=== PATIENT | male | born 1965 | race Caucasian/White ===

== ENCOUNTER 2019-04-09 09:26 | Emergency (ER) | payer BC ==
[2019-04-09 09:49] VITALS: TEMP 99.8
[2019-04-09] MEDS ORDERED: SODIUM CHLORIDE 0.9% 500 ML 500 ML IV STA (10:06)
[2019-04-09 10:22] LABS: Basophils # (A) 0.1 k/uL (0-0.2); Basophils % (A) 1 %; Eosinophils # (A) 0.1 k/uL (0-0.7); Eosinophils % (A) 1 %; HCT 45.1 % (39.0-53.0); HGB 14.9 gm/dL (13.0-17.5); Lymphocytes % (A) 14 %; MCH 29.4 pg (25.0-35.0); MCHC 33.1 g/dL (31.0-37.0); Mean Platelet Volume 7.3; Monocytes # (A) 0.4 k/uL (0-1.0); Monocytes % (A) 6 %; Neutrophils # (A) 5.5 k/uL (1.3-7.7); Neutrophils % (A) 76 %; Platelet Count 253 k/uL (150-450); RBC 5.07 m/uL (4.30-5.90); RDW 12.6 % (11.5-15.5); WBC 7.2 k/uL (3.8-10.6)
[2019-04-09 10:31] LABS: INR 0.9 (<1.2); Partial Thromboplastin Time 27.6 sec (22.0-30.0); Prothrombin Time 9.7 sec (9.0-12.0)
--- NOTE | 2019-04-09 10:31 | ED ---
General Adult HPI - General Source: patient, RN notes reviewed Mode of arrival: ambulatory Limitations: no limitations <Leo Kinsey - Last Filed: 04/09/19 11:49> <Gwen Rojas - Last Filed: 04/11/19 22:06> - General Chief complaint: Chest Pain Stated complaint: poss pneumonia/FER Time Seen by Provider: 04/09/19 09:57 - History of Present Illness Initial comments: 53-year-old male with a past medical history hypertension presents to the emergency department for chief complaint of cough. Patient has had congestion for the past 2 weeks. States that 4 days ago started to settle in his chest. States he now has a cough. States that since that time he has had fevers on and off. States he has been taking Motrin to help with this which does help with his body aches. Patient is concerned he may have pneumonia. Patient took a ten-day course of amoxicillin for sinus infection that he had already finished. This was started 2 weeks ago. He was subsequently started on a Z-Soren which he has taken 3 days of for his cough. He has not had improvement in symptoms. States that coughing causes chest pain. Denies smoking history. Denies any associated shortness of breath. Patient has no other complaints at this time including shortness of breath, abdominal pain, nausea or vomiting, headache, or visual changes. (Leo Kinsey) - Related Data Previous Rx's Medication Instructions Recorded Albuterol Inhaler [Ventolin Hfa 1 - 2 puff INHALATION Q6HR PRN #1 04/09/19 Inhaler] inhaler predniSONE 50 mg PO DAILY #5 tablet 04/09/19 Allergies Allergy/AdvReac Type Severity Reaction Status Date / Time No Known Allergies Allergy Verified 04/09/19 09:49 Review of Systems ROS Other: All systems not noted in ROS Statement are negative. <Leo Kinsey - Last Filed: 04/09/19 11:49> ROS Other: All systems not noted in ROS Statement are negative. <Gwen Rojas - Last Filed: 04/11/19 22:06> ROS Statement: Those systems with pertinent positive or pertinent negative responses have been documented in the HPI. Past Medical History Past Medical History: Hypertension History of Any Multi-Drug Resistant Organisms: None Reported Past Surgical History: Orthopedic Surgery Past Psychological History: No Psychological Hx Reported Smoking Status: Never smoker Past Alcohol Use History: None Reported Past Drug Use History: None Reported <Leo Kinsey - Last Filed: 04/09/19 11:49> General Exam Limitations: no limitations General appearance: alert, in no apparent distress Head exam: Present: atraumatic, normocephalic, normal inspection Eye exam: Present: normal appearance, PERRL, EOMI. Absent: scleral icterus, conjunctival injection, periorbital swelling ENT exam: Present: normal exam, normal oropharynx, mucous membranes moist, TM's normal bilaterally, normal external ear exam Neck exam: Present: normal inspection, full ROM. Absent: tenderness, meningismus, lymphadenopathy Respiratory exam: Present: normal lung sounds bilaterally, chest wall tenderness (anterior reproducible chest wall pain). Absent: respiratory distress, wheezes, rales, rhonchi, stridor Cardiovascular Exam: Present: regular rate, normal rhythm, normal heart sounds. Absent: systolic murmur, diastolic murmur, rubs, gallop, clicks GI/Abdominal exam: Present: soft, normal bowel sounds. Absent: distended, tenderness, guarding, rebound, rigid Neurological exam: Present: alert, oriented X3 <Leo Kinsey P - Last Filed: 04/09/19 11:49> Course Vital Signs 04/09/19 04/09/19 04/09/19 09:45 10:30 11:00 Temperature 99.8 F H Pulse Rate 99 87 82 Respiratory 22 19 Rate Blood Pressure 135/88 139/91 139/95 O2 Sat by Pulse 98 96 96 Oximetry 04/09/19 11:30 Temperature Pulse Rate 74 Respiratory 20 Rate Blood Pressure 139/93 O2 Sat by Pulse 97 Oximetry EKG Findings - EKG Comments: EKG Findings:: Normal sinus rhythm, ventricular rate 88, ME interval and 56, QTC 428 <Leo Kinsey - Last Filed: 04/09/19 11:49> Medical Decision Making - Lab Data Result diagrams: 04/09/19 10:07 04/09/19 10:07 <Leo Kinsey - Last Filed: 04/09/19 11:49> - Lab Data Result diagrams: 04/09/19 10:07 04/09/19 10:07 <wGen Rojas - Last Filed: 04/11/19 22:06> - Medical Decision Making Vitals are stable. Patient is well-appearing. He does have a low-grade fever of 99.8. Lungs are clear to addition bilaterally. Patient does have reproducible chest pain. Chest pain only when coughing. CBC is unremarkable. CMP does show elevated creatinine of 1.85 and a BUN of 30. I did speak with Dr. Mejias's office and baseline creatinine is 1.5, baseline GFR 52.4, patient given 1.5 L of fluids. Patient tested positive for influenza a. Chest x-ray shows no acute process. Patient's antibiotics are likely not working given viral nature of disease process. At this point patient can follow up outpatient. I did discuss not taking Motrin given his kidney function and to take Tylenol instead. He will also be given Tylenol 3. Patient is outside of the window for Tamiflu. I discussed the risk versus benefits of this and at this time he decided not to start Tamiflu. Patient will be given steroids and albuterol inhaler. I recommended he follow up with his primary care provider this week to repeat his kidney function as it is minimally worsened compared to his baseline. I recommended he return here with any worsening symptoms which she does agree. (Leo Kinsey) I was available for consultation in the emergency department. The history and physical exam were done by the midlevel provider. I was consulted for this patients care. I reviewed the case with the midlevel provider and based on their presentation of the patient, I agree with the assessment, medical decision making and plan of care as documented. Chart was dictated using Be[employer] dictation software. Attempts were made to correct any dictation errors however some typographical errors may persist. (Gwen Rojas) - Lab Data Lab Results 04/09/19 04/09/19 04/09/19 Range/Units 10:07 10:07 10:07 WBC 7.2 (3.8-10.6) k/uL RBC 5.07 (4.30-5.90) m/uL Hgb 14.9 (13.0-17.5) gm/dL Hct 45.1 (39.0-53.0) % MCV 89.0 (80.0-100.0) fL MCH 29.4 (25.0-35.0) pg MCHC 33.1 (31.0-37.0) g/dL RDW 12.6 (11.5-15.5) % Plt Count 253 (150-450) k/uL Neutrophils % 76 % Lymphocytes % 14 % Monocytes % 6 % Eosinophils % 1 % Basophils % 1 % Neutrophils # 5.5 (1.3-7.7) k/uL Lymphocytes # 1.0 (1.0-4.8) k/uL Monocytes # 0.4 (0-1.0) k/uL Eosinophils # 0.1 (0-0.7) k/uL Basophils # 0.1 (0-0.2) k/uL PT 9.7 (9.0-12.0) sec INR 0.9 (<1.2) APTT 27.6 (22.0-30.0) sec Sodium 139 (137-145) mmol/L Potassium 4.2 (3.5-5.1) mmol/L Chloride 108 H (98-107) mmol/L Carbon Dioxide 21 L (22-30) mmol/L Anion Gap 10 mmol/L BUN 30 H (9-20) mg/dL Creatinine 1.85 H (0.66-1.25) mg/dL Est GFR (CKD-EPI)AfAm 48 (>60 ml/min/1.73 sqM) Est GFR (CKD-EPI)NonAf 41 (>60 ml/min/1.73 sqM) Glucose 105 H (74-99) mg/dL Calcium 8.7 (8.4-10.2) mg/dL Magnesium 1.9 (1.6-2.3) mg/dL Total Bilirubin 0.3 (0.2-1.3) mg/dL AST 30 (17-59) U/L ALT 23 (4-49) U/L Alkaline Phosphatase 85 (38-126) U/L Troponin I (0.000-0.034) ng/mL NT-Pro-B Natriuret Pep pg/mL Total Protein 7.1 (6.3-8.2) g/dL Albumin 3.8 (3.5-5.0) g/dL Amylase 56 (30-110) U/L Lipase 162 (23-300) U/L Influenza Type A RNA (Not Detectd) Influenza Type B (PCR) (Not Detectd) 04/09/19 04/09/19 04/09/19 Range/Units 10:07 10:07 10:30 WBC (3.8-10.6) k/uL RBC (4.30-5.90) m/uL Hgb (13.0-17.5) gm/dL Hct (39.0-53.0) % MCV (80.0-100.0) fL MCH (25.0-35.0) pg MCHC (31.0-37.0) g/dL RDW (11.5-15.5) % Plt Count (150-450) k/uL Neutrophils % % Lymphocytes % % Monocytes % % Eosinophils % % Basophils % % Neutrophils # (1.3-7.7) k/uL Lymphocytes # (1.0-4.8) k/uL Monocytes # (0-1.0) k/uL Eosinophils # (0-0.7) k/uL Basophils # (0-0.2) k/uL PT (9.0-12.0) sec INR (<1.2) APTT (22.0-30.0) sec Sodium (137-145) mmol/L Potassium (3.5-5.1) mmol/L Chloride (98-107) mmol/L Carbon Dioxide (22-30) mmol/L Anion Gap mmol/L BUN (9-20) mg/dL Creatinine (0.66-1.25) mg/dL Est GFR (CKD-EPI)AfAm (>60 ml/min/1.73 sqM) Est GFR (CKD-EPI)NonAf (>60 ml/min/1.73 sqM) Glucose (74-99) mg/dL Calcium (8.4-10.2) mg/dL Magnesium (1.6-2.3) mg/dL Total Bilirubin (0.2-1.3) mg/dL AST (17-59) U/L ALT (4-49) U/L Alkaline Phosphatase (38-126) U/L Troponin I <0.012 (0.000-0.034) ng/mL NT-Pro-B Natriuret Pep 47 pg/mL Total Protein (6.3-8.2) g/dL Albumin (3.5-5.0) g/dL Amylase (30-110) U/L Lipase (23-300) U/L Influenza Type A RNA Detected H (Not Detectd) Influenza Type B (PCR) Not Detected (Not Detectd) Disposition Is patient prescribed a controlled substance at d/c from ED?: No Time of Disposition: 11:51 <Leo Kinsey - Last Filed: 04/09/19 11:49> <Gwen Rojas - Last Filed: 04/11/19 22:06> Clinical Impression: Influenza A Disposition: HOME SELF-CARE Condition: Fair Instructions (If sedation given, give patient instructions): Influenza (ED) Additional Instructions: Please take Tylenol for pain and fever. Do not take Motrin. Follow-up with your primary care provider this week to repeat your kidney function levels. Drink plenty of fluids. If you have any worsening symptoms return here to the emergency department. Prescriptions: predniSONE 50 mg PO DAILY #5 tablet Albuterol Inhaler [Ventolin Hfa Inhaler] 1 - 2 puff INHALATION Q6HR PRN #1 inhaler PRN Reason: Shortness Of Breath Referrals: Jamel Kothari MD [Primary Care Provider] - 1-2 days
[2019-04-09 10:32] LABS: Albumin 3.8 g/dL (3.5-5.0); Calcium 8.7 mg/dL (8.4-10.2); Magnesium 1.9 mg/dL (1.6-2.3); Potassium 4.2 mmol/L (3.5-5.1); Total Bilirubin 0.3 mg/dL (0.2-1.3); Total Protein 7.1 g/dL (6.3-8.2)
--- NOTE | 2019-04-09 10:43 | XR ---
EXAMINATION TYPE: XR chest 2V DATE OF EXAM: 04/09/2019 COMPARISON: NONE HISTORY: Chest pain. TECHNIQUE: Frontal and lateral views of the chest are obtained. FINDINGS: Overlying EKG leads are present. There is no focal air space opacity, pleural effusion, or pneumothorax seen. The cardiac silhouette size is within normal limits. The osseous structures are intact. IMPRESSION: No acute process.
[2019-04-09] MEDS ORDERED: ACETAMINOPHEN TAB 500 MG TAB PO STA (10:53)
[2019-04-09] MEDS ORDERED: SODIUM CHLORIDE 0.9% 1,000 ML IV STA (10:53)
[2019-04-09 11:34] VITALS: BP 139/93; PULSE 74; RESP 20
[2019-04-09] MEDS ORDERED: ACET/COD 300 MG/30 MG STARTER PACK 6 TAB BTL PO STA (11:52)
== END 2019-04-09 12:02 | disposition home or self-care (01) ==
LOC: EC 09:26
DX: J10.1 Influenza due to other identified influenza virus with other respiratory manifestations (principal); I10 Essential (primary) hypertension
CPT/HCPCS: 36415; 71046; 80053; 82150; 83690; 83735; 83880; 84484; 85025; 85610; 85730; 87502; 93005; 96360; 96361; 99285

== ENCOUNTER → 2019-05-11 | Outpatient (CLI) | payer BC ==
--- NOTE | 2019-05-13 18:56 | CT ---
EXAMINATION TYPE: CT abdomen pelvis wo con DATE OF EXAM: 05/11/2019 COMPARISON: None HISTORY: Renal Stones CT DLP: 481 mGycm Examination of the solid and hollow viscera is limited given the lack of contrast. FINDINGS: LUNG BASES: No evidence for nodule. No evidence for infiltrate. LIVER/GB: The gallbladder is unremarkable. No space-occupying hepatic lesion. PANCREAS: No pancreatic mass identified. No inflammatory process seen. SPLEEN: No evidence for splenomegaly. No intrasplenic lesions seen. ADRENALS: No adrenal nodules identified. No evidence for thickening. KIDNEYS: No evidence for renal mass. Bilateral nephrolithiasis without dependent calculi identified l eft kidney measuring up to 5 mm in 5-6 calculi right kidney measuring up to 5 mm as well. No hydronep hrosis. BOWEL: Appendix has a normal appearance. No evidence of bowel obstruction. No inflammatory process. Lymph nodes: No evidence for adenopathy greater than 1 cm. Abdominal aorta: Atheromatous changes seen. No evidence for aneurysm. Genital organs: No significant abnormality. Other: No significant abnormality. IMPRESSION: BILATERAL NONOBSTRUCTING NEPHROLITHIASIS.
== END | disposition home or self-care (01) ==
LOC: RADCTMAIN 08:57
PROVIDERS: ATTEND Family Medicine
DX: N20.0 Calculus of kidney (principal)
CPT/HCPCS: 74176

== ENCOUNTER → 2019-10-05 | Outpatient (CLI) | payer BC ==
--- NOTE | 2019-10-05 14:50 | US ---
EXAMINATION TYPE: US kidneys/renal and bladder DATE OF EXAM: 10/05/2019 COMPARISON: CLINICAL HISTORY: N20.0 CALCULUS OF KIDNEYS. Hx renal stones with surgical removal. No pain at this t theodore. EXAM MEASUREMENTS: Right Kidney: 10.0 x 5.3 x 5.6 cm Left Kidney: 10.7 x 4.8 x 6.1 cm Right Kidney: No hydronephrosis or masses seen Left Kidney: No hydronephrosis or masses seen Bladder: distended, anechoic Bilateral Jets seen IMPRESSION: 1. Normal renal ultrasound
== END | disposition home or self-care (01) ==
LOC: RADUSWWP 14:20
PROVIDERS: ATTEND Urology
DX: N20.0 Calculus of kidney (principal)
CPT/HCPCS: 76770

== ENCOUNTER → 2020-03-03 | Outpatient (CLI) | payer BC ==
--- NOTE | 2020-03-03 12:00 | CT ---
EXAMINATION TYPE: CT sinus wo con DATE OF EXAM: 03/03/2020 COMPARISON: Chronic sinusitis HISTORY: Chronic Sinusitis CT DLP: 591 mGycm. Automated Exposure Control for Dose Reduction was Utilized. TECHNIQUE: CT scan of the sinuses is performed without contrast, axial images are obtained, coronal r eformatted images are also reviewed. FINDINGS: There is moderate to severe ethmoidal mucosal thickening and left maxillary sinus mucosal t hickening with occlusion of the left ostiomeatal complex. Localized right-sided mucosal thickening to a mild degree within the maxillary sinus with the occlusion of the right ostiomeatal complex. No air -fluid levels. Mild callosal thickening involving the sphenoid sinus. Frontal sinuses hypoplastic but demonstrates c omplete opacification. Visualized portion of mastoid air cells show no abnormal opacification. The g lobes are intact bilaterally. IMPRESSION: 1. Significant changes of sinusitis greater on the left with bilateral occlusion of the ostiomeatal c omplex. Pattern of disease appears most typical of chronic sinusitis. Correlate clinically.
== END | disposition home or self-care (01) ==
LOC: RADCTMAIN 11:04
PROVIDERS: ATTEND Otolaryngology
DX: J32.9 Chronic sinusitis, unspecified (principal); J34.89 Other specified disorders of nose and nasal sinuses
CPT/HCPCS: 70486

== ENCOUNTER 2022-08-09 09:36 | Emergency (ER) | payer BC ==
--- NOTE | 2022-08-09 10:15 | ED ---
General Adult HPI - General Chief complaint: Extremity Injury, Upper Stated complaint: fall - rt wrist injury Time Seen by Provider: 08/09/22 09:38 Source: patient Mode of arrival: ambulatory Limitations: no limitations - History of Present Illness Initial comments: Dictation was produced using [employer] dictation software. please excuse any grammatical, word or spelling errors. Chief Complaint: 57-year-old male recently admitted for neck infection presents to the ER with head pain and coccyx pain after fall. History of Present Illness: Patient is 57-year-old male who was recently admitted to the hospital for what he describes as a neck infection. He was hospitalized for 9 days. He is discharged. He rented a hotel to try and get some sleep last week. Patient states that he was trying it the bathroom for shower when he fell. He said he broke with and started to fall backwards. He states that he reached out with his right hand. Patient states that the fall happened last week. States it is here today because he feels like the pain is not getting better. Localizes pain to his metacarpal bones. He also has coccyx pain. Patient able to ambulate. The ROS documented in this emergency department record has been reviewed and confirmed by me. Those systems with pertinent positive or negative responses have been documented in the HPI. All other systems are other negative and/or noncontributory. - Related Data Previous Rx's Medication Instructions Recorded Albuterol Inhaler [Ventolin Hfa 1 - 2 puff INHALATION Q6HR PRN #1 04/09/19 Inhaler] inhaler predniSONE 50 mg PO DAILY #5 tablet 04/09/19 Allergies Allergy/AdvReac Type Severity Reaction Status Date / Time No Known Allergies Allergy Verified 04/09/19 09:49 Review of Systems ROS Statement: Those systems with pertinent positive or pertinent negative responses have been documented in the HPI. ROS Other: All systems not noted in ROS Statement are negative. Past Medical History Past Medical History: Hypertension Additional Past Medical History / Comment(s): bone throat infection History of Any Multi-Drug Resistant Organisms: None Reported Past Surgical History: Orthopedic Surgery Past Psychological History: No Psychological Hx Reported Past Alcohol Use History: None Reported Past Drug Use History: None Reported General Exam - General Exam Comments Initial Comments: PHYSICAL EXAM: General Impression: Alert and oriented x3, not in acute distress HEENT: Normocephalic atraumatic, extra-ocular movements intact, pupils equal and reactive to light bilaterally, mucous membranes moist. Cardiovascular: Heart regular rate and rhythm Chest: Able to complete full sentences, no retractions, no tachypnea Abdomen: abdomen soft, non-tender, non-distended, no organomegaly Musculoskeletal: Pulses present and equal in all extremities, no peripheral edema Motor: no focal deficits noted Neurological: CN II-XII grossly intact, no focal motor or sensory deficits noted Skin: Intact with no visualized rashes Psych: Normal affect and mood Right hand: Some bruising and ecchymosis over the middle metacarpal bones. Sacrum: Palpatory tenderness without any skin changes or induration Limitations: no limitations Course Vital Signs 08/09/22 09:41 Temperature 97.8 F Pulse Rate 89 Respiratory 16 Rate Blood Pressure 148/95 O2 Sat by Pulse 96 Oximetry - Reevaluation(s) Reevaluation #1: 08/09/22 10:17 Patient evaluated in ER room #30. Patient in no acute distress. Triage vital signs reviewed found to be within acceptable limits. Medical Decision Making - Medical Decision Making Was pt. sent in by a medical professional or institution (, PA, BASE REMOVER, urgent care, hospital, or shelter...) When possible be specific @ -No Did you speak to anyone other than the patient for history (EMS, parent, family, police, friend...)? What history was obtained from this source @ -No Did you review nursing and triage notes (agree or disagree)? Why? @ -I reviewed and agree with nursing and triage notes Were old charts reviewed (outside hosp., previous admission, EMS record, old EKG, old radiological studies, urgent care reports/EKG's, shelter records)? Report findings @ -No old charts were reviewed Differential Diagnosis (chest pain, altered mental status, abdominal pain women, abdominal pain men, vaginal bleeding, musculoskeletal, weakness, fever, dyspnea, syncope, headache, dizziness, GI bleed, back pain, seizure, CVA, palpatations, mental health)? @ -not applicable EKG interpreted by me (3pts min.). @ -None done X-rays interpreted by me (1pt min.). @ -Hand x-ray and wrist x-ray unremarkable. Sacrum/coccyx x-ray is unremarkable. CT interpreted by me (1pt min.). @ -None done U/S interpreted by me (1pt. min.). @ -None done What testing was considered but not performed or refused? (CT, X-rays, U/S, labs)? Why? @ -None What meds were considered but not given or refused? Why? @ -None Did you discuss the management of the patient with other professionals (professionals i.e. DrAbdifatah, PA, BASE REMOVER, lab, RT, psych nurse, foster care social worker, bee worker, teacher, donor relations officer, case technician)? Give summary @ -No Was smoking cessation discussed for >3mins.? @ -No Was critical care preformed (if so, how long)? @ -No Were there social determinants of health that impacted care today? How? (Homelessness, low income, unemployed, alcoholism, drug addiction, transportation, low edu. Level, literacy, decrease access to med. care, longterm, rehab)? @ -No Was there de-escalation of care discussed even if they declined (Discuss DNR or withdrawal of care, Hospice)? DNR status @ -No What co-morbidities impacted this encounter? (DM, HTN, Smoking, COPD, CAD, Cancer, CVA, ARF, Chemo, Hep., AIDS, mental health diagnosis, sleep apnea, morbid obesity)? @ -None Was patient admitted / discharged? Hospital course, mention meds given and route, prescriptions, significant lab abnormalities, going to OR and other pertinent info. @ -57 Year-old male presents with hand pain and tailbone pain after fall last week. X-rays unremarkable. Patient be discharged. Undiagnosed new problem with uncertain prognosis? @ -No Drug Therapy requiring intensive monitoring for toxicity (Heparin, Nitro, Insulin, Cardizem)? @ -No Were any procedures done? @ -No Diagnosis/symptom? Acute, or Chronic, or Acute on Chronic? Uncomplicated (with out systemic symptoms) or Complicated (systemic symptoms)? @ -1. Fall Side effects of treatment? @ -No Exacerbation, Progression, or Severe Exacerbation? @ -No Poses a threat to life or bodily function? How? (Chest pain, [place], [place], pneumonia, PE, COPD, DKA, ARF, appy, cholecystitis, CVA, Diverticulitis, Homicidal, Suicidal, threat to staff... and all critical care pts) @ -No Disposition Clinical Impression: Wrist pain, Coccyx pain Disposition: HOME SELF-CARE Condition: Good Instructions (If sedation given, give patient instructions): Wrist Injury (ED) Is patient prescribed a controlled substance at d/c from ED?: No Referrals: Jamel Kothari MD [Primary Care Provider] - 1-2 days Time of Disposition: 10:47
--- NOTE | 2022-08-09 10:29 | XR ---
EXAMINATION TYPE: XR hand complete RT, XR wrist limited RT DATE OF EXAM: 08/09/2022 CLINICAL HISTORY: pain TECHNIQUE: Frontal, lateral and oblique images of the right hand and wrist are obtained. COMPARISON: None. FINDINGS: There is no acute fracture/dislocation evident. The joint spaces appear within normal limi ts. The overlying soft tissue appears unremarkable. IMPRESSION: There is no acute fracture or dislocation ICD 10 NO FRACTURE, INITIAL EVALUATION
--- NOTE | 2022-08-09 10:30 | XR ---
EXAMINATION TYPE: XR sacrum coccyx DATE OF EXAM: 08/09/2022 CLINICAL HISTORY: pain TECHNIQUE: Three views of the sacrum and coccyx are submitted. COMPARISON: None Sacral alae appear symmetric. No evidence for fracture or bony lesion. Sacroiliac joints are within normal limits. Visualized coccygeal segments are free of fracture or lesion. IMPRESSION: Normal study
[2022-08-09 10:54] VITALS: BP 153/92; PULSE 76; RESP 18; TEMP 98.3
== END 2022-08-09 10:54 | disposition home or self-care (01) ==
LOC: EC 09:36
DX: M25.531 Pain in right wrist (principal); M53.3 Sacrococcygeal disorders, not elsewhere classified; I10 Essential (primary) hypertension; W18.2XXA Fall in (into) shower or empty bathtub, initial encounter; Y92.002 Bathroom of unspecified non-institutional (private) residence as the place of occurrence of the external cause
CPT/HCPCS: 72220; 99283

== ENCOUNTER 2022-08-13 10:40 | Inpatient (IN) | payer BC ==
[2022-08-13] MEDS ORDERED: SODIUM CHLORIDE 0.9% 1,000 ML IV STA (11:11)
[2022-08-13] MEDS ORDERED: RX INFO: IV CONTRAST WAS GIVEN 1 EACH MISC MISCELLANE PRN (11:12)
[2022-08-13] MEDS ORDERED: ACETAMINOPHEN IV (For NPO) 1,000 MG in EMPTY BAG 1 BAG IVPB STA (11:12)
[2022-08-13] MEDS ORDERED: HYDROmorphone 0.5 MG/0.5 ML SYRINGE IVP STA (11:14)
[2022-08-13] MEDS ORDERED: SODIUM CHLORIDE 0.9% 2,000 ML IV STA (11:14)
[2022-08-13 11:39] LABS: Anisocytosis Slight; Basophils % (A) 0 %; Eosinophils # (A) 0.1 k/uL (0-0.7); Eosinophils % (A) 1 %; HCT 34.4 % (39.0-53.0); HGB 11.4 gm/dL (13.0-17.5); Lymphocytes # (A) 0.5 k/uL (1.0-4.8); Lymphocytes % (A) 5 %; MCH 30.6 pg (25.0-35.0); MCV 92.6 fL (80.0-100.0); Monocytes # (A) 0.3 k/uL (0-1.0); Monocytes % (A) 3 %; Neutrophils # (A) 8.8 k/uL (1.3-7.7); Neutrophils % (A) 92 %; Platelet Count 352 k/uL (150-450); RBC 3.72 m/uL (4.30-5.90); WBC 9.6 k/uL (3.8-10.6)
--- NOTE | 2022-08-13 11:42 | ED ---
Fever HPI - General Chief Complaint: Fever Stated Complaint: Fever, weakness, failure to thrive Time Seen by Provider: 08/13/22 11:02 Source: patient, RN notes reviewed Mode of arrival: ambulatory Limitations: no limitations - History of Present Illness Initial Comments: This is a 57-year-old male who presents to the emergency department for a fever. Patient has a long-standing history of chronic sinusitis. He recently had 2, 4 day admissions at [facility] due to the severity of his symptoms and being unable to eat or speak. He was discharged home each time. He presented a third time, and one of the providers called a friend of his at [facility]. He was subsequently transferred there and admitted for 9 days. A PICC line was placed and he is currently receiving antibiotics at the infusion center here daily. When he went there today, he was found to have a fever and was instructed to come to the emergency department. Reports increasing fatigue and weakness over the last several days. He is concerned that he may have pneumonia because of all of the coughing he has started to develop. Additionally, states that he had been using moisturizing nasal spray which was very helpful. However, when he ran out of this, he went to the store and accidentally purchased "salt spray", which he states made everything worse and gave him an infection. He has since started to develop much more severe pain in the nose and throat. Denies any dyspnea, chest pain, palpitations, abdominal pain, nausea, vomiting, diarrhea, back pain, or headaches. MD Complaint: fever - Related Data Home Medications Medication Instructions Recorded Confirmed Escitalopram [Lexapro] 10 mg PO DAILY 08/13/22 08/13/22 HYDROcodone/APAP 5-325MG [[place] 1 tab PO QID PRN 08/13/22 08/13/22 5-325] LORazepam [Ativan] 0.5 mg PO DAILY PRN 08/13/22 08/13/22 Levothyroxine Sodium [Synthroid] 50 mcg PO DAILY 08/13/22 08/13/22 Nystatin 100,000 Unit/ml Susp 5 ml PO QID 08/13/22 08/13/22 [Mycostatin Oral Susp] Pantoprazole [Protonix] 40 mg PO DAILY 08/13/22 08/13/22 Sodium Chloride 0.65% Nasal [Deep 1 spray NASAL QID PRN 08/13/22 08/13/22 Sea (Saline)] amLODIPine [Norvasc] 5 mg PO DAILY 08/13/22 08/13/22 oxyCODONE HCL [OxyIR] 5 mg PO Q4H PRN 08/13/22 08/13/22 predniSONE See Taper PO DIRECTED 08/13/22 08/13/22 traZODone HCL [Desyrel] 50 mg PO HS 08/13/22 08/13/22 Allergies Allergy/AdvReac Type Severity Reaction Status Date / Time No Known Allergies Allergy Verified 08/13/22 14:54 Review of Systems ROS Statement: Those systems with pertinent positive or pertinent negative responses have been documented in the HPI. ROS Other: All systems not noted in ROS Statement are negative. Past Medical History Past Medical History: Hypertension Additional Past Medical History / Comment(s): bone throat infection History of Any Multi-Drug Resistant Organisms: None Reported Past Surgical History: Orthopedic Surgery Past Psychological History: No Psychological Hx Reported Smoking Status: Never smoker Past Alcohol Use History: None Reported Past Drug Use History: None Reported - Past Family History Mother Family Medical History: Dialysis General Exam Limitations: no limitations General appearance: alert, in no apparent distress Head exam: Present: atraumatic, normocephalic, normal inspection ENT exam: Present: other (Large area of crusting and brown material underneath the nose.) Respiratory exam: Present: normal lung sounds bilaterally. Absent: respiratory distress, wheezes, rales, rhonchi, stridor Cardiovascular Exam: Present: regular rate, normal rhythm, normal heart sounds. Absent: systolic murmur, diastolic murmur, rubs, gallop, clicks Neurological exam: Present: alert, oriented X3, CN II-XII intact Psychiatric exam: Present: normal affect, normal mood Course Vital Signs 08/13/22 08/13/22 08/13/22 10:58 13:37 17:19 Temperature 101.6 F H 98.8 F 98.2 F Pulse Rate 104 H 88 Respiratory 20 18 20 Rate Blood Pressure 125/85 136/89 146/95 O2 Sat by Pulse 99 98 Oximetry Medical Decision Making - Medical Decision Making This is a 57-year-old male who presents to the emergency department for a fever. Was pt. sent in by a medical professional or institution? @ -The infusion center Did you speak to anyone other than the patient for history? @ -No Did you review nursing and triage notes? @ -Yes, and I agree, it is accurate with regards to the patient's symptoms. Were old charts reviewed? @ -No Differential Diagnosis? @ -Differential Fever: Pneumonia, viral URI, endocarditis, myocarditis, pericarditis, otitis, sinusitis, peritonsillar Abscess, retropharyngeal Abscess, epiglottitis, peritonitis, appendicitis, Jana cystitis, diverticulitis, hepatitis, colitis, UTI, PID, TOA, pyelonephritis, prostatitis, epididymitis, meningitis, encephalitis, pulmonary embolism, CVA, thyroid storm, pancreatitis, adrenal crisis, cavernous sinus thrombosis, this is not meant to be an all-inclusive list. EKG interpreted by me (3pts min.)? @ -Not obtained X-rays interpreted by me (1pt min.)? @ -Chest x-ray obtained revealing multifocal opacities in the right lung. CT interpreted by me (1pt min.)? @ -Not interpreted by me U/S interpreted by me (1pt. min.)? @ -Not obtained What testing was considered but not performed? (CT, X-rays, U/S, labs)? Why? @ -None What meds were considered but not given? Why? @ -None Did you discuss the management of the patient with other professionals? @ -Yes, Dr. Pizarro, who accepts the patient for admission. Did you reconcile home meds? @ -Yes Was smoking cessation discussed for >3mins.? @ -No Was critical care preformed (if so, how long)? @ -No Were there social determinants of health that impacted care today? How? (Homelessness, low income, unemployed, alcoholism, drug addiction, transportation, low edu. Level, literacy, decrease access to med. care, residential, rehab)? @ -No Was there de-escalation of care discussed even if they declined? (Discuss DNR or withdrawal of care, Hospice)? @ -No What co-morbidities impacted this encounter? (DM, HTN, Smoking, COPD, CAD, Cancer, CVA, Hep., AIDS, mental health diagnosis, sleep apnea, morbid obesity)? @ -HTN, chronic sinusitis Was patient admitted / discharged? @ -Admitted. Patient was febrile and tachycardic on arrival. Lab work obtained revealing no evidence of leukocytosis. However he did have a notably elevated CRP of 14.8. Chest x-ray obtained revealing multifocal right lobe pneumonia. We also obtained a computed tomography scan of the brain and soft tissue neck. This revealed severe acute on chronic paranasal sinus disease and multiple pharyngeal inflammatory changes causing subglottic airway narrowing. Patient is barely able to have a conversation without coughing and seems to be choking on saliva very frequently. With the fever and tachycardia, he does meet septic criteria. He was given 2 L bolus of IV fluids and started on broad- spectrum antibiotics including vancomycin and a dose of ceftriaxone with blood cultures obtained prior. Patient admitted to medicine for further management. ENT and infectious disease consults placed well. A pured diet was ordered, as he is essentially only able to eat soft foods right now due to the pain and swelling in his throat. @ -None Drug Therapy requiring intensive monitoring for toxicity (Heparin, Nitro, Insulin, Cardizem)? @ -None Were any procedures done? @ -None Diagnosis/symptom? @ -Sepsis, pneumonia Acute, or Chronic, or Acute on Chronic? @ -Acute Uncomplicated (without systemic symptoms) or Complicated (systemic symptoms)? @ -Complicated Side effects of treatment? @ -None Exacerbation, Progression, or Severe Exacerbation] @ -Not applicable Poses a threat to life or bodily function? @ -Yes This case was discussed in detail with the attending ED physician, Dr. Ellis. Presentation, findings, and treatment plan discussed in detail as well. - Lab Data Result diagrams: 08/15/22 04:41 08/15/22 04:41 Lab Results 08/13/22 08/13/22 08/13/22 Range/Units 11:15 11:15 11:15 WBC 9.6 (3.8-10.6) k/uL RBC 3.72 L (4.30-5.90) m/uL Hgb 11.4 L (13.0-17.5) gm/dL Hct 34.4 L (39.0-53.0) % MCV 92.6 (80.0-100.0) fL MCH 30.6 (25.0-35.0) pg MCHC 33.0 (31.0-37.0) g/dL RDW 16.0 H (11.5-15.5) % Plt Count 352 (150-450) k/uL MPV 7.0 Neutrophils % 92 % Lymphocytes % 5 % Monocytes % 3 % Eosinophils % 1 % Basophils % 0 % Neutrophils # 8.8 H (1.3-7.7) k/uL Lymphocytes # 0.5 L (1.0-4.8) k/uL Monocytes # 0.3 (0-1.0) k/uL Eosinophils # 0.1 (0-0.7) k/uL Basophils # 0.0 (0-0.2) k/uL Anisocytosis Slight PT (9.0-12.0) sec INR (<1.2) APTT (22.0-30.0) sec Sodium 135 L (137-145) mmol/L Potassium 4.4 (3.5-5.1) mmol/L Chloride 106 (98-107) mmol/L Carbon Dioxide 21 L (22-30) mmol/L Anion Gap 8 mmol/L BUN 33 H (9-20) mg/dL Creatinine 1.02 (0.66-1.25) mg/dL Est GFR (CKD-EPI)AfAm >90 (>60 ml/min/1.73 sqM) Est GFR (CKD-EPI)NonAf 83 (>60 ml/min/1.73 sqM) Glucose 127 H (74-99) mg/dL Plasma Lactic Acid Yevgeniy 0.9 (0.7-2.0) mmol/L Calcium 8.2 L (8.4-10.2) mg/dL Total Bilirubin 0.7 (0.2-1.3) mg/dL AST 31 (17-59) U/L ALT 23 (4-49) U/L Alkaline Phosphatase 49 (38-126) U/L C-Reactive Protein 14.8 H (<1.0) mg/dL Total Protein 5.7 L (6.3-8.2) g/dL Albumin 2.9 L (3.5-5.0) g/dL Procalcitonin (0.02-0.09) ng/mL 08/13/22 08/13/22 Range/Units 11:15 11:22 WBC (3.8-10.6) k/uL RBC (4.30-5.90) m/uL Hgb (13.0-17.5) gm/dL Hct (39.0-53.0) % MCV (80.0-100.0) fL MCH (25.0-35.0) pg MCHC (31.0-37.0) g/dL RDW (11.5-15.5) % Plt Count (150-450) k/uL MPV Neutrophils % % Lymphocytes % % Monocytes % % Eosinophils % % Basophils % % Neutrophils # (1.3-7.7) k/uL Lymphocytes # (1.0-4.8) k/uL Monocytes # (0-1.0) k/uL Eosinophils # (0-0.7) k/uL Basophils # (0-0.2) k/uL Anisocytosis PT 10.3 (9.0-12.0) sec INR 1.0 (<1.2) APTT 21.8 L (22.0-30.0) sec Sodium (137-145) mmol/L Potassium (3.5-5.1) mmol/L Chloride (98-107) mmol/L Carbon Dioxide (22-30) mmol/L Anion Gap mmol/L BUN (9-20) mg/dL Creatinine (0.66-1.25) mg/dL Est GFR (CKD-EPI)AfAm (>60 ml/min/1.73 sqM) Est GFR (CKD-EPI)NonAf (>60 ml/min/1.73 sqM) Glucose (74-99) mg/dL Plasma Lactic Acid Yevgeniy (0.7-2.0) mmol/L Calcium (8.4-10.2) mg/dL Total Bilirubin (0.2-1.3) mg/dL AST (17-59) U/L ALT (4-49) U/L Alkaline Phosphatase (38-126) U/L C-Reactive Protein (<1.0) mg/dL Total Protein (6.3-8.2) g/dL Albumin (3.5-5.0) g/dL Procalcitonin 0.20 H (0.02-0.09) ng/mL - Radiology Data Radiology results: report reviewed, image reviewed Disposition Clinical Impression: Pneumonia, Sepsis, Paranasal sinus disease Disposition: ADMITTED IP TO THIS HOSP
--- NOTE | 2022-08-13 11:49 | XR ---
EXAMINATION TYPE: XR chest 2V DATE OF EXAM: 08/13/2022 COMPARISON: Chest x-ray April 09, 2019 HISTORY: Cough and fever. TECHNIQUE: Frontal and lateral views of the chest are obtained. FINDINGS: There is new left-sided PICC line terminating at cavoatrial junction. Increased multifocal opacities in the right lung with more dense consolidation involving the inferior right upper lobe. T he cardiac silhouette size is upper limits of normal. The osseous structures are intact. IMPRESSION: Multifocal right lung acute infiltrates.
[2022-08-13 11:52] LABS: Prothrombin Time 10.3 sec (9.0-12.0)
[2022-08-13 11:52] LABS: ALT 23 U/L (4-49); African American GFR (CKD) >90 (>60 ml/min/1.73 sqM); Albumin 2.9 g/dL (3.5-5.0); Anion Gap 8 mmol/L; Blood Urea Nitrogen 33 mg/dL (9-20); Calcium 8.2 mg/dL (8.4-10.2); Carbon Dioxide 21 mmol/L (22-30); Chloride 106 mmol/L (98-107); Glucose 127 mg/dL (74-99); Non-African American GFR(CKD) 83 (>60 ml/min/1.73 sqM); Sodium 135 mmol/L (137-145); Total Bilirubin 0.7 mg/dL (0.2-1.3); Total Protein 5.7 g/dL (6.3-8.2)
[2022-08-13 12:03] LABS: Potassium 4.4 mmol/L (3.5-5.1)
[2022-08-13 12:04] LABS: AST 31 U/L (17-59); Alkaline Phosphatase 49 U/L (38-126); C Reactive Protein 14.8 mg/dL (<1.0)
[2022-08-13 12:32] LABS: Partial Thromboplastin Time 21.8 sec (22.0-30.0)
--- NOTE | 2022-08-13 13:20 | CT ---
EXAMINATION TYPE: CT brain w con DATE OF EXAM: 08/13/2022 COMPARISON: None. HISTORY: fever, ams CT DLP: 1229 mGycm Automated exposure control for dose reduction was used. CONTRAST: CT scan of the head is performed with IV Contrast, patient injected with 100 mL of Isovue 300. FINDINGS: There is no abnormal enhancing mass or midline shift identified. The ventricles and sulci are within normal limits in size. Gilbert-white matter differentiation is maintained. The calvarium is intact. No suspicious opacification of the mastoid air cells. There is near complete opacification of the left e thmoid sinuses. There is mild to minimal mucosal thickening in the bilateral maxillary sinuses. There is complete opacification of the left sphenoid sinus. There are hypoplastic bilateral frontal sinuse s. IMPRESSION: Suspect left-sided acute sinusitis, correlate clinically.
--- NOTE | 2022-08-13 13:36 | CT ---
EXAMINATION TYPE: CT soft tissue neck w con DATE OF EXAM: 08/13/2022 COMPARISON: None HISTORY: 57-year-old male infection in throat, fever, ams TECHNIQUE: Contiguous axial scanning of the soft tissues of the neck performed with IV Contrast, smiley ent injected with 100 mL of Isovue 300. Coronal/sagittal reconstructions performed. CT DLP: 287.2 mGycm Automated exposure control for dose reduction was used. FINDINGS: There is moderate to severe opacification throughout the left greater than right ethmoid air cells an d left sphenoid sinus. Proxy opacification right sphenoid sinus. Moderate mucosal thickening left max illary sinus and mild within the right maxillary sinus. There appears to be circumferential swelling around the cervical mucosal space of the junction betwee n the nasopharynx and oropharynx. Mild bilateral palatine tonsillar hypertrophy. Oropharynx otherwise clear. The epiglottis is within n ormal limits. There is circumferential soft tissue thickening causing narrowing of the supraglottic airway at the l evel of the false vocal folds, axial image 96. Some asymmetric thickening of the right aryepiglottic fold also noted, axial image 42. Glottic and subglottic structures are clear. Multifocal groundglass airspace disease throughout the v isualized right upper lung. Small thyroid gland. Bilateral submandibular and parotid glands do no gross abnormality. Prominent upper cervical lymph nodes particularly on the right measure up to 1.3 cm short axis, likel y reactive/post inflammatory. Additional scattered nonenlarged lymph nodes are present on both sides of the neck. Bones: No osseous destructive process. IMPRESSION: 1. MULTIFOCAL AIRSPACE DISEASE THROUGHOUT THE VISUALIZED RIGHT UPPER LUNG. CORRELATE FOR PNEUMONIA. 2. MODERATE TO SEVERE ACUTE ON CHRONIC PARANASAL SINUS DISEASE, LEFT GREATER THAN RIGHT. 3. SOME CIRCUMFERENTIAL SWELLING INVOLVING THE CERVICAL MUCOSAL SPACE AT THE JUNCTION BETWEEN THE ARLEN OPHARYNX AND OROPHARYNX. MILD BILATERAL PALATINE TONSILLAR HYPERTROPHY. THERE IS ALSO THICKENING AND SECONDARY NARROWING OF THE SUPRAGLOTTIC AIRWAY and asymmetric thickening of the right aryepiglottic f old. Findings likely on an inflammatory basis. Correlate for pharyngitis. No evidence for retropharyn geal cellulitis or abscess. Recommend direct visualization following treatment to exclude any underly ing mucosal lesions.
[2022-08-13] MEDS ORDERED: VANCOMYCIN IV PER PHARMACY 1 EACH MISC MISCELLANE PRN (13:43)
[2022-08-13] MEDS ORDERED: cefTRIAXone IN SWFI 1,000 MG/10 ML SYRINGE IVP STA (13:43)
[2022-08-13] MEDS ORDERED: VANCOMYCIN 1,500 MG in SODIUM CHLORIDE 0.9% 500 ML 500 ML IVPB ONE (14:15)
[2022-08-13] MEDS ORDERED: NALOXONE 0.4 MG/ML 1 ML VIAL IV PRN (14:53)
[2022-08-13] MEDS ORDERED: ONDANSETRON 4 MG/2 ML VIAL IVP PRN (15:08)
[2022-08-13] MEDS ORDERED: IBUPROFEN 400 MG TAB PO PRN (15:08)
[2022-08-13] MEDS ORDERED: SODIUM CHLORIDE 0.65% NASAL SPRAY 44 ML BTL NASAL PRN (15:11)
[2022-08-13] MEDS ORDERED: BENZOCAINE SPRAY 1 CAN MUCOUS MEM PRN (15:28)
[2022-08-13] MEDS: HYDROmorphone 1 MG/ML 1 ML SYRINGE IVP PRN ×2 (18:01→21:21)
[2022-08-13] MEDS: ACETAMINOPHEN TAB 325 MG TAB PO PRN (18:01)
[2022-08-13] MEDS: CEFEPIME 2 GM in SODIUM CHLORIDE 0.9% 100 ML IVPB SCH (18:02)
[2022-08-13] MEDS: NYSTATIN 100,000 UNIT/ML SUSP 500,000 UNIT/5 ML CUP PO SCH ×2 (18:38→21:21)
[2022-08-13] MEDS: traZODone HCL 50 MG TAB PO SCH (21:21)
[2022-08-13] MEDS: LORazepam 0.5 MG TAB PO PRN (21:31)
--- NOTE | 2022-08-13 22:13 | P.CONS ---
History of Present Illness - Reason for Consult Consult date: 08/13/22 - History of Present Illness Patient is a 57-year-old male patient is a 57-year-old male with a past medical history significant for chronic sinus infection patient was recently admitted at [facility] beginning of July 2022 concerning for persistent sinus infection patient did have a CT followed by MRI which did show some cortical destruction of the bone concerning for osteomyelitis patient was evaluated by infectious disease INDUSTRIAL TECHNOLOGIST for Dr. Amado patient did get a PICC line and has been advised a 6-week course of IV Rocephin with the patient was currently receiving at [facility] through the left arm PICC line, patient presented to the infusion clinic today and was noticed to be febrile patient mention the fever started last night patient also complaining of increasing respiratory symptoms of shortness of breath cough which is congested but very minimal sputum production no hemoptysis no pleuritic chest pain patient also have a purulent drainage from the left nostril area there was noticed ants sinus congestion but denies any worsening sinus pain no nausea vomiting no abdominal pain or any diarrhea, on presentation to the hospital patient did have a fever of 101.6 degrees overnight patient was tachycardic however not hypoxic or need for supplemental oxygen patient did have a normal white count of 9.6 with a left shift creatinine was 1.02, liver enzymes are normal CRP is 14.8 patient did have a chest x-ray multifocal right lung acute infiltrate patient did have a CT soft tissue of the neck multifocal airspace disease throughout the visualized right upper lung correlate for pneumonia moderate to severe acute on chronic paraNasal sinus disease left greater than right circumferential swelling involving the cervical mucosal space at the junction between the nasopharynx and oropharynx patient was given dose of Rocephin and started on vancomycin infectious disease was consulted for further management of her antibiotic therapy Past Medical History Past Medical History: Hypertension Additional Past Medical History / Comment(s): bone throat infection History of Any Multi-Drug Resistant Organisms: None Reported Past Surgical History: Orthopedic Surgery Past Psychological History: No Psychological Hx Reported Smoking Status: Never smoker Past Alcohol Use History: None Reported Past Drug Use History: None Reported - Past Family History Mother Family Medical History: Dialysis Medications and Allergies Home Medications Medication Instructions Recorded Confirmed Type Escitalopram [Lexapro] 10 mg PO DAILY 08/13/22 08/13/22 History HYDROcodone/APAP 5-325MG [[place] 1 tab PO QID PRN 08/13/22 08/13/22 History 5-325] LORazepam [Ativan] 0.5 mg PO DAILY PRN 08/13/22 08/13/22 History Levothyroxine Sodium [Synthroid] 50 mcg PO DAILY 08/13/22 08/13/22 History Nystatin 100,000 Unit/ml Susp 5 ml PO QID 08/13/22 08/13/22 History [Mycostatin Oral Susp] Pantoprazole [Protonix] 40 mg PO DAILY 08/13/22 08/13/22 History Sodium Chloride 0.65% Nasal [Deep 1 spray NASAL QID PRN 08/13/22 08/13/22 History Sea (Saline)] amLODIPine [Norvasc] 5 mg PO DAILY 08/13/22 08/13/22 History oxyCODONE HCL [OxyIR] 5 mg PO Q4H PRN 08/13/22 08/13/22 History predniSONE See Taper PO DIRECTED 08/13/22 08/13/22 History traZODone HCL [Desyrel] 50 mg PO HS 08/13/22 08/13/22 History Allergies Allergy/AdvReac Type Severity Reaction Status Date / Time No Known Allergies Allergy Verified 08/13/22 14:54 Physical Exam Vitals: Vital Signs Temp Pulse Resp BP Pulse Ox 08/13/22 13:37 98.8 F 18 136/89 08/13/22 10:58 101.6 F H 104 H 20 125/85 99 Intake and Output 08/13/22 08/13/22 08/13/22 06:59 14:59 22:59 Other: Weight 75.296 kg Results CBC & Chem 7: 08/13/22 11:15 08/13/22 11:15 Labs: Abnormal Lab Results - Last 24 Hours (Table) 08/13/22 08/13/22 08/13/22 Range/Units 11:15 11:15 11:22 RBC 3.72 L (4.30-5.90) m/uL Hgb 11.4 L (13.0-17.5) gm/dL Hct 34.4 L (39.0-53.0) % RDW 16.0 H (11.5-15.5) % Neutrophils # 8.8 H (1.3-7.7) k/uL Lymphocytes # 0.5 L (1.0-4.8) k/uL APTT 21.8 L (22.0-30.0) sec Sodium 135 L (137-145) mmol/L Carbon Dioxide 21 L (22-30) mmol/L BUN 33 H (9-20) mg/dL Glucose 127 H (74-99) mg/dL Calcium 8.2 L (8.4-10.2) mg/dL C-Reactive Protein 14.8 H (<1.0) mg/dL Total Protein 5.7 L (6.3-8.2) g/dL Albumin 2.9 L (3.5-5.0) g/dL Assessment and Plan Plan: 1patient presented to hospital with predominantly respiratory symptoms of shor tness of breath and cough and also with a fever in this patient with abnormal x- ray with pneumonia on the right side and this patient currently receiving Rocephin in the outpatient setting for osteomyelitis involving the paranasal sinuses area diagnosed at [facility] 2-we will try to obtain culture data from [facility] 3-try to obtain sputum for Gram stain culture 4-check influenza and RSV and COVID PCR 5-continue with the vancomycin and cefepime to cover for the gram-negative 6-patient benefit from ENT evaluation in view of the abnormality seen on the CT We will follow on clinical condition and cultures to further adjust medication if needed Thank you for this consultation we will follow the patient along with you
[2022-08-14] MEDS: HYDROmorphone 1 MG/ML 1 ML SYRINGE IVP PRN ×5 (01:07→23:53)
[2022-08-14] MEDS: CEFEPIME 2 GM in SODIUM CHLORIDE 0.9% 100 ML IVPB SCH ×4 (01:09→23:53)
[2022-08-14] MEDS: VANCOMYCIN 1,500 MG in SODIUM CHLORIDE 0.9% 500 ML 500 ML IVPB SCH ×3 (01:09→18:06)
[2022-08-14] MEDS: LEVOTHYROXINE 50 MCG TAB PO SCH (06:34)
[2022-08-14] MEDS: PANTOPRAZOLE 40 MG TABLET PO SCH (08:45)
[2022-08-14] MEDS: amLODIPine 5 MG TAB PO SCH (08:45)
[2022-08-14] MEDS: NYSTATIN 100,000 UNIT/ML SUSP 500,000 UNIT/5 ML CUP PO SCH ×4 (08:46→20:26)
[2022-08-14 10:07] LABS: Basophils # (A) 0.01 X 10*3/uL (0.00-0.10); Basophils % (A) 0.1 %; Eosinophils # (A) 0.15 X 10*3/uL (0.04-0.35); Eosinophils % (A) 1.9 %; HCT 29.4 % (39.6-50.0); HGB 9.3 g/dL (13.0-17.0); Immature Grans, Automated 0.5 %; Lymphocytes # (A) 1.02 X 10*3/uL (0.90-5.00); Lymphocytes % (A) 13.2 %; MCH 29.9 pg (27.0-32.0); MCHC 31.6 g/dL (32.0-37.0); MCV 94.5 fL (80.0-97.0); Mean Platelet Volume 10.1 fL (9.5-12.2); Monocytes # (A) 0.41 X 10*3/uL (0.20-1.00); Monocytes % (A) 5.3 %; NRBC Per 100 WBC 0 /100 WBCS (0.0-0.0); Neutrophils # (A) 6.07 X 10*3/uL (1.80-7.70); Platelet Count 280 X 10*3/uL (140-440); RBC 3.11 X 10*6/uL (4.40-5.60); RDW 16.6 % (11.5-14.5)
[2022-08-14 10:13] LABS: African American GFR (CKD) 97.8 (60.0-200.0); Albumin 2.7 g/dL (3.8-4.9); Albumin/Globulin Ratio 1.17 (1.60-3.17); Anion Gap 11.2 mmol/L (10.00-18.00); BUN/Creat Ratio 23.8 Ratio (12.00-20.00); Blood Urea Nitrogen 23.8 mg/dL (9.0-27.0); C Reactive Protein 17.9 mg/dL (0.00-0.80); Calcium 8.1 mg/dL (8.7-10.3); Carbon Dioxide 19.8 mmol/L (20.0-27.5); Globulin 2.3 g/dL (1.6-3.3); Non-African American GFR(CKD) 84.4 (60.0-200.0); Potassium 4.3 mmol/L (3.5-5.5); Total Bilirubin 0.3 mg/dL (0.30-1.20)
[2022-08-14 10:42] LABS: Erythrocyte Sedimentation Rate 70 mm/Hr (0-20)
[2022-08-14] MEDS: ESCITALOPRAM 10 MG TAB PO SCH (12:05)
--- NOTE | 2022-08-14 18:17 | P.HPIM ---
History of Present Illness H&P Date: 08/13/22 Chief Complaint: Fever 57-year-old male with a past medical history significant for chronic sinus infection patient was recently admitted at [facility] beginning of July 2022 concerning for persistent sinus infection patient did have a CT followed by MRI which did show some cortical destruction of the bone concerning for osteomyelitis patient was evaluated by infectious disease RED HAT LINUX ENGINEER for Dr. Amado patient did get a PICC line and has been advised a 6-week course of IV Rocephin with the patient was currently receiving at [facility] through the left arm PICC line, patient presented to the infusion clinic today and was noticed to be febrile patient mention the fever started last night patient also complaining of increasing respiratory symptoms of shortness of breath cough which is congested but very minimal sputum production no hemoptysis no pleuritic chest pain patient also have a purulent drainage from the left nostril area there was noticed ants sinus congestion but denies any worsening sinus pain no nausea vomiting no abdominal pain or any diarrhea, on presentation to the hospital patient did have a fever of 101.6 degrees overnight patient was tachycardic however not hypoxic or need for supplemental oxygen patient did have a normal white count of 9.6 with a left shift creatinine was 1.02, liver enzymes are normal CRP is 14.8 patient did have a chest x-ray multifocal right lung acute infiltrate patient did have a CT soft tissue of the neck multifocal airspace disease throughout the visualized right upper lung correlate for pneumonia moderate to severe acute on chronic paraNasal sinus disease left greater than right circumferential swelling involving the cervical mucosal space at the junction between the nasopharynx and oropharynx patient was given dose of Rocephin and started on vancomycin infectious disease was consulted for further management of her antibiotic therapy Review of Systems REVIEW OF SYSTEMS: CONSTITUTIONAL: No fever, no malaise, no fatigue. HEENT: No recent visual problems or hearing problems. Denied any sore throat. CARDIOVASCULAR: No chest pain, orthopnea, PND, no palpitations, no syncope. PULMONARY: No shortness of breath, no cough, no hemoptysis. GASTROINTESTINAL: No diarrhea, no nausea, no vomiting, no abdominal pain. NEUROLOGICAL: No headaches, no weakness, no numbness. HEMATOLOGICAL: Denies any bleeding or petechiae. GENITOURINARY: Denies any burning micturition, frequency, or urgency. MUSCULOSKELETAL/RHEUMATOLOGICAL: Denies any joint pain, swelling, or any muscle pain. ENDOCRINE: Denies any polyuria or polydipsia. The rest of the 14-point review of systems is negative. Past Medical History Past Medical History: Hypertension, Thyroid Disorder Additional Past Medical History / Comment(s): neck bones and throat infection History of Any Multi-Drug Resistant Organisms: None Reported Past Surgical History: Orthopedic Surgery Additional Past Surgical History / Comment(s): avascular necrosis rt hip Past Anesthesia/Blood Transfusion Reactions: No Reported Reaction Past Psychological History: Anxiety, Depression Smoking Status: Never smoker Past Alcohol Use History: None Reported Past Drug Use History: None Reported - Past Family History Mother Family Medical History: Dialysis Medications and Allergies Home Medications Medication Instructions Recorded Confirmed Type Escitalopram [Lexapro] 10 mg PO DAILY 08/13/22 08/13/22 History HYDROcodone/APAP 5-325MG [[place] 1 tab PO QID PRN 08/13/22 08/13/22 History 5-325] LORazepam [Ativan] 0.5 mg PO DAILY PRN 08/13/22 08/13/22 History Levothyroxine Sodium [Synthroid] 50 mcg PO DAILY 08/13/22 08/13/22 History Nystatin 100,000 Unit/ml Susp 5 ml PO QID 08/13/22 08/13/22 History [Mycostatin Oral Susp] Pantoprazole [Protonix] 40 mg PO DAILY 08/13/22 08/13/22 History Sodium Chloride 0.65% Nasal [Deep 1 spray NASAL QID PRN 08/13/22 08/13/22 History Sea (Saline)] amLODIPine [Norvasc] 5 mg PO DAILY 08/13/22 08/13/22 History oxyCODONE HCL [OxyIR] 5 mg PO Q4H PRN 08/13/22 08/13/22 History predniSONE See Taper PO DIRECTED 08/13/22 08/13/22 History traZODone HCL [Desyrel] 50 mg PO HS 08/13/22 08/13/22 History Allergies Allergy/AdvReac Type Severity Reaction Status Date / Time No Known Allergies Allergy Verified 08/13/22 14:54 Physical Exam Vitals: Vital Signs Temp Pulse Pulse Resp BP BP Pulse Ox 08/13/22 17:50 102.0 F H 93 24 164/96 90 L 08/13/22 17:19 98.2 F 88 20 146/95 98 08/13/22 13:37 98.8 F 18 136/89 08/13/22 10:58 101.6 F H 104 H 20 125/85 99 Intake and Output 08/13/22 08/13/22 08/13/22 06:59 14:59 22:59 Other: Weight 75.296 kg 75.296 kg PHYSICAL EXAMINATION: GENERAL: The patient is alert and oriented x3, not in any acute distress. Well developed, well nourished. HEENT: Pupils are round and equally reacting to light. EOMI. No scleral icterus. No conjunctival pallor. Normocephalic, atraumatic. No pharyngeal erythema. No thyromegaly. CARDIOVASCULAR: S1 and S2 present. No murmurs, rubs, or gallops. PULMONARY: Chest is clear to auscultation, no wheezing or crackles. ABDOMEN: Soft, nontender, nondistended, normoactive bowel sounds. No palpable organomegaly. MUSCULOSKELETAL: No joint swelling or deformity. EXTREMITIES: No cyanosis, clubbing, or pedal edema. NEUROLOGICAL: Gross neurological examination did not reveal any focal deficits. SKIN: No rashes. Results CBC & Chem 7: 08/14/22 03:59 08/14/22 03:59 Labs: Abnormal Lab Results - Last 24 Hours (Table) 08/13/22 08/13/22 08/13/22 Range/Units 11:15 11:15 11:22 RBC 3.72 L (4.30-5.90) m/uL Hgb 11.4 L (13.0-17.5) gm/dL Hct 34.4 L (39.0-53.0) % RDW 16.0 H (11.5-15.5) % Neutrophils # 8.8 H (1.3-7.7) k/uL Lymphocytes # 0.5 L (1.0-4.8) k/uL APTT 21.8 L (22.0-30.0) sec Sodium 135 L (137-145) mmol/L Carbon Dioxide 21 L (22-30) mmol/L BUN 33 H (9-20) mg/dL Glucose 127 H (74-99) mg/dL Calcium 8.2 L (8.4-10.2) mg/dL C-Reactive Protein 14.8 H (<1.0) mg/dL Total Protein 5.7 L (6.3-8.2) g/dL Albumin 2.9 L (3.5-5.0) g/dL Thrombosis Risk Factor Assmnt - Choose All That Apply Each Factor Represents 1 point: Age 41-60 years Thrombosis Risk Factor Assessment Total Risk Factor Score: 1 Thrombosis Risk Factor Assessment Level: Low Risk Assessment and Plan Assessment: 1. Multifocal pneumonia - ID is consulted and patient hasn't placed on IV vancomycin and cefepime; sputum culture for Gram stain and culture and sensitivity is ordered; check influenza and RSV and covert PCR 2. Recent history of osteomyelitis involving paranasal sinuses; patient was diagnosed at [facility] and is receiving IV Rocephin 3. Abdominal CT soft tissue neck; completed in ED which reveals moderate to severe acute on chronic paranasal sinus disease, left greater than right; circumferential swelling involving the cervical mucosaat the junction between nasopharynx and oropharynx; mild bilateral palatine tonsillar hypertrophy with thickening resulting in narrowing of supraglottic airway --- ENTs consulting for further evaluation and recommendations 4. Hypertension; Norvasc 5 mg daily; monitor blood pressure closely 5. Hypothyroidism; levothyroxine 50 MCG daily 6. Anxiety/depression; Lexapro 10 mg daily along with Ativan 0.5 mg daily when necessary 7. Sleep disorder; trazodone 50 daily at bedtime
--- NOTE | 2022-08-14 18:18 | P.PN ---
Subjective Progress Note Date: 08/14/22 57-year-old male with a past medical history significant for chronic sinus infection patient was recently admitted at [facility] beginning of July 2022 concerning for persistent sinus infection patient did have a CT followed by MRI which did show some cortical destruction of the bone concerning for osteomyelitis patient was evaluated by infectious disease DRY CLEANING ATTENDANT for Dr. Amado patient did get a PICC line and has been advised a 6-week course of IV Rocephin with the patient was currently receiving at [facility] through the left arm PICC line, patient presented to the infusion clinic today and was noticed to be febrile patient mention the fever started last night patie nt also complaining of increasing respiratory symptoms of shortness of breath cough which is congested but very minimal sputum production no hemoptysis no pleuritic chest pain patient also have a purulent drainage from the left nostril area there was noticed ants sinus congestion but denies any worsening sinus pain no nausea vomiting no abdominal pain or any diarrhea, on presentation to the hospital patient did have a fever of 101.6 degrees overnight patient was tachycardic however not hypoxic or need for supplemental oxygen patient did have a normal white count of 9.6 with a left shift creatinine was 1.02, liver enzymes are normal CRP is 14.8 patient did have a chest x-ray multifocal right lung acute infiltrate patient did have a CT soft tissue of the neck multifocal airspace disease throughout the visualized right upper lung correlate for pneumonia moderate to severe acute on chronic paraNasal sinus disease left greater than right circumferential swelling involving the cervical mucosal space at the junction between the nasopharynx and oropharynx patient was given dose of Rocephin and started on vancomycin infectious disease was consulted for further management of her antibiotic therapy Objective - Vital Signs Vital signs: Vital Signs Temp 99.1 F 08/14/22 01:00 Pulse 72 08/14/22 01:00 Resp 16 08/14/22 01:00 BP 157/85 08/14/22 01:00 Pulse Ox 93 L 08/14/22 01:00 FiO2 Intake & Output 08/13/22 08/14/22 08/14/22 18:59 06:59 18:59 Weight 75.296 kg Other: Voiding Method Toilet # Voids 2 # Bowel Movements 1 - Exam PHYSICAL EXAMINATION: GENERAL: The patient is alert and oriented x3, not in any acute distress. Well developed, well nourished. HEENT: Pupils are round and equally reacting to light. EOMI. No scleral icterus. No conjunctival pallor. Normocephalic, atraumatic. No pharyngeal erythema. No thyromegaly. CARDIOVASCULAR: S1 and S2 present. No murmurs, rubs, or gallops. PULMONARY: Chest is clear to auscultation, no wheezing or crackles. ABDOMEN: Soft, nontender, nondistended, normoactive bowel sounds. No palpable organomegaly. MUSCULOSKELETAL: No joint swelling or deformity. EXTREMITIES: No cyanosis, clubbing, or pedal edema. NEUROLOGICAL: Gross neurological examination did not reveal any focal deficits. SKIN: No rashes. - Labs CBC & Chem 7: 08/14/22 03:59 08/14/22 03:59 Labs: Abnormal Lab Results - Last 24 Hours (Table) 08/13/22 08/13/22 08/13/22 Range/Units 11:15 11:15 11:15 RBC 3.72 L (4.30-5.90) m/uL Hgb 11.4 L (13.0-17.5) gm/dL Hct 34.4 L (39.0-53.0) % RDW 16.0 H (11.5-15.5) % Neutrophils # 8.8 H (1.3-7.7) k/uL Lymphocytes # 0.5 L (1.0-4.8) k/uL APTT (22.0-30.0) sec Sodium 135 L (137-145) mmol/L Carbon Dioxide 21 L (22-30) mmol/L BUN 33 H (9-20) mg/dL Glucose 127 H (74-99) mg/dL Calcium 8.2 L (8.4-10.2) mg/dL C-Reactive Protein 14.8 H (<1.0) mg/dL Total Protein 5.7 L (6.3-8.2) g/dL Albumin 2.9 L (3.5-5.0) g/dL Procalcitonin 0.20 H (0.02-0.09) ng/mL 08/13/22 Range/Units 11:22 RBC (4.30-5.90) m/uL Hgb (13.0-17.5) gm/dL Hct (39.0-53.0) % RDW (11.5-15.5) % Neutrophils # (1.3-7.7) k/uL Lymphocytes # (1.0-4.8) k/uL APTT 21.8 L (22.0-30.0) sec Sodium (137-145) mmol/L Carbon Dioxide (22-30) mmol/L BUN (9-20) mg/dL Glucose (74-99) mg/dL Calcium (8.4-10.2) mg/dL C-Reactive Protein (<1.0) mg/dL Total Protein (6.3-8.2) g/dL Albumin (3.5-5.0) g/dL Procalcitonin (0.02-0.09) ng/mL Assessment and Plan Assessment: 1. Multifocal pneumonia - ID is consulted and patient hasn't placed on IV vancomycin and cefepime; sp utum culture for Gram stain and culture and sensitivity is ordered; check influenza and RSV and covert PCR 2. Recent history of osteomyelitis involving paranasal sinuses; patient was diagnosed at [facility] and is receiving IV Rocephin 3. Abdominal CT soft tissue neck; completed in ED which reveals moderate to severe acute on chronic paranasal sinus disease, left greater than right; circumferential swelling involving the cervical mucosaat the junction between nasopharynx and oropharynx; mild bilateral palatine tonsillar hypertrophy with thickening resulting in narrowing of supraglottic airway --- ENTs consulting for further evaluation and recommendations 4. Hypertension; Norvasc 5 mg daily; monitor blood pressure closely 5. Hypothyroidism; levothyroxine 50 MCG daily 6. Anxiety/depression; Lexapro 10 mg daily along with Ativan 0.5 mg daily when necessary 7. Sleep disorder; trazodone 50 daily at bedtime
[2022-08-14] MEDS: traZODone HCL 50 MG TAB PO SCH (20:26)
[2022-08-14] MEDS: LORazepam 0.5 MG TAB PO PRN (20:26)
--- NOTE | 2022-08-14 21:38 | P.PN ---
Subjective Progress Note Date: 08/14/22 Principal diagnosis: Pneumonia and osteomyelitis 57-year-old male with a past medical history significant for chronic sinus infection patient was recently admitted at [facility] beginning of July 2022 concerning for persistent sinus infection patient did have a CT followed by MRI which did show some cortical destruction of the bone concerning for osteomyelitis patient was evaluated by infectious disease MATLAB DEVELOPER for Dr. Amado patient did get a PICC line and has been advised a 6-week course of IV Rocephin, patient now presenting to the hospital with fever increasing cough and sputum production with evidence of right-sided pneumonia on the CT. On today's evaluation that is 08/14/2022 patient overall feels better and has improved left temperature has been last evening of 102 F, no fever this morning patient is breathing slightly comfortably patient denies having any chest pain or worsening cough no nausea vomiting abdominal pain and no diarrhea Objective - Vital Signs Vital signs: Vital Signs Temp 99.1 F 08/14/22 01:00 Pulse 72 08/14/22 01:00 Resp 16 08/14/22 01:00 BP 157/85 08/14/22 01:00 Pulse Ox 93 L 08/14/22 01:00 FiO2 Intake & Output 08/13/22 08/14/22 08/14/22 18:59 06:59 18:59 Weight 75.296 kg Other: Voiding Method Toilet # Voids 2 # Bowel Movements 1 - Exam Middle-age male up in the bed in no distress Left nostril drainage has decreased Lungs decreased breath sound at the base Exam completed with the help of MATLAB DEVELOPER - Labs CBC & Chem 7: 08/15/22 04:41 08/16/22 06:46 Labs: Abnormal Lab Results - Last 24 Hours (Table) 08/13/22 08/13/22 08/13/22 Range/Units 11:15 11:15 11:15 RBC 3.72 L (4.30-5.90) m/uL Hgb 11.4 L (13.0-17.5) gm/dL Hct 34.4 L (39.0-53.0) % RDW 16.0 H (11.5-15.5) % Neutrophils # 8.8 H (1.3-7.7) k/uL Lymphocytes # 0.5 L (1.0-4.8) k/uL APTT (22.0-30.0) sec Sodium 135 L (137-145) mmol/L Carbon Dioxide 21 L (22-30) mmol/L BUN 33 H (9-20) mg/dL Glucose 127 H (74-99) mg/dL Calcium 8.2 L (8.4-10.2) mg/dL C-Reactive Protein 14.8 H (<1.0) mg/dL Total Protein 5.7 L (6.3-8.2) g/dL Albumin 2.9 L (3.5-5.0) g/dL Procalcitonin 0.20 H (0.02-0.09) ng/mL 08/13/22 Range/Units 11:22 RBC (4.30-5.90) m/uL Hgb (13.0-17.5) gm/dL Hct (39.0-53.0) % RDW (11.5-15.5) % Neutrophils # (1.3-7.7) k/uL Lymphocytes # (1.0-4.8) k/uL APTT 21.8 L (22.0-30.0) sec Sodium (137-145) mmol/L Carbon Dioxide (22-30) mmol/L BUN (9-20) mg/dL Glucose (74-99) mg/dL Calcium (8.4-10.2) mg/dL C-Reactive Protein (<1.0) mg/dL Total Protein (6.3-8.2) g/dL Albumin (3.5-5.0) g/dL Procalcitonin (0.02-0.09) ng/mL Assessment and Plan (1) Paranasal sinus disease Current Visit: Yes Status: Acute Code(s): J34.9 - UNSPECIFIED DISORDER OF NOSE AND NASAL SINUSES SNOMED Code(s): 5127707 (2) Pneumonia Current Visit: Yes Status: Acute Code(s): J18.9 - PNEUMONIA, UNSPECIFIED ORGANISM SNOMED Code(s): 771842207 (3) Sepsis Current Visit: Yes Status: Acute Code(s): A41.9 - SEPSIS, UNSPECIFIED ORGANISM SNOMED Code(s): 33769257 Plan: This was a telehealth visit 1patient presented to hospital with predominantly respiratory symptoms of shortness of breath and cough and also with a fever in this patient with a bnormal x-ray with pneumonia on the right side and this patient currently receiving Rocephin in the outpatient setting for osteomyelitis involving the paranasal sinuses area diagnosed at [facility] 2-we will try to obtain culture data from [facility] 3-try to obtain sputum for Gram stain culture 4-influenza negative COVID PCR pending 5-Pt fever has resolved and will continue with the vancomycin and cefepime while waiting for cultures to be finalized 6-Await ENT evaluation Time with Patient: Less than 30
[2022-08-15] MEDS: HYDROmorphone 1 MG/ML 1 ML SYRINGE IVP PRN ×7 (03:22→23:40)
[2022-08-15] MEDS ORDERED: VANCOMYCIN TROUGH DUE 1 EACH MISC MISCELLANE ONE (05:00)
[2022-08-15 05:06] LABS: African American GFR (CKD) >90 (>60 ml/min/1.73 sqM); Anion Gap 6 mmol/L; Blood Urea Nitrogen 17 mg/dL (9-20); Calcium 7.9 mg/dL (8.4-10.2); Carbon Dioxide 24 mmol/L (22-30); Chloride 106 mmol/L (98-107); Glucose 115 mg/dL (74-99); Non-African American GFR(CKD) >90 (>60 ml/min/1.73 sqM); Potassium 3.5 mmol/L (3.5-5.1); Sodium 136 mmol/L (137-145)
[2022-08-15] MEDS: VANCOMYCIN 1,500 MG in SODIUM CHLORIDE 0.9% 500 ML 500 ML IVPB SCH ×2 (06:37→17:23)
[2022-08-15] MEDS: LEVOTHYROXINE 50 MCG TAB PO SCH (06:39)
[2022-08-15] MEDS: PANTOPRAZOLE 40 MG TABLET PO SCH (07:51)
[2022-08-15] MEDS: ESCITALOPRAM 10 MG TAB PO SCH (07:51)
[2022-08-15] MEDS: CEFEPIME 2 GM in SODIUM CHLORIDE 0.9% 100 ML IVPB SCH ×3 (07:51→23:41)
[2022-08-15] MEDS: NYSTATIN 100,000 UNIT/ML SUSP 500,000 UNIT/5 ML CUP PO SCH (07:52)
[2022-08-15] MEDS: amLODIPine 5 MG TAB PO SCH (07:52)
[2022-08-15 11:15] LABS: Basophils # (A) 0.03 X 10*3/uL (0.00-0.10); Basophils % (A) 0.4 %; Eosinophils % (A) 5.9 %; HCT 29.8 % (39.6-50.0); HGB 9.4 g/dL (13.0-17.0); Immature Grans, Automated 0.3 %; Lymphocytes # (A) 0.97 X 10*3/uL (0.90-5.00); Lymphocytes % (A) 14.3 %; MCH 29.7 pg (27.0-32.0); MCHC 31.5 g/dL (32.0-37.0); Mean Platelet Volume 9.8 fL (9.5-12.2); Monocytes # (A) 0.45 X 10*3/uL (0.20-1.00); Monocytes % (A) 6.6 %; NRBC Per 100 WBC 0 /100 WBCS (0.0-0.0); Neutrophils # (A) 4.93 X 10*3/uL (1.80-7.70); Neutrophils % (A) 72.5 %; Platelet Count 298 X 10*3/uL (140-440); RBC 3.17 X 10*6/uL (4.40-5.60); RDW 16.1 % (11.5-14.5)
[2022-08-15] MEDS: MAG HYDROX/AL HYDROX/SIMETH 30 ML, LIDOCAINE VISCOUS 2% 30 ML, diphenhydrAMINE ELIXIR 7... PO SCH ×8 (15:30→20:44)
--- NOTE | 2022-08-15 17:59 | P.PN ---
Subjective Progress Note Date: 08/15/22 57-year-old male with a past medical history significant for chronic sinus infection patient was recently admitted at [facility] beginning of July 2022 concerning for persistent sinus infection patient did have a CT followed by MRI which did show some cortical destruction of the bone concerning for osteomyelitis patient was evaluated by infectious disease CARPENTER SUPER[employer]OR [employer]IP for Dr. Amado patient did get a PICC line and has been advised a 6-week course of IV Rocephin with the patient was currently receiving at [facility] through the left arm PICC line, patient presented to the infusion clinic today and was noticed to be febrile patient mention the fever started last night patie nt also complaining of increasing respiratory symptoms of shortness of breath cough which is congested but very minimal sputum production no hemoptysis no pleuritic chest pain patient also have a purulent drainage from the left nostril area there was noticed ants sinus congestion but denies any worsening sinus pain no nausea vomiting no abdominal pain or any diarrhea, on presentation to the hospital patient did have a fever of 101.6 degrees overnight patient was tachycardic however not hypoxic or need for supplemental oxygen patient did have a normal white count of 9.6 with a left shift creatinine was 1.02, liver enzymes are normal CRP is 14.8 patient did have a chest x-ray multifocal right lung acute infiltrate patient did have a CT soft tissue of the neck multifocal airspace disease throughout the visualized right upper lung correlate for pneumonia moderate to severe acute on chronic paraNasal sinus disease left greater than right circumferential swelling involving the cervical mucosal space at the junction between the nasopharynx and oropharynx patient was given dose of Rocephin and started on vancomycin infectious disease was consulted for further management of her antibiotic therapy 24-hour interval change 08/15/2022 Patient is seen and evaluated in room at bedside; no specific complaints reported patient overall feels better and has improved left temperature has been last evening of 102 F, no fever this morning patient is breathing slightly co mfortably patient denies having any chest pain or worsening cough no nausea vomiting abdominal pain and no diarrhea patient presented to hospital with predominantly respiratory symptoms of shortness of breath and cough and also with a fever in this patient with abnormal x-ray with pneumonia on the right side and this patient currently receiving Rocephin in the outpatient setting for osteomyelitis involving the paranasal sinuses area diagnosed at [facility] -we will try to obtain culture data from [facility] -try to obtain sputum for Gram stain culture -influenza negative COVID PCR pending -Pt fever has resolved and will continue with the vancomycin and cefepime while waiting for cultures to be finalized -Await ENT evaluation Objective - Vital Signs Vital signs: Vital Signs Temp 97.7 F 08/15/22 07:24 Pulse 68 08/15/22 07:24 Resp 16 08/15/22 07:24 BP 150/96 08/15/22 07:24 Pulse Ox 94 L 08/15/22 07:55 FiO2 Intake & Output 08/14/22 08/15/22 08/15/22 18:59 06:59 18:59 Intake Total 1080 550 Output Total 800 275 Balance 280 275 Intake: Oral 1080 550 Output: Urine 800 275 Other: Voiding Method Urinal - Exam PHYSICAL EXAMINATION: GENERAL: The patient is alert and oriented x3, not in any acute distress. Well developed, well nourished. HEENT: Pupils are round and equally reacting to light. EOMI. No scleral icterus. No conjunctival pallor. Normocephalic, atraumatic. No pharyngeal erythema. No thyromegaly. CARDIOVASCULAR: S1 and S2 present. No murmurs, rubs, or gallops. PULMONARY: Chest is clear to auscultation, no wheezing or crackles. ABDOMEN: Soft, nontender, nondistended, normoactive bowel sounds. No palpable organomegaly. MUSCULOSKELETAL: No joint swelling or deformity. EXTREMITIES: No cyanosis, clubbing, or pedal edema. NEUROLOGICAL: Gross neurological examination did not reveal any focal deficits. SKIN: No rashes. - Labs CBC & Chem 7: 08/15/22 04:41 08/15/22 04:41 Labs: Abnormal Lab Results - Last 24 Hours (Table) 08/15/22 08/15/22 Range/Units 04:41 04:41 RBC 3.17 L (4.40-5.60) X 10*6/uL Hgb 9.4 L (13.0-17.0) g/dL Hct 29.8 L (39.6-50.0) % MCHC 31.5 L (32.0-37.0) g/dL RDW 16.1 H (11.5-14.5) % Eosinophils # 0.40 H (0.04-0.35) X 10*3/uL Sodium 136 L (137-145) mmol/L Glucose 115 H (74-99) mg/dL Calcium 7.9 L (8.4-10.2) mg/dL Microbiology - Last 24 Hours (Table) 08/13/22 11:15 Blood Culture - Preliminary Blood 08/13/22 11:30 Blood Culture - Preliminary Blood 08/14/22 01:39 Anaerobic Culture - Preliminary Nose 08/14/22 08:00 Sputum Culture - Preliminary Sputum 08/14/22 01:39 Nasal Culture - Preliminary Nasal Swab Assessment and Plan Assessment: 1. Multifocal pneumonia - ID is consulted and patient hasn't placed on IV vancomycin and cefepime; sputum culture for Gram stain and culture and sensitivity is ordered; check influenza and RSV and covert PCR 2. Recent history of osteomyelitis involving paranasal sinuses; patient was diagnosed at [facility] and is receiving IV Rocephin 3. Abdominal CT soft tissue neck; completed in ED which reveals moderate to severe acute on chronic paranasal sinus disease, left greater than right; circumferential swelling involving the cervical mucosaat the junction between nasopharynx and oropharynx; mild bilateral palatine tonsillar hypertrophy with thickening resulting in narrowing of supraglottic airway --- ENTs consulting for further evaluation and recommendations 4. Hypertension; Norvasc 5 mg daily; monitor blood pressure closely 5. Hypothyroidism; levothyroxine 50 MCG daily 6. Anxiety/depression; Lexapro 10 mg daily along with Ativan 0.5 mg daily when necessary 7. Sleep disorder; trazodone 50 daily at bedtime
[2022-08-15] MEDS: LORazepam 0.5 MG TAB PO PRN (20:44)
[2022-08-15] MEDS: traZODone HCL 50 MG TAB PO SCH (20:44)
[2022-08-16] MEDS: HYDROmorphone 1 MG/ML 1 ML SYRINGE IVP PRN ×7 (02:59→23:44)
[2022-08-16] MEDS: VANCOMYCIN 1,500 MG in SODIUM CHLORIDE 0.9% 500 ML 500 ML IVPB SCH ×2 (06:23→16:46)
[2022-08-16] MEDS: LEVOTHYROXINE 50 MCG TAB PO SCH (06:23)
[2022-08-16 08:15] LABS: African American GFR (CKD) >90 (>60 ml/min/1.73 sqM); Anion Gap 5 mmol/L; Blood Urea Nitrogen 11 mg/dL (9-20); Carbon Dioxide 25 mmol/L (22-30); Chloride 106 mmol/L (98-107); Glucose 115 mg/dL (74-99); Non-African American GFR(CKD) >90 (>60 ml/min/1.73 sqM); Potassium 3.9 mmol/L (3.5-5.1); Sodium 136 mmol/L (137-145)
[2022-08-16] MEDS: MAG HYDROX/AL HYDROX/SIMETH 30 ML, LIDOCAINE VISCOUS 2% 30 ML, diphenhydrAMINE ELIXIR 7... PO SCH ×16 (09:05→20:50)
[2022-08-16] MEDS: CEFEPIME 2 GM in SODIUM CHLORIDE 0.9% 100 ML IVPB SCH ×3 (09:05→23:43)
[2022-08-16] MEDS: PANTOPRAZOLE 40 MG TABLET PO SCH (09:06)
[2022-08-16] MEDS: ESCITALOPRAM 10 MG TAB PO SCH (09:06)
[2022-08-16] MEDS: amLODIPine 5 MG TAB PO SCH (09:06)
--- NOTE | 2022-08-16 14:14 | P.PN ---
Subjective Progress Note Date: 08/15/22 Principal diagnosis: Pneumonia and osteomyelitis 57-year-old male with a past medical history significant for chronic sinus infection patient was recently admitted at [facility] beginning of July 2022 concerning for persistent sinus infection patient did have a CT followed by MRI which did show some cortical destruction of the bone concerning for osteomyelitis patient was evaluated by infectious disease BANK APPRAISER for Dr. Amado patient did get a PICC line and has been advised a 6-week course of IV Rocephin, patient now presenting to the hospital with fever increasing cough and sputum production with evidence of right-sided pneumonia on the CT. On today's evaluation that is 08/15/2022 patient remains to be afebrile patient is breathing comfortably and is on room air, patient complaining of some sore throat, patient denies having any chest pain or worsening cough no nausea vomiting abdominal pain and no diarrhea Objective - Vital Signs Vital signs: Vital Signs Temp 97.7 F 08/15/22 07:24 Pulse 68 08/15/22 07:24 Resp 16 08/15/22 07:24 BP 150/96 08/15/22 07:24 Pulse Ox 94 L 08/15/22 07:55 FiO2 Intake & Output 08/14/22 08/15/22 08/15/22 18:59 06:59 18:59 Intake Total 1080 550 Output Total 800 275 Balance 280 275 Intake: Oral 1080 550 Output: Urine 800 275 Other: Voiding Method Urinal - Exam Middle-age male up in the bed in no distress Left nostril drainage has decreased Lungs decreased breath sound at the base Exam completed with the help of BANK APPRAISER - Labs CBC & Chem 7: 08/15/22 04:41 08/16/22 06:46 Labs: Abnormal Lab Results - Last 24 Hours (Table) 08/15/22 Range/Units 04:41 Sodium 136 L (137-145) mmol/L Glucose 115 H (74-99) mg/dL Calcium 7.9 L (8.4-10.2) mg/dL Microbiology - Last 24 Hours (Table) 08/13/22 11:15 Blood Culture - Preliminary Blood 08/13/22 11:30 Blood Culture - Preliminary Blood 08/14/22 01:39 Anaerobic Culture - Preliminary Nose 08/14/22 08:00 Sputum Culture - Preliminary Sputum 08/14/22 01:39 Nasal Culture - Preliminary Nasal Swab Assessment and Plan (1) Paranasal sinus disease Current Visit: Yes Status: Acute Code(s): J34.9 - UNSPECIFIED DISORDER OF NOSE AND NASAL SINUSES SNOMED Code(s): 6411865 (2) Pneumonia Current Visit: Yes Status: Acute Code(s): J18.9 - PNEUMONIA, UNSPECIFIED ORGANISM SNOMED Code(s): 591200487 (3) Sepsis Current Visit: Yes Status: Acute Code(s): A41.9 - SEPSIS, UNSPECIFIED ORGANISM SNOMED Code(s): 41531233 Plan: This was a telehealth visit 1patient presented to hospital with predominantly respiratory symptoms of shortness of breath and cough and also with a fever in this patient with abnormal x-ray with pneumonia on the right side and this patient currently receiving Rocephin in the outpatient setting for osteomyelitis involving the paranasal sinuses area diagnosed at [facility] 2-cultures obtained from the left nostril as well as sputum cultures currently pending 4-influenza negative COVID PCR pending 5-Pt fever has resolved and will continue with the vancomycin and cefepime while waiting for cultures to be finalized and monitor clinical course closely Time with Patient: Less than 30
--- NOTE | 2022-08-16 14:16 | P.PN ---
Subjective Progress Note Date: 08/16/22 Principal diagnosis: Pneumonia and osteomyelitis 57-year-old male with a past medical history significant for chronic sinus infection patient was recently admitted at [facility] beginning of July 2022 concerning for persistent sinus infection patient did have a CT followed by MRI which did show some cortical destruction of the bone concerning for osteomyelitis patient was evaluated by infectious disease CARPORT ERECTOR for Dr. Amado patient did get a PICC line and has been advised a 6-week course of IV Rocephin, patient now presenting to the hospital with fever increasing cough and sputum production with evidence of right-sided pneumonia on the CT. On today's evaluation that is 08/16/2022 patient continues to be afebrile patient is breathing comfortably on room air, patient still complaining of some sore throat however no difficulty swallowing, patient denies having any chest pain or worsening cough no nausea vomiting abdominal pain and no diarrhea Objective - Vital Signs Vital signs: Vital Signs Temp 97.7 F 08/16/22 07:24 Pulse 59 L 08/16/22 07:24 Resp 18 08/16/22 07:24 BP 144/83 08/16/22 07:24 Pulse Ox 95 08/16/22 07:46 FiO2 Intake & Output 08/15/22 08/16/22 08/16/22 18:59 06:59 18:59 Intake Total 1080 650 Output Total 1075 300 800 Balance 5 350 -800 Intake: Oral 1080 650 Output: Urine 1075 300 800 Other: Voiding Method Urinal # Voids 2 - Exam GENERAL DESCRIPTION: Middle-aged male lying in bed in no distress HEENT: Left nostril drainage resolved areas crusting, RESPIRATORY SYSTEM: Unlabored breathing , decreased breath sounds at bases HEART: S1 S2 regular rate and rhythm , ABDOMEN: Soft , no tenderness EXTREMITIES: No edema feet - Labs CBC & Chem 7: 08/15/22 04:41 08/16/22 06:46 Labs: Abnormal Lab Results - Last 24 Hours (Table) 08/16/22 Range/Units 06:46 Sodium 136 L (137-145) mmol/L Glucose 115 H (74-99) mg/dL Calcium 8.0 L (8.4-10.2) mg/dL Microbiology - Last 24 Hours (Table) 08/13/22 11:15 Blood Culture - Preliminary Blood 08/13/22 11:30 Blood Culture - Preliminary Blood 08/14/22 01:39 Nasal Culture - Final Nasal Swab 08/14/22 08:00 Gram Stain - Final Sputum Sputum Culture - Final Assessment and Plan (1) Paranasal sinus disease Current Visit: Yes Status: Acute Code(s): J34.9 - UNSPECIFIED DISORDER OF NOSE AND NASAL SINUSES SNOMED Code(s): 5427151 (2) Pneumonia Current Visit: Yes Status: Acute Code(s): J18.9 - PNEUMONIA, UNSPECIFIED ORGANISM SNOMED Code(s): 079838500 (3) Sepsis Current Visit: Yes Status: Acute Code(s): A41.9 - SEPSIS, UNSPECIFIED ORGANISM SNOMED Code(s): 08223908 Plan: This was a telehealth visit 1patient presented to hospital with predominantly respiratory symptoms of shortness of breath and cough and also with a fever in this patient with abnormal x-ray with pneumonia on the right side and this patient currently receiving Rocephin in the outpatient setting for osteomyelitis involving the paranasal sinuses area diagnosed at [facility] 2-cultures obtained from the left nostril as well as sputum cultures are so far negative 3The patient fever has resolved and will continue with the vancomycin and cefepime and monitor clinical course closely Time with Patient: Less than 30
--- NOTE | 2022-08-16 16:22 | P.PN ---
Subjective Progress Note Date: 08/16/22 57-year-old male with a past medical history significant for chronic sinus infection patient was recently admitted at [facility] beginning of July 2022 concerning for persistent sinus infection patient did have a CT followed by MRI which did show some cortical destruction of the bone concerning for osteomyelitis patient was evaluated by infectious disease BEET WORKER for Dr. Amado patient did get a PICC line and has been advised a 6-week course of IV Rocephin with the patient was currently receiving at [facility] through the left arm PICC line, patient presented to the infusion clinic today and was noticed to be febrile patient mention the fever started last night patie nt also complaining of increasing respiratory symptoms of shortness of breath cough which is congested but very minimal sputum production no hemoptysis no pleuritic chest pain patient also have a purulent drainage from the left nostril area there was noticed ants sinus congestion but denies any worsening sinus pain no nausea vomiting no abdominal pain or any diarrhea, on presentation to the hospital patient did have a fever of 101.6 degrees overnight patient was tachycardic however not hypoxic or need for supplemental oxygen patient did have a normal white count of 9.6 with a left shift creatinine was 1.02, liver enzymes are normal CRP is 14.8 patient did have a chest x-ray multifocal right lung acute infiltrate patient did have a CT soft tissue of the neck multifocal airspace disease throughout the visualized right upper lung correlate for pneumonia moderate to severe acute on chronic paraNasal sinus disease left greater than right circumferential swelling involving the cervical mucosal space at the junction between the nasopharynx and oropharynx patient was given dose of Rocephin and started on vancomycin infectious disease was consulted for further management of her antibiotic therapy 24-hour interval change 08/15/2022 Patient is seen and evaluated in room at bedside; no specific complaints reported patient overall feels better and has improved left temperature has been last evening of 102 F, no fever this morning patient is breathing slightly co mfortably patient denies having any chest pain or worsening cough no nausea vomiting abdominal pain and no diarrhea patient presented to hospital with predominantly respiratory symptoms of shortness of breath and cough and also with a fever in this patient with abnormal x-ray with pneumonia on the right side and this patient currently receiving Rocephin in the outpatient setting for osteomyelitis involving the paranasal sinuses area diagnosed at [facility] -we will try to obtain culture data from [facility] -try to obtain sputum for Gram stain culture -influenza negative COVID PCR pending -Pt fever has resolved and will continue with the vancomycin and cefepime while waiting for cultures to be finalized -Await ENT evaluation 08/16/2022 Patient is seen and evaluated in room at bedside; discussed with nursing staff ; no specific complaints reported -- patient continues to be afebrile patient is breathing comfortably on room air, patient still complaining of some sore throat however no difficulty swallowing, patient denies having any chest pain or worsening cough no nausea vomiting abdominal pain and no diarrhea patient presented to hospital with predominantly respiratory symptoms of shortness of breath and cough and also with a fever in this patient with abnormal x-ray with pneumonia on the right side and this patient currently receiving Rocephin in the outpatient setting for osteomyelitis involving the paranasal sinuses area diagnosed at [facility] -cultures obtained from the left nostril as well as sputum cultures are so far negative The patient fever has resolved and will continue with the vancomycin and c efepime and monitor clinical course closely Objective - Vital Signs Vital signs: Vital Signs Temp 97.7 F 08/16/22 07:24 Pulse 59 L 08/16/22 07:24 Resp 18 08/16/22 07:24 BP 144/83 08/16/22 07:24 Pulse Ox 95 08/16/22 07:46 FiO2 Intake & Output 08/15/22 08/16/22 08/16/22 18:59 06:59 18:59 Intake Total 1080 650 Output Total 1075 300 800 Balance 5 350 -800 Intake: Oral 1080 650 Output: Urine 1075 300 800 Other: Voiding Method Urinal # Voids 2 - Exam PHYSICAL EXAMINATION: GENERAL: The patient is alert and oriented x3, not in any acute distress. Well developed, well nourished. HEENT: Pupils are round and equally reacting to light. EOMI. No scleral icterus. No conjunctival pallor. Normocephalic, atraumatic. No pharyngeal erythema. No thyromegaly. CARDIOVASCULAR: S1 and S2 present. No murmurs, rubs, or gallops. PULMONARY: Chest is clear to auscultation, no wheezing or crackles. ABDOMEN: Soft, nontender, nondistended, normoactive bowel sounds. No palpable organomegaly. MUSCULOSKELETAL: No joint swelling or deformity. EXTREMITIES: No cyanosis, clubbing, or pedal edema. NEUROLOGICAL: Gross neurological examination did not reveal any focal deficits. SKIN: No rashes. - Labs CBC & Chem 7: 08/15/22 04:41 08/16/22 06:46 Labs: Abnormal Lab Results - Last 24 Hours (Table) 08/16/22 Range/Units 06:46 Sodium 136 L (137-145) mmol/L Glucose 115 H (74-99) mg/dL Calcium 8.0 L (8.4-10.2) mg/dL Microbiology - Last 24 Hours (Table) 08/13/22 11:15 Blood Culture - Preliminary Blood 08/13/22 11:30 Blood Culture - Preliminary Blood 08/14/22 01:39 Nasal Culture - Final Nasal Swab 08/14/22 08:00 Gram Stain - Final Sputum Sputum Culture - Final Assessment and Plan Assessment: 1. Multifocal pneumonia - ID is consulted and patient hasn't placed on IV vancomycin and cefepime; sputum culture for Gram stain and culture and sensitivity is ordered; check influenza and RSV and covert PCR 2. Recent history of osteomyelitis involving paranasal sinuses; patient was diagnosed at [facility] and is receiving IV Rocephin 3. Abdominal CT soft tissue neck; completed in ED which reveals moderate to severe acute on chronic paranasal sinus disease, left greater than right; circu mferential swelling involving the cervical mucosaat the junction between nasopharynx and oropharynx; mild bilateral palatine tonsillar hypertrophy with thickening resulting in narrowing of supraglottic airway --- ENTs consulting for further evaluation and recommendations 4. Hypertension; Norvasc 5 mg daily; monitor blood pressure closely 5. Hypothyroidism; levothyroxine 50 MCG daily 6. Anxiety/depression; Lexapro 10 mg daily along with Ativan 0.5 mg daily when necessary 7. Sleep disorder; trazodone 50 daily at bedtime
[2022-08-16] MEDS: LORazepam 0.5 MG TAB PO PRN (20:48)
[2022-08-16] MEDS: traZODone HCL 50 MG TAB PO SCH (20:48)
[2022-08-17] MEDS: HYDROmorphone 0.5 MG/0.5 ML SYRINGE IVP PRN ×4 (02:53→20:50)
[2022-08-17] MEDS: LEVOTHYROXINE 50 MCG TAB PO SCH (06:08)
[2022-08-17] MEDS: VANCOMYCIN 1,500 MG in SODIUM CHLORIDE 0.9% 500 ML 500 ML IVPB SCH ×2 (06:08→18:35)
[2022-08-17 06:52] LABS: African American GFR (CKD) >90 (>60 ml/min/1.73 sqM); Anion Gap 7 mmol/L; Blood Urea Nitrogen 10 mg/dL (9-20); Calcium 8.5 mg/dL (8.4-10.2); Carbon Dioxide 28 mmol/L (22-30); Chloride 104 mmol/L (98-107); Glucose 78 mg/dL (74-99); Non-African American GFR(CKD) >90 (>60 ml/min/1.73 sqM); Potassium 4.4 mmol/L (3.5-5.1); Sodium 139 mmol/L (137-145)
[2022-08-17] MEDS: PANTOPRAZOLE 40 MG TABLET PO SCH (07:53)
[2022-08-17] MEDS: ESCITALOPRAM 10 MG TAB PO SCH (07:53)
[2022-08-17] MEDS: amLODIPine 5 MG TAB PO SCH (07:53)
[2022-08-17] MEDS: MAG HYDROX/AL HYDROX/SIMETH 30 ML, LIDOCAINE VISCOUS 2% 30 ML, diphenhydrAMINE ELIXIR 7... PO SCH ×12 (07:54→18:32)
[2022-08-17] MEDS ORDERED: HYDROcodone/APAP 5-325MG 1 EACH TAB PO PRN (09:41)
[2022-08-17] MEDS ORDERED: HYDROmorphone 1 MG/ML 1 ML SYRINGE IVP PRN (09:41)
[2022-08-17 10:49] LABS: Basophils # (A) 0.04 X 10*3/uL (0.00-0.10); Basophils % (A) 0.5 %; Eosinophils # (A) 0.51 X 10*3/uL (0.04-0.35); Eosinophils % (A) 6.9 %; HCT 32.6 % (39.6-50.0); HGB 10.3 g/dL (13.0-17.0); Immature Grans, Automated 0.8 %; Lymphocytes # (A) 1.57 X 10*3/uL (0.90-5.00); Lymphocytes % (A) 21.2 %; MCH 29.3 pg (27.0-32.0); MCHC 31.6 g/dL (32.0-37.0); MCV 92.6 fL (80.0-97.0); Mean Platelet Volume 9.7 fL (9.5-12.2); Monocytes # (A) 0.65 X 10*3/uL (0.20-1.00); Monocytes % (A) 8.8 %; NRBC Per 100 WBC 0 /100 WBCS (0.0-0.0); Neutrophils # (A) 4.57 X 10*3/uL (1.80-7.70); Neutrophils % (A) 61.8 %; Platelet Count 306 X 10*3/uL (140-440); RBC 3.52 X 10*6/uL (4.40-5.60); RDW 15.9 % (11.5-14.5)
[2022-08-17] MEDS: CEFEPIME 2 GM in SODIUM CHLORIDE 0.9% 100 ML IVPB SCH ×2 (11:55→18:37)
--- NOTE | 2022-08-17 12:29 | P.PN ---
Subjective Progress Note Date: 08/17/22 Principal diagnosis: Pneumonia and osteomyelitis 57-year-old male with a past medical history significant for chronic sinus infection patient was recently admitted at [facility] beginning of July 2022 concerning for persistent sinus infection patient did have a CT followed by MRI which did show some cortical destruction of the bone concerning for osteomyelitis patient was evaluated by infectious disease PRICING COORDINATOR for Dr. Amado patient did get a PICC line and has been advised a 6-week course of IV Rocephin, patient now presenting to the hospital with fever increasing cough and sputum production with evidence of right-sided pneumonia on the CT. On today's evaluation that is 08/17/2022 patient remains to be afebrile patient is breathing comfortably on room air, patient left nostril discomfort and drainage has improved patient denies having any chest pain or shortness of breath occasional cough no nausea no vomiting no abdominal pain or diarrhea Objective - Vital Signs Vital signs: Vital Signs Temp 98.2 F 08/17/22 07:36 Pulse 65 08/17/22 07:36 Resp 17 08/17/22 07:36 BP 130/85 08/17/22 07:36 Pulse Ox 94 L 08/17/22 09:00 FiO2 21 08/17/22 09:00 Intake & Output 08/16/22 08/17/22 08/17/22 18:59 06:59 18:59 Output Total 1300 900 Balance -1300 -900 Output: Urine 1300 900 Other: Voiding Method Toilet # Voids 4 2 - Exam GENERAL DESCRIPTION: Middle-aged male lying in bed in no distress HEENT: Left nostril drainage resolved areas crusting, RESPIRATORY SYSTEM: Unlabored breathing , decreased breath sounds at bases HEART: S1 S2 regular rate and rhythm , ABDOMEN: Soft , no tenderness EXTREMITIES: No edema feet - Labs CBC & Chem 7: 08/17/22 06:01 08/17/22 06:01 Labs: Abnormal Lab Results - Last 24 Hours (Table) 08/17/22 Range/Units 06:01 RBC 3.52 L (4.40-5.60) X 10*6/uL Hgb 10.3 L (13.0-17.0) g/dL Hct 32.6 L (39.6-50.0) % MCHC 31.6 L (32.0-37.0) g/dL RDW 15.9 H (11.5-14.5) % Immature Gran # 0.06 H (0.00-0.04) X 10*3/uL Eosinophils # 0.51 H (0.04-0.35) X 10*3/uL Microbiology - Last 24 Hours (Table) 08/13/22 11:15 Blood Culture - Preliminary Blood 08/13/22 11:30 Blood Culture - Preliminary Blood 08/14/22 01:39 Nasal Culture - Final Nasal Swab 08/14/22 08:00 Gram Stain - Final Sputum Sputum Culture - Final Assessment and Plan (1) Paranasal sinus disease Current Visit: Yes Status: Acute Code(s): J34.9 - UNSPECIFIED DISORDER OF NOSE AND NASAL SINUSES SNOMED Code(s): 0374523 (2) Pneumonia Current Visit: Yes Status: Acute Code(s): J18.9 - PNEUMONIA, UNSPECIFIED ORGANISM SNOMED Code(s): 767720341 (3) Sepsis Current Visit: Yes Status: Acute Code(s): A41.9 - SEPSIS, UNSPECIFIED ORGANISM SNOMED Code(s): 10242562 Plan: This was a telehealth visit 1patient presented to hospital with predominantly respiratory symptoms of shortness of breath and cough and also with a fever in this patient with abnormal x-ray with pneumonia on the right side and this patient currently receiving Rocephin in the outpatient setting for osteomyelitis involving the right maxillary sinuses area diagnosed at [facility] 2-cultures obtained from the left nostril as well as sputum cultures which rem ains to be negative 3The patient fever has resolved and will continue with the vancomycin and cefep theodore, however can be transitioned back to IV Rocephin on discharge to finish his course of therapy for Osteomyelitis Time with Patient: Less than 30
[2022-08-17] MEDS ORDERED: TEMAZEPAM 15 MG CAP PO PRN (13:34)
[2022-08-17] MEDS: ACETAMINOPHEN TAB 325 MG TAB PO PRN (16:54)
[2022-08-17] MEDS: DEXAMETHASONE SOD PHOSPHATE 10 MG/ML 1 ML VIAL IVP SCH (18:28)
--- NOTE | 2022-08-17 19:17 | CONS ---
CONSULTATION REASON FOR CONSULTATION: Chronic sinusitis and supraglottic narrowing. HISTORY OF PRESENT ILLNESS: This patient is a 57-year-old male, who has a history of multiple various hospital admissions over the course of the past couple of weeks. The patient was seen at [facility] in [place] on two occasions and had a total of 4-day admissions due to severity of his symptoms. At that time, he had difficulty speaking and was not able to eat or drink. On each of the two occasions that he was seen, after hospitalized for 4 days total, he was subsequently discharged. On a third hospital presentation, he was transferred to [facility]. At [facility], it was felt that the patient had chronic sinusitis and a PICC line was put in place. The patient has been receiving Rocephin antibiotic infusions on a daily basis. On a recent visit to [facility], he was found to have a temperature and was subsequently sent to [facility]. At that time, he had developed increasing weakness, fatigue, coughing, and nasal drainage. He was using some type of moisturizing nasal spray, which he felt was helping him. Upon further discussion with the patient, I suspect that he was using Afrin nasal spray, a nasal decongestant, which is notorious for making sinus issues worse. If a patient uses this medication for a significant period of time, they will get a rebound effect, at which point the initial relief of nasal congestion will be followed by severe nasal congestion. This makes it difficult for the patient to breathe through his or her nose. He states he accidentally purchased a salt spray, which made things even worse. At some point, he was told that he had a septal perforation. Although he is complaining of having a sore throat at this time, his breathing is normal and his voice appears to be normal. CT scan of the neck revealed evidence of possible narrowing of the supraglottic airway at the level of the false vocal cords. The false vocal cords sit just above the true vocal cords. The patient states that he is a nonsmoker. It is to be noted that while in the emergency room, the patient was noted to be running a temperature, although his white count was fairly normal. CT scan of the brain revealed opacification of the left ethmoid sinus complex as well as the left sphenoid sinus. The remaining paranasal sinuses were completely normal. The patient states that he is feeling much better today compared to when he was initially admitted. There was a question at the time of his admission, while in the emergency room department, that the patient might be possibly septic and therefore he was admitted. Again, it is interesting that his white cell count at time of admission was quite low at 9.6 on 08/13/2022. He has been placed on broad- spectrum antibiotics including vancomycin and cefepime intravenously. At the present time, he has a slight sore throat, but states he is not having any difficulty swallowing. His temperature has been as high as 101. PAST MEDICAL HISTORY: Reveals the patient has blood cultures that are pending. ALLERGIES: He has no known allergies to medications. MEDICATIONS: His current home medications include, 1. [place]. 2. Ativan. 3. Synthroid. 4. Protonix. 5. Norvasc. 6. Oxycodone. 7. Desyrel. REVIEW OF SYSTEMS: CARDIOVASCULAR SYSTEM: Positive for hypertension. GASTROINTESTINAL SYSTEM: Positive for GERD (gastroesophageal reflux disorder). METABOLIC/ENDOCRINE SYSTEM: Positive for hypothyroidism. The remainder of the review of systems is essentially unremarkable. PHYSICAL EXAMINATION: GENERAL: This patient is a pleasant 57-year-old male, who is alert, cooperative and is in no acute distress at this time. HEENT: The patient is normocephalic. Tympanic membranes are normal. Pupils are equal, round, reactive to light and accommodation. Extraocular movements are within normal limits. Intranasal examination (limited) does not reveal any evidence of any purulent drainage from either naris and I am not able to detect at this time a septal perforation. I plan tomorrow when I see the patient to bring a better otoscope to examine his nose. Examination of oropharynx reveals no injection or erythema of the posterior pharyngeal wall. Palpation of the neck is negative for any neck masses or lymphadenopathy. Cranial nerves 2 through 12 and remainder of the head and neck exam are unremarkable. CHEST/CARDIOVASCULAR: Both lung kendall are clear to percussion and auscultation. There are no rales, rhonchi, or wheezes. The patient is in regular sinus rhythm. S1 and S2 are present without any murmurs, S3s, or S4s. ABDOMEN: There is no evidence any masses, megaly, or tenderness. The abdomen is soft. SKIN: Unremarkable. The remainder of physical exam is unremarkable. IMPRESSION: 1. Chronic left ethmoid and chronic left sphenoid sinusitis. 2. Possible supraglottic soft tissue swelling secondary to infection? PLAN: At this point, I would like to start this patient on a tapered course of dexamethasone IV. If the patient needs to be discharged in the next day or two, I will give the patient a prescription to complete his dexamethasone at home. I am going to advise the patient to avoid all nasal spray:saline, steroid, etc. The patient denies any seasonal allergies. Unfortunately, I am not able to do any type of indirect laryngoscopy or nasal scoping of this patient while he is in the hospital. Because his voice and breathing seem to be normal, I am not too concerned about the supraglottic narrowing. This may represent just inflammation from the infectious process that is going on in his lungs and upper respiratory tract. The intravenous steroids should certainly help reduce any swelling if that is the case. The radiologist suggested direct visualization. This could be done on an outpatient basis. The patient saw an ENT physician at [facility] and certainly that physician could follow with that procedure. If in fact, he felt that this patient needed to have a suspension microlaryngoscopy or other procedures, it could certainly be done then. However, because of the patient's lung status with infiltrates specifically, certainly no plans for any type of general anesthetic would be contemplated for at least the next 4 to 6 weeks because of safety reasons. It appears that this patient has certainly seen quite a few doctors over the course of the past several weeks. I will continue to follow this patient on a daily basis with you while he is in the hospital. I am going to order a CT scan of the sinuses without contrast to better evaluate the status of the paranasal sinuses. I want to take this opportunity to thank you for allowing me to assist in the care of your patient. If I could be of any further assistance, please feel free to call my office. DAVID / TONIA: [id number] / PRANAV
[2022-08-17] MEDS: traZODone HCL 50 MG TAB PO SCH ×2 (20:48→20:51)
[2022-08-17] MEDS: LORazepam 0.5 MG TAB PO PRN (20:59)
--- NOTE | 2022-08-17 23:45 | P.PN ---
Subjective From the records 57-year-old male with a past medical history significant for chronic sinus infection patient was recently admitted at [facility] beginning of July 2022 concerning for persistent sinus infection patient did have a CT followed by MRI which did show some cortical destruction of the bone concerning for osteomyelitis patient was evaluated by infectious disease DESIGN LEAD for Dr. Amado patient did get a PICC line and has been advised a 6-week course of IV Rocephin with the patient was currently receiving at [facility] through the left arm PICC line, patient presented to the infusion clinic today and was noticed to be febrile patient mention the fever started last night patient also complaining of increasing respiratory symptoms of shortness of breath cough which is congested but very minimal sputum production no hemoptysis no pleuritic chest pain patient also have a purulent drainage from the left nostril area there was noticed ants sinus congestion but denies any worsening sinus pain no nausea vomiting no abdominal pain or any diarrhea, on presentation to the hospital patient did have a fever of 101.6 degrees overnight patient was tachycardic however not hypoxic or need for supplemental oxygen patient did have a normal white count of 9.6 with a left shift creatinine was 1.02, liver enzymes are normal CRP is 14.8 patient did have a chest x-ray multifocal right lung acute infiltrate patient did have a CT soft tissue of the neck multifocal airspace disease throughout the visualized right upper lung correlate for pneumonia moderate to severe acute on chronic paraNasal sinus disease left greater than right circumferential swelling involving the cervical mucosal space at the junction between the nasopharynx and oropharynx patient was given dose of Rocephin and started on vancomycin infectious disease was consulted for further management of her antibiotic therapy 24-hour interval change 08/15/2022 Patient is seen and evaluated in room at bedside; no specific complaints reported patient overall feels better and has improved left temperature has been last evening of 102 F, no fever this morning patient is breathing slightly comfortably patient denies having any chest pain or worsening cough no nausea vomiting abdominal pain and no diarrhea patient presented to hospital with predominantly respiratory symptoms of shortness of breath and cough and also with a fever in this patient with abnormal x-ray with pneumonia on the right side and this patient currently receiving Rocephin in the outpatient setting for osteomyelitis involving the paranasal sinuses area diagnosed at [facility] -we will try to obtain culture data from [facility] -try to obtain sputum for Gram stain culture -influenza negative COVID PCR pending -Pt fever has resolved and will continue with the vancomycin and cefepime while waiting for cultures to be finalized -Await ENT evaluation 08/16/2022 Patient is seen and evaluated in room at bedside; discussed with nursing staff ; no specific complaints reported -- patient continues to be afebrile patient is breathing comfortably on room air, patient still complaining of some sore throat however no difficulty swallowing, patient denies having any chest pain or worsening cough no nausea vomiting abdominal pain and no diarrhea patient presented to hospital with predominantly respiratory symptoms of shortness of breath and cough and also with a fever in this patient with a bnormal x-ray with pneumonia on the right side and this patient currently receiving Rocephin in the outpatient setting for osteomyelitis involving the paranasal sinuses area diagnosed at [facility] -cultures obtained from the left nostril as well as sputum cultures are so far negative The patient fever has resolved and will continue with the vancomycin and cefepime and monitor clinical course closely I'm resuming care of the patient today 08/17/2022 This is a pleasant 57 years old male who was admitted with respiratory symptoms. 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 Patient was asking if he can be discharged home today I explained for him he is not ready for discharge Patient is a cyst in hospital ENT service evaluated the patient and suspected chronic ethmoid and sphenoid sinusitis also possible supraglottic soft tissue swelling secondary to infection and the recommended dexamethasone taper over 3 days. Hemoglobin 9.3. Fever subsided. ESR elevated at 70. Objective - Vital Signs Vital signs: Vital Signs Temp 98.2 F 08/17/22 07:36 Pulse 65 08/17/22 07:36 Resp 17 08/17/22 07:36 BP 130/85 08/17/22 07:36 Pulse Ox 94 L 08/17/22 09:00 FiO2 21 08/17/22 09:00 Intake & Output 08/16/22 08/17/22 08/17/22 18:59 06:59 18:59 Output Total 1300 900 Balance -1300 -900 Output: Urine 1300 900 Other: Voiding Method Toilet # Voids 4 2 - Exam GENERAL: The patient is alert and oriented x3, not in any acute distress. Well developed, well nourished. -HEENT: Pupils are round and equally reacting to light. EOMI. No scleral icterus. No conjunctival pallor. Normocephalic, atraumatic. No pharyngeal erythema. No thyromegaly. CARDIOVASCULAR: S1 and S2 present. No murmurs, rubs, or gallops. Soft tissue swelling of the upper lip PULMONARY: Chest is clear to auscultation, no wheezing . no crackles. ABDOMEN: Soft, nontender, nondistended, normoactive bowel sounds. No palpable organomegaly. MUSCULOSKELETAL: No joint swelling or deformity. EXTREMITIES: No cyanosis, clubbing, or pedal edema. NEUROLOGICAL: Gross neurological examination did not reveal any focal deficits. SKIN: No rashes. no petechiae. - Labs CBC & Chem 7: 08/17/22 06:01 08/17/22 06:01 Labs: Abnormal Lab Results - Last 24 Hours (Table) 08/17/22 Range/Units 06:01 RBC 3.52 L (4.40-5.60) X 10*6/uL Hgb 10.3 L (13.0-17.0) g/dL Hct 32.6 L (39.6-50.0) % MCHC 31.6 L (32.0-37.0) g/dL RDW 15.9 H (11.5-14.5) % Immature Gran # 0.06 H (0.00-0.04) X 10*3/uL Eosinophils # 0.51 H (0.04-0.35) X 10*3/uL Microbiology - Last 24 Hours (Table) 08/14/22 01:39 Anaerobic Culture - Final Nose 08/13/22 11:15 Blood Culture - Preliminary Blood 08/13/22 11:30 Blood Culture - Preliminary Blood Assessment and Plan Assessment: Acute pneumonia Infection of the right maxillary sinus with possible osteomyelitis on antibiotics as an outpatient Possible supraglottic soft tissue swelling secondary to infection. Chronic ethmoid and sphenoid sinusitis Chronic anemia Systemic inflammatory response with fever and leukocytosis, improved Plan: Continue with IV vancomycin and cefepime Continue with dexamethasone taper ID service on the case ENT consult Pain management, patient agrees to taper down his Dilaudid every 3 hours down to every 6 hours Labs and medication were reviewed.. Continue same treatment. Continue with symptomatic treatment. Resume home medication. Monitor labs and vitals. DVT and GI prophylaxis. Further recommendations as per clinical course of the patient DVT prophylaxis: Subcutaneous heparin GI Prophylaxis: Protonix Prognosis is guarded
[2022-08-18] MEDS: DEXAMETHASONE SOD PHOSPHATE 10 MG/ML 1 ML VIAL IVP SCH ×2 (01:31→09:16)
[2022-08-18] MEDS: CEFEPIME 2 GM in SODIUM CHLORIDE 0.9% 100 ML IVPB SCH ×2 (01:32→09:17)
[2022-08-18] MEDS: HYDROmorphone 0.5 MG/0.5 ML SYRINGE IVP PRN ×2 (03:51→09:15)
[2022-08-18] MEDS ORDERED: VANCOMYCIN TROUGH DUE 1 EACH MISC MISCELLANE ONE (05:00)
[2022-08-18 05:35] LABS: African American GFR (CKD) >90 (>60 ml/min/1.73 sqM); Anion Gap 9 mmol/L; Blood Urea Nitrogen 17 mg/dL (9-20); Calcium 8.3 mg/dL (8.4-10.2); Carbon Dioxide 25 mmol/L (22-30); Chloride 103 mmol/L (98-107); Glucose 148 mg/dL (74-99); Non-African American GFR(CKD) >90 (>60 ml/min/1.73 sqM); Potassium 4.8 mmol/L (3.5-5.1); Sodium 137 mmol/L (137-145)
[2022-08-18] MEDS: LEVOTHYROXINE 50 MCG TAB PO SCH (05:58)
[2022-08-18] MEDS: VANCOMYCIN 1,500 MG in SODIUM CHLORIDE 0.9% 500 ML 500 ML IVPB SCH (05:58)
[2022-08-18 07:49] VITALS: BP 137/83; PULSE 66; RESP 16; TEMP 98.1
--- NOTE | 2022-08-18 08:06 | CT ---
EXAMINATION TYPE: CT sinus wo con DATE OF EXAM: 08/18/2022 COMPARISON: NONE HISTORY: Chronic sinusitis Comparison: Prior sinus CT March 03, 2020 CT DLP: 495.6 mGycm. Automated Exposure Control for Dose Reduction was Utilized. TECHNIQUE: CT scan of the sinuses is performed without contrast, axial images are obtained, coronal r eformatted images are also reviewed. FINDINGS: Ngmt-gy-yhnnpzxt mucosal thickening in the left maxillary sinus on current study. Near-comp lete opacification of the left ethmoid and sphenoid sinuses on current study. Lxin-bf-zxzprnpa mucosa l thickening inferior right ethmoid sinuses. Mild to moderate mucosal thickening with patchy fluid in the right sphenoid sinus. Hypoplastic frontal sinuses redemonstrated. The ostiomeatal complex is patent on the right on coronal image 24 and occluded on the left. Nonvisualization consistent with bony destruction or surgical removal of the inferior nasal septum is noted. There there is peripheral mucosal thickening and patchy fluid at this level within the nasal vault. Correlate clinically. Visualized portion of mastoid air cells show no abnormal opacification. The globes are intact bilate rally. IMPRESSION: Recurrent acute on chronic paranasal sinus disease as detailed above.
[2022-08-18] MEDS ORDERED: HEPARIN SODIUM,PORCINE/PF 5,000 UNIT/0.5 ML SYRINGE SQ SCH (09:00)
[2022-08-18] MEDS: MAG HYDROX/AL HYDROX/SIMETH 30 ML, LIDOCAINE VISCOUS 2% 30 ML, diphenhydrAMINE ELIXIR 7... PO SCH ×8 (09:16→13:02)
[2022-08-18] MEDS: PANTOPRAZOLE 40 MG TABLET PO SCH (09:16)
[2022-08-18] MEDS: ESCITALOPRAM 10 MG TAB PO SCH (09:17)
[2022-08-18] MEDS: amLODIPine 5 MG TAB PO SCH (09:17)
--- NOTE | 2022-08-18 14:23 | P.PN ---
Subjective Progress Note Date: 08/18/22 Principal diagnosis: Pneumonia and osteomyelitis 57-year-old male with a past medical history significant for chronic sinus infection patient was recently admitted at [facility] beginning of July 2022 concerning for persistent sinus infection patient did have a CT followed by MRI which did show some cortical destruction of the bone concerning for osteomyelitis patient was evaluated by infectious disease ELECTRICAL ENGINEER for Dr. Amado patient did get a PICC line and has been advised a 6-week course of IV Rocephin, patient now presenting to the hospital with fever increasing cough and sputum production with evidence of right-sided pneumonia on the CT. On today's evaluation that is 08/18/2022 patient continues to be afebrile patient is breathing comfortably on room air, patient left nostril discomfort and drainage has improved patient denies having any chest pain or shortness of breath , the patient did have occasional cough but occasional sputum production, no nausea no vomiting no abdominal pain or diarrhea Objective - Vital Signs Vital signs: Vital Signs Temp 98.1 F 08/18/22 07:33 Pulse 66 08/18/22 07:33 Resp 16 08/18/22 07:33 BP 137/83 08/18/22 07:33 Pulse Ox 98 08/18/22 07:33 FiO2 21 08/17/22 09:00 Intake & Output 08/17/22 08/18/22 08/18/22 18:59 06:59 18:59 Output Total 1000 500 Balance -1000 -500 Output: Urine 1000 500 Other: Voiding Method Toilet # Voids 3 2 - Exam GENERAL DESCRIPTION: Middle-aged male lying in bed in no distress HEENT: Left nostril drainage resolved areas crusting, RESPIRATORY SYSTEM: Unlabored breathing , decreased breath sounds at bases HEART: S1 S2 regular rate and rhythm , ABDOMEN: Soft , no tenderness EXTREMITIES: No edema feet - Labs CBC & Chem 7: 08/17/22 06:01 08/18/22 04:58 Labs: Abnormal Lab Results - Last 24 Hours (Table) 08/18/22 Range/Units 04:58 Glucose 148 H (74-99) mg/dL Calcium 8.3 L (8.4-10.2) mg/dL Microbiology - Last 24 Hours (Table) 08/13/22 11:15 Blood Culture - Preliminary Blood 08/13/22 11:30 Blood Culture - Preliminary Blood 08/14/22 01:39 Anaerobic Culture - Final Nose Assessment and Plan (1) Paranasal sinus disease Current Visit: Yes Status: Acute Code(s): J34.9 - UNSPECIFIED DISORDER OF NOSE AND NASAL SINUSES SNOMED Code(s): 5175417 (2) Pneumonia Current Visit: Yes Status: Acute Code(s): J18.9 - PNEUMONIA, UNSPECIFIED ORGANISM SNOMED Code(s): 931774990 (3) Sepsis Current Visit: Yes Status: Acute Code(s): A41.9 - SEPSIS, UNSPECIFIED ORGANISM SNOMED Code(s): 05449241 Plan: This was a telehealth visit 1patient presented to hospital with predominantly respiratory symptoms of shortness of breath and cough and also with a fever in this patient with abn ormal x-ray with pneumonia on the right side and this patient currently receiving Rocephin in the outpatient setting for osteomyelitis involving the right maxillary sinuses area diagnosed at [facility] 2-cultures obtained from the left nostril as well as sputum cultures which remains to be negative 3The patient fever has resolved and all culture has been negative so far, the patient will be transitioned back to IV Rocephin on discharge to finish his course of therapy for Osteomyelitis and close outpatient follow-up Time with Patient: Less than 30
[2022-08-18] MEDS ORDERED: DEXAMETHASONE SOD PHOSPHATE 10 MG/ML 1 ML VIAL IVP SCH (16:00)
[2022-08-18] MEDS ORDERED: VANCOMYCIN 1,250 MG in SODIUM CHLORIDE 0.9% 250 ML IVPB SCH (18:00)
--- NOTE | 2022-08-19 00:04 | P.DS ---
Providers Date of admission: 08/13/22 15:37 Attending physician: Segun Pizarro MD Consults: 08/13/22 15:00 Consult Physician Urgent Consulting Provider: Nathaniel Abbott Consult Reason/Comments: Severe pharyngitis with supraglottic airway narrowing Do you want consulting provider notified?: Yes 08/13/22 15:09 Consult Physician Urgent Consulting Provider: Carolyn Ozuna Consult Reason/Comments: Right multifocal pneumonia with severe pharyngitis and severe sinusitis Do you want consulting provider notified?: Yes Primary care physician: Jamel Kothari MD Hospital Course: Diagnoses Acute pneumonia Infection of the right maxillary sinus with possible osteomyelitis on antibiotics as an outpatient Possible supraglottic soft tissue swelling secondary to infection. Chronic ethmoid and sphenoid sinusitis Chronic anemia Systemic inflammatory response with fever and leukocytosis, improved Hospital course: 57-year-old male with a past medical history significant for chronic sinus infection patient was recently admitted at [facility] beginning of July 2022 concerning for persistent sinus infection patient did have a CT followed by MRI which did show some cortical destruction of the bone concerning for osteomyelitis patient was evaluated by infectious disease SPECIAL EDUCATION PARA PROFESSIONAL for Dr. Amado patient did get a PICC line and has been advised a 6-week course of IV Rocephin with the patient was currently receiving at [facility] through the left arm PICC line, patient presented to the infusion today and was noticed to be febrile patient mention the fever started one night earlier patient also complaining of increasing respiratory symptoms of shortness of breath cough which is congested but very minimal sputum production no hemoptysis no pleuritic chest pain patient also have a purulent drainage from the left nostril area there was noticed ants sinus congestion but denies any worsening sinus pain no nausea vomiting no abdominal pain or any diarrhea, on presentation to the hospital patient did have a fever of 101.6 degrees overnight patient was tachycardic however not hypoxic or need for supplemental oxygen patient did have a normal white count of 9.6 with a left shift . Patient has been evaluated by ID team and he was treated with broad-spectrum antibiotic with cefepime and vancomycin, patient showed interval improvement in his symptoms. Also evaluated by ENT Dr. Meléndez and he was treated with tapered dexamethasone. On the day of discharge patient is back to baseline, he is saturating 98% on room air, he is not tachypneic, not dyspneic, no coughing. No other new complaint I discussed the case with ID team evaluated him for discharge and Dr. Ozuna recommended he can go back to his previous antibiotic therapy with ceftriaxone, I spoke with our field nurse case manager Sandhya who confirmed to me patient already have previous set up still working for him and he can resume his previous treatment on discharge, arrangements confirmed with recurrent and with the patient and he is verbalized understanding and acceptance to me. Also patient will be discharged on tapered dexamethasone, her prescription provided for him by Dr. Abbott per bedside nurse Gwen. Patient was cleared for discharge by postoperative ID team and ENT Dr. Meléndez Problems and management plan were discussed with the patient and he verbalized understanding and acceptance Patient was found stable and can be discharged home in guarded prognosis however he needs follow-up as an outpatient. Patient was instructed to follow up with P YVETTE Kothari within one week and patient agrees. Appointment made for the patient per staff and he is agreeable Also patient instructed to follow up with Dr. ozuna in one week and he is on ENT physician from [facility] otherwise he can follow up with Dr. Abbott in 1-2 weeks and he verbalized understanding and acceptance (note: As per Dr. Ozuna and Sandhya the field nurse case manager patient does not need prescription for his antibiotic upon discharge as it is already set up for him) Physical exam -Gen: patient is a AAOx3, no distress. Facial soft tissue swelling especially of the upper lip is improving CVS: S1-S2, RRR, no murmur Lungs: B/L CTA, no wheezing Abdomen: soft, no distention, no tenderness, positive bowel sounds Extremity: no leg edema or induration Time spent more than 35 minutes Plan - Discharge Summary Discharge Rx Participant: No New Discharge Prescriptions: Continue Levothyroxine Sodium [Synthroid] 50 mcg PO DAILY Escitalopram [Lexapro] 10 mg PO DAILY Pantoprazole [Protonix] 40 mg PO DAILY oxyCODONE HCL [OxyIR] 5 mg PO Q4H PRN PRN Reason: Pain LORazepam [Ativan] 0.5 mg PO DAILY PRN PRN Reason: Anxiety traZODone HCL [Desyrel] 50 mg PO HS Nystatin 100,000 Unit/ml Susp [Mycostatin Oral Susp] 5 ml PO QID predniSONE See Taper PO DIRECTED amLODIPine [Norvasc] 5 mg PO DAILY Sodium Chloride 0.65% Nasal [Deep Sea (Saline)] 1 spray NASAL QID PRN PRN Reason: DRYNESS/CONGESTION Discontinued HYDROcodone/APAP 5-325MG [[place] 5-325] 1 tab PO QID PRN PRN Reason: Pain Discharge Medication List Escitalopram [Lexapro] 10 mg PO DAILY 08/13/22 [History] LORazepam [Ativan] 0.5 mg PO DAILY PRN 08/13/22 [History] Levothyroxine Sodium [Synthroid] 50 mcg PO DAILY 08/13/22 [History] Nystatin 100,000 Unit/ml Susp [Mycostatin Oral Susp] 5 ml PO QID 08/13/22 [History] Pantoprazole [Protonix] 40 mg PO DAILY 08/13/22 [History] Sodium Chloride 0.65% Nasal [Deep Sea (Saline)] 1 spray NASAL QID PRN 08/13/22 [History] amLODIPine [Norvasc] 5 mg PO DAILY 08/13/22 [History] oxyCODONE HCL [OxyIR] 5 mg PO Q4H PRN 08/13/22 [History] predniSONE See Taper PO DIRECTED 08/13/22 [History] traZODone HCL [Desyrel] 50 mg PO HS 08/13/22 [History] Follow up Appointment(s)/Referral(s): Jamel Kothari MD [Primary Care Provider] - 08/27/22 2:30 pm [facility],Infusion [NON-STAFF] - 08/19/22 (Please call office for tomorrow's appointment time.) Nathaniel Abbott MD [STAFF PHYSICIAN] - 1 Week (Dr. Abbott would like patient to follow-up with the ENT he saw at [facility]. ) Carolyn Ozuna MD [STAFF PHYSICIAN] - 08/30/22 2:00 pm Patient Instructions/Handouts: Sinusitis (ED) Activity/Diet/Wound Care/Special Instructions: Heart healthy diet activity is restricted till you see your doctor we recommended to follow-up with your ENT specialist from [facility] in 1 week after discharge, you have the contact information as you informed the medical team we recommended to follow-up with your infectious disease specialist from [facility] in 1 week after discharge, you have the contact information as you informed the medical team (Otherwise follow up with Dr. Abbott and Dr. Ozuna as instructed in her disch arge.) Paper prescription for tapered dexamethasone as provided for review by Dr. Abbott, please take it to the nearest pharmacy. you have Rx coverage for your antibiotic treatment. please follow up with the [facility] same as prior to admission. our field nurse case manager called Diane with [facility] who confirms you are open to their services. resume your previous treatment with antibiotic Discharge Disposition: HOME SELF-CARE
[2022-08-19] MEDS ORDERED: DEXAMETHASONE SOD PHOSPHATE 4 MG/ML 1 ML VIAL IVP SCH (16:00)
== END 2022-08-18 14:47 | disposition home or self-care (01) | DRG 871 ==
LOC: EC 10:40 → 4SSUR 15:37
PROVIDERS: ADMIT Internal Medicine; ATTEND Internal Medicine
DX: A41.9 Sepsis, unspecified organism (principal); J18.9 Pneumonia, unspecified organism; M86.8X8 Other osteomyelitis, other site; J01.80 Other acute sinusitis; J35.1 Hypertrophy of tonsils; M27.2 Inflammatory conditions of jaws; J32.2 Chronic ethmoidal sinusitis; J32.3 Chronic sphenoidal sinusitis; I10 Essential (primary) hypertension; D64.9 Anemia, unspecified; E03.9 Hypothyroidism, unspecified; F32.A Depression, unspecified; G47.9 Sleep disorder, unspecified; F41.9 Anxiety disorder, unspecified; Z20.822 Contact with and (suspected) exposure to COVID-19; Z79.899 Other long term (current) drug therapy; Z79.890 Hormone replacement therapy; Z28.310 Unvaccinated for COVID-19
CPT/HCPCS: 36415; 70460; 70486; 70491; 71046; 80048; 80053; 80202; 83605; 84145; 85025; 85610; 85652; 85730; 86140; 87040; 87070; 87075; 87205; 87502; 94760; 96365; 96366; 96367; 96375; 99285

== ENCOUNTER 2022-08-27 16:17 | Inpatient (IN) | payer BC ==
[2022-08-27] MEDS ORDERED: IBUPROFEN 600 MG TAB PO STA (16:42)
[2022-08-27] MEDS ORDERED: ACETAMINOPHEN TAB 500 MG TAB PO STA (16:42)
[2022-08-27] MEDS ORDERED: IPRATROPIUM-ALBUTEROL 3 ML NEB INHALATION STA (16:42)
[2022-08-27] MEDS ORDERED: SODIUM CHLORIDE 0.9% 1,000 ML IV STA (16:42)
--- NOTE | 2022-08-27 16:43 | ED ---
Fever HPI - General Chief Complaint: Shortness of Breath Stated Complaint: pneumonia Source: patient, RN notes reviewed, old records reviewed Mode of arrival: ambulatory Limitations: no limitations - History of Present Illness Initial Comments: This is a 57-year-old male who presents here today for evaluation of drainage nasal drainage cough congestion weakness severely elevated fever. Cough sore throat hoarse voice with throat infections and conditions comorbid infection on PICC line antibiotics at home for bone in throat infection sinus infection sinusitis. Patient has been getting also recurrent pneumonia. MD Complaint: fever, malaise, weakness, other (Follow-up) -: days(s) Temperature Source: subjective Context: sick contacts, multiple patients with similar symptoms Associated Symptoms: chills, rhinorrhea, nasal congestion, sore throat, cough, shortness of breath, nausea Treatments Prior to Arrival: none - Related Data Home Medications Medication Instructions Recorded Confirmed Escitalopram [Lexapro] 10 mg PO DAILY 08/13/22 08/27/22 LORazepam [Ativan] 0.5 mg PO DAILY PRN 08/13/22 08/27/22 Levothyroxine Sodium [Synthroid] 50 mcg PO DAILY 08/13/22 08/27/22 Nystatin 100,000 Unit/ml Susp 5 ml PO QID 08/13/22 08/27/22 [Mycostatin Oral Susp] Pantoprazole [Protonix] 40 mg PO DAILY 08/13/22 08/27/22 traZODone HCL [Desyrel] 50 mg PO HS 08/13/22 08/27/22 Benzocaine [place] [Hurricaine [place]] 1 applic MUCOUS MEM QID PRN 08/27/22 08/27/22 HYDROcodone/APAP 5-325MG [[place] 1 tab PO TID PRN 08/27/22 08/27/22 5-325] Losartan [Cozaar] 100 mg PO DAILY 08/27/22 08/27/22 Allergies Allergy/AdvReac Type Severity Reaction Status Date / Time No Known Allergies Allergy Verified 08/27/22 17:47 Review of Systems ROS Statement: Those systems with pertinent positive or pertinent negative responses have been documented in the HPI. ROS Other: All systems not noted in ROS Statement are negative. Past Medical History Past Medical History: Hypertension Additional Past Medical History / Comment(s): bone throat infection History of Any Multi-Drug Resistant Organisms: MRSA Date of last positivie culture/infection: 5/01/23 MDRO Source:: Throat Past Surgical History: Orthopedic Surgery Additional Past Surgical History / Comment(s): avascular necrosis rt hip Past Anesthesia/Blood Transfusion Reactions: No Reported Reaction Past Psychological History: No Psychological Hx Reported Smoking Status: Never smoker Past Alcohol Use History: None Reported Past Drug Use History: None Reported - Past Family History Mother Family Medical History: Dialysis General Exam Limitations: no limitations General appearance: alert, in no apparent distress, anxious, in distress Head exam: Present: atraumatic, normocephalic, normal inspection Eye exam: Present: normal appearance, PERRL, EOMI. Absent: scleral icterus, conjunctival injection, periorbital swelling ENT exam: Present: normal exam, mucous membranes moist, other (Purulent drainage to both nares) Neck exam: Present: normal inspection. Absent: tenderness, meningismus, lymph adenopathy Respiratory exam: Present: normal lung sounds bilaterally. Absent: respiratory distress, wheezes, rales, rhonchi, stridor Cardiovascular Exam: Present: normal rhythm, tachycardia, normal heart sounds. Absent: systolic murmur, diastolic murmur, rubs, gallop, clicks GI/Abdominal exam: Present: soft, normal bowel sounds. Absent: distended, tenderness, guarding, rebound, rigid Extremities exam: Present: normal inspection, full ROM, normal capillary refill. Absent: tenderness, pedal edema, joint swelling, calf tenderness Back exam: Present: normal inspection Neurological exam: Present: alert, oriented X3, CN II-XII intact Psychiatric exam: Present: normal affect, normal mood Skin exam: Present: warm, dry, intact, normal color. Absent: rash Course Vital Signs 08/27/22 08/27/22 08/27/22 16:30 16:56 17:02 Temperature 100.4 F H Pulse Rate 104 H 101 H 101 H Respiratory 22 20 18 Rate Blood Pressure 161/103 O2 Sat by Pulse 96 Oximetry 08/27/22 08/27/22 17:33 18:59 Temperature 101.2 F H 100.3 F H Pulse Rate 100 93 Respiratory 20 18 Rate Blood Pressure 178/118 158/103 O2 Sat by Pulse 98 96 Oximetry - Reevaluation(s) Reevaluation #1: 08/27/22 17:49 Medical records reviewed Reevaluation #2: 08/27/22 17:49 Patient symptoms improved Reevaluation #3: 08/27/22 17:49 Patient informed results Reevaluation #4: 08/27/22 17:49 Was pt. sent in by a medical professional or institution? @ -no Did you speak to anyone other than the patient for history? @ -no Did you review nursing and triage notes? @ -agree Were old charts reviewed? @ -no Differential Diagnosis? @ -prior EKG interpreted by me (3pts min.)? @ -yes X-rays interpreted by me (1pt min.)? @ -yes CT interpreted by me (1pt min.)? @ -no U/S interpreted by me (1pt. min.)? @ -no What testing was considered but not performed? (CT, X-rays, U/S, labs)? Why? @ -no What meds were considered but not given? Why? @ -no Did you discuss the management of the patient with other professionals? @ -no Did you reconcile home meds? @ -no Was smoking cessation discussed for >3mins.? @ -no Was critical care preformed (if so, how long)? @ -no Were there social determinants of health that impacted care today? How? (Homelessness, low income, unemployed, alcoholism, drug addiction, transportation, low edu. Level, literacy, decrease access to med. care, long-term, rehab)? @ -no Was there de-escalation of care discussed even if they declined? (Discuss DNR or withdrawal of care, Hospice)? @ -no What co-morbidities impacted this encounter? (DM, HTN, Smoking, COPD, CAD, Cancer, CVA, Hep., AIDS, mental health diagnosis, sleep apnea, morbid obesity)? @ -none Was patient admitted / discharged? @ -57 male be admitted for severe sinus infection with bilateral pneumonia positive fever and sepsis. Patient will be admitted for infectious disease consult Admitted Undiagnosed new problem with uncertain prognosis? @ -no Drug Therapy requiring intensive monitoring for toxicity (Heparin, Nitro, Insul in, Cardizem)? @ -no Were any procedures done? @ -no Diagnosis/symptom? @ -Fever, sepsis, pneumonia, osteomyelitis bone infection sinus infection Acute, or Chronic, or Acute on Chronic? @ -no Uncomplicated (without systemic symptoms) or Complicated (systemic symptoms)? @ -uncomplicated Side effects of treatment? @ -no Exacerbation, Progression, or Severe Exacerbation] @ -no Poses a threat to life or bodily function? @ -yes with sepsis Reevaluation #5: 08/27/22 17:49 Differential Fever: Pneumonia, viral URI, endocarditis, myocarditis, pericarditis, otitis, sinusitis, peritonsillar Abscess, retropharyngeal Abscess, epiglottitis, peritonitis, appendicitis, Jana cystitis, diverticulitis, hepatitis, colitis, UTI, PID, TOA, pyelonephritis, prostatitis, epididymitis, meningitis, encephalitis, pulmonary embolism, CVA, thyroid storm, pancreatitis, adrenal crisis, cavernous sinus thrombosis, this is not meant to be an all-inclusive list. - Consultations Consultation #1: Spoke with admitting physicians agreeable to admit the patient Medical Decision Making - Medical Decision Making 57 male DF for evaluation on outpatient antibiotics for severe sinus disease. Sinus infection with fever here complicated by bilateral bacterial pneumonia patient be admitted with change in antibiotics and consult with infectious disease - Lab Data Result diagrams: 08/27/22 17:25 08/27/22 17:25 Lab Results 08/27/22 08/27/22 08/27/22 Range/Units 17:25 17:25 17:25 WBC 11.1 H (3.8-10.6) k/uL RBC 3.44 L (4.30-5.90) m/uL Hgb 9.8 L D (13.0-17.5) gm/dL Hct 30.8 L (39.0-53.0) % MCV 89.5 (80.0-100.0) fL MCH 28.5 (25.0-35.0) pg MCHC 31.9 (31.0-37.0) g/dL RDW 15.3 (11.5-15.5) % Plt Count 566 H (150-450) k/uL MPV 7.6 Neutrophils % 80 % Lymphocytes % 11 % Monocytes % 6 % Eosinophils % 1 % Basophils % 0 % Neutrophils # 8.9 H (1.3-7.7) k/uL Lymphocytes # 1.2 (1.0-4.8) k/uL Monocytes # 0.7 (0-1.0) k/uL Eosinophils # 0.2 (0-0.7) k/uL Basophils # 0.0 (0-0.2) k/uL PT 10.6 (9.0-12.0) sec INR 1.0 (<1.2) APTT 30.0 (22.0-30.0) sec Sodium 136 L (137-145) mmol/L Potassium 4.2 (3.5-5.1) mmol/L Chloride 103 (98-107) mmol/L Carbon Dioxide 24 (22-30) mmol/L Anion Gap 9 mmol/L BUN 18 (9-20) mg/dL Creatinine 0.96 (0.66-1.25) mg/dL Est GFR (CKD-EPI)AfAm >90 (>60 ml/min/1.73 sqM) Est GFR (CKD-EPI)NonAf 89 (>60 ml/min/1.73 sqM) Glucose 139 H (74-99) mg/dL Plasma Lactic Acid Yevgeniy (0.7-2.0) mmol/L Calcium 8.9 (8.4-10.2) mg/dL Phosphorus 3.2 (2.5-4.5) mg/dL Magnesium 1.6 (1.6-2.3) mg/dL Total Bilirubin 0.3 (0.2-1.3) mg/dL AST 13 L (17-59) U/L ALT 22 (4-49) U/L Alkaline Phosphatase 81 (38-126) U/L Troponin I (0.000-0.034) ng/mL Total Protein 6.1 L (6.3-8.2) g/dL Albumin 3.2 L (3.5-5.0) g/dL Lipase 62 (23-300) U/L Influenza Type A (PCR) (Not Detectd) Influenza Type B (PCR) (Not Detectd) RSV (PCR) (Not Detectd) SARS-CoV-2 (PCR) (Not Detectd) 08/27/22 08/27/22 08/27/22 Range/Units 17:25 17:25 17:25 WBC (3.8-10.6) k/uL RBC (4.30-5.90) m/uL Hgb (13.0-17.5) gm/dL Hct (39.0-53.0) % MCV (80.0-100.0) fL MCH (25.0-35.0) pg MCHC (31.0-37.0) g/dL RDW (11.5-15.5) % Plt Count (150-450) k/uL MPV Neutrophils % % Lymphocytes % % Monocytes % % Eosinophils % % Basophils % % Neutrophils # (1.3-7.7) k/uL Lymphocytes # (1.0-4.8) k/uL Monocytes # (0-1.0) k/uL Eosinophils # (0-0.7) k/uL Basophils # (0-0.2) k/uL PT (9.0-12.0) sec INR (<1.2) APTT (22.0-30.0) sec Sodium (137-145) mmol/L Potassium (3.5-5.1) mmol/L Chloride (98-107) mmol/L Carbon Dioxide (22-30) mmol/L Anion Gap mmol/L BUN (9-20) mg/dL Creatinine (0.66-1.25) mg/dL Est GFR (CKD-EPI)AfAm (>60 ml/min/1.73 sqM) Est GFR (CKD-EPI)NonAf (>60 ml/min/1.73 sqM) Glucose (74-99) mg/dL Plasma Lactic Acid Yevgeniy 0.8 (0.7-2.0) mmol/L Calcium (8.4-10.2) mg/dL Phosphorus (2.5-4.5) mg/dL Magnesium (1.6-2.3) mg/dL Total Bilirubin (0.2-1.3) mg/dL AST (17-59) U/L ALT (4-49) U/L Alkaline Phosphatase (38-126) U/L Troponin I <0.012 (0.000-0.034) ng/mL Total Protein (6.3-8.2) g/dL Albumin (3.5-5.0) g/dL Lipase (23-300) U/L Influenza Type A (PCR) Not Detected (Not Detectd) Influenza Type B (PCR) Not Detected (Not Detectd) RSV (PCR) Not Detected (Not Detectd) SARS-CoV-2 (PCR) Not Detected (Not Detectd) - EKG Data -: EKG Interpreted by Me (EKG is sinus 74 FL 154 QRS 80 QTC 372) - Radiology Data Radiology results: report reviewed (Chest x-ray showing bilateral pneumonia), image reviewed Disposition Clinical Impression: Pneumonia, Sepsis, Paranasal sinus disease, Anemia, Fever, Failure of outpatient treatment Disposition: ADMITTED IP TO THIS [facility] Condition: Serious Is patient prescribed a controlled substance at d/c from ED?: No Referrals: Jamel Kothari MD [Primary Care Provider] - 1-2 days Time of Disposition: 19:00
--- NOTE | 2022-08-27 16:59 | XR ---
EXAMINATION TYPE: XR chest 1V portable DATE OF EXAM: 08/27/2022 4:52 PM COMPARISON: Chest radiographs from 08/13/2022 TECHNIQUE: XR chest 1V portable Frontal view of the chest. CLINICAL INDICATION:Male, 57 years old with history of sob; FINDINGS: Lungs/Pleura: Basilar airspace opacities posteriorly. There is no evidence of pleural effusion, focal consolidation, or pneumothorax. Pulmonary vascularity: Unremarkable. Heart/mediastinum: Cardiomediastinal silhouette is unremarkable. Musculoskeletal: No acute osseous pathology. Other findings: None Lines/Tubes: Left-sided PICC with distal tip at the superior vena cava/brachiocephalic confluence. IMPRESSION: 1. Basilar airspace opacities, best appreciated on lateral.e Correlate for pneumonia. 2. Left PICC in appropriate position.
[2022-08-27] MEDS ORDERED: diphenhydrAMINE 50 MG/ML 1 ML VIAL IVP STA (17:41)
[2022-08-27] MEDS ORDERED: HYDROmorphone 1 MG/ML 1 ML SYRINGE IVP STA (17:41)
[2022-08-27] MEDS ORDERED: ONDANSETRON 4 MG/2 ML VIAL IVP STA (17:41)
[2022-08-27] MEDS ORDERED: PIPERACILLIN-TAZOBACTAM 3.375 GM in SODIUM CHLORIDE 0.9% 100 ML IVPB STA (17:43)
[2022-08-27] MEDS ORDERED: LEVOFLOXACIN 750MG-D5W PMX 750 MG in DEXTROSE/WATER 1 150ML.BAG IVPB STA (17:43)
[2022-08-27] MEDS ORDERED: ACETAMINOPHEN IV (For NPO) 1,000 MG in EMPTY BAG 1 BAG IVPB STA (17:44)
[2022-08-27 17:56] LABS: Prothrombin Time 10.6 sec (9.0-12.0)
[2022-08-27 18:00] LABS: ALT 22 U/L (4-49); AST 13 U/L (17-59); African American GFR (CKD) >90 (>60 ml/min/1.73 sqM); Albumin 3.2 g/dL (3.5-5.0); Alkaline Phosphatase 81 U/L (38-126); Anion Gap 9 mmol/L; Blood Urea Nitrogen 18 mg/dL (9-20); Calcium 8.9 mg/dL (8.4-10.2); Carbon Dioxide 24 mmol/L (22-30); Chloride 103 mmol/L (98-107); Glucose 139 mg/dL (74-99); Lipase 62 U/L (23-300); Magnesium 1.6 mg/dL (1.6-2.3); Non-African American GFR(CKD) 89 (>60 ml/min/1.73 sqM); Phosphorus 3.2 mg/dL (2.5-4.5); Potassium 4.2 mmol/L (3.5-5.1); Sodium 136 mmol/L (137-145); Total Bilirubin 0.3 mg/dL (0.2-1.3); Total Protein 6.1 g/dL (6.3-8.2)
[2022-08-27 18:13] LABS: Basophils % (A) 0 %; Eosinophils # (A) 0.2 k/uL (0-0.7); Eosinophils % (A) 1 %; HCT 30.8 % (39.0-53.0); Lymphocytes # (A) 1.2 k/uL (1.0-4.8); Lymphocytes % (A) 11 %; MCH 28.5 pg (25.0-35.0); MCHC 31.9 g/dL (31.0-37.0); MCV 89.5 fL (80.0-100.0); Mean Platelet Volume 7.6; Monocytes # (A) 0.7 k/uL (0-1.0); Monocytes % (A) 6 %; Neutrophils # (A) 8.9 k/uL (1.3-7.7); Neutrophils % (A) 80 %; Platelet Count 566 k/uL (150-450); RBC 3.44 m/uL (4.30-5.90); RDW 15.3 % (11.5-15.5); WBC 11.1 k/uL (3.8-10.6)
[2022-08-27] MEDS ORDERED: IBUPROFEN IV 800 MG in SODIUM CHLORIDE 0.9% 250 ML IV ONE (18:15)
[2022-08-27 18:19] LABS: HGB 9.8 gm/dL (13.0-17.5)
[2022-08-27] MEDS ORDERED: NALOXONE 0.4 MG/ML 1 ML VIAL IV PRN (19:04)
[2022-08-27 20:28] LABS: Amphetamine Screen,Urine Not Detected (NotDetected); Barbiturate Screen,Urine Not Detected (NotDetected); Benzodiazepines Screen,Urine Detected (NotDetected); Cocaine Screen,Urine Detected (NotDetected); Methadone Screen, Urine Not Detected (NotDetected); Opiate Screen,Urine Detected (NotDetected); Oxycodone Screen, Urine Not Detected (NotDetected); Phencyclidine Screen,Urine Not Detected (NotDetected); Tricyclic Antidepressant,Urine Not Detected (NotDetected); Urn Cannabinoid Scrn Not Detected (NotDetected)
[2022-08-27] MEDS: HYDROmorphone 1 MG/ML 1 ML SYRINGE IVP PRN (22:42)
[2022-08-27] MEDS: SODIUM CHLORIDE 0.9% 1,000 ML IV SCH (23:05)
[2022-08-28] MEDS: HYDROmorphone 1 MG/ML 1 ML SYRINGE IVP PRN ×7 (01:27→20:36)
[2022-08-28] MEDS: SODIUM CHLORIDE 0.9% 1,000 ML IV SCH ×3 (03:26→11:49)
[2022-08-28] MEDS: ONDANSETRON 4 MG/2 ML VIAL IVP PRN (04:36)
[2022-08-28] MEDS: LOSARTAN 50 MG TAB PO SCH (06:11)
[2022-08-28 06:51] LABS: Basophils % (A) 0 %; Eosinophils # (A) 0.2 k/uL (0-0.7); Eosinophils % (A) 2 %; HCT 32.1 % (39.0-53.0); HGB 9.9 gm/dL (13.0-17.5); Hypochromasia Slight; Lymphocytes # (A) 1.6 k/uL (1.0-4.8); Lymphocytes % (A) 18 %; MCH 28.7 pg (25.0-35.0); MCHC 30.8 g/dL (31.0-37.0); Mean Platelet Volume 7.1; Monocytes # (A) 0.6 k/uL (0-1.0); Monocytes % (A) 7 %; Neutrophils # (A) 6.5 k/uL (1.3-7.7); Neutrophils % (A) 72 %; Platelet Count 524 k/uL (150-450); RBC 3.45 m/uL (4.30-5.90); RDW 15.1 % (11.5-15.5); WBC 9.1 k/uL (3.8-10.6)
[2022-08-28 07:13] LABS: ALT 19 U/L (4-49); AST 14 U/L (17-59); African American GFR (CKD) >90 (>60 ml/min/1.73 sqM); Albumin 3.1 g/dL (3.5-5.0); Alkaline Phosphatase 68 U/L (38-126); Anion Gap 8 mmol/L; Blood Urea Nitrogen 16 mg/dL (9-20); Calcium 8.6 mg/dL (8.4-10.2); Carbon Dioxide 24 mmol/L (22-30); Chloride 105 mmol/L (98-107); Glucose 77 mg/dL (74-99); Magnesium 1.8 mg/dL (1.6-2.3); Non-African American GFR(CKD) >90 (>60 ml/min/1.73 sqM); Phosphorus 3.3 mg/dL (2.5-4.5); Potassium 4.5 mmol/L (3.5-5.1); Sodium 137 mmol/L (137-145); Total Bilirubin 0.3 mg/dL (0.2-1.3); Total Protein 6.1 g/dL (6.3-8.2)
[2022-08-28] MEDS ORDERED: VANCOMYCIN IV PER PHARMACY 1 EACH MISC MISCELLANE PRN (07:36)
[2022-08-28] MEDS: CEFEPIME 2 GM in SODIUM CHLORIDE 0.9% 100 ML IVPB SCH ×2 (09:11→17:28)
[2022-08-28] MEDS: PANTOPRAZOLE 40 MG/10 ML VIAL IV SCH (09:12)
[2022-08-28] MEDS ORDERED: VANCOMYCIN 1,500 MG in SODIUM CHLORIDE 0.9% 500 ML 500 ML IVPB ONE (10:00)
[2022-08-28] MEDS: ACETAMINOPHEN TAB 325 MG TAB PO PRN ×2 (10:31→20:47)
[2022-08-28] MEDS: IBUPROFEN 400 MG TAB PO PRN (14:33)
[2022-08-28] MEDS: traZODone HCL 50 MG TAB PO SCH (20:36)
--- NOTE | 2022-08-28 21:54 | P.HPIM ---
History of Present Illness H&P Date: 08/28/22 Chief Complaint: Fever Patient is a 57-year-old male with a known history of hypertension, Right maxillary sinus infection with possible osteomyelitis and history of avascular necrosis right hip who was recently discharged from the hospital on 08/18/2022 --was treated for pneumonia and sinus infection. Patient was supposed to follow-up with ID and ENT as an outpatient. Patient presented to ER with complaints of cough congestion and nasal drainage and fever. Tmax was 101.2. Patient was tachycardic and tachypneic on admission.. Pulse ox 92% on room air. Chest x-ray showed basilar airspace opacities, best appreciated on lateral view correlate for pneumonia. Left PICC appropriate position. Laboratory data showed WBC 11.1 hemoglobin 9.8, platelets 566. Sodium 136 potassium 4.2 BUN 18 and creatinine 0.96 Troponin x1 negative loading of Synotic elevated. UDS is positive blood opiates, benzodiazepines and cocaine. Influenza A, B, RSV, COVID-19 PCR not detected. Review of Systems Constitutional: Patient does have fever and chills.. no Generalized weakness. Abdomen: Patient denied any nausea or vomiting or abd. pain Cardiovascular: Patient denies any chest pain. Positive short of breath no palpitations. No leg swelling Respiratory: Cough congestion and nasal drainage and shortness of breath. Neurologic: Patient denied any numbness or tingling headache. Musculoskeletal: Patient denies any complaints of joint swelling or deformity. Skin: Negative Psychiatric: Negative Endocrine: No heat or cold intolerance. No recent weight gain. Genitourinary: No dysuria or hematuria. All other 14 point ROS negative except the above Past Medical History Past Medical History: Hypertension Additional Past Medical History / Comment(s): bone throat infection History of Any Multi-Drug Resistant Organisms: MRSA Date of last positivie culture/infection: 07/19/22 MDRO Source:: Throat Past Surgical History: Orthopedic Surgery Additional Past Surgical History / Comment(s): avascular necrosis rt hip Past Anesthesia/Blood Transfusion Reactions: No Reported Reaction Past Psychological History: No Psychological Hx Reported Smoking Status: Never smoker Past Alcohol Use History: None Reported Past Drug Use History: None Reported - Past Family History Mother Family Medical History: Dialysis Medications and Allergies Home Medications Medication Instructions Recorded Confirmed Type Escitalopram [Lexapro] 10 mg PO DAILY 08/13/22 08/27/22 History LORazepam [Ativan] 0.5 mg PO DAILY PRN 08/13/22 08/27/22 History Levothyroxine Sodium [Synthroid] 50 mcg PO DAILY 08/13/22 08/27/22 History Nystatin 100,000 Unit/ml Susp 5 ml PO QID 08/13/22 08/27/22 History [Mycostatin Oral Susp] Pantoprazole [Protonix] 40 mg PO DAILY 08/13/22 08/27/22 History traZODone HCL [Desyrel] 50 mg PO HS 08/13/22 08/27/22 History Benzocaine [place] [Hurricaine [place]] 1 applic MUCOUS MEM QID PRN 08/27/22 08/27/22 History HYDROcodone/APAP 5-325MG [[place] 1 tab PO TID PRN 08/27/22 08/27/22 History 5-325] Losartan [Cozaar] 100 mg PO DAILY 08/27/22 08/27/22 History Allergies Allergy/AdvReac Type Severity Reaction Status Date / Time No Known Allergies Allergy Verified 08/27/22 17:47 Physical Exam Vitals: Vital Signs Temp Pulse Pulse Resp BP BP Pulse Ox 08/28/22 08:29 97 08/28/22 08:00 98.2 F 85 14 149/109 95 08/28/22 05:30 76 17 147/113 96 08/28/22 05:00 78 15 171/109 93 L 08/28/22 04:00 84 20 179/113 94 L 08/28/22 03:00 80 18 167/115 95 08/28/22 02:00 70 14 164/110 95 08/28/22 01:00 98.5 F 77 13 176/108 95 08/27/22 23:04 80 15 148/98 96 08/27/22 23:00 76 12 154/101 94 L 08/27/22 22:00 82 14 148/107 95 08/27/22 21:00 81 16 144/100 96 08/27/22 20:30 87 18 142/94 95 08/27/22 20:15 88 16 150/115 95 08/27/22 19:45 88 18 141/100 93 L 08/27/22 19:30 88 16 154/105 94 L 08/27/22 19:20 98.3 F 88 18 158/103 95 08/27/22 19:10 90 16 159/103 94 L 08/27/22 19:00 90 18 158/103 08/27/22 18:59 100.3 F H 93 18 158/103 96 08/27/22 18:50 92 17 174/111 94 L 08/27/22 18:40 94 21 161/130 95 08/27/22 18:30 95 20 165/106 95 08/27/22 18:20 98 16 190/113 96 08/27/22 18:10 101 H 15 205/125 94 L 08/27/22 18:00 99 24 187/117 97 08/27/22 17:50 99 8 L 183/120 97 08/27/22 17:40 101 H 20 185/114 98 08/27/22 17:33 101.2 F H 100 20 178/118 98 08/27/22 17:30 100 22 178/119 97 08/27/22 17:20 104 H 22 178/119 97 08/27/22 17:10 101 H 29 H 178/119 08/27/22 17:02 101 H 18 08/27/22 17:00 95 10 L 185/111 99 08/27/22 16:56 101 H 20 08/27/22 16:50 98 13 185/111 97 08/27/22 16:42 101 H 25 H 92 L 08/27/22 16:30 100.4 F H 104 H 22 161/103 96 Intake and Output 08/27/22 08/28/22 08/28/22 22:59 06:59 14:59 Output Total 1850 650 Balance -1850 -650 Output: Urine 1850 650 Other: Weight 77.111 kg PHYSICAL EXAMINATION: Patient is lying in the bed comfortably, no acute distress, awake alert and oriented.. HEENT: Normocephalic. Neck is supple. Pupils reactive. Nostrils clear. Oral cavity is moist. Neck reveals no JVD, carotid bruits, or thyromegaly. CHEST EXAMINATION: Trachea is central. Symmetrical expansion. Bibasilar diminished sounds and scattered rhonchi. Nonlabored breathing.. CARDIAC: Normal S1, S2 with no gallops. No murmurs ABDOMEN: Soft. Bowel sounds present. Nontender. No organomegaly. No abdominal bruits. Extremities: reveal no edema. No clubbing or cyanosis Neurologically awake, alert, oriented x3 with well-coordinated movements. No focal deficits noted Skin: No rash or skin lesions. Psychiatric: Coperative. Nonsuicidal, Musculoskeletal: No joint swelling or deformity. Normal range of motion. Results CBC & Chem 7: 08/28/22 06:13 08/28/22 06:13 Labs: Abnormal Lab Results - Last 24 Hours (Table) 08/27/22 08/27/22 08/27/22 Range/Units 17:25 17:25 19:53 WBC 11.1 H (3.8-10.6) k/uL RBC 3.44 L (4.30-5.90) m/uL Hgb 9.8 L D (13.0-17.5) gm/dL Hct 30.8 L (39.0-53.0) % MCHC (31.0-37.0) g/dL Plt Count 566 H (150-450) k/uL Neutrophils # 8.9 H (1.3-7.7) k/uL Sodium 136 L (137-145) mmol/L Glucose 139 H (74-99) mg/dL AST 13 L (17-59) U/L Total Protein 6.1 L (6.3-8.2) g/dL Albumin 3.2 L (3.5-5.0) g/dL Urine Opiates Screen Detected H (NotDetected) U Benzodiazepines Scrn Detected H (NotDetected) Urine Cocaine Screen Detected H (NotDetected) 08/28/22 08/28/22 Range/Units 06:13 06:13 WBC (3.8-10.6) k/uL RBC 3.45 L (4.30-5.90) m/uL Hgb 9.9 L (13.0-17.5) gm/dL Hct 32.1 L (39.0-53.0) % MCHC 30.8 L (31.0-37.0) g/dL Plt Count 524 H (150-450) k/uL Neutrophils # (1.3-7.7) k/uL Sodium (137-145) mmol/L Glucose (74-99) mg/dL AST 14 L (17-59) U/L Total Protein 6.1 L (6.3-8.2) g/dL Albumin 3.1 L (3.5-5.0) g/dL Urine Opiates Screen (NotDetected) U Benzodiazepines Scrn (NotDetected) Urine Cocaine Screen (NotDetected) Thrombosis Risk Factor Assmnt - DVT/VTE Prophylaxis DVT/VTE Prophylaxis: Pharmacologic Prophylaxis ordered Assessment and Plan Assessment: Bibasilar opacities likely due to pneumonia Sepsis secondary to above History of recent admission with pneumonia and right maxillary sinus infection with possible OM, discharged with outpatient antibiotics via PICC line. Hypertension Hypothyroidism History of right hip avascular necrosis Anxiety/depression UDS positive for opiates, benzodiazepines and cocaine DVT prophylax with heparin subcu Plan: Patient will be continued on broad-spectrum antibiotics vancomycin and cefepime. Follow-up blood cultures and follow-up sputum cultures. Continue with IV hydration and pain management. ID was consulted. Continue with home medications and follow-up closely. Patient was counseled extensively for surface abuse. Time with Patient: Greater than 30
[2022-08-28] MEDS: VANCOMYCIN 1,500 MG in SODIUM CHLORIDE 0.9% 500 ML 500 ML IVPB SCH (22:00)
[2022-08-29] MEDS: CEFEPIME 2 GM in SODIUM CHLORIDE 0.9% 100 ML IVPB SCH ×3 (00:59→17:29)
[2022-08-29] MEDS: HYDROmorphone 1 MG/ML 1 ML SYRINGE IVP PRN ×7 (01:08→20:31)
[2022-08-29] MEDS: SODIUM CHLORIDE 0.9% 1,000 ML IV SCH ×2 (05:18→10:57)
[2022-08-29] MEDS: LEVOTHYROXINE 50 MCG TAB PO SCH (05:18)
--- NOTE | 2022-08-29 07:04 | P.CONS ---
History of Present Illness - Reason for Consult Consult date: 08/28/22 Fever Requesting physician: Arnie Botello - Chief Complaint Fever and shortness of breath x few days - History of Present Illness Patient is a 57-year-old male with a past medical history pertinent for chronic sinus infection who was recently admitted at [facility] in July 2022 concerning for persistent sinus infection he did have a CT followed by MRI which shows cortical destruction of the maxillary sinus on the left side concerning for osteomyelitis patient was evaluated by infectious disease at that facility no clear documentation of any cultures, patient did get a PICC line and was advised 6 weeks course of Rocephin 2 g daily with the patient was receiving at the outpatient infusion clinic patient subsequently did have admission to this facility on 08/13/2022 with fever predominantly respiratory symptoms concerning for multifocal right lung acute infection possible pneumonia patient was treated with cefepime and vancomycin he did have a cultures from the nasal drainage on the left side as well as sputum and blood culture all of those were negative patient subsequently did have shown clinical improvement and with negative culture was advised to continue with the outpatient Rocephin to finish a 6-week course of therapy patient is now presenting back to the hospital concerning for fever apparently started a day before presentation to hospital patient also complaining of drainage from the left nostril and also increasing cough and congestion patient cough is moderate intensity however he is unable to bring up any sputum patient did have mild drainage from the left nostril area denies any worsening drainage or pain into the left maxillary sinus area patient complaining of nausea but no vomiting no abdominal pain no diarrhea and abdominal PICC line on presentation to the hospital the patient did have a fever of 101.2 degrees following right patient was not hypoxic or need for supplemental oxygen and was not tachycardic hemodynamically stable not requiring any pressor support he did have vital of 11.1 with a left shift kidney function has been normal liver enzymes are normal urine drug screen was positive for o piates benzos and cocaine influenza RSV and COVID testing was negative blood cultures obtained which are currently pending patient did have a chest x-ray basilar airspace opacities correlate for pneumonia patient was started on vancomycin received dose of Zosyn infectious disease consulted for further management of antibiotic therapy Review of Systems Positive point and negatives has been mentioned in the HPI, complete review of systems was performed and all other systems are negative Past Medical History Past Medical History: Hypertension Additional Past Medical History / Comment(s): bone throat infection History of Any Multi-Drug Resistant Organisms: MRSA Year Discovered:: 07/19/22 MDRO Source:: Throat Past Surgical History: Orthopedic Surgery Additional Past Surgical History / Comment(s): avascular necrosis rt hip Past Anesthesia/Blood Transfusion Reactions: No Reported Reaction Past Psychological History: No Psychological Hx Reported Smoking Status: Never smoker Past Alcohol Use History: None Reported Past Drug Use History: None Reported - Past Family History Mother Family Medical History: Dialysis Medications and Allergies Home Medications Medication Instructions Recorded Confirmed Type Escitalopram [Lexapro] 10 mg PO DAILY 08/13/22 08/27/22 History LORazepam [Ativan] 0.5 mg PO DAILY PRN 08/13/22 08/27/22 History Levothyroxine Sodium [Synthroid] 50 mcg PO DAILY 08/13/22 08/27/22 History Nystatin 100,000 Unit/ml Susp 5 ml PO QID 08/13/22 08/27/22 History [Mycostatin Oral Susp] Pantoprazole [Protonix] 40 mg PO DAILY 08/13/22 08/27/22 History traZODone HCL [Desyrel] 50 mg PO HS 08/13/22 08/27/22 History Benzocaine [place] [Hurricaine [place]] 1 applic MUCOUS MEM QID PRN 08/27/22 08/27/22 History HYDROcodone/APAP 5-325MG [[place] 1 tab PO TID PRN 08/27/22 08/27/22 History 5-325] Losartan [Cozaar] 100 mg PO DAILY 08/27/22 08/27/22 History Allergies Allergy/AdvReac Type Severity Reaction Status Date / Time No Known Allergies Allergy Verified 08/27/22 17:47 Physical Exam Vitals: Vital Signs Temp Pulse Resp BP Pulse Ox 08/28/22 05:30 76 17 147/113 96 08/28/22 05:00 78 15 171/109 93 L 08/28/22 04:00 84 20 179/113 94 L 08/28/22 03:00 80 18 167/115 95 08/28/22 02:00 70 14 164/110 95 08/28/22 01:00 98.5 F 77 13 176/108 95 08/27/22 23:04 80 15 148/98 96 08/27/22 23:00 76 12 154/101 94 L 08/27/22 22:00 82 14 148/107 95 08/27/22 21:00 81 16 144/100 96 08/27/22 20:30 87 18 142/94 95 08/27/22 20:15 88 16 150/115 95 08/27/22 19:45 88 18 141/100 93 L 08/27/22 19:30 88 16 154/105 94 L 08/27/22 19:20 98.3 F 88 18 158/103 95 08/27/22 19:10 90 16 159/103 94 L 08/27/22 19:00 90 18 158/103 08/27/22 18:59 100.3 F H 93 18 158/103 96 08/27/22 18:50 92 17 174/111 94 L 08/27/22 18:40 94 21 161/130 95 08/27/22 18:30 95 20 165/106 95 08/27/22 18:20 98 16 190/113 96 08/27/22 18:10 101 H 15 205/125 94 L 08/27/22 18:00 99 24 187/117 97 08/27/22 17:50 99 8 L 183/120 97 08/27/22 17:40 101 H 20 185/114 98 08/27/22 17:33 101.2 F H 100 20 178/118 98 08/27/22 17:30 100 22 178/119 97 08/27/22 17:20 104 H 22 178/119 97 08/27/22 17:10 101 H 29 H 178/119 08/27/22 17:02 101 H 18 08/27/22 17:00 95 10 L 185/111 99 08/27/22 16:56 101 H 20 08/27/22 16:50 98 13 185/111 97 08/27/22 16:42 101 H 25 H 92 L 08/27/22 16:30 100.4 F H 104 H 22 161/103 96 Intake and Output 08/27/22 08/28/22 08/28/22 22:59 06:59 14:59 Output Total 1850 Balance -1850 Output: Urine 1850 Other: Weight 77.111 kg GENERAL DESCRIPTION: Middle-aged male lying in bed, no distress. No tachypnea or accessory muscle of respiration use. HEENT: Shows Pallor , no scleral icterus. Oral mucous membrane is dry. No pharyngeal erythema or thrush NECK: Trachea central, no thyromegaly. LUNGS: Unlabored breathing. Coarse breath sounds bilaterally. HEART: S1, S2, regular rate and rhythm. No loud murmur ABDOMEN: Soft, no tenderness , EXTREMITIES: No edema of feet. SKIN: No rash, no masses palpable. NEUROLOGICAL: The patient is awake, alert, oriented x3, mood and affect normal. Results CBC & Chem 7: 09/01/22 07:19 09/02/22 06:21 Labs: Abnormal Lab Results - Last 24 Hours (Table) 08/27/22 08/27/22 08/27/22 Range/Units 17:25 17:25 19:53 WBC 11.1 H (3.8-10.6) k/uL RBC 3.44 L (4.30-5.90) m/uL Hgb 9.8 L D (13.0-17.5) gm/dL Hct 30.8 L (39.0-53.0) % MCHC (31.0-37.0) g/dL Plt Count 566 H (150-450) k/uL Neutrophils # 8.9 H (1.3-7.7) k/uL Sodium 136 L (137-145) mmol/L Glucose 139 H (74-99) mg/dL AST 13 L (17-59) U/L Total Protein 6.1 L (6.3-8.2) g/dL Albumin 3.2 L (3.5-5.0) g/dL Urine Opiates Screen Detected H (NotDetected) U Benzodiazepines Scrn Detected H (NotDetected) Urine Cocaine Screen Detected H (NotDetected) 08/28/22 08/28/22 Range/Units 06:13 06:13 WBC (3.8-10.6) k/uL RBC 3.45 L (4.30-5.90) m/uL Hgb 9.9 L (13.0-17.5) gm/dL Hct 32.1 L (39.0-53.0) % MCHC 30.8 L (31.0-37.0) g/dL Plt Count 524 H (150-450) k/uL Neutrophils # (1.3-7.7) k/uL Sodium (137-145) mmol/L Glucose (74-99) mg/dL AST 14 L (17-59) U/L Total Protein 6.1 L (6.3-8.2) g/dL Albumin 3.1 L (3.5-5.0) g/dL Urine Opiates Screen (NotDetected) U Benzodiazepines Scrn (NotDetected) Urine Cocaine Screen (NotDetected) Assessment and Plan (1) Acute osteomyelitis of maxilla Current Visit: Yes Status: Acute Code(s): M27.2 - INFLAMMATORY CONDITIONS OF JAWS SNOMED Code(s): 731754303 (2) Pneumonia Current Visit: Yes Status: Acute Code(s): J18.9 - PNEUMONIA, UNSPECIFIED ORGANISM SNOMED Code(s): 586647794 Plan: 1patient was in the hospital with sepsis in this patient who did have a fever elevated white count predominantly respiratory symptoms with evidence of basilar airspace disease concerning for possible pneumonia in this patient currently receiving Rocephin in the outpatient setting for left maxillary osteomyelitis with a similar admission few weeks ago all cultures were negative at that point 2-we will try to obtain a sputum for Gram stain culture and check inflammatory markers 3-antibiotic adjusted to vancomycin and cefepime while waiting for the culture to finalize We will follow on clinical condition and cultures to further adjust medication if needed Thank you for this consultation we will follow the patient along with you Time with Patient: Greater than 30
[2022-08-29] MEDS: ESCITALOPRAM 10 MG TAB PO SCH (08:10)
[2022-08-29] MEDS: LOSARTAN 50 MG TAB PO SCH (08:10)
[2022-08-29] MEDS: PANTOPRAZOLE 40 MG/10 ML VIAL IV SCH (08:11)
[2022-08-29] MEDS: ACETAMINOPHEN TAB 325 MG TAB PO PRN ×2 (11:13→20:30)
[2022-08-29 12:18] LABS: Basophils % (A) 0 %; Eosinophils # (A) 0.3 k/uL (0-0.7); Eosinophils % (A) 5 %; HCT 30.6 % (39.0-53.0); HGB 9.5 gm/dL (13.0-17.5); Lymphocytes # (A) 1.1 k/uL (1.0-4.8); Lymphocytes % (A) 17 %; MCH 28.7 pg (25.0-35.0); MCHC 31.2 g/dL (31.0-37.0); MCV 92.1 fL (80.0-100.0); Mean Platelet Volume 6.9; Monocytes # (A) 0.4 k/uL (0-1.0); Monocytes % (A) 6 %; Neutrophils # (A) 4.8 k/uL (1.3-7.7); Neutrophils % (A) 71 %; Platelet Count 521 k/uL (150-450); RBC 3.33 m/uL (4.30-5.90); RDW 15.1 % (11.5-15.5); WBC 6.7 k/uL (3.8-10.6)
[2022-08-29 12:37] LABS: African American GFR (CKD) >90 (>60 ml/min/1.73 sqM); Anion Gap 8 mmol/L; Blood Urea Nitrogen 19 mg/dL (9-20); Calcium 8.5 mg/dL (8.4-10.2); Carbon Dioxide 24 mmol/L (22-30); Chloride 103 mmol/L (98-107); Glucose 110 mg/dL (74-99); Non-African American GFR(CKD) >90 (>60 ml/min/1.73 sqM); Potassium 4.6 mmol/L (3.5-5.1); Sodium 135 mmol/L (137-145)
[2022-08-29 12:50] LABS: C Reactive Protein 11.7 mg/dL (<1.0)
[2022-08-29] MEDS: VANCOMYCIN 1,500 MG in SODIUM CHLORIDE 0.9% 500 ML 500 ML IVPB SCH ×2 (13:21→21:45)
[2022-08-29 13:22] LABS: Erythrocyte Sedimentation Rate 112 mm/hr (0-15)
[2022-08-29] MEDS ORDERED: RX INFO: IV CONTRAST WAS GIVEN 1 EACH MISC MISCELLANE PRN (15:22)
[2022-08-29] MEDS: IBUPROFEN 400 MG TAB PO PRN (17:29)
--- NOTE | 2022-08-29 19:26 | CT ---
EXAMINATION TYPE: CT chest w con DATE OF EXAM: 08/29/2022 COMPARISON: None HISTORY: 57 year-old male fever, chest pain TECHNIQUE: Contiguous axial scanning of the chest after the administration of 100ml mL of Isovue 300. Coronal/sagittal reconstructions performed. CT DLP: Not reported. Automatic exposure control utilized for a dose reduction. FINDINGS: Left CVC tip at the superior cavoatrial junction. The heart is upper limits of normal in size without pericardial effusion. Aortic root is aneurysmal at 4.1 cm. Ascending aorta aneurysmal at 4.4 cm. Conventional arterial branching anatomy. Ectatic upper descending thoracic aorta at 3.4 cm. Mid descending thoracic aorta is ectatic at 2.9 cm . Lower descending thoracic aorta is ectatic at 2.6 cm. Nonenlarged mediastinal lymph nodes measuring up to 8 mm lower right paratracheal. No thoracic lympha denopathy by CT size criteria. Prominent dependent atelectasis posterior lower lungs. Mild biapical pleural-parenchymal scarring. Some patchy groundglass changes present in the anterior left upper lobe and within the superior lingu la. A more nodular opacity in the left upper lobe, axial image 22 measures 7 mm. Suspect an inflammat ory etiology. Visualized upper abdomen shows a 2.6 cm cyst of the left liver lobe. Small renal cortical cysts measu ring up to 1.1 cm. A couple punctate 2 mm nonobstructive left renal calculi are noted. Moderate to la rge stool burden. Inferior splenule. Bones: No osseous destructive process. IMPRESSION: 1. Groundglass infiltrates in the anterior left upper lobe and superior lingula. Correlate for develo ping pneumonia. 2. One of the opacities has a more nodular appearance measuring 7 mm in the left upper lobe. Recommen d follow-up CT chest in 3 months to assess for clearance. 3. Aneurysmal thoracic aorta with ascending measuring up to 4.4 cm.
[2022-08-29] MEDS: traZODone HCL 50 MG TAB PO SCH (20:31)
--- NOTE | 2022-08-29 22:52 | P.PN ---
Subjective Progress Note Date: 08/29/22 Patient is a 57-year-old male with a known history of hypertension, Right maxillary sinus infection with possible osteomyelitis and history of avascular necrosis right hip who was recently discharged from the hospital on 08/18/2022 --was treated for pneumonia and sinus infection. Patient was supposed to follow-up with ID and ENT as an outpatient. Patient presented to ER with complaints of cough congestion and nasal drainage and fever. Tmax was 101.2. Patient was tachycardic and tachypneic on admission.. Pulse ox 92% on room air. Chest x-ray showed basilar airspace opacities, best appreciated on lateral view correlate for pneumonia. Left PICC appropriate position. Laboratory data showed WBC 11.1 hemoglobin 9.8, platelets 566. Sodium 136 potassium 4.2 BUN 18 and creatinine 0.96 Troponin x1 negative loading of Synotic elevated. UDS is positive blood opiates, benzodiazepines and cocaine. Influenza A, B, RSV, COVID-19 PCR not detected. 08/29/2022 Patient is lying in bed. Awake alert but lethargic. No complaints of chest pain. Complains of cough with minimal sputum production. Shortness of breath is improving. No complaints of nausea or vomiting abdominal pain or diarrhea. Patient is currently on room air. Afebrile overnight. Continued on broad-spectrum antibiotics and awaiting sputum cultures and blood cultures. Laboratory data showed WBC 6.7 hemoglobin 9.5 and platelets 521 Sodium 135 potassium 4.6 chloride 103 bicarb is 24 BUN 19 and creatinine 0.91 and blood sugar is 110 and CRP 11.7. Current medications reviewed. Objective - Vital Signs Vital signs: Vital Signs Temp 98.1 F 08/29/22 13:49 Pulse 78 08/29/22 13:49 Resp 14 08/29/22 13:49 BP 117/80 08/29/22 13:49 Pulse Ox 96 08/29/22 13:49 FiO2 Intake & Output 08/28/22 08/29/22 08/29/22 18:59 06:59 18:59 Output Total 650 Balance -650 Weight 77.111 kg Output: Urine 650 Other: # Voids 3 2 4 - Exam PHYSICAL EXAMINATION: Patient is lying in the bed comfortably, no acute distress, awake alert and oriented.. HEENT: Normocephalic. Neck is supple. Pupils reactive. Nostrils clear. Oral cavity is moist. Neck reveals no JVD, carotid bruits, or thyromegaly. CHEST EXAMINATION: Trachea is central. Symmetrical expansion. Bibasilar diminished sounds and scattered rhonchi. Nonlabored breathing.. CARDIAC: Normal S1, S2 with no gallops. No murmurs ABDOMEN: Soft. Bowel sounds present. Nontender. No organomegaly. No abdominal bruits. Extremities: reveal no edema. No clubbing or cyanosis Neurologically awake, alert, oriented x3 with well-coordinated movements. No focal deficits noted Skin: No rash or skin lesions. Psychiatric: Coperative. Nonsuicidal, Musculoskeletal: No joint swelling or deformity. Normal range of motion. - Labs CBC & Chem 7: 08/29/22 11:32 08/29/22 11:32 Labs: Abnormal Lab Results - Last 24 Hours (Table) 08/29/22 08/29/22 Range/Units 11:32 11:32 RBC 3.33 L (4.30-5.90) m/uL Hgb 9.5 L (13.0-17.5) gm/dL Hct 30.6 L (39.0-53.0) % Plt Count 521 H (150-450) k/uL ESR 112 H (0-15) mm/hr Sodium 135 L (137-145) mmol/L Glucose 110 H (74-99) mg/dL C-Reactive Protein 11.7 H (<1.0) mg/dL Microbiology - Last 24 Hours (Table) 08/27/22 17:25 Blood Culture - Preliminary Blood Assessment and Plan Assessment: Bibasilar opacities likely due to pneumonia Sepsis secondary to above History of recent admission with pneumonia and right maxillary sinus infection with possible OM, discharged with outpatient antibiotics via PICC line. Hypertension Hypothyroidism History of right hip avascular necrosis Anxiety/depression UDS positive for opiates, benzodiazepines and cocaine DVT prophylax with heparin subcu Plan: Patient will be continued on broad-spectrum antibiotics vancomycin and cefepime. Follow-up blood cultures and follow-up sputum cultures. Continue with IV hydration and pain management. ID is on board. pain management. Continue with home medications and follow-up closely. Patient was counseled extensively for surface abuse. Time with Patient: Greater than 30
[2022-08-30] MEDS: CEFEPIME 2 GM in SODIUM CHLORIDE 0.9% 100 ML IVPB SCH ×3 (00:50→16:58)
[2022-08-30] MEDS: HYDROmorphone 1 MG/ML 1 ML SYRINGE IVP PRN ×7 (02:02→20:47)
[2022-08-30] MEDS: LEVOTHYROXINE 50 MCG TAB PO SCH (05:27)
[2022-08-30] MEDS: IBUPROFEN 400 MG TAB PO PRN ×2 (05:27→11:36)
[2022-08-30] MEDS: SODIUM CHLORIDE 0.9% 1,000 ML IV SCH ×2 (07:39→14:37)
[2022-08-30] MEDS: ESCITALOPRAM 10 MG TAB PO SCH (08:00)
[2022-08-30] MEDS: LOSARTAN 50 MG TAB PO SCH (08:00)
[2022-08-30] MEDS: PANTOPRAZOLE 40 MG/10 ML VIAL IV SCH (08:00)
[2022-08-30] MEDS ORDERED: VANCOMYCIN TROUGH DUE 1 EACH MISC MISCELLANE ONE (10:00)
[2022-08-30 11:24] LABS: African American GFR (CKD) >90 (>60 ml/min/1.73 sqM); Non-African American GFR(CKD) >90 (>60 ml/min/1.73 sqM)
[2022-08-30 11:26] LABS: African American GFR (CKD) >90 (>60 ml/min/1.73 sqM); Anion Gap 6 mmol/L; Blood Urea Nitrogen 18 mg/dL (9-20); Calcium 8.3 mg/dL (8.4-10.2); Carbon Dioxide 25 mmol/L (22-30); Chloride 106 mmol/L (98-107); Glucose 94 mg/dL (74-99); Non-African American GFR(CKD) >90 (>60 ml/min/1.73 sqM); Potassium 4.5 mmol/L (3.5-5.1); Sodium 137 mmol/L (137-145)
[2022-08-30] MEDS: VANCOMYCIN 1,500 MG in SODIUM CHLORIDE 0.9% 500 ML 500 ML IVPB SCH (11:37)
[2022-08-30] MEDS: ACETAMINOPHEN TAB 325 MG TAB PO PRN (16:51)
[2022-08-30] MEDS: traZODone HCL 50 MG TAB PO SCH (20:48)
--- NOTE | 2022-08-30 23:15 | P.PN ---
Subjective Progress Note Date: 08/30/22 He is feeling slightly better today, denies sore throat and states he has been able to clear mucus from his sinus. He denies headache, fever, chills. Continues to complain of fatigue. Renal function stable. CT is suggestive of YUNIOR pneumonia, he denies shortness of breath. Objective - Vital Signs Vital signs: Vital Signs Temp 97.4 F L 08/30/22 20:06 Pulse 66 08/30/22 20:06 Resp 18 08/30/22 20:06 BP 149/74 08/30/22 20:06 Pulse Ox 96 08/30/22 20:06 FiO2 Intake & Output 08/30/22 08/30/22 08/31/22 06:59 18:59 06:59 Other: Voiding Method Urinal # Voids 2 5 - Exam Gen: well developed male in NAD HEENT: sinus erythema, crusting CV: RRR Lungs: CTAB - Labs CBC & Chem 7: 08/29/22 11:32 08/30/22 09:54 Labs: Abnormal Lab Results - Last 24 Hours (Table) 08/29/22 08/30/22 Range/Units 11:32 09:54 Calcium 8.3 L (8.4-10.2) mg/dL Procalcitonin 0.12 H (0.02-0.09) ng/mL Microbiology - Last 24 Hours (Table) 08/29/22 19:00 Sputum Culture - Preliminary Sputum 08/27/22 17:25 Blood Culture - Preliminary Blood Assessment and Plan Assessment: Sepsis secondary to maxillary osteomyelitis HCAP with YUNIOR pneumonia Cocaine abuse Chronic sinusitis Plan: Continue with cefepime and vancomycin. ID following. Continue to closely monitor renal function and await cultures
[2022-08-31] MEDS: HYDROmorphone 1 MG/ML 1 ML SYRINGE IVP PRN ×7 (00:03→23:44)
[2022-08-31] MEDS: VANCOMYCIN 1,500 MG in SODIUM CHLORIDE 0.9% 500 ML 500 ML IVPB SCH ×3 (00:04→23:42)
[2022-08-31] MEDS: CEFEPIME 2 GM in SODIUM CHLORIDE 0.9% 100 ML IVPB SCH ×4 (01:04→23:43)
[2022-08-31] MEDS: SODIUM CHLORIDE 0.9% 1,000 ML IV SCH ×2 (03:42→08:25)
[2022-08-31] MEDS: LEVOTHYROXINE 50 MCG TAB PO SCH (05:32)
[2022-08-31] MEDS: ACETAMINOPHEN TAB 325 MG TAB PO PRN ×3 (05:33→23:43)
[2022-08-31] MEDS: PANTOPRAZOLE 40 MG/10 ML VIAL IV SCH (08:23)
[2022-08-31] MEDS: ESCITALOPRAM 10 MG TAB PO SCH (08:24)
[2022-08-31] MEDS: LOSARTAN 50 MG TAB PO SCH (08:24)
[2022-08-31] MEDS: MUPIROCIN 2% OINT 22 GM TUBE TOPICAL SCH ×3 (11:54→23:55)
--- NOTE | 2022-08-31 18:46 | P.PN ---
Subjective Progress Note Date: 08/31/22 Slept well, occasional cough. Mild sore throat. States unable to clear mucus from his sinuses 2 to his nasal tenderness denies headache or fever or chills. Maintain on Vancomysin and cefepime as per infectious disease. Renal function stable. Afebrile. Sputum culture finalizing, preliminary blood cultures reporting no growth after 72 hours. Objective - Vital Signs Vital signs: Vital Signs Temp 98.4 F 08/31/22 14:00 Pulse 69 08/31/22 14:00 Resp 18 08/31/22 14:00 BP 136/82 08/31/22 14:00 Pulse Ox 97 08/31/22 14:00 FiO2 Intake & Output 08/30/22 08/31/22 08/31/22 18:59 06:59 18:59 Intake Total 600 836 Output Total 200 Balance 400 836 Intake: Intake, IV Titration 600 Amount Cefepime 2 gm In Sodium 100 Chloride 0.9% 100 ml @ 25 mls/hr IVPB Q8HR [facility] Rx# :[id number] Vancomycin 1,500 mg In 500 Sodium Chloride 0.9% 500 ml 500 ml @ 167 mls/hr IVPB Q12H [facility] Rx#: [id number] Oral 836 Output: Urine 200 Other: Voiding Method Urinal Urinal # Voids 5 1 1 - Exam Gen: well developed male in NAD HEENT: sinus erythema, crusting CV: RRR Lungs: CTAB - Labs CBC & Chem 7: 08/29/22 11:32 08/30/22 09:54 Labs: Microbiology - Last 24 Hours (Table) 08/29/22 19:00 Gram Stain - Preliminary Sputum Sputum Culture - Preliminary Mai albicans 08/27/22 17:25 Blood Culture - Preliminary Blood Assessment and Plan Assessment: Sepsis secondary to maxillary osteomyelitis HCAP with YUNIOR pneumonia Cocaine abuse Chronic sinusitis Plan: Continue on current medication regime ,monitoring and symptomatic treatment. Bactroban ointment to apply to tender nares/nose. Antibiotics as per infectious disease. Close monitoring of renal function, cultures with repeat labs ordered for a.m. The impression and plan of care has been dictated as directed. : I performed a history and examination of this patient, discussed the same with the dictator. I agree with the dictator's note ,documented as a scribe. Any additional findings or plans will be noted.
--- NOTE | 2022-08-31 19:38 | P.PN ---
Subjective Progress Note Date: 08/30/22 Principal diagnosis: Pneumonia and L maxillary osteomyelitis Patient is a 57-year-old male with recent diagnosis of left maxillary osteomyelitis on the basis of CT MRI done at [facility] and the patient is receiving outpatient IV Rocephin per the recommendation recent admission to the hospital for pneumonia he did have blood sputum and nasal cultures also negative patient now presenting back to the hospital with increasing shortness of breath cough and fever concerning for pneumonia. On today's evaluation that is 08/30/2022, the patient remains to be afebrile he is currently on room air still complaining of shortness of breath and a cough and he was able to cough up a sputum sample last evening still complaining of chest congestion no nausea no vomiting no abdominal pain or diarrhea Objective - Vital Signs Vital signs: Vital Signs Temp 97.5 F L 08/30/22 07:16 Pulse 64 08/30/22 07:16 Resp 14 08/30/22 07:16 BP 142/82 08/30/22 07:16 Pulse Ox 94 L 08/30/22 07:16 FiO2 Intake & Output 08/29/22 08/30/22 08/30/22 18:59 06:59 18:59 Other: Voiding Method Urinal # Voids 4 2 - Exam GENERAL DESCRIPTION: Middle-age male lying in bed in no distress RESPIRATORY SYSTEM: Unlabored breathing , coarse breath sounds bilaterally HEART: S1 S2 regular rate and rhythm ,no loud murmurs ABDOMEN: Soft , no tenderness EXTREMITIES: No edema feet - Labs CBC & Chem 7: 08/29/22 11:32 08/30/22 09:54 Labs: Abnormal Lab Results - Last 24 Hours (Table) 08/29/22 08/29/22 08/29/22 Range/Units 11:32 11:32 11:32 RBC 3.33 L (4.30-5.90) m/uL Hgb 9.5 L (13.0-17.5) gm/dL Hct 30.6 L (39.0-53.0) % Plt Count 521 H (150-450) k/uL ESR 112 H (0-15) mm/hr Sodium 135 L (137-145) mmol/L Glucose 110 H (74-99) mg/dL C-Reactive Protein 11.7 H (<1.0) mg/dL Procalcitonin 0.12 H (0.02-0.09) ng/mL Microbiology - Last 24 Hours (Table) 08/27/22 17:25 Blood Culture - Preliminary Blood Assessment and Plan (1) Acute osteomyelitis of maxilla Current Visit: Yes Status: Acute Code(s): M27.2 - INFLAMMATORY CONDITIONS OF JAWS SNOMED Code(s): 409914433 (2) Failure of outpatient treatment Current Visit: Yes Status: Acute Code(s): Z78.9 - OTHER SPECIFIED HEALTH STATUS SNOMED Code(s): 338169821 (3) Pneumonia Current Visit: Yes Status: Acute Code(s): J18.9 - PNEUMONIA, UNSPECIFIED ORGANISM SNOMED Code(s): 595310630 Plan: 1patient was in the hospital with sepsis in this patient who did have a fever elevated white count predominantly respiratory symptoms with evidence of basilar airspace disease concerning for possible pneumonia in this patient currently receiving Rocephin in the outpatient setting for left maxillary osteomyelitis with a similar admission few weeks ago all cultures were negative at that point 2-Patient did have a CT of the chest groundglass infiltrates anterior left upper lobe along with a nodule patient white count normalized he did have elevated sed rate of 112 CRP is 11.7 procalcitonin 0.12, sputum cultures pending 3-we will continue patient on cefepime and vancomycin while waiting for the culture to finalize
--- NOTE | 2022-08-31 19:40 | P.PN ---
Subjective Progress Note Date: 08/31/22 Principal diagnosis: Pneumonia and L maxillary osteomyelitis Patient is a 57-year-old male with recent diagnosis of left maxillary osteomyelitis on the basis of CT MRI done at [facility] and the patient is receiving outpatient IV Rocephin per the recommendation recent admission to the hospital for pneumonia he did have blood sputum and nasal cultures also negative patient now presenting back to the hospital with increasing shortness of breath cough and fever concerning for pneumonia. On today's evaluation that is 08/31/2022 patient continues to be afebrile patient remains to be on room air he is still complaining of discomfort in the maxillary area and some sore throat continue to have a cough with minimal sputum production no nausea no vomiting no abdominal pain and no diarrhea Objective - Vital Signs Vital signs: Vital Signs Temp 97.8 F 08/31/22 08:00 Pulse 67 08/31/22 08:00 Resp 18 08/31/22 08:00 BP 158/85 08/31/22 08:00 Pulse Ox 94 L 08/31/22 08:00 FiO2 Intake & Output 08/30/22 08/31/22 08/31/22 18:59 06:59 18:59 Intake Total 600 118 Output Total 200 Balance 400 118 Intake: Intake, IV Titration 600 Amount Cefepime 2 gm In Sodium 100 Chloride 0.9% 100 ml @ 25 mls/hr IVPB Q8HR [facility] Rx# :[id number] Vancomycin 1,500 mg In 500 Sodium Chloride 0.9% 500 ml 500 ml @ 167 mls/hr IVPB Q12H [facility] Rx#: [id number] Oral 118 Output: Urine 200 Other: Voiding Method Urinal # Voids 5 1 - Exam GENERAL DESCRIPTION: Middle-age male lying in bed in no distress RESPIRATORY SYSTEM: Unlabored breathing , coarse breath sounds bilaterally HEART: S1 S2 regular rate and rhythm ,no loud murmurs ABDOMEN: Soft , no tenderness EXTREMITIES: No edema feet - Labs CBC & Chem 7: 08/29/22 11:32 08/30/22 09:54 Labs: Abnormal Lab Results - Last 24 Hours (Table) 08/30/22 Range/Units 09:54 Calcium 8.3 L (8.4-10.2) mg/dL Microbiology - Last 24 Hours (Table) 08/29/22 19:00 Gram Stain - Preliminary Sputum Sputum Culture - Preliminary Mai albicans 08/27/22 17:25 Blood Culture - Preliminary Blood Assessment and Plan (1) Acute osteomyelitis of maxilla Current Visit: Yes Status: Acute Code(s): M27.2 - INFLAMMATORY CONDITIONS OF JAWS SNOMED Code(s): 014771090 (2) Failure of outpatient treatment Current Visit: Yes Status: Acute Code(s): Z78.9 - OTHER SPECIFIED HEALTH STATUS SNOMED Code(s): 438576021 (3) Pneumonia Current Visit: Yes Status: Acute Code(s): J18.9 - PNEUMONIA, UNSPECIFIED ORGANISM SNOMED Code(s): 964740016 Plan: 1patient was in the hospital with sepsis in this patient who did have a fever elevated white count predominantly respiratory symptoms with evidence of basilar airspace disease concerning for possible pneumonia in this patient currently receiving Rocephin in the outpatient setting for left maxillary osteomyelitis with a similar admission few weeks ago all cultures were negative at that point 2-Patient did have a CT of the chest groundglass infiltrates anterior left upper lobe along with a nodule patient white count normalized he did have elevated sed rate of 112 CRP is 11.7 procalcitonin 0.12, sputum cultures Currently growing Mai which is more likely colonizer. 3patient with a history of left maxillary osteomyelitis with persistent symptoms despite completing a 6-week course of IV Rocephin in the outpatient s etting we will go ahead and check a CT of the maxillary area for better definition of underlying pathology, continue patient vancomycin and cefepime at this point and monitor clinical course closely Time with Patient: Less than 30
[2022-08-31] MEDS: ONDANSETRON 4 MG/2 ML VIAL IVP PRN (20:37)
[2022-08-31] MEDS: traZODone HCL 50 MG TAB PO SCH (20:37)
--- NOTE | 2022-08-31 21:23 | CT ---
EXAMINATION TYPE: CT sinus w con DATE OF EXAM: 08/31/2022 COMPARISON: 08/18/2022 HISTORY: 57-year-old male Maxillary osteomyelitis follow up CT DLP: 503.3 mGycm Automated exposure control for dose reduction was used. TECHNIQUE: Noncontrast axial views of the paranasal sinuses were obtained. Coronal and sagittal refor matted images were obtained. FINDINGS: PARANASAL SINUSES: Patient's gaze is divergent. Otherwise, orbits and globes are intact. Visualized intracranial structures and mastoid air cells appear clear. There is some layering debris and fluid within the posterior nasopharynx. Brain heterogeneity of the nasal cavity with destruction of the mid to inferior nasal septum and most of the middle and inferior turbinates. There is severe mucosal thickening throughout the ethmoid air cells and sphenoid sinuses. Suggestion of some lateral bulging of the lamina propria shunt both sides. No abnormal periosteal thickening or inflammation along the medial wall of the orbits. Graft moderate to severe mucosal thickening throughout the left maxillary sinus and mild within the right maxillary sinus. The degree of opacification has worsened from the recent prior. Reformatted images confirm above findings. IMPRESSION: 1. Severe mucosal thickening throughout the ethmoid air cells and sphenoid sinuses. Moderate to sever e left maxillary sinus and mild on the right maxillary sinus. Overall mucosal disease has progressed from the recent prior. 2. Redemonstrated extensive mucosal thickening and mottled debris within the nasal cavity. There is d estruction of the mid to inferior nasal septum, similar to prior. Additional layering debris in the p osterior nasopharynx.
[2022-09-01] MEDS: HYDROmorphone 1 MG/ML 1 ML SYRINGE IVP PRN ×5 (03:13→20:24)
[2022-09-01] MEDS: LEVOTHYROXINE 50 MCG TAB PO SCH (06:31)
[2022-09-01 07:44] LABS: Basophils % (A) 0 %; Eosinophils # (A) 0.3 k/uL (0-0.7); Eosinophils % (A) 6 %; HCT 31.2 % (39.0-53.0); HGB 9.7 gm/dL (13.0-17.5); Hypochromasia Slight; Lymphocytes # (A) 1.4 k/uL (1.0-4.8); Lymphocytes % (A) 26 %; MCH 28.9 pg (25.0-35.0); MCV 93.2 fL (80.0-100.0); Mean Platelet Volume 7.2; Monocytes # (A) 0.3 k/uL (0-1.0); Monocytes % (A) 6 %; Neutrophils # (A) 3.4 k/uL (1.3-7.7); Neutrophils % (A) 62 %; Platelet Count 340 k/uL (150-450); RBC 3.35 m/uL (4.30-5.90); WBC 5.5 k/uL (3.8-10.6)
[2022-09-01] MEDS: SODIUM CHLORIDE 0.9% 1,000 ML IV SCH ×2 (07:52→20:30)
[2022-09-01] MEDS: LOSARTAN 50 MG TAB PO SCH (07:52)
[2022-09-01] MEDS: SODIUM CHLORIDE 0.65% NASAL SPRAY 44 ML BTL NASAL PRN (07:52)
[2022-09-01] MEDS: ESCITALOPRAM 10 MG TAB PO SCH (07:52)
[2022-09-01] MEDS: CEFEPIME 2 GM in SODIUM CHLORIDE 0.9% 100 ML IVPB SCH (07:57)
[2022-09-01] MEDS: MUPIROCIN 2% OINT 22 GM TUBE TOPICAL SCH ×3 (07:57→20:24)
[2022-09-01 08:01] LABS: African American GFR (CKD) >90 (>60 ml/min/1.73 sqM); Anion Gap 8 mmol/L; Blood Urea Nitrogen 16 mg/dL (9-20); Calcium 8.6 mg/dL (8.4-10.2); Carbon Dioxide 25 mmol/L (22-30); Chloride 106 mmol/L (98-107); Glucose 115 mg/dL (74-99); Non-African American GFR(CKD) 84 (>60 ml/min/1.73 sqM); Potassium 4.3 mmol/L (3.5-5.1); Sodium 139 mmol/L (137-145)
[2022-09-01] MEDS: PANTOPRAZOLE 40 MG/10 ML VIAL IV SCH (08:55)
[2022-09-01 10:05] VITALS: BMI 22.4
[2022-09-01] MEDS: IBUPROFEN 400 MG TAB PO PRN ×2 (11:20→20:24)
[2022-09-01] MEDS: VANCOMYCIN 1,500 MG in SODIUM CHLORIDE 0.9% 500 ML 500 ML IVPB SCH (11:31)
[2022-09-01] MEDS ORDERED: ERTAPENEM 1 GM in SODIUM CHLORIDE 0.9% 50 ML IVPB SCH (13:30)
[2022-09-01] MEDS: HYDROcodone/APAP 5-325MG 1 EACH TAB PO SCH ×2 (13:47→22:21)
[2022-09-01] MEDS: ERTAPENEM 1 GM in SODIUM CHLORIDE 0.9% 50 ML IVPB SCH (13:51)
--- NOTE | 2022-09-01 15:07 | P.PN ---
Subjective Progress Note Date: 09/01/22 Principal diagnosis: Pneumonia and L maxillary osteomyelitis Patient is a 57-year-old male with recent diagnosis of left maxillary osteomyelitis on the basis of CT MRI done at [facility] and the patient is receiving outpatient IV Rocephin per the recommendation recent admission to the hospital for pneumonia he did have blood sputum and nasal cultures also negative patient now presenting back to the hospital with increasing shortness of breath cough and fever concerning for pneumonia. On today's evaluation that is 09/01/2022 patient remains to be afebrile patient is breathing comfortably on room air, patient complaining of some sore throat however denies any difficulty swallowing no worsening cough or sputum production no abdominal pain or diarrhea Objective - Vital Signs Vital signs: Vital Signs Temp 97.5 F L 09/01/22 06:58 Pulse 47 L 09/01/22 06:58 Resp 16 09/01/22 08:54 BP 164/108 09/01/22 06:58 Pulse Ox 98 09/01/22 06:58 FiO2 Intake & Output 08/31/22 09/01/22 09/01/22 18:59 06:59 18:59 Intake Total 836 Balance 836 Weight 77.111 kg Intake: Oral 836 Other: Voiding Method Urinal Urinal Toilet Urinal # Voids 1 4 - Exam GENERAL DESCRIPTION: Middle-age male lying in bed in no distress RESPIRATORY SYSTEM: Unlabored breathing , coarse breath sounds bilaterally HEART: S1 S2 regular rate and rhythm ,no loud murmurs ABDOMEN: Soft , no tenderness EXTREMITIES: No edema feet - Labs CBC & Chem 7: 09/01/22 07:19 09/01/22 07:19 Labs: Abnormal Lab Results - Last 24 Hours (Table) 09/01/22 09/01/22 Range/Units 07:19 07:19 RBC 3.35 L (4.30-5.90) m/uL Hgb 9.7 L (13.0-17.5) gm/dL Hct 31.2 L (39.0-53.0) % Glucose 115 H (74-99) mg/dL Microbiology - Last 24 Hours (Table) 08/29/22 19:00 Gram Stain - Preliminary Sputum Sputum Culture - Preliminary Mai albicans Assessment and Plan (1) Acute osteomyelitis of maxilla Current Visit: Yes Status: Acute Code(s): M27.2 - INFLAMMATORY CONDITIONS OF JAWS SNOMED Code(s): 154691350 (2) Failure of outpatient treatment Current Visit: Yes Status: Acute Code(s): Z78.9 - OTHER SPECIFIED HEALTH STATUS SNOMED Code(s): 870181130 (3) Pneumonia Current Visit: Yes Status: Acute Code(s): J18.9 - PNEUMONIA, UNSPECIFIED ORGANISM SNOMED Code(s): 384956516 Plan: 1patient was in the hospital with sepsis in this patient who did have a fever elevated white count predominantly respiratory symptoms with evidence of basilar airspace disease concerning for possible pneumonia in this patient currently receiving Rocephin in the outpatient setting for left maxillary osteomyelitis with a similar admission few weeks ago all cultures were negative at that point 2-Patient did have a CT of the chest groundglass infiltrates anterior left upper lobe along with a nodule patient white count normalized he did have elevated sed rate of 112 CRP is 11.7 procalcitonin 0.12, sputum cultures Currently growing Mai which is more likely colonizer. 3patient with a history of left maxillary osteomyelitis with persistent symptoms despite completing a 6-week course of IV Rocephin in the outpatient setting , seated did show significant sinus disease and bone destruction, patient will benefit from ENT evaluation possible bone biopsy and deep culture this has been discussed with the nurse practitioner for admitting team in the meantime antibiotic will be switched over to Invanz Time with Patient: Less than 30
--- NOTE | 2022-09-01 16:34 | P.PN ---
Subjective Progress Note Date: 09/01/22 Slept well, occasional cough. Mild sore throat. States unable to clear mucus from his sinuses 2 to his nasal tenderness denies headache or fever or chills. Maintain on Vancomysin and cefepime as per infectious disease. Renal function stable. Afebrile. Sputum culture finalizing, preliminary blood cultures reporting no growth after 72 hours. 09/01/2022 continues on IV antibiotics, adjusted to Invanz, reports sore throat, secondary mucus drainage. Nasal/nares tenderness persists, continue with B actroban ointment. Reports pain medication only lasting 3 hours-we will transition to oral. Afebrile, normal WBC. ID recommending ENT consult related to significant amounts of bony destruction-will need biopsy and both bacteria and fungal cultures. Objective - Vital Signs Vital signs: Vital Signs Temp 98.0 F 09/01/22 13:32 Pulse 71 09/01/22 13:32 Resp 18 09/01/22 13:32 BP 142/91 09/01/22 13:32 Pulse Ox 98 09/01/22 13:32 FiO2 Intake & Output 08/31/22 09/01/22 09/01/22 18:59 06:59 18:59 Intake Total 836 Balance 836 Weight 77.111 kg Intake: Oral 836 Other: Voiding Method Urinal Urinal Toilet Urinal # Voids 1 4 - Exam Gen: well developed male in NAD HEENT: sinus erythema, crusting CV: RRR Lungs: CTAB - Labs CBC & Chem 7: 09/01/22 07:19 09/01/22 07:19 Labs: Abnormal Lab Results - Last 24 Hours (Table) 09/01/22 09/01/22 Range/Units 07:19 07:19 RBC 3.35 L (4.30-5.90) m/uL Hgb 9.7 L (13.0-17.5) gm/dL Hct 31.2 L (39.0-53.0) % Glucose 115 H (74-99) mg/dL Assessment and Plan Assessment: Sepsis secondary to maxillary osteomyelitis HCAP with YUNIOR pneumonia Cocaine abuse Chronic sinusitis Plan: Continue on current medication regime ,monitoring and symptomatic lacy atment. Continue with Bactroban ointment to apply to tender nares/nose. ENT consult initiated as per ID recommendations. Antibiotics as per infectious disease. Prognosis guarded given multiple complex medical issues. The impression and plan of care has been dictated as directed. : I performed a history and examination of this patient, discussed the same with the dictator. I agree with the dictator's note ,documented as a scribe. Any additional findings or plans will be noted.
[2022-09-01] MEDS: traZODone HCL 50 MG TAB PO SCH (20:24)
[2022-09-02] MEDS: HYDROmorphone 1 MG/ML 1 ML SYRINGE IVP PRN ×6 (00:18→19:58)
[2022-09-02] MEDS: LEVOTHYROXINE 50 MCG TAB PO SCH (05:56)
[2022-09-02] MEDS: HYDROcodone/APAP 5-325MG 1 EACH TAB PO SCH ×3 (05:56→19:50)
[2022-09-02 06:53] LABS: African American GFR (CKD) >90 (>60 ml/min/1.73 sqM); Non-African American GFR(CKD) 84 (>60 ml/min/1.73 sqM)
[2022-09-02] MEDS: PANTOPRAZOLE 40 MG/10 ML VIAL IV SCH (08:13)
[2022-09-02] MEDS: LOSARTAN 50 MG TAB PO SCH (08:14)
[2022-09-02] MEDS: MUPIROCIN 2% OINT 22 GM TUBE TOPICAL SCH ×3 (08:15→22:12)
[2022-09-02] MEDS: ESCITALOPRAM 10 MG TAB PO SCH (08:15)
[2022-09-02] MEDS: SODIUM CHLORIDE 0.9% 1,000 ML IV SCH ×2 (08:30→19:49)
[2022-09-02] MEDS ORDERED: VANCOMYCIN TROUGH DUE 1 EACH MISC MISCELLANE ONE (10:00)
[2022-09-02] MEDS: IBUPROFEN 400 MG TAB PO PRN (11:07)
--- NOTE | 2022-09-02 12:47 | P.PN ---
Subjective Progress Note Date: 09/02/22 Slept well, occasional cough. Mild sore throat. States unable to clear mucus from his sinuses 2 to his nasal tenderness denies headache or fever or chills. Maintain on Vancomysin and cefepime as per infectious disease. Renal function stable. Afebrile. Sputum culture finalizing, preliminary blood cultures reporting no growth after 72 hours. 09/01/2022 continues on IV antibiotics, adjusted to Invanz, reports sore throat, secondary mucus drainage. Nasal/nares tenderness persists, continue with B actroban ointment. Reports pain medication only lasting 3 hours-we will transition to oral. Afebrile, normal WBC. ID recommending ENT consult related to significant amounts of bony destruction-will need biopsy and both bacteria and fungal cultures. 09/02/2022 maintained on IV antibiotic therapy as per ID. Afebrile. Sore throat and nare tenderness improving. Evaluated by ENT, Dr. Carrasco-CT reviewed and he is recommending transfer to tertiary care center/[facility] secondary to patient appears to present with fungal sinusitis, requiring a procedure that is unable to be done at this site. Patient is in agreement to transfer. Objective - Vital Signs Vital signs: Vital Signs Temp 97.8 F 09/02/22 07:35 Pulse 62 09/02/22 10:45 Resp 16 09/02/22 07:35 BP 162/88 09/02/22 10:45 Pulse Ox 99 09/02/22 09:09 FiO2 21 09/02/22 09:09 Intake & Output 09/01/22 09/02/22 09/02/22 18:59 06:59 18:59 Output Total 0 Balance 0 Weight 77.111 kg Output: Stool 0 Other: Voiding Method Toilet Urinal Urinal # Voids 4 1 - Exam Gen: well developed male in NAD HEENT: sinus erythema, crusting CV: RRR Lungs: CTAB - Labs CBC & Chem 7: 09/01/22 07:19 09/02/22 06:21 Labs: Microbiology - Last 24 Hours (Table) 08/27/22 17:25 Blood Culture - Final Blood Assessment and Plan Assessment: Sepsis secondary to maxillary osteomyelitis HCAP with YUNIOR pneumonia Cocaine abuse Chronic sinusitis Plan: Continue on current medication regime ,monitoring and symptomatic treatment. Evaluated by ENT, recommending transfer to tertiary care center as mentioned above. Transfer has been initiated,;requesting further information from our ENT to call [facility] [phone]. Message left for Dr. Adams at office and on cell. Antibiotics as per infectious disease. Prognosis guarded given multiple complex medical issues. The impression and plan of care has been dictated as directed. : I performed a history and examination of this patient, discussed the same with the dictator. I agree with the dictator's note ,documented as a scribe. Any additional findings or plans will be noted.
[2022-09-02] MEDS: ERTAPENEM 1 GM in SODIUM CHLORIDE 0.9% 50 ML IVPB SCH (14:22)
--- NOTE | 2022-09-02 15:32 | P.PN ---
Subjective Progress Note Date: 08/29/22 Principal diagnosis: Pneumonia and L maxillary osteomyelitis Patient is a 57-year-old male with recent diagnosis of left maxillary osteomyelitis on the basis of CT MRI done at [facility] and the patient is receiving outpatient IV Rocephin per the recommendation recent admission to the hospital for pneumonia he did have blood sputum and nasal cultures also negative patient now presenting back to the hospital with increasing shortness of breath cough and fever concerning for pneumonia. On today's evaluation that is 08/29/2022 the patient fever pattern has improved and the patient is afebrile he is currently on room air still complaining of shortness of breath and cough congestion but not able to bring up any sputum no nausea vomiting abdominal pain no diarrhea Objective - Vital Signs Vital signs: Vital Signs Temp 98.1 F 08/29/22 07:11 Pulse 83 08/29/22 11:29 Resp 17 08/29/22 07:11 BP 155/91 08/29/22 11:29 Pulse Ox 99 08/29/22 07:11 FiO2 Intake & Output 08/28/22 08/29/22 08/29/22 18:59 06:59 18:59 Output Total 650 Balance -650 Weight 77.111 kg Output: Urine 650 Other: # Voids 3 2 - Exam GENERAL DESCRIPTION: Middle-age male lying in bed in no distress RESPIRATORY SYSTEM: Unlabored breathing , coarse breath sounds bilaterally HEART: S1 S2 regular rate and rhythm ,no loud murmurs ABDOMEN: Soft , no tenderness EXTREMITIES: No edema feet - Labs CBC & Chem 7: 08/29/22 11:32 08/30/22 09:54 Labs: Abnormal Lab Results - Last 24 Hours (Table) 08/29/22 08/29/22 Range/Units 11:32 11:32 RBC 3.33 L (4.30-5.90) m/uL Hgb 9.5 L (13.0-17.5) gm/dL Hct 30.6 L (39.0-53.0) % Plt Count 521 H (150-450) k/uL Sodium 135 L (137-145) mmol/L Glucose 110 H (74-99) mg/dL C-Reactive Protein 11.7 H (<1.0) mg/dL Microbiology - Last 24 Hours (Table) 08/27/22 17:25 Blood Culture - Preliminary Blood Assessment and Plan (1) Acute osteomyelitis of maxilla Current Visit: Yes Status: Acute Code(s): M27.2 - INFLAMMATORY CONDITIONS OF JAWS SNOMED Code(s): 616555357 (2) Pneumonia Current Visit: Yes Status: Acute Code(s): J18.9 - PNEUMONIA, UNSPECIFIED ORGANISM SNOMED Code(s): 975555370 Plan: 1patient was in the hospital with sepsis in this patient who did have a fever elevated white count predominantly respiratory symptoms with evidence of basilar airspace disease concerning for possible pneumonia in this patient currently receiving Rocephin in the outpatient setting for left maxillary osteomyelitis with a similar admission few weeks ago all cultures were negative at that point 2-we will try to obtain a sputum for Gram stain culture and check inflammatory markers 3-We will obtain CT of the chest with contrast to see the extent of pneumonia in view of the persistent symptoms. 4-Patient to continue vancomycin for being while waiting for the culture to finalize Time with Patient: Less than 30
--- NOTE | 2022-09-02 15:32 | P.PN ---
Subjective Progress Note Date: 09/02/22 Principal diagnosis: Pneumonia and L maxillary osteomyelitis Patient is a 57-year-old male with recent diagnosis of left maxillary osteomyelitis on the basis of CT MRI done at [facility] and the patient is receiving outpatient IV Rocephin per the recommendation recent admission to the hospital for pneumonia he did have blood sputum and nasal cultures also negative patient now presenting back to the hospital with increasing shortness of breath cough and fever concerning for pneumonia. On today's evaluation that is 09/02/2022 patient continues is still to be afeb rile patient is breathing comfortably on room air, patient complaining of sore throat but denies any difficulty swallowing no worsening cough or sputum production no abdominal pain or diarrhea Objective - Vital Signs Vital signs: Vital Signs Temp 97.8 F 09/02/22 07:35 Pulse 62 09/02/22 10:45 Resp 16 09/02/22 07:35 BP 162/88 09/02/22 10:45 Pulse Ox 99 09/02/22 09:09 FiO2 21 09/02/22 09:09 Intake & Output 09/01/22 09/02/22 09/02/22 18:59 06:59 18:59 Output Total 0 Balance 0 Weight 77.111 kg Output: Stool 0 Other: Voiding Method Toilet Urinal Urinal # Voids 4 1 - Exam GENERAL DESCRIPTION: Middle-age male lying in bed in no distress RESPIRATORY SYSTEM: Unlabored breathing , coarse breath sounds bilaterally HEART: S1 S2 regular rate and rhythm ,no loud murmurs ABDOMEN: Soft , no tenderness EXTREMITIES: No edema feet - Labs CBC & Chem 7: 09/01/22 07:19 09/02/22 06:21 Labs: Microbiology - Last 24 Hours (Table) 08/27/22 17:25 Blood Culture - Final Blood Assessment and Plan (1) Acute osteomyelitis of maxilla Current Visit: Yes Status: Acute Code(s): M27.2 - INFLAMMATORY CONDITIONS OF JAWS SNOMED Code(s): 383333927 (2) Failure of outpatient treatment Current Visit: Yes Status: Acute Code(s): Z78.9 - OTHER SPECIFIED HEALTH STATUS SNOMED Code(s): 387907547 (3) Pneumonia Current Visit: Yes Status: Acute Code(s): J18.9 - PNEUMONIA, UNSPECIFIED ORGANISM SNOMED Code(s): 137420080 Plan: 1patient was in the hospital with sepsis in this patient who did have a fever elevated white count predominantly respiratory symptoms with evidence of basilar airspace disease concerning for possible pneumonia in this patient currently receiving Rocephin in the outpatient setting for left maxillary osteomyelitis with a similar admission few weeks ago all cultures were negative at that point 2-Patient did have a CT of the chest groundglass infiltrates anterior left upper lobe along with a nodule patient white count normalized he did have elevated sed rate of 112 CRP is 11.7 procalcitonin 0.12, sputum cultures Currently growing Mai which is more likely colonizer. 3patient with a history of left maxillary osteomyelitis with persistent symptoms despite completing a 6-week course of IV Rocephin in the outpatient setting , CT of the sinuses did show significant sinus disease and bone destruction, patient has been Evaluated by ENT recommending transfer to tertiary care which is currently in process. Continue the patient on Invanz till the patient is evaluated by infectious disease at that facility Time with Patient: Less than 30
[2022-09-02] MEDS: traZODone HCL 50 MG TAB PO SCH (19:50)
[2022-09-03] MEDS: HYDROmorphone 1 MG/ML 1 ML SYRINGE IVP PRN ×5 (00:13→20:59)
[2022-09-03] MEDS: ACETAMINOPHEN TAB 325 MG TAB PO PRN ×2 (00:56→19:26)
[2022-09-03] MEDS: HYDROcodone/APAP 5-325MG 1 EACH TAB PO SCH ×3 (05:54→21:00)
[2022-09-03] MEDS: LEVOTHYROXINE 50 MCG TAB PO SCH (06:05)
[2022-09-03] MEDS: LOSARTAN 50 MG TAB PO SCH (09:13)
[2022-09-03] MEDS: ESCITALOPRAM 10 MG TAB PO SCH (09:13)
[2022-09-03] MEDS: SODIUM CHLORIDE 0.9% 1,000 ML IV SCH (09:14)
[2022-09-03] MEDS: MUPIROCIN 2% OINT 22 GM TUBE TOPICAL SCH ×3 (09:14→21:02)
[2022-09-03] MEDS: PANTOPRAZOLE 40 MG/10 ML VIAL IV SCH (09:14)
--- NOTE | 2022-09-03 09:23 | P.PN ---
Subjective Progress Note Date: 09/03/22 He is feeling about the same, afebrile, remains hypertensive in 160-170s. He continues to complain of pain in the nares and sinuses. Pt extensively discussed with ENT at [facility] yesterday, Dr Borden who personally reviewed CT sinus this admission vs last month and felt pt was improving and declined transfer. ENT at this hospital recommending transfer to tertiary care center. Pt remains on Invanz. Objective - Vital Signs Vital signs: Vital Signs Temp 98.7 F 09/03/22 07:42 Pulse 55 L 09/03/22 07:42 Resp 17 09/03/22 07:42 BP 178/96 09/03/22 07:42 Pulse Ox 98 09/03/22 07:42 FiO2 21 09/02/22 09:09 Intake & Output 09/02/22 09/03/22 09/03/22 18:59 06:59 18:59 Other: # Voids 1 2 - Exam Gen: well developed male in NAD HEENT: sinus erythema, crusting CV: RRR Lungs: CTAB - Labs CBC & Chem 7: 09/01/22 07:19 09/02/22 06:21 Labs: Microbiology - Last 24 Hours (Table) 08/29/22 19:00 Gram Stain - Final Sputum Sputum Culture - Final Mai albicans Assessment and Plan Plan: Continue IV ertapenem per ID. Add Norvasc. Continue remainder of supportive care. Will discuss case with [facility] as well with transfer declined at [place]. ID and ENT following
[2022-09-03] MEDS: amLODIPine 5 MG TAB PO SCH (10:43)
[2022-09-03] MEDS: SODIUM CHLORIDE 0.65% NASAL SPRAY 44 ML BTL NASAL PRN (12:36)
[2022-09-03] MEDS ORDERED: ANIDULAFUNGIN 200 MG in SODIUM CHLORIDE 0.9% 200 ML IVPB ONE (12:58)
[2022-09-03] MEDS: NYSTATIN 100,000 UNIT/ML SUSP 500,000 UNIT/5 ML CUP PO SCH ×3 (14:12→21:01)
--- NOTE | 2022-09-03 15:23 | P.PN ---
Subjective Progress Note Date: 09/03/22 Principal diagnosis: Pneumonia and L maxillary osteomyelitis Patient is a 57-year-old male with recent diagnosis of left maxillary osteomyelitis on the basis of CT MRI done at [facility] and the patient is receiving outpatient IV Rocephin per the recommendation recent admission to the hospital for pneumonia he did have blood sputum and nasal cultures also negative patient now presenting back to the hospital with increasing shortness of breath cough and fever concerning for pneumonia. On today's evaluation that is 09/03/2022 the patient denies any fever or chills, the patient is breathing comfortably on room air , the patient is still complaining of mostly sore throat however no difficulty swallowing cough is decreased intensity no nausea no vomiting and no diarrhea Objective - Vital Signs Vital signs: Vital Signs Temp 98.7 F 09/03/22 07:42 Pulse 55 L 09/03/22 07:42 Resp 17 09/03/22 07:42 BP 178/96 09/03/22 07:42 Pulse Ox 98 09/03/22 07:42 FiO2 21 09/02/22 09:09 Intake & Output 09/02/22 09/03/22 09/03/22 18:59 06:59 18:59 Other: Voiding Method Toilet Urinal # Voids 1 2 - Exam GENERAL DESCRIPTION: Middle-age male lying in bed in no distress RESPIRATORY SYSTEM: Unlabored breathing , coarse breath sounds bilaterally HEART: S1 S2 regular rate and rhythm ,no loud murmurs ABDOMEN: Soft , no tenderness EXTREMITIES: No edema feet - Labs CBC & Chem 7: 09/01/22 07:19 09/02/22 06:21 Labs: Microbiology - Last 24 Hours (Table) 08/29/22 19:00 Gram Stain - Final Sputum Sputum Culture - Final Mai albicans Assessment and Plan (1) Acute osteomyelitis of maxilla Current Visit: Yes Status: Acute Code(s): M27.2 - INFLAMMATORY CONDITIONS OF JAWS SNOMED Code(s): 308071750 (2) Pneumonia Current Visit: Yes Status: Acute Code(s): J18.9 - PNEUMONIA, UNSPECIFIED ORGANISM SNOMED Code(s): 251255205 Plan: 1patient was in the hospital with sepsis in this patient who did have a fever elevated white count predominantly respiratory symptoms with evidence of basilar airspace disease concerning for possible pneumonia in this patient currently receiving Rocephin in the outpatient setting for left maxillary osteomyelitis with a similar admission few weeks ago all cultures were negative at that point 2-Patient did have a CT of the chest groundglass infiltrates anterior left upper lobe along with a nodule patient white count normalized he did have elevated sed rate of 112 CRP is 11.7 procalcitonin 0.12, sputum cultures Currently growing Mai which is more likely colonizer. 3patient with a history of left maxillary osteomyelitis with persistent symptoms despite completing a 6-week course of IV Rocephin in the outpatient setting , CT of the sinuses did show significant sinus disease and bone destruction, patient has been Evaluated by ENT recommending transfer to tertiary care which is currently in process. Continue the patient on Invanz 4-patient with complaint of sore throat with evidence of thrush and possible oropharyngeal candidiasis, was not able to add Diflucan because of the interaction with the medication we will start patient on Eraxis and see clinical response Time with Patient: Less than 30
[2022-09-03] MEDS: ERTAPENEM 1 GM in SODIUM CHLORIDE 0.9% 50 ML IVPB SCH (17:32)
[2022-09-03] MEDS: traZODone HCL 50 MG TAB PO SCH (21:01)
[2022-09-04] MEDS: HYDROmorphone 1 MG/ML 1 ML SYRINGE IVP PRN ×5 (00:58→19:51)
[2022-09-04] MEDS: SODIUM CHLORIDE 0.9% 1,000 ML IV SCH (01:03)
[2022-09-04] MEDS: HYDROcodone/APAP 5-325MG 1 EACH TAB PO SCH ×3 (04:18→19:49)
[2022-09-04] MEDS: LEVOTHYROXINE 50 MCG TAB PO SCH (06:16)
[2022-09-04] MEDS: NYSTATIN 100,000 UNIT/ML SUSP 500,000 UNIT/5 ML CUP PO SCH ×4 (09:06→21:19)
[2022-09-04] MEDS: amLODIPine 5 MG TAB PO SCH (09:07)
[2022-09-04] MEDS: ESCITALOPRAM 10 MG TAB PO SCH (09:07)
[2022-09-04] MEDS: PANTOPRAZOLE 40 MG/10 ML VIAL IV SCH (09:07)
[2022-09-04] MEDS: LOSARTAN 50 MG TAB PO SCH (09:07)
[2022-09-04] MEDS: MUPIROCIN 2% OINT 22 GM TUBE TOPICAL SCH ×3 (09:08→20:00)
--- NOTE | 2022-09-04 12:50 | P.PN ---
Subjective Progress Note Date: 09/04/22 Patient is a 57-year-old male with recent diagnosis of left maxillary osteomyelitis on the basis of CT MRI done at [facility] and the patient is receiving outpatient IV Rocephin per the recommendation recent admission to the hospital for pneumonia he did have blood sputum and nasal cultures also negative patient now presenting back to the hospital with increasing shortness of breath cough and fever concerning for pneumonia. 09/01/2022 continues on IV antibiotics, adjusted to Invanz, reports sore throat, secondary mucus drainage. Nasal/nares tenderness persists, continue with Bactroban ointment. Reports pain medication only lasting 3 hours-we will transition to oral. Afebrile, normal WBC. ID recommending ENT consult related to significant amounts of bony destruction-will need biopsy and both bacteria and fungal cultures. 09/02/2022 maintained on IV antibiotic therapy as per ID. Afebrile. Sore throat and nare tenderness improving. Evaluated by ENT, Dr. Carrasco-MUSHTAQ saleh and he is recommending transfer to tertiary care center/[facility] secondary to patient appears to present with fungal sinusitis, requiring a procedure that is unable to be done at this site. Patient is in agreement to transfer. 09/04. Dr. miranda taking over care. Patient seen and examined. Patient is ambulating in the room, states that he feels better compared to yesterday. Still complaining of nasal itching and postnasal drip REVIEW OF SYSTEMS: CONSTITUTIONAL: No fever, no malaise,. CARDIOVASCULAR: No chest pain, no palpitations, no syncope. PULMONARY: No shortness of breath, no cough, GASTROINTESTINAL: No diarrhea, no nausea, no vomiting, no abdominal pain. NEUROLOGICAL: No headaches, no weakness, PHYSICAL EXAMINATION: GENERAL: The patient is alert and oriented x3, not in any acute distress. Well developed, well nourished. HEENT: Pupils are round and equally reacting to light. EOMI. No scleral icterus. No conjunctival pallor. Normocephalic, atraumatic. No pharyngeal erythema. No thyromegaly. CARDIOVASCULAR: S1 and S2 present. No murmurs, rubs, or gallops. PULMONARY: Chest is clear to auscultation, no wheezing or crackles. ABDOMEN: Soft, nontender, nondistended, normoactive bowel sounds. No palpable organomegaly. MUSCULOSKELETAL: No joint swelling or deformity. EXTREMITIES: No cyanosis, clubbing, or pedal edema. NEUROLOGICAL: Gross neurological examination did not reveal any focal deficits. SKIN: No rashes. Assessment and plan Sepsis secondary to maxillary osteomyelitis HCAP with YUNIOR pneumonia Cocaine abuse Chronic sinusitis Monitor vital signs Monitor CBC Monitor CMP Continue IV ertapenem Continue IV eraxis Continue amlodipine and Norvasc ID following Objective - Vital Signs Vital signs: Vital Signs Temp 97.7 F 09/04/22 08:00 Pulse 53 L 09/04/22 08:00 Resp 18 09/04/22 08:00 BP 127/72 09/04/22 08:00 Pulse Ox 98 09/04/22 08:00 FiO2 21 09/02/22 09:09 Intake & Output 09/03/22 09/04/22 09/04/22 18:59 06:59 18:59 Output Total 0 Balance 0 Output: Stool 0 Other: Voiding Method Toilet Toilet Urinal Urinal # Voids 3 - Labs CBC & Chem 7: 09/01/22 07:19 09/02/22 06:21
[2022-09-04] MEDS: ANIDULAFUNGIN 100 MG in SODIUM CHLORIDE 0.9% 100 ML IVPB SCH (13:03)
[2022-09-04] MEDS: ERTAPENEM 1 GM in SODIUM CHLORIDE 0.9% 50 ML IVPB SCH (16:09)
[2022-09-04] MEDS: traZODone HCL 50 MG TAB PO SCH (19:49)
[2022-09-05] MEDS: IBUPROFEN 400 MG TAB PO PRN ×2 (00:01→22:26)
[2022-09-05] MEDS: HYDROcodone/APAP 5-325MG 1 EACH TAB PO SCH ×3 (05:05→20:16)
[2022-09-05] MEDS: HYDROmorphone 1 MG/ML 1 ML SYRINGE IVP PRN ×5 (05:05→22:25)
[2022-09-05] MEDS: LEVOTHYROXINE 50 MCG TAB PO SCH (05:06)
[2022-09-05 05:27] LABS: ALT 18 U/L (4-49); AST 18 U/L (17-59); African American GFR (CKD) >90 (>60 ml/min/1.73 sqM); Albumin/Globulin Ratio 1.1; Alkaline Phosphatase 65 U/L (38-126); Anion Gap 5 mmol/L; Blood Urea Nitrogen 14 mg/dL (9-20); Calcium 8.2 mg/dL (8.4-10.2); Carbon Dioxide 28 mmol/L (22-30); Chloride 105 mmol/L (98-107); Globulin 2.8 g/dL; Glucose 86 mg/dL (74-99); Non-African American GFR(CKD) 87 (>60 ml/min/1.73 sqM); Potassium 4.4 mmol/L (3.5-5.1); Sodium 138 mmol/L (137-145); Total Bilirubin 0.2 mg/dL (0.2-1.3); Total Protein 5.8 g/dL (6.3-8.2)
[2022-09-05 05:38] LABS: Basophils % (A) 0 %; Eosinophils # (A) 0.2 k/uL (0-0.7); Eosinophils % (A) 4 %; HCT 30.5 % (39.0-53.0); HGB 9.8 gm/dL (13.0-17.5); Hypochromasia Slight; Lymphocytes # (A) 1.8 k/uL (1.0-4.8); Lymphocytes % (A) 30 %; MCH 29.6 pg (25.0-35.0); MCHC 32.1 g/dL (31.0-37.0); MCV 92.3 fL (80.0-100.0); Mean Platelet Volume 6.9; Monocytes # (A) 0.4 k/uL (0-1.0); Monocytes % (A) 6 %; Neutrophils # (A) 3.4 k/uL (1.3-7.7); Neutrophils % (A) 58 %; Platelet Count 311 k/uL (150-450); RBC 3.31 m/uL (4.30-5.90); RDW 15.2 % (11.5-15.5); WBC 5.9 k/uL (3.8-10.6)
[2022-09-05] MEDS: PANTOPRAZOLE 40 MG/10 ML VIAL IV SCH (08:47)
[2022-09-05] MEDS: amLODIPine 5 MG TAB PO SCH (08:47)
[2022-09-05] MEDS: ESCITALOPRAM 10 MG TAB PO SCH (08:47)
[2022-09-05] MEDS: LOSARTAN 50 MG TAB PO SCH (08:47)
[2022-09-05] MEDS: NYSTATIN 100,000 UNIT/ML SUSP 500,000 UNIT/5 ML CUP PO SCH ×4 (08:47→20:17)
[2022-09-05] MEDS: MUPIROCIN 2% OINT 22 GM TUBE TOPICAL SCH ×3 (08:49→20:17)
[2022-09-05] MEDS: ANIDULAFUNGIN 100 MG in SODIUM CHLORIDE 0.9% 100 ML IVPB SCH (13:12)
--- NOTE | 2022-09-05 13:31 | P.PN ---
Subjective Progress Note Date: 09/05/22 Patient is a 57-year-old male with recent diagnosis of left maxillary osteomyelitis on the basis of CT MRI done at [facility] and the patient is receiving outpatient IV Rocephin per the recommendation recent admission to the hospital for pneumonia he did have blood sputum and nasal cultures also negative patient now presenting back to the hospital with increasing shortness of breath cough and fever concerning for pneumonia. 09/01/2022 continues on IV antibiotics, adjusted to Invanz, reports sore throat, secondary mucus drainage. Nasal/nares tenderness persists, continue with Bactroban ointment. Reports pain medication only lasting 3 hours-we will transition to oral. Afebrile, normal WBC. ID recommending ENT consult related to significant amounts of bony destruction-will need biopsy and both bacteria and fungal cultures. 09/02/2022 maintained on IV antibiotic therapy as per ID. Afebrile. Sore throat and nare tenderness improving. Evaluated by ENT, Dr. Carrasco-MUSHTAQ saleh and he is recommending transfer to tertiary care center/[facility] secondary to patient appears to present with fungal sinusitis, requiring a procedure that is unable to be done at this site. Patient is in agreement to transfer. 09/04. Dr. miranda taking over care. Patient seen and examined. Patient is ambulating in the room, states that he feels better compared to yesterday. Still complaining of nasal itching and postnasal drip 09/05. Patient seen and examined. No acute issues overnight. Labs are white count 5.9, hemoglobin 10.8, sodium 138, potassium 4.4, BUn 14, creatinine 0.98. Temperature 97.5, heart rate 53, respiration 18, blood pressure 144/82. Complaining of some throat ache. Denies any nasal discharge. REVIEW OF SYSTEMS: CONSTITUTIONAL: No fever, no malaise,. CARDIOVASCULAR: No chest pain, no palpitations, no syncope. PULMONARY: No shortness of breath, no cough, GASTROINTESTINAL: No diarrhea, no nausea, no vomiting, no abdominal pain. NEUROLOGICAL: No headaches, no weakness, PHYSICAL EXAMINATION: GENERAL: The patient is alert and oriented x3, not in any acute distress. Well developed, well nourished. HEENT: Pupils are round and equally reacting to light. EOMI. No scleral icterus. No conjunctival pallor. Normocephalic, atraumatic. No pharyngeal erythema. No thyromegaly. CARDIOVASCULAR: S1 and S2 present. No murmurs, rubs, or gallops. PULMONARY: Chest is clear to auscultation, no wheezing or crackles. ABDOMEN: Soft, nontender, nondistended, normoactive bowel sounds. No palpable organomegaly. MUSCULOSKELETAL: No joint swelling or deformity. EXTREMITIES: No cyanosis, clubbing, or pedal edema. NEUROLOGICAL: Gross neurological examination did not reveal any focal deficits. SKIN: No rashes. Assessment and plan Sepsis secondary to maxillary osteomyelitis HCAP with YUNIOR pneumonia Cocaine abuse Chronic sinusitis Monitor vital signs Monitor CBC Monitor CMP Continue IV ertapenem Continue IV eraxis Continue amlodipine and losartan, blood pressure better controlled Continue Synthroid ID following Objective - Vital Signs Vital signs: Vital Signs Temp 97.5 F L 09/05/22 07:35 Pulse 53 L 09/05/22 07:35 Resp 18 09/05/22 07:35 BP 144/82 09/05/22 07:35 Pulse Ox 96 09/05/22 07:35 FiO2 21 09/02/22 09:09 Intake & Output 09/04/22 09/05/22 09/05/22 18:59 06:59 18:59 Output Total 0 Balance 0 Output: Stool 0 Other: Voiding Method Toilet Urinal # Voids 4 1 # Bowel Movements 1 - Labs CBC & Chem 7: 09/05/22 04:59 09/05/22 04:59 Labs: Abnormal Lab Results - Last 24 Hours (Table) 09/05/22 09/05/22 Range/Units 04:59 04:59 RBC 3.31 L (4.30-5.90) m/uL Hgb 9.8 L (13.0-17.5) gm/dL Hct 30.5 L (39.0-53.0) % Calcium 8.2 L (8.4-10.2) mg/dL Total Protein 5.8 L (6.3-8.2) g/dL Albumin 3.0 L (3.5-5.0) g/dL
[2022-09-05] MEDS: ERTAPENEM 1 GM in SODIUM CHLORIDE 0.9% 50 ML IVPB SCH (14:56)
[2022-09-05] MEDS: traZODone HCL 50 MG TAB PO SCH (20:16)
--- NOTE | 2022-09-05 22:20 | P.PN ---
Subjective Progress Note Date: 09/04/22 Principal diagnosis: Pneumonia and L maxillary osteomyelitis Patient is a 57-year-old male with recent diagnosis of left maxillary osteomyelitis on the basis of CT MRI done at [facility] and the patient is receiving outpatient IV Rocephin per the recommendation recent admission to the hospital for pneumonia he did have blood sputum and nasal cultures also negative patient now presenting back to the hospital with increasing shortness of breath cough and fever concerning for pneumonia. On today's evaluation that is 09/04/2022 the patient remains to be afebrile, the patient is breathing comfortably on room air , the patient has been mostly complaining of sore throat but no difficulty swallowing , the patient cough is decreased intensity no nausea no vomiting and no diarrhea Objective - Vital Signs Vital signs: Vital Signs Temp 97.7 F 09/04/22 08:00 Pulse 53 L 09/04/22 08:00 Resp 18 09/04/22 08:00 BP 127/72 09/04/22 08:00 Pulse Ox 98 09/04/22 08:00 FiO2 21 09/02/22 09:09 Intake & Output 09/03/22 09/04/22 09/04/22 18:59 06:59 18:59 Output Total 0 Balance 0 Output: Stool 0 Other: Voiding Method Toilet Toilet Urinal Urinal # Voids 3 - Exam GENERAL DESCRIPTION: Middle-age male lying in bed in no distress RESPIRATORY SYSTEM: Unlabored breathing , coarse breath sounds bilaterally HEART: S1 S2 regular rate and rhythm ,no loud murmurs ABDOMEN: Soft , no tenderness EXTREMITIES: No edema feet - Labs CBC & Chem 7: 09/05/22 04:59 09/05/22 04:59 Assessment and Plan (1) Acute osteomyelitis of maxilla Current Visit: Yes Status: Acute Code(s): M27.2 - INFLAMMATORY CONDITIONS OF JAWS SNOMED Code(s): 385967096 (2) Pneumonia Current Visit: Yes Status: Acute Code(s): J18.9 - PNEUMONIA, UNSPECIFIED ORGANISM SNOMED Code(s): 926674712 Plan: 1patient was in the hospital with sepsis in this patient who did have a fever elevated white count predominantly respiratory symptoms with evidence of basilar airspace disease concerning for possible pneumonia in this patient currently receiving Rocephin in the outpatient setting for left maxillary osteomyelitis with a similar admission few weeks ago all cultures were negative at that point 2-Patient did have a CT of the chest groundglass infiltrates anterior left upper lobe along with a nodule patient white count normalized he did have elevated sed rate of 112 CRP is 11.7 procalcitonin 0.12, sputum cultures Currently growing Mai which is more likely colonizer. 3patient with a history of left maxillary osteomyelitis with persistent symptoms despite completing a 6-week course of IV Rocephin in the outpatient setting , CT of the sinuses did show significant sinus disease and bone destruction, patient has been Evaluated by ENT recommending transfer to tertiary care which is currently in process. Continue the patient on Invanz 4-patient with complaint of sore throat with evidence of thrush and possible oropharyngeal candidiasis, patient to continue with Eraxis and monitor clinical course closely Time with Patient: Less than 30
--- NOTE | 2022-09-05 22:22 | P.PN ---
Subjective Progress Note Date: 09/05/22 Principal diagnosis: Pneumonia and L maxillary osteomyelitis Patient is a 57-year-old male with recent diagnosis of left maxillary osteomyelitis on the basis of CT MRI done at [facility] and the patient is receiving outpatient IV Rocephin per the recommendation recent admission to the hospital for pneumonia he did have blood sputum and nasal cultures also negative patient now presenting back to the hospital with increasing shortness of breath cough and fever concerning for pneumonia. On today's evaluation that is 09/05/2022 the patient continues to be afebrile, the patient is breathing comfortably on room air , the patient symptoms of sore throat has slightly decreased in intensity, the patient cough is decreased intensity no nausea no vomiting and no diarrhea Objective - Vital Signs Vital signs: Vital Signs Temp 97.5 F L 09/05/22 07:35 Pulse 53 L 09/05/22 07:35 Resp 18 09/05/22 07:35 BP 144/82 09/05/22 07:35 Pulse Ox 96 09/05/22 11:30 FiO2 21 09/02/22 09:09 Intake & Output 09/04/22 09/05/22 09/05/22 18:59 06:59 18:59 Output Total 0 Balance 0 Output: Stool 0 Other: Voiding Method Toilet Urinal # Voids 4 1 # Bowel Movements 1 - Exam GENERAL DESCRIPTION: Middle-age male lying in bed in no distress RESPIRATORY SYSTEM: Unlabored breathing , coarse breath sounds bilaterally HEART: S1 S2 regular rate and rhythm ,no loud murmurs ABDOMEN: Soft , no tenderness EXTREMITIES: No edema feet - Labs CBC & Chem 7: 09/05/22 04:59 09/05/22 04:59 Labs: Abnormal Lab Results - Last 24 Hours (Table) 09/05/22 09/05/22 Range/Units 04:59 04:59 RBC 3.31 L (4.30-5.90) m/uL Hgb 9.8 L (13.0-17.5) gm/dL Hct 30.5 L (39.0-53.0) % Calcium 8.2 L (8.4-10.2) mg/dL Total Protein 5.8 L (6.3-8.2) g/dL Albumin 3.0 L (3.5-5.0) g/dL Assessment and Plan (1) Acute osteomyelitis of maxilla Current Visit: Yes Status: Acute Code(s): M27.2 - INFLAMMATORY CONDITIONS OF JAWS SNOMED Code(s): 222490369 (2) Pneumonia Current Visit: Yes Status: Acute Code(s): J18.9 - PNEUMONIA, UNSPECIFIED ORGANISM SNOMED Code(s): 652743306 Plan: 1patient was in the hospital with sepsis in this patient who did have a fever elevated white count predominantly respiratory symptoms with evidence of basilar airspace disease concerning for possible pneumonia in this patient currently receiving Rocephin in the outpatient setting for left maxillary osteomyelitis with a similar admission few weeks ago all cultures were negative at that point 2-Patient did have a CT of the chest groundglass infiltrates anterior left upper lobe along with a nodule patient white count normalized he did have elevated sed rate of 112 CRP is 11.7 procalcitonin 0.12, sputum cultures Currently growing Mai which is more likely colonizer. 3patient with a history of left maxillary osteomyelitis with persistent symptoms despite completing a 6-week course of IV Rocephin in the outpatient setting , CT of the sinuses did show significant sinus disease and bone destruction, patient has been Evaluated by ENT recommending transfer to tertiary care which is currently in process. Continue currently being treated with Invanz to continue 4-patient with complaint of sore throat with evidence of thrush and possible oropharyngeal candidiasis, patient to continue with Eraxis along with nystatin swish and swallow, we'll recheck his inflammatory markers with a.m. lab Time with Patient: Less than 30
[2022-09-06] MEDS: HYDROmorphone 1 MG/ML 1 ML SYRINGE IVP PRN ×6 (01:46→22:39)
[2022-09-06] MEDS: HYDROcodone/APAP 5-325MG 1 EACH TAB PO SCH ×3 (05:15→21:11)
[2022-09-06] MEDS: LEVOTHYROXINE 50 MCG TAB PO SCH (05:16)
[2022-09-06] MEDS: amLODIPine 10 MG TAB PO SCH (08:42)
[2022-09-06] MEDS: NYSTATIN 100,000 UNIT/ML SUSP 500,000 UNIT/5 ML CUP PO SCH ×4 (08:43→21:12)
[2022-09-06] MEDS: LOSARTAN 50 MG TAB PO SCH (08:43)
[2022-09-06] MEDS: ESCITALOPRAM 10 MG TAB PO SCH (08:43)
[2022-09-06] MEDS: MUPIROCIN 2% OINT 22 GM TUBE TOPICAL SCH ×3 (08:44→21:14)
[2022-09-06] MEDS: PANTOPRAZOLE 40 MG/10 ML VIAL IV SCH (08:51)
--- NOTE | 2022-09-06 11:51 | P.PN ---
Subjective Progress Note Date: 09/06/22 Slept well, occasional cough. Mild sore throat. States unable to clear mucus from his sinuses 2 to his nasal tenderness denies headache or fever or chills. Maintain on Vancomysin and cefepime as per infectious disease. Renal function stable. Afebrile. Sputum culture finalizing, preliminary blood cultures reporting no growth after 72 hours. 09/01/2022 continues on IV antibiotics, adjusted to Invanz, reports sore throat, secondary mucus drainage. Nasal/nares tenderness persists, continue with B actroban ointment. Reports pain medication only lasting 3 hours-we will transition to oral. Afebrile, normal WBC. ID recommending ENT consult related to significant amounts of bony destruction-will need biopsy and both bacteria and fungal cultures. 09/02/2022 maintained on IV antibiotic therapy as per ID. Afebrile. Sore throat and nare tenderness improving. Evaluated by ENT, Dr. Carrasco-CT reviewed and he is recommending transfer to tertiary care center/[facility] secondary to patient appears to present with fungal sinusitis, requiring a procedure that is unable to be done at this site. Patient is in agreement to transfer. 09/03/22 He is feeling about the same, afebrile, remains hypertensive in 160-170s. He continues to complain of pain in the nares and sinuses. Pt extensively discussed with ENT at [facility] yesterday, Dr Borden who personally reviewed CT sinus this admission vs last month and felt pt was improving and declined transfer. ENT at this hospital recommending transfer to tertiary care center. Pt remains on Invanz. 09/06/2022 attempted transfer to [facility] last week, [place] [facility] declined. Maintained on IV antibiotics as per ID. Afebrile. Reports sore throat improving, some burning sensation of nares. Denies cough. Denies chest pain, palpitations or shortness of breath. Maintaining O2 sats in the 90s on room air. Denies lightheadedness, dizziness or focal deficits. Objective - Vital Signs Vital signs: Vital Signs Temp 97.6 F 09/06/22 07:27 Pulse 52 L 09/06/22 08:00 Resp 16 09/06/22 08:00 BP 150/84 09/06/22 07:27 Pulse Ox 95 09/06/22 09:22 FiO2 21 09/02/22 09:09 Intake & Output 09/05/22 09/06/22 09/06/22 18:59 06:59 18:59 Other: Voiding Method Toilet Urinal # Voids 4 3 - Exam Gen: well developed male in NAD HEENT: sinus erythema, crusting CV: RRR Lungs: CTAB - Labs CBC & Chem 7: 09/05/22 04:59 09/05/22 04:59 Assessment and Plan Assessment: Sepsis secondary to maxillary osteomyelitis HCAP with YUNIOR pneumonia Cocaine abuse Chronic sinusitis Plan: Continue on current medication regime ,monitoring and symptomatic treatment. Patient is attempting to locate the phone number/name of his own ENT out of [place]-potential tfr. Antibiotics as per infectious disease. Prognosis guarded given multiple complex medical issues. The impression and plan of care has been dictated as directed. : I performed a history and examination of this patient, discussed the same with the dictator. I agree with the dictator's note ,documented as a scribe. Any additional findings or plans will be noted.
[2022-09-06] MEDS: ANIDULAFUNGIN 100 MG in SODIUM CHLORIDE 0.9% 100 ML IVPB SCH (13:03)
[2022-09-06] MEDS: ERTAPENEM 1 GM in SODIUM CHLORIDE 0.9% 50 ML IVPB SCH (16:04)
[2022-09-06] MEDS: traZODone HCL 50 MG TAB PO SCH (21:11)
--- NOTE | 2022-09-06 22:57 | P.PN ---
Subjective Progress Note Date: 09/06/22 Principal diagnosis: Pneumonia and L maxillary osteomyelitis Patient is a 57-year-old male with recent diagnosis of left maxillary osteomyelitis on the basis of CT MRI done at [facility] and the patient is receiving outpatient IV Rocephin per the recommendation recent admission to the hospital for pneumonia he did have blood sputum and nasal cultures also negative patient now presenting back to the hospital with increasing shortness of breath cough and fever concerning for pneumonia. On today's evaluation that is 09/06/2022 the patient remains to be afebrile, the patient is breathing comfortably on room air , the patient symptoms of sore throat has decreased in intensity denies difficultu swallowing, the patient cough is decreased intensity no nausea no vomiting and no diarrhea Objective - Vital Signs Vital signs: Vital Signs Temp 97.6 F 09/06/22 07:27 Pulse 52 L 09/06/22 08:00 Resp 16 09/06/22 08:00 BP 150/84 09/06/22 07:27 Pulse Ox 95 09/06/22 09:22 FiO2 21 09/02/22 09:09 Intake & Output 09/05/22 09/06/22 09/06/22 18:59 06:59 18:59 Other: Voiding Method Toilet Urinal # Voids 4 3 - Exam GENERAL DESCRIPTION: Middle-age male lying in bed in no distress RESPIRATORY SYSTEM: Unlabored breathing , coarse breath sounds bilaterally HEART: S1 S2 regular rate and rhythm ,no loud murmurs ABDOMEN: Soft , no tenderness EXTREMITIES: No edema feet - Labs CBC & Chem 7: 09/05/22 04:59 09/05/22 04:59 Assessment and Plan (1) Acute osteomyelitis of maxilla Current Visit: Yes Status: Acute Code(s): M27.2 - INFLAMMATORY CONDITIONS OF JAWS SNOMED Code(s): 942076534 (2) Pneumonia Current Visit: Yes Status: Acute Code(s): J18.9 - PNEUMONIA, UNSPECIFIED ORGANISM SNOMED Code(s): 536532000 Plan: 1patient was in the hospital with sepsis in this patient who did have a fever elevated white count predominantly respiratory symptoms with evidence of basilar airspace disease concerning for possible pneumonia in this patient currently receiving Rocephin in the outpatient setting for left maxillary osteomyelitis with a similar admission few weeks ago all cultures were negative at that point 2-Patient did have a CT of the chest groundglass infiltrates anterior left upper lobe along with a nodule patient white count normalized he did have elevated sed rate of 112 CRP is 11.7 procalcitonin 0.12, sputum cultures Currently growing Mai which is more likely colonizer. 3patient with a history of left maxillary osteomyelitis with persistent symptoms despite completing a 6-week course of IV Rocephin in the outpatient setting , CT of the sinuses did show significant sinus disease and bone destruction, patient has been Evaluated by ENT recommending transfer to tertiary care which is currently in process. Pt to Continue with Invanz 4-patient with complaint of sore throat with evidence of thrush and possible oropharyngeal candidiasis, patient to continue with Eraxis along with nystatin swish and swallow, seems to have shown some improvement Time with Patient: Less than 30
[2022-09-07] MEDS: HYDROmorphone 1 MG/ML 1 ML SYRINGE IVP PRN ×3 (03:43→18:20)
[2022-09-07] MEDS: LEVOTHYROXINE 50 MCG TAB PO SCH (05:33)
[2022-09-07] MEDS: HYDROcodone/APAP 5-325MG 1 EACH TAB PO SCH ×2 (05:33→12:18)
[2022-09-07] MEDS: NYSTATIN 100,000 UNIT/ML SUSP 500,000 UNIT/5 ML CUP PO SCH ×4 (09:50→19:53)
[2022-09-07] MEDS: MUPIROCIN 2% OINT 22 GM TUBE TOPICAL SCH ×3 (09:50→23:00)
[2022-09-07] MEDS: ESCITALOPRAM 10 MG TAB PO SCH (09:50)
[2022-09-07] MEDS: amLODIPine 10 MG TAB PO SCH (09:50)
[2022-09-07] MEDS: LOSARTAN 50 MG TAB PO SCH (09:50)
[2022-09-07] MEDS: PANTOPRAZOLE 40 MG/10 ML VIAL IV SCH (10:27)
--- NOTE | 2022-09-07 12:36 | P.PN ---
Subjective Progress Note Date: 09/07/22 Slept well, occasional cough. Mild sore throat. States unable to clear mucus from his sinuses 2 to his nasal tenderness denies headache or fever or chills. Maintain on Vancomysin and cefepime as per infectious disease. Renal function stable. Afebrile. Sputum culture finalizing, preliminary blood cultures reporting no growth after 72 hours. 09/01/2022 continues on IV antibiotics, adjusted to Invanz, reports sore throat, secondary mucus drainage. Nasal/nares tenderness persists, continue with B actroban ointment. Reports pain medication only lasting 3 hours-we will transition to oral. Afebrile, normal WBC. ID recommending ENT consult related to significant amounts of bony destruction-will need biopsy and both bacteria and fungal cultures. 09/02/2022 maintained on IV antibiotic therapy as per ID. Afebrile. Sore throat and nare tenderness improving. Evaluated by ENT, Dr. Carrasco-CT reviewed and he is recommending transfer to tertiary care center/[facility] secondary to patient appears to present with fungal sinusitis, requiring a procedure that is unable to be done at this site. Patient is in agreement to transfer. 09/03/22 He is feeling about the same, afebrile, remains hypertensive in 160-170s. He continues to complain of pain in the nares and sinuses. Pt extensively discussed with ENT at [facility] yesterday, Dr Borden who personally reviewed CT sinus this admission vs last month and felt pt was improving and declined transfer. ENT at this hospital recommending transfer to tertiary care center. Pt remains on Invanz. 09/06/2022 attempted transfer to [facility] last week, [place] [facility] declined. Maintained on IV antibiotics as per ID. Afebrile. Reports sore throat improving, some burning sensation of nares. Denies cough. Denies chest pain, palpitations or shortness of breath. Maintaining O2 sats in the 90s on room air. Denies lightheadedness, dizziness or focal deficits. 09/07/2022 patient's ENT outpatient is Dr. De Souza from [facility], works out of [facility]. PCP spoke with Dr. De Souza, attempting transfer to [facility]. Continues on Eraxis, ertapenem ,afebrile. Positive diet intake. Denies worsening of symptoms, sore throat,nare pain. Denies cough. Objective - Vital Signs Vital signs: Vital Signs Temp 98.2 F 09/07/22 07:20 Pulse 55 L 09/07/22 07:20 Resp 17 09/07/22 07:20 BP 130/81 09/07/22 07:20 Pulse Ox 96 09/07/22 09:16 FiO2 21 09/07/22 09:16 Intake & Output 09/06/22 09/07/22 09/07/22 18:59 06:59 18:59 Intake Total 180 Balance 180 Intake: Oral 180 Other: Voiding Method Toilet Toilet Urinal Urinal - Exam Gen: Sitting up in bed, NAD HEENT: sinus erythema, crusting CV: RRR Lungs: Nonlabored, coarse - Labs CBC & Chem 7: 09/05/22 04:59 09/05/22 04:59 Assessment and Plan Assessment: Sepsis secondary to maxillary osteomyelitis HCAP with YUNIOR pneumonia Cocaine abuse Chronic sinusitis Plan: Continue on current medication regime ,monitoring and symptomatic treatment. Transfer in progress to [facility], pending bed availability to facilitate further evaluation/treatment by ENT-not available at this site. Antibiotics as per infectious disease. Prognosis guarded given multiple complex medical issues. The impression and plan of care has been dictated as directed. : I performed a history and examination of this patient, discussed the same with the dictator. I agree with the dictator's note ,documented as a scribe. Any additional findings or plans will be noted.
[2022-09-07] MEDS: ERTAPENEM 1 GM in SODIUM CHLORIDE 0.9% 50 ML IVPB SCH (14:27)
[2022-09-07 14:38] LABS: Basophils # (A) 0.08 X 10*3/uL (0.00-0.10); Basophils % (A) 1.4 %; Eosinophils # (A) 0.25 X 10*3/uL (0.04-0.35); Eosinophils % (A) 4.2 %; HCT 33.5 % (39.6-50.0); HGB 10.3 d/dL (12.0-15.0); Lymphocytes # (A) 1.62 X 10*3/uL (0.90-5.00); Lymphocytes % (A) 27.4 %; MCH 29.1 pg (27.0-32.0); MCHC 30.7 d/dL (32.0-37.0); MCV 94.6 FL (80.0-97.0); Mean Platelet Volume 9.8 FL (9.5-12.2); Monocytes # (A) 0.45 X 10*3/uL (0.20-1.00); Monocytes % (A) 7.6 %; NRBC Per 100 WBC 0 X 10*3/uL (0.00-0.01); Neutrophils # (A) 3.45 X 10*3/uL (1.80-7.70); Neutrophils % (A) 58.2 %; Platelet Count 398 X 10*3/uL (140-440); RBC 3.54 X 10*6/uL (4.40-5.60); WBC 5.92 X 10*3/uL (4.50-10.00)
[2022-09-07] MEDS: ANIDULAFUNGIN 100 MG in SODIUM CHLORIDE 0.9% 100 ML IVPB SCH (15:03)
[2022-09-07] MEDS: traZODone HCL 50 MG TAB PO SCH (19:53)
[2022-09-07 19:54] LABS: Erythrocyte Sedimentation Rate 75 mm/Hr (0-20)
--- NOTE | 2022-09-07 22:17 | P.PN ---
Subjective Progress Note Date: 09/07/22 Principal diagnosis: Pneumonia and L maxillary osteomyelitis Patient is a 57-year-old male with recent diagnosis of left maxillary osteomyelitis on the basis of CT MRI done at [facility] and the patient is receiving outpatient IV Rocephin per the recommendation recent admission to the hospital for pneumonia he did have blood sputum and nasal cultures also negative patient now presenting back to the hospital with increasing shortness of breath cough and fever concerning for pneumonia. On today's evaluation that is 09/07/2022 the patient continues to be afebrile, the patient is breathing comfortably on room air , the patient sore throat has decreased in intensity, the patient denies swallowing, the patient cough is decreased intensity and mostly dry in nature, no nausea no vomiting and no diarrhea Objective - Vital Signs Vital signs: Vital Signs Temp 98.7 F 09/07/22 12:49 Pulse 60 09/07/22 12:49 Resp 17 09/07/22 07:20 BP 136/89 09/07/22 12:49 Pulse Ox 95 09/07/22 12:49 FiO2 21 09/07/22 09:16 Intake & Output 09/06/22 09/07/22 09/07/22 18:59 06:59 18:59 Intake Total 180 Balance 180 Intake: Oral 180 Other: Voiding Method Toilet Toilet Urinal Urinal - Exam GENERAL DESCRIPTION: Middle-age male lying in bed in no distress RESPIRATORY SYSTEM: Unlabored breathing , coarse breath sounds bilaterally HEART: S1 S2 regular rate and rhythm ,no loud murmurs ABDOMEN: Soft , no tenderness EXTREMITIES: No edema feet - Labs CBC & Chem 7: 09/07/22 07:17 09/05/22 04:59 Assessment and Plan (1) Acute osteomyelitis of maxilla Current Visit: Yes Status: Acute Code(s): M27.2 - INFLAMMATORY CONDITIONS OF JAWS SNOMED Code(s): 691292292 (2) Pneumonia Current Visit: Yes Status: Acute Code(s): J18.9 - PNEUMONIA, UNSPECIFIED ORGANISM SNOMED Code(s): 482634359 Plan: 1patient was in the hospital with sepsis in this patient who did have a fever elevated white count predominantly respiratory symptoms with evidence of basilar airspace disease concerning for possible pneumonia in this patient currently receiving Rocephin in the outpatient setting for left maxillary osteomyelitis with a similar admission few weeks ago all cultures were negative at that point 2-Patient did have a CT of the chest groundglass infiltrates anterior left upper lobe along with a nodule patient white count normalized he did have elevated sed rate of 112 CRP is 11.7 procalcitonin 0.12, sputum cultures Currently growing Mai which is more likely colonizer. 3patient with a history of left maxillary osteomyelitis with persistent symptoms despite completing a 6-week course of IV Rocephin in the outpatient setting , CT of the sinuses did show significant sinus disease and bone destruction, patient has been Evaluated by ENT recommending transfer to tertiary care which is currently in process. Pt to Continue with Invanz , patient sed rate did came down to 75 from the previous reading of 112 4-patient with complaint of sore throat with evidence of thrush and possible oropharyngeal candidiasis, patient to continue with Eraxis along with nystatin swish and swallow, and monitor clinical course closely Time with Patient: Less than 30
[2022-09-08] MEDS ORDERED: HYDROmorphone 1 MG/ML 1 ML SYRINGE ONE (03:00)
[2022-09-08] MEDS ORDERED: HYDROcodone/APAP 7.5-325MG 1 EACH TAB ONE (03:00)
[2022-09-08] MEDS ORDERED: LEVOTHYROXINE 50 MCG TAB ONE (03:00)
[2022-09-08 05:20] LABS: ALT 20 U/L (10-49); AST 16 U/L (14-35); Albumin 3.6 d/dL (3.8-4.9); Albumin/Globulin Ratio 1.33 Ratio (1.60-3.17); Alkaline Phosphatase 83 U/L (41-126); BUN/Creat Ratio 15.75 Ratio (12.00-20.00); Blood Urea Nitrogen 18.9 mg/dL (9.0-27.0); Calcium 9.2 mg/dL (8.7-10.3); Carbon Dioxide 27.8 mmol/L (21.6-31.8); Chloride 107 mmol/L (96-109); Globulin 2.7 d/dL (1.6-3.3); Glucose 84 mg/dL (70-110); Sodium 143 mmol/L (135-145); Total Bilirubin <0.2 mg/dL (0.3-1.2); Total Protein 6.3 d/dL (6.2-8.2)
[2022-09-08] MEDS: LEVOTHYROXINE 50 MCG TAB PO SCH (05:33)
[2022-09-08] MEDS: NYSTATIN 100,000 UNIT/ML SUSP 500,000 UNIT/5 ML CUP PO SCH ×4 (07:30→21:26)
[2022-09-08] MEDS: LOSARTAN 50 MG TAB PO SCH (07:30)
[2022-09-08] MEDS: ESCITALOPRAM 10 MG TAB PO SCH (07:30)
[2022-09-08] MEDS: PANTOPRAZOLE 40 MG/10 ML VIAL IV SCH (07:30)
[2022-09-08] MEDS: amLODIPine 10 MG TAB PO SCH (07:30)
[2022-09-08] MEDS: MUPIROCIN 2% OINT 22 GM TUBE TOPICAL SCH ×3 (07:31→21:27)
--- NOTE | 2022-09-08 12:42 | P.PN ---
Subjective Progress Note Date: 09/08/22 Slept well, occasional cough. Mild sore throat. States unable to clear mucus from his sinuses 2 to his nasal tenderness denies headache or fever or chills. Maintain on Vancomysin and cefepime as per infectious disease. Renal function stable. Afebrile. Sputum culture finalizing, preliminary blood cultures reporting no growth after 72 hours. 09/01/2022 continues on IV antibiotics, adjusted to Invanz, reports sore throat, secondary mucus drainage. Nasal/nares tenderness persists, continue with B actroban ointment. Reports pain medication only lasting 3 hours-we will transition to oral. Afebrile, normal WBC. ID recommending ENT consult related to significant amounts of bony destruction-will need biopsy and both bacteria and fungal cultures. 09/02/2022 maintained on IV antibiotic therapy as per ID. Afebrile. Sore throat and nare tenderness improving. Evaluated by ENT, Dr. Carrasco-CT reviewed and he is recommending transfer to tertiary care center/[facility] secondary to patient appears to present with fungal sinusitis, requiring a procedure that is unable to be done at this site. Patient is in agreement to transfer. 09/03/22 He is feeling about the same, afebrile, remains hypertensive in 160-170s. He continues to complain of pain in the nares and sinuses. Pt extensively discussed with ENT at [facility] yesterday, Dr Borden who personally reviewed CT sinus this admission vs last month and felt pt was improving and declined transfer. ENT at this hospital recommending transfer to tertiary care center. Pt remains on Invanz. 09/06/2022 attempted transfer to [facility] last week, [place] [facility] declined. Maintained on IV antibiotics as per ID. Afebrile. Reports sore throat improving, some burning sensation of nares. Denies cough. Denies chest pain, palpitations or shortness of breath. Maintaining O2 sats in the 90s on room air. Denies lightheadedness, dizziness or focal deficits. 09/07/2022 patient's ENT outpatient is Dr. De Souza from [facility], works out of [facility]. PCP spoke with Dr. De Souza, attempting transfer to [facility]. Continues on Eraxis, ertapenem ,afebrile. Positive diet intake. Denies worsening of symptoms, sore throat,nare pain. Denies cough. 09/08/2022 patient has been accepted at [facility], pending bed for transfer. Maintained on IV antibiotics as per infectious disease. Afebrile. Sore throat significantly improved. Pain better controlled today, on increased dose of [place]. Denies chest pain, palpitations or shortness of breath. Maintaining O2 sats in the high 90s on room air. Denies lightheadedness dizziness or focal deficits. Objective - Vital Signs Vital signs: Vital Signs Temp 98.0 F 09/08/22 05:28 Pulse 61 09/08/22 05:28 Resp 18 09/08/22 05:28 BP 155/78 09/08/22 05:28 Pulse Ox 97 09/08/22 05:28 FiO2 21 09/07/22 09:16 Intake & Output 09/07/22 09/08/22 09/08/22 18:59 06:59 18:59 Other: Voiding Method Toilet Toilet Urinal Urinal # Voids 3 2 - Exam Gen: Sitting up in bed, NAD HEENT: sinus erythema, crusting CV: RRR Lungs: Nonlabored, coarse - Labs CBC & Chem 7: 09/07/22 07:17 09/07/22 07:17 Labs: Abnormal Lab Results - Last 24 Hours (Table) 09/07/22 09/07/22 Range/Units 07:17 07:17 RBC 3.54 L (4.40-5.60) X 10*6/uL Hgb 10.3 L (12.0-15.0) d/dL Hct 33.5 L (39.6-50.0) % MCHC 30.7 L (32.0-37.0) d/dL RDW 15.0 H (11.5-14.5) % ESR 75 H (0-20) mm/Hr Total Bilirubin <0.2 L (0.3-1.2) mg/dL Albumin 3.6 L (3.8-4.9) d/dL Albumin/Globulin Ratio 1.33 L (1.60-3.17) Ratio Assessment and Plan Assessment: Sepsis secondary to acute maxillary osteomyelitis HCAP with YUNIOR pneumonia Cocaine abuse Chronic sinusitis Plan: Continue on current medication regime ,monitoring and symptomatic treatment. Transfer in progress to [facility], pending bed availability to facilitate further evaluation/treatment by ENT-not available at this site. Antibiotics as per infectious disease. Prognosis guarded given multiple complex medical issues. The impression and plan of care has been dictated as directed. : I performed a history and examination of this patient, discussed the same with the dictator. I agree with the dictator's note ,documented as a scribe. Any additional findings or plans will be noted.
[2022-09-08] MEDS: ERTAPENEM 1 GM in SODIUM CHLORIDE 0.9% 50 ML IVPB SCH (14:03)
[2022-09-08] MEDS: HYDROcodone/APAP 7.5-325MG 1 EACH TAB PO PRN ×2 (14:04→21:26)
[2022-09-08] MEDS: ANIDULAFUNGIN 100 MG in SODIUM CHLORIDE 0.9% 100 ML IVPB SCH (14:49)
--- NOTE | 2022-09-08 16:00 | P.PN ---
Subjective Progress Note Date: 09/08/22 Principal diagnosis: Pneumonia and L maxillary osteomyelitis Patient is a 57-year-old male with recent diagnosis of left maxillary osteomyelitis on the basis of CT MRI done at [facility] and the patient is receiving outpatient IV Rocephin per the recommendation recent admission to the hospital for pneumonia he did have blood sputum and nasal cultures also negative patient now presenting back to the hospital with increasing shortness of breath cough and fever concerning for pneumonia. On today's evaluation that is 09/08/2022 the patient remains to be afebrile, the patient is breathing comfortably on room air , the patient symptom of sore throat has decreased in intensity and denies swallowing, the patient cough is decreased intensity and mostly dry in nature, no nausea no vomiting and no diarrhea Objective - Vital Signs Vital signs: Vital Signs Temp 98.0 F 09/08/22 05:28 Pulse 61 09/08/22 05:28 Resp 18 09/08/22 05:28 BP 155/78 09/08/22 05:28 Pulse Ox 97 09/08/22 05:28 FiO2 21 09/07/22 09:16 Intake & Output 09/07/22 09/08/22 09/08/22 18:59 06:59 18:59 Other: Voiding Method Toilet Toilet Urinal Urinal # Voids 3 2 - Exam GENERAL DESCRIPTION: Middle-age male lying in bed in no distress RESPIRATORY SYSTEM: Unlabored breathing , coarse breath sounds bilaterally HEART: S1 S2 regular rate and rhythm ,no loud murmurs ABDOMEN: Soft , no tenderness EXTREMITIES: No edema feet - Labs CBC & Chem 7: 09/07/22 07:17 09/07/22 07:17 Labs: Abnormal Lab Results - Last 24 Hours (Table) 09/07/22 09/07/22 Range/Units 07:17 07:17 RBC 3.54 L (4.40-5.60) X 10*6/uL Hgb 10.3 L (12.0-15.0) d/dL Hct 33.5 L (39.6-50.0) % MCHC 30.7 L (32.0-37.0) d/dL RDW 15.0 H (11.5-14.5) % ESR 75 H (0-20) mm/Hr Total Bilirubin <0.2 L (0.3-1.2) mg/dL Albumin 3.6 L (3.8-4.9) d/dL Albumin/Globulin Ratio 1.33 L (1.60-3.17) Ratio Assessment and Plan (1) Acute osteomyelitis of maxilla Current Visit: Yes Status: Acute Code(s): M27.2 - INFLAMMATORY CONDITIONS OF JAWS SNOMED Code(s): 168556662 (2) Pneumonia Current Visit: Yes Status: Acute Code(s): J18.9 - PNEUMONIA, UNSPECIFIED ORGANISM SNOMED Code(s): 404559326 Plan: 1patient was in the hospital with sepsis in this patient who did have a fever e levated white count predominantly respiratory symptoms with evidence of basilar airspace disease concerning for possible pneumonia in this patient currently receiving Rocephin in the outpatient setting for left maxillary osteomyelitis with a similar admission few weeks ago all cultures were negative at that point 2-Patient did have a CT of the chest groundglass infiltrates anterior left upper lobe along with a nodule patient white count normalized he did have elevated sed rate of 112 CRP is 11.7 procalcitonin 0.12, sputum cultures Currently growing Mai which is more likely colonizer. 3patient with a history of left maxillary osteomyelitis with persistent symptoms despite completing a 6-week course of IV Rocephin in the outpatient setting , CT of the sinuses did show significant sinus disease and bone destruction, patient has been Evaluated by ENT recommending transfer to tertiary care which is currently in process. Pt to Continue with Invanz , patient sed rate did came down to 75 from the previous reading of 112 4-patient with complaint of sore throat with evidence of thrush and possible oropharyngeal candidiasis, patient to continue with Eraxis along with nystatin swish and swallow, currently waiting for transfer to the tertiary care multiple questions and concerns were answered in Layman terms Time with Patient: Less than 30
[2022-09-08] MEDS: HYDROmorphone 1 MG/ML 1 ML SYRINGE IVP PRN ×2 (16:21→23:54)
[2022-09-08] MEDS: SODIUM CHLORIDE 0.65% NASAL SPRAY 44 ML BTL NASAL PRN (18:49)
[2022-09-08] MEDS: traZODone HCL 50 MG TAB PO SCH (21:26)
[2022-09-09] MEDS: IBUPROFEN 400 MG TAB PO PRN (03:10)
[2022-09-09] MEDS: HYDROmorphone 1 MG/ML 1 ML SYRINGE IVP PRN ×3 (04:27→18:33)
[2022-09-09] MEDS: LEVOTHYROXINE 50 MCG TAB PO SCH (05:30)
[2022-09-09] MEDS: PANTOPRAZOLE 40 MG/10 ML VIAL IV SCH (08:57)
[2022-09-09] MEDS: amLODIPine 10 MG TAB PO SCH (08:57)
[2022-09-09] MEDS: LOSARTAN 50 MG TAB PO SCH (08:57)
[2022-09-09] MEDS: NYSTATIN 100,000 UNIT/ML SUSP 500,000 UNIT/5 ML CUP PO SCH (08:57)
[2022-09-09] MEDS: ESCITALOPRAM 10 MG TAB PO SCH (08:57)
[2022-09-09] MEDS: MUPIROCIN 2% OINT 22 GM TUBE TOPICAL SCH ×3 (08:58→21:10)
--- NOTE | 2022-09-09 10:53 | P.PN ---
Subjective Progress Note Date: 09/09/22 Slept well, occasional cough. Mild sore throat. States unable to clear mucus from his sinuses 2 to his nasal tenderness denies headache or fever or chills. Maintain on Vancomysin and cefepime as per infectious disease. Renal function stable. Afebrile. Sputum culture finalizing, preliminary blood cultures reporting no growth after 72 hours. 09/01/2022 continues on IV antibiotics, adjusted to Invanz, reports sore throat, secondary mucus drainage. Nasal/nares tenderness persists, continue with B actroban ointment. Reports pain medication only lasting 3 hours-we will transition to oral. Afebrile, normal WBC. ID recommending ENT consult related to significant amounts of bony destruction-will need biopsy and both bacteria and fungal cultures. 09/02/2022 maintained on IV antibiotic therapy as per ID. Afebrile. Sore throat and nare tenderness improving. Evaluated by ENT, Dr. Carrasco-CT reviewed and he is recommending transfer to tertiary care center/[facility] secondary to patient appears to present with fungal sinusitis, requiring a procedure that is unable to be done at this site. Patient is in agreement to transfer. 09/03/22 He is feeling about the same, afebrile, remains hypertensive in 160-170s. He continues to complain of pain in the nares and sinuses. Pt extensively discussed with ENT at [facility] yesterday, Dr Borden who personally reviewed CT sinus this admission vs last month and felt pt was improving and declined transfer. ENT at this hospital recommending transfer to tertiary care center. Pt remains on Invanz. 09/06/2022 attempted transfer [address] [facility] last week, [place] [facility] declined. Maintained on IV antibiotics as per ID. Afebrile. Reports sore throat improving, some burning sensation of nares. Denies cough. Denies chest pain, palpitations or shortness of breath. Maintaining O2 sats in the 90s on room air. Denies lightheadedness, dizziness or focal deficits. 09/07/2022 patient's ENT outpatient is Dr. De Souza from [facility], works out of [facility]. PCP spoke with Dr. De Souza, attempting transfer to [facility]. Continues on Eraxis, ertapenem ,afebrile. Positive diet intake. Denies worsening of symptoms, sore throat,nare pain. Denies cough. 09/08/2022 patient has been accepted at [facility], pending bed for transfer. Maintained on IV antibiotics as per infectious disease. Afebrile. Sore throat significantly improved. Pain better controlled today, on increased dose of [place]. Denies chest pain, palpitations or shortness of breath. Maintaining O2 sats in the high 90s on room air. Denies lightheadedness dizziness or focal deficits. 09/09/2022 transfer in progress to [facility], pending bed availability. Continues on antibiotic and antifungal as per ID. Mildly worsened creatinine, 1.2, potassium 5. Afebrile, denies cough. Sore throat fluctuates, worsened after eating or upon awakening. Reports thick green sinus drainage. Nares less tender today. Objective - Vital Signs Vital signs: Vital Signs Temp 97.4 F L 09/09/22 07:41 Pulse 62 09/09/22 07:41 Resp 16 09/09/22 07:41 BP 114/49 09/09/22 07:41 Pulse Ox 98 09/09/22 07:41 FiO2 21 09/07/22 09:16 Intake & Output 09/08/22 09/09/22 09/09/22 18:59 06:59 18:59 Other: Voiding Method Toilet Urinal # Voids 2 - Exam Gen: Sitting up in bed, NAD HEENT: sinus erythema, crusting CV: RRR Lungs: Nonlabored, coarse - Labs CBC & Chem 7: 09/07/22 07:17 09/07/22 07:17 Assessment and Plan Assessment: Sepsis secondary to acute maxillary osteomyelitis HCAP with YUNIOR pneumonia Cocaine abuse Chronic sinusitis Plan: Continue on current medication regime ,monitoring and symptomatic treatment. Gentle IV fluid hydration. Close monitoring of renal function and electrolytes with repeat labs ordered for a.m. Transfer in progress to [facility], pending bed availability to facilitate further evaluation/treatment by ENT-not available at this site. Antibiotics/antifungal as per infectious disease. Prognosis guarded given multiple complex medical issues. The impression and plan of care has been dictated as directed. : I performed a history and examination of this patient, discussed the same with the dictator. I agree with the dictator's note ,documented as a scribe. Any additional findings or plans will be noted.
[2022-09-09 11:11] LABS: Basophils # (A) 0.08 X 10*3/uL (0.00-0.10); Basophils % (A) 1.1 %; Eosinophils # (A) 0.34 X 10*3/uL (0.04-0.35); Eosinophils % (A) 4.5 %; HCT 33.1 % (39.6-50.0); HGB 10.2 d/dL (12.0-15.0); Lymphocytes # (A) 2.19 X 10*3/uL (0.90-5.00); Lymphocytes % (A) 29.1 %; MCH 28.9 pg (27.0-32.0); MCHC 30.8 d/dL (32.0-37.0); MCV 93.8 FL (80.0-97.0); Mean Platelet Volume 9.6 FL (9.5-12.2); NRBC Per 100 WBC 0 X 10*3/uL (0.00-0.01); Neutrophils # (A) 4.22 X 10*3/uL (1.80-7.70); Platelet Count 421 X 10*3/uL (140-440); RBC 3.53 X 10*6/uL (4.40-5.60); RDW 15.1 % (11.5-14.5); WBC 7.53 X 10*3/uL (4.50-10.00)
[2022-09-09 11:16] LABS: BUN/Creat Ratio 15.85 Ratio (12.00-20.00); Blood Urea Nitrogen 20.6 mg/dL (9.0-27.0); Calcium 8.9 mg/dL (8.7-10.3); Carbon Dioxide 22.9 mmol/L (21.6-31.8); Chloride 104 mmol/L (96-109); Glucose 90 mg/dL (70-110); Potassium 4.4 mmol/L (3.5-5.5); Sodium 139 mmol/L (135-145)
[2022-09-09] MEDS: MAG HYDROX/AL HYDROX/SIMETH 30 ML, LIDOCAINE VISCOUS 2% 30 ML, diphenhydrAMINE ELIXIR 7... PO SCH ×12 (12:53→21:08)
--- NOTE | 2022-09-09 13:35 | P.PN ---
Subjective Progress Note Date: 09/09/22 Principal diagnosis: Pneumonia and L maxillary osteomyelitis Patient is a 57-year-old male with recent diagnosis of left maxillary osteomyelitis on the basis of CT MRI done at [facility] and the patient is receiving outpatient IV Rocephin per the recommendation recent admission to the hospital for pneumonia he did have blood sputum and nasal cultures also negative patient now presenting back to the hospital with increasing shortness of breath cough and fever concerning for pneumonia. On today's evaluation that is 09/09/2022 the patient continues to be afebrile, the patient is breathing comfortably on room air , the patient symptom of sore throat has decreased in intensity, the patient cough is decreased intensity and mostly dry in nature, no nausea no vomiting and no diarrhea has been reported Objective - Vital Signs Vital signs: Vital Signs Temp 97.4 F L 09/09/22 07:41 Pulse 62 09/09/22 07:41 Resp 16 09/09/22 08:57 BP 114/49 09/09/22 07:41 Pulse Ox 98 09/09/22 07:41 FiO2 21 09/07/22 09:16 Intake & Output 09/08/22 09/09/22 09/09/22 18:59 06:59 18:59 Other: Voiding Method Toilet Toilet Urinal Urinal # Voids 2 - Exam GENERAL DESCRIPTION: Middle-age male lying in bed in no distress RESPIRATORY SYSTEM: Unlabored breathing , coarse breath sounds bilaterally HEART: S1 S2 regular rate and rhythm ,no loud murmurs ABDOMEN: Soft , no tenderness EXTREMITIES: No edema feet - Labs CBC & Chem 7: 09/09/22 07:24 09/09/22 07:24 Labs: Abnormal Lab Results - Last 24 Hours (Table) 09/09/22 09/09/22 Range/Units 07:24 07:24 RBC 3.53 L (4.40-5.60) X 10*6/uL Hgb 10.2 L (12.0-15.0) d/dL Hct 33.1 L (39.6-50.0) % MCHC 30.8 L (32.0-37.0) d/dL RDW 15.1 H (11.5-14.5) % Anion Gap 12.10 H (4.00-12.00) mmol/L Assessment and Plan (1) Acute osteomyelitis of maxilla Current Visit: Yes Status: Acute Code(s): M27.2 - INFLAMMATORY CONDITIONS OF JAWS SNOMED Code(s): 148966508 (2) Pneumonia Current Visit: Yes Status: Acute Code(s): J18.9 - PNEUMONIA, UNSPECIFIED ORGANISM SNOMED Code(s): 487083235 Plan: 1patient was in the hospital with sepsis in this patient who did have a fever elevated white count predominantly respiratory symptoms with evidence of basilar airspace disease concerning for possible pneumonia in this patient currently receiving Rocephin in the outpatient setting for left maxillary osteomyelitis with a similar admission few weeks ago all cultures were negative at that point 2-Patient did have a CT of the chest groundglass infiltrates anterior left upper lobe along with a nodule patient white count normalized he did have elevated sed rate of 112 CRP is 11.7 procalcitonin 0.12, sputum cultures Currently growing Mai which is more likely colonizer. 3patient with a history of left maxillary osteomyelitis with persistent symptoms despite completing a 6-week course of IV Rocephin in the outpatient setting , CT of the sinuses did show significant sinus disease and bone micheal truction, patient has been Evaluated by ENT recommending transfer to tertiary care which is currently in process. Pt to Continue with Invanz , patient sed rate did came down to 75 from the previous reading of 112 4-patient with complaint of sore throat with evidence of thrush and possible oropharyngeal candidiasis, patient to continue with Eraxis however we will discontinue Mycostatin swish and swallow incision over to Cool's solution to see that will help with his symptoms Time with Patient: Less than 30
[2022-09-09] MEDS: SODIUM CHLORIDE 0.9% 1,000 ML IV SCH ×2 (15:18→21:11)
[2022-09-09] MEDS: ERTAPENEM 1 GM in SODIUM CHLORIDE 0.9% 50 ML IVPB SCH (15:32)
[2022-09-09] MEDS: ANIDULAFUNGIN 100 MG in SODIUM CHLORIDE 0.9% 100 ML IVPB SCH (16:08)
[2022-09-09] MEDS: HYDROcodone/APAP 7.5-325MG 1 EACH TAB PO PRN (16:12)
[2022-09-09] MEDS: traZODone HCL 50 MG TAB PO SCH (21:08)
[2022-09-10] MEDS: HYDROcodone/APAP 7.5-325MG 1 EACH TAB PO PRN (04:24)
[2022-09-10] MEDS: LEVOTHYROXINE 50 MCG TAB PO SCH (04:24)
[2022-09-10] MEDS: HYDROmorphone 1 MG/ML 1 ML SYRINGE IVP PRN ×4 (06:10→22:26)
[2022-09-10] MEDS: MUPIROCIN 2% OINT 22 GM TUBE TOPICAL SCH ×3 (08:54→20:24)
[2022-09-10] MEDS: ESCITALOPRAM 10 MG TAB PO SCH (08:54)
[2022-09-10] MEDS: amLODIPine 10 MG TAB PO SCH (08:54)
[2022-09-10] MEDS: PANTOPRAZOLE 40 MG/10 ML VIAL IV SCH (08:54)
[2022-09-10] MEDS: LOSARTAN 50 MG TAB PO SCH (08:54)
[2022-09-10] MEDS: MAG HYDROX/AL HYDROX/SIMETH 30 ML, LIDOCAINE VISCOUS 2% 30 ML, diphenhydrAMINE ELIXIR 7... PO SCH ×12 (08:54→20:23)
[2022-09-10 09:36] LABS: Basophils # (A) 0.06 X 10*3/uL (0.00-0.10); Basophils % (A) 0.9 %; Eosinophils # (A) 0.25 X 10*3/uL (0.04-0.35); Eosinophils % (A) 3.9 %; HGB 10.5 d/dL (12.0-15.0); Lymphocytes # (A) 1.67 X 10*3/uL (0.90-5.00); Lymphocytes % (A) 25.8 %; MCH 29.2 pg (27.0-32.0); MCHC 31.8 d/dL (32.0-37.0); MCV 91.7 FL (80.0-97.0); Mean Platelet Volume 9.3 FL (9.5-12.2); Monocytes # (A) 0.56 X 10*3/uL (0.20-1.00); Monocytes % (A) 8.7 %; NRBC Per 100 WBC 0 X 10*3/uL (0.00-0.01); Neutrophils # (A) 3.89 X 10*3/uL (1.80-7.70); Neutrophils % (A) 60.1 %; Platelet Count 392 X 10*3/uL (140-440); RDW 14.8 % (11.5-14.5); WBC 6.47 X 10*3/uL (4.50-10.00)
[2022-09-10 09:48] LABS: BUN/Creat Ratio 17.38 Ratio (12.00-20.00); Blood Urea Nitrogen 22.6 mg/dL (9.0-27.0); Calcium 9.1 mg/dL (8.7-10.3); Chloride 106 mmol/L (96-109); Glucose 76 mg/dL (70-110); Potassium 5.2 mmol/L (3.5-5.5); Sodium 139 mmol/L (135-145)
--- NOTE | 2022-09-10 11:21 | P.PN ---
Subjective Progress Note Date: 09/10/22 Slept well, occasional cough. Mild sore throat. States unable to clear mucus from his sinuses 2 to his nasal tenderness denies headache or fever or chills. Maintain on Vancomysin and cefepime as per infectious disease. Renal function stable. Afebrile. Sputum culture finalizing, preliminary blood cultures reporting no growth after 72 hours. 09/01/2022 continues on IV antibiotics, adjusted to Invanz, reports sore throat, secondary mucus drainage. Nasal/nares tenderness persists, continue with B actroban ointment. Reports pain medication only lasting 3 hours-we will transition to oral. Afebrile, normal WBC. ID recommending ENT consult related to significant amounts of bony destruction-will need biopsy and both bacteria and fungal cultures. 09/02/2022 maintained on IV antibiotic therapy as per ID. Afebrile. Sore throat and nare tenderness improving. Evaluated by ENT, Dr. Carrasco-CT reviewed and he is recommending transfer to tertiary care center/[facility] secondary to patient appears to present with fungal sinusitis, requiring a procedure that is unable to be done at this site. Patient is in agreement to transfer. 09/03/22 He is feeling about the same, afebrile, remains hypertensive in 160-170s. He continues to complain of pain in the nares and sinuses. Pt extensively discussed with ENT at [facility] yesterday, Dr Borden who personally reviewed CT sinus this admission vs last month and felt pt was improving and declined transfer. ENT at this hospital recommending transfer to tertiary care center. Pt remains on Invanz. 09/06/2022 attempted transfer to [facility] last week, [facility] declined. Maintained on IV antibiotics as per ID. Afebrile. Reports sore throat improving, some burning sensation of nares. Denies cough. Denies chest pain, palpitations or shortness of breath. Maintaining O2 sats in the 90s on room air. Denies lightheadedness, dizziness or focal deficits. 09/07/2022 patient's ENT outpatient is Dr. De Souza from [facility], works out of [facility]. PCP spoke with Dr. De Souza, attempting transfer to [facility]. Continues on Eraxis, ertapenem ,afebrile. Positive diet intake. Denies worsening of symptoms, sore throat,nare pain. Denies cough. 09/08/2022 patient has been accepted at [facility], pending bed for transfer. Maintained on IV antibiotics as per infectious disease. Afebrile. Sore throat significantly improved. Pain better controlled today, on increased dose of [place]. Denies chest pain, palpitations or shortness of breath. Maintaining O2 sats in the high 90s on room air. Denies lightheadedness dizziness or focal deficits. 09/09/2022 transfer in progress to [facility], pending bed availability. Continues on antibiotic and antifungal as per ID. Mildly worsened creatinine, 1.2, potassium 5. Afebrile, denies cough. Sore throat fluctuates, worsened after eating or upon awakening. Reports thick green sinus drainage. Nares less tender today. 09/10/2022 no overnight events, continues on Eraxis and ertapenem. Reports sinus congestion and sore throat this morning. Maintained on IV fluid hydration, bicarb 23, BUN 22.6, creatinine 1.3. [facility] denied patient tfransfer today, recommended [place] state. Objective - Vital Signs Vital signs: Vital Signs Temp 96.5 F L 09/10/22 07:16 Pulse 53 L 09/10/22 07:16 Resp 16 09/10/22 07:16 BP 119/80 09/10/22 07:16 Pulse Ox 98 09/10/22 08:50 FiO2 21 09/07/22 09:16 Intake & Output 09/09/22 09/10/22 09/10/22 18:59 06:59 18:59 Intake Total 900 Balance 900 Intake: Intake, IV Titration 900 Amount Sodium Chloride 0.9% 1, 900 000 ml @ 75 mls/hr IV . [id number] [facility] Rx#:[id number] Other: Voiding Method Toilet Urinal - Exam Gen: Sitting up in bed, NAD HEENT: sinus erythema, crusting CV: RRR Lungs: Nonlabored, coarse - Labs CBC & Chem 7: 09/10/22 05:57 09/10/22 05:57 Labs: Abnormal Lab Results - Last 24 Hours (Table) 09/09/22 09/09/22 09/10/22 Range/Units 07:24 07:24 05:57 RBC 3.53 L 3.60 L (4.40-5.60) X 10*6/uL Hgb 10.2 L 10.5 L (12.0-15.0) d/dL Hct 33.1 L 33.0 L (39.6-50.0) % MCHC 30.8 L 31.8 L (32.0-37.0) d/dL RDW 15.1 H 14.8 H (11.5-14.5) % MPV 9.3 L (9.5-12.2) FL Anion Gap 12.10 H (4.00-12.00) mmol/L Assessment and Plan Assessment: Sepsis secondary to acute maxillary osteomyelitis HCAP with YUNIOR pneumonia Cocaine abuse Chronic sinusitis Plan: Continue on current medication regime ,monitoring and symptomatic treatment. Maintain Gentle IV fluid hydration. Close monitoring of renal function and electrolytes with repeat labs ordered for a.m. Transfer initiated for [facility] to facilitate further evaluation/treatment by ENT-not available at this site. Antibiotics/antifungal as per infectious disease. Prognosis guarded given multiple complex medical issues. The impression and plan of care has been dictated as directed. : I performed a history and examination of this patient, discussed the same with the dictator. I agree with the dictator's note ,documented as a scribe. Any additional findings or plans will be noted.
[2022-09-10] MEDS: SODIUM CHLORIDE 0.9% 1,000 ML IV SCH ×2 (11:25→20:24)
[2022-09-10] MEDS: ANIDULAFUNGIN 100 MG in SODIUM CHLORIDE 0.9% 100 ML IVPB SCH (13:47)
[2022-09-10] MEDS: ERTAPENEM 1 GM in SODIUM CHLORIDE 0.9% 50 ML IVPB SCH (15:43)
[2022-09-10] MEDS: traZODone HCL 50 MG TAB PO SCH (20:23)
[2022-09-11] MEDS: HYDROmorphone 1 MG/ML 1 ML SYRINGE IVP PRN ×5 (04:06→22:59)
[2022-09-11] MEDS: LEVOTHYROXINE 50 MCG TAB PO SCH (04:06)
[2022-09-11] MEDS: ESCITALOPRAM 10 MG TAB PO SCH (09:57)
[2022-09-11] MEDS: amLODIPine 10 MG TAB PO SCH (09:57)
[2022-09-11] MEDS: PANTOPRAZOLE 40 MG/10 ML VIAL IV SCH (09:57)
[2022-09-11] MEDS: MAG HYDROX/AL HYDROX/SIMETH 30 ML, LIDOCAINE VISCOUS 2% 30 ML, diphenhydrAMINE ELIXIR 7... PO SCH ×12 (09:58→21:31)
[2022-09-11] MEDS: MUPIROCIN 2% OINT 22 GM TUBE TOPICAL SCH ×3 (09:59→21:31)
[2022-09-11 13:22] LABS: Basophils # (A) 0.08 X 10*3/uL (0.00-0.10); Basophils % (A) 1.4 %; Eosinophils # (A) 0.18 X 10*3/uL (0.04-0.35); Eosinophils % (A) 3.1 %; HCT 33.9 % (39.6-50.0); HGB 10.4 d/dL (12.0-15.0); Lymphocytes # (A) 1.62 X 10*3/uL (0.90-5.00); Lymphocytes % (A) 27.6 %; MCH 29.1 pg (27.0-32.0); MCHC 30.7 d/dL (32.0-37.0); MCV 94.7 FL (80.0-97.0); Mean Platelet Volume 9.7 FL (9.5-12.2); Monocytes # (A) 0.48 X 10*3/uL (0.20-1.00); Monocytes % (A) 8.2 %; NRBC Per 100 WBC 0 X 10*3/uL (0.00-0.01); Neutrophils # (A) 3.47 X 10*3/uL (1.80-7.70); Platelet Count 432 X 10*3/uL (140-440); RBC 3.58 X 10*6/uL (4.40-5.60); RDW 14.9 % (11.5-14.5); WBC 5.87 X 10*3/uL (4.50-10.00)
[2022-09-11 13:32] LABS: Blood Urea Nitrogen 23.1 mg/dL (9.0-27.0); Carbon Dioxide 25.1 mmol/L (21.6-31.8); Chloride 106 mmol/L (96-109); Glucose 82 mg/dL (70-110); Potassium 5.1 mmol/L (3.5-5.5); Sodium 142 mmol/L (135-145)
[2022-09-11] MEDS: ANIDULAFUNGIN 100 MG in SODIUM CHLORIDE 0.9% 100 ML IVPB SCH (13:52)
[2022-09-11] MEDS: SODIUM CHLORIDE 0.9% 1,000 ML IV SCH ×2 (13:54→21:32)
--- NOTE | 2022-09-11 14:10 | P.PN ---
Subjective Progress Note Date: 09/11/22 Patient is a 57-year-old male with recent diagnosis of left maxillary osteomyelitis on the basis of CT MRI done at [facility] and the patient is receiving outpatient IV Rocephin per the recommendation recent admission to the hospital for pneumonia he did have blood sputum and nasal cultures also negative patient now presenting back to the hospital with increasing shortness of breath cough and fever concerning for pneumonia. 09/01/2022 continues on IV antibiotics, adjusted to Invanz, reports sore throat, secondary mucus drainage. Nasal/nares tenderness persists, continue with Bactroban ointment. Reports pain medication only lasting 3 hours-we will transition to oral. Afebrile, normal WBC. ID recommending ENT consult related to significant amounts of bony destruction-will need biopsy and both bacteria and fungal cultures. 09/02/2022 maintained on IV antibiotic therapy as per ID. Afebrile. Sore throat and nare tenderness improving. Evaluated by ENT, Dr. Carrasco-MUSHTAQ saleh and he is recommending transfer to tertiary care center/[facility] secondary to patient appears to present with fungal sinusitis, requiring a procedure that is unable to be done at this site. Patient is in agreement to transfer. 09/04. Dr. miranda taking over care. Patient seen and examined. Patient is ambulating in the room, states that he feels better compared to yesterday. Still complaining of nasal itching and postnasal drip 09/05. Patient seen and examined. No acute issues overnight. Labs are white count 5.9, hemoglobin 10.8, sodium 138, potassium 4.4, BUn 14, creatinine 0.98. Temperature 97.5, heart rate 53, respiration 18, blood pressure 144/82. Complaining of some throat ache. Denies any nasal discharge. 09/06/2022 attempted transfer to [facility] last week, [facility] declined. Maintained on IV antibiotics as per ID. Afebrile. Reports sore throat improving, some burning sensation of nares. Denies cough. Denies chest pain, palpitations or shortness of breath. Maintaining O2 sats in the 90s on room air. Denies lightheadedness, dizziness or focal deficits. 09/07/2022 patient's ENT outpatient is Dr. De Souza from [facility], works out of [facility]. PCP spoke with Dr. De Souza, attempting transfer to [facility]. Continues on Eraxis, ertapenem ,afebrile. Positive diet intake. Denies worsening of symptoms, sore throat,nare pain. Denies cough. 09/08/2022 patient has been accepted at [facility], pending bed for transfer. Maintained on IV antibiotics as per infectious disease. Afebrile. Sore throat significantly improved. Pain better controlled today, on increased dose of [place]. Denies chest pain, palpitations or shortness of breath. Maintaining O2 sats in the high 90s on room air. Denies lightheadedness dizzin ess or focal deficits. 09/09/2022 transfer in progress to [facility], pending bed availability. Continues on antibiotic and antifungal as per ID. Mildly worsened creatinine, 1.2, potassium 5. Afebrile, denies cough. Sore throat fluctuates, worsened after eating or upon awakening. Reports thick green sinus drainage. Nares less tender today. 09/10/2022 no overnight events, continues on Eraxis and ertapenem. Reports sinus congestion and sore throat this morning. Maintained on IV fluid hydration, bicarb 23, BUN 22.6, creatinine 1.3. [facility] denied patient tfransfer today, recommended [place] state. 09/11. Patient seen and examined. Denies any acute issues overnight. Denies any blurred vision. Complaining of some throat ache REVIEW OF SYSTEMS: CONSTITUTIONAL: No fever, no malaise,. CARDIOVASCULAR: No chest pain, no palpitations, no syncope. PULMONARY: No shortness of breath, no cough, GASTROINTESTINAL: No diarrhea, no nausea, no vomiting, no abdominal pain. NEUROLOGICAL: No headaches, no weakness, PHYSICAL EXAMINATION: GENERAL: The patient is alert and oriented x3, not in any acute distress. Well developed, well nourished. HEENT: Pupils are round and equally reacting to light. EOMI. No scleral icterus. No conjunctival pallor. Normocephalic, atraumatic. No pharyngeal erythema. No thyromegaly. CARDIOVASCULAR: S1 and S2 present. No murmurs, rubs, or gallops. PULMONARY: Chest is clear to auscultation, no wheezing or crackles. ABDOMEN: Soft, nontender, nondistended, normoactive bowel sounds. No palpable organomegaly. MUSCULOSKELETAL: No joint swelling or deformity. EXTREMITIES: No cyanosis, clubbing, or pedal edema. NEUROLOGICAL: Gross neurological examination did not reveal any focal deficits. SKIN: No rashes. Assessment and plan Sepsis secondary to maxillary osteomyelitis HCAP with YUNIOR pneumonia Cocaine abuse Chronic sinusitis Monitor vital signs Monitor CBC Monitor CMP Continue IV ertapenem Continue IV eraxis Continue amlodipine and losartan, blood pressure better controlled Continue Synthroid ID following Transfer initiated for [facility] to facilitate further evaluation/treatment by ENT-not available at this site by Dr. Kothari Objective - Vital Signs Vital signs: Vital Signs Temp 98.4 F 09/11/22 08:00 Pulse 65 09/11/22 08:00 Resp 17 09/11/22 08:00 BP 132/71 09/11/22 08:00 Pulse Ox 95 09/11/22 09:35 FiO2 21 09/11/22 09:35 Intake & Output 09/10/22 09/11/22 09/11/22 18:59 06:59 18:59 Intake Total 1200 Output Total 6 Balance 1194 Intake: Intake, IV Titration 1200 Amount Sodium Chloride 0.9% 1, 1200 000 ml @ 100 mls/hr IV . Q10H [facility] Rx#:[id number] Output: Urine 6 - Labs CBC & Chem 7: 09/11/22 07:14 09/11/22 07:14
[2022-09-11] MEDS: ERTAPENEM 1 GM in SODIUM CHLORIDE 0.9% 50 ML IVPB SCH (15:41)
[2022-09-11] MEDS: traZODone HCL 50 MG TAB PO SCH (21:31)
[2022-09-12] MEDS: HYDROmorphone 1 MG/ML 1 ML SYRINGE IVP PRN ×5 (04:17→21:12)
[2022-09-12] MEDS: LEVOTHYROXINE 50 MCG TAB PO SCH (05:54)
[2022-09-12] MEDS: amLODIPine 10 MG TAB PO SCH (07:25)
[2022-09-12] MEDS: PANTOPRAZOLE 40 MG/10 ML VIAL IV SCH (07:25)
[2022-09-12] MEDS: ESCITALOPRAM 10 MG TAB PO SCH (07:25)
[2022-09-12] MEDS: MAG HYDROX/AL HYDROX/SIMETH 30 ML, LIDOCAINE VISCOUS 2% 30 ML, diphenhydrAMINE ELIXIR 7... PO SCH ×12 (07:26→21:13)
[2022-09-12] MEDS: SODIUM CHLORIDE 0.9% 1,000 ML IV SCH ×3 (07:26→17:22)
[2022-09-12] MEDS: MUPIROCIN 2% OINT 22 GM TUBE TOPICAL SCH ×3 (07:27→21:13)
[2022-09-12 09:22] LABS: Basophils # (A) 0.08 X 10*3/uL (0.00-0.10); Basophils % (A) 1.4 %; Eosinophils # (A) 0.16 X 10*3/uL (0.04-0.35); Eosinophils % (A) 2.8 %; HCT 36.5 % (39.6-50.0); HGB 11.3 d/dL (12.0-15.0); Lymphocytes # (A) 1.58 X 10*3/uL (0.90-5.00); Lymphocytes % (A) 27.6 %; MCH 29.3 pg (27.0-32.0); MCV 94.6 FL (80.0-97.0); Mean Platelet Volume 9.4 FL (9.5-12.2); Monocytes # (A) 0.38 X 10*3/uL (0.20-1.00); Monocytes % (A) 6.6 %; NRBC Per 100 WBC 0 X 10*3/uL (0.00-0.01); Neutrophils # (A) 3.48 X 10*3/uL (1.80-7.70); Neutrophils % (A) 60.9 %; Platelet Count 465 X 10*3/uL (140-440); RBC 3.86 X 10*6/uL (4.40-5.60); RDW 14.6 % (11.5-14.5); WBC 5.72 X 10*3/uL (4.50-10.00)
[2022-09-12 09:33] LABS: BUN/Creat Ratio 17.64 Ratio (12.00-20.00); Blood Urea Nitrogen 19.4 mg/dL (9.0-27.0); Chloride 104 mmol/L (96-109); Glucose 83 mg/dL (70-110); Potassium 4.8 mmol/L (3.5-5.5); Sodium 140 mmol/L (135-145)
[2022-09-12 09:34] LABS: ALT 30 U/L (10-49); AST 25 U/L (14-35); Albumin 3.8 d/dL (3.8-4.9); Albumin/Globulin Ratio 1.27 Ratio (1.60-3.17); Alkaline Phosphatase 88 U/L (41-126); Calcium 9.3 mg/dL (8.7-10.3); Carbon Dioxide 23.4 mmol/L (21.6-31.8); Total Bilirubin 0.3 mg/dL (0.3-1.2); Total Protein 6.8 d/dL (6.2-8.2)
--- NOTE | 2022-09-12 10:44 | P.PN ---
Subjective Progress Note Date: 09/10/22 Principal diagnosis: Pneumonia and L maxillary osteomyelitis Patient is a 57-year-old male with recent diagnosis of left maxillary osteomyelitis on the basis of CT MRI done at [facility] and the patient is receiving outpatient IV Rocephin per the recommendation recent admission to the hospital for pneumonia he did have blood sputum and nasal cultures also negative patient now presenting back to the hospital with increasing shortness of breath cough and fever concerning for pneumonia. On today's evaluation that is 09/10/2022 patient remains to be afebrile, patient is breathing comfortably on room air, the patient denies having any chest pain no worsening cough, still complaining of sore throat no difficulty swallowing no nausea vomiting or diarrhea Objective - Vital Signs Vital signs: Vital Signs Temp 96.5 F L 09/10/22 07:16 Pulse 53 L 09/10/22 07:16 Resp 16 09/10/22 07:16 BP 119/80 09/10/22 07:16 Pulse Ox 98 09/10/22 08:50 FiO2 21 09/07/22 09:16 Intake & Output 09/09/22 09/10/22 09/10/22 18:59 06:59 18:59 Intake Total 900 Balance 900 Intake: Intake, IV Titration 900 Amount Sodium Chloride 0.9% 1, 900 000 ml @ 75 mls/hr IV . [id number] [facility] Rx#:[id number] Other: Voiding Method Toilet Urinal - Exam GENERAL DESCRIPTION: Middle-age male lying in bed in no distress RESPIRATORY SYSTEM: Unlabored breathing , coarse breath sounds bilaterally HEART: S1 S2 regular rate and rhythm ,no loud murmurs ABDOMEN: Soft , no tenderness EXTREMITIES: No edema feet - Labs CBC & Chem 7: 09/12/22 05:44 09/12/22 05:44 Labs: Abnormal Lab Results - Last 24 Hours (Table) 09/10/22 Range/Units 05:57 RBC 3.60 L (4.40-5.60) X 10*6/uL Hgb 10.5 L (12.0-15.0) d/dL Hct 33.0 L (39.6-50.0) % MCHC 31.8 L (32.0-37.0) d/dL RDW 14.8 H (11.5-14.5) % MPV 9.3 L (9.5-12.2) FL Assessment and Plan (1) Acute osteomyelitis of maxilla Current Visit: Yes Status: Acute Code(s): M27.2 - INFLAMMATORY CONDITIONS OF JAWS SNOMED Code(s): 239362523 (2) Pneumonia Current Visit: Yes Status: Acute Code(s): J18.9 - PNEUMONIA, UNSPECIFIED ORGANISM SNOMED Code(s): 438014408 Plan: 1patient was in the hospital with sepsis in this patient who did have a fever elevated white count predominantly respiratory symptoms with evidence of basilar airspace disease concerning for possible pneumonia in this patient currently receiving Rocephin in the outpatient setting for left maxillary osteomyelitis with a similar admission few weeks ago all cultures were negative at that point 2-Patient did have a CT of the chest groundglass infiltrates anterior left upper lobe along with a nodule patient white count normalized he did have elevated sed rate of 112 CRP is 11.7 procalcitonin 0.12, sputum cultures Currently growing Mai which is more likely colonizer. 3patient with a history of left maxillary osteomyelitis with persistent symptoms despite completing a 6-week course of IV Rocephin in the outpatient setting , CT of the sinuses did show significant sinus disease and bone destruction, patient has been Evaluated by ENT recommending transfer to tertiary care which is currently in process. Pt to Continue with Invanz , patient sed rate did came down to 75 from the previous reading of 112 4-patient with complaint of sore throat with evidence of thrush and possible oropharyngeal candidiasis, patient to continue with Eraxis and Cool's solution Time with Patient: Less than 30
--- NOTE | 2022-09-12 10:45 | P.PN ---
Subjective Progress Note Date: 09/11/22 Principal diagnosis: Pneumonia and L maxillary osteomyelitis Patient is a 57-year-old male with recent diagnosis of left maxillary osteomyelitis on the basis of CT MRI done at [facility] and the patient is receiving outpatient IV Rocephin per the recommendation recent admission to the hospital for pneumonia he did have blood sputum and nasal cultures also negative patient now presenting back to the hospital with increasing shortness of breath cough and fever concerning for pneumonia. On today's evaluation that is 09/11/2022 patient remains to be afebrile, patient is breathing comfortably on room air, the patient denies having any chest pain no worsening cough, still complaining of sore throat however symptoms have slightly decreased in intensity and no difficulty swallowing no nausea vomiting or diarrhea Objective - Vital Signs Vital signs: Vital Signs Temp 98.4 F 09/11/22 08:00 Pulse 65 09/11/22 08:00 Resp 17 09/11/22 08:00 BP 132/71 09/11/22 08:00 Pulse Ox 95 09/11/22 09:35 FiO2 21 09/11/22 09:35 Intake & Output 09/10/22 09/11/22 09/11/22 18:59 06:59 18:59 Intake Total 1200 Output Total 6 Balance 1194 Intake: Intake, IV Titration 1200 Amount Sodium Chloride 0.9% 1, 1200 000 ml @ 100 mls/hr IV . Q10H [facility] Rx#:[id number] Output: Urine 6 - Exam GENERAL DESCRIPTION: Middle-age male lying in bed in no distress RESPIRATORY SYSTEM: Unlabored breathing , coarse breath sounds bilaterally HEART: S1 S2 regular rate and rhythm ,no loud murmurs ABDOMEN: Soft , no tenderness EXTREMITIES: No edema feet - Labs CBC & Chem 7: 09/12/22 05:44 09/12/22 05:44 Labs: Abnormal Lab Results - Last 24 Hours (Table) 09/11/22 09/11/22 Range/Units 07:14 07:14 RBC 3.58 L (4.40-5.60) X 10*6/uL Hgb 10.4 L (12.0-15.0) d/dL Hct 33.9 L (39.6-50.0) % MCHC 30.7 L (32.0-37.0) d/dL RDW 14.9 H (11.5-14.5) % BUN/Creatinine Ratio 21.00 H (12.00-20.00) Ratio Assessment and Plan (1) Acute osteomyelitis of maxilla Current Visit: Yes Status: Acute Code(s): M27.2 - INFLAMMATORY CONDITIONS OF JAWS SNOMED Code(s): 644458272 (2) Pneumonia Current Visit: Yes Status: Acute Code(s): J18.9 - PNEUMONIA, UNSPECIFIED ORGANISM SNOMED Code(s): 058031186 Plan: 1patient was in the hospital with sepsis in this patient who did have a fever elevated white count predominantly respiratory symptoms with evidence of basilar airspace disease concerning for possible pneumonia in this patient currently receiving Rocephin in the outpatient setting for left maxillary osteomyelitis w ith a similar admission few weeks ago all cultures were negative at that point 2-Patient did have a CT of the chest groundglass infiltrates anterior left upper lobe along with a nodule patient white count normalized he did have elevated sed rate of 112 CRP is 11.7 procalcitonin 0.12, sputum cultures Currently growing Mai which is more likely colonizer. 3patient with a history of left maxillary osteomyelitis with persistent symptoms despite completing a 6-week course of IV Rocephin in the outpatient setting , CT of the sinuses did show significant sinus disease and bone destruction, patient has been Evaluated by ENT recommending transfer to tertiary care which is currently in process. Pt to Continue with Invanz , patient sed rate did came down to 75 from the previous reading of 112 4-patient with complaint of sore throat with evidence of thrush and possible oropharyngeal candidiasis, patient to continue with Eraxis and Cool's solution, As patient's symptom has slightly improved and will monitor his clinical course closely question concern answered Time with Patient: Less than 30
[2022-09-12] MEDS: ANIDULAFUNGIN 100 MG in SODIUM CHLORIDE 0.9% 100 ML IVPB SCH (13:03)
--- NOTE | 2022-09-12 14:16 | P.PN ---
Subjective Progress Note Date: 09/12/22 Patient is a 57-year-old male with recent diagnosis of left maxillary osteomyelitis on the basis of CT MRI done at [facility] and the patient is receiving outpatient IV Rocephin per the recommendation recent admission to the hospital for pneumonia he did have blood sputum and nasal cultures also negative patient now presenting back to the hospital with increasing shortness of breath cough and fever concerning for pneumonia. 09/01/2022 continues on IV antibiotics, adjusted to Invanz, reports sore throat, secondary mucus drainage. Nasal/nares tenderness persists, continue with Bactroban ointment. Reports pain medication only lasting 3 hours-we will transition to oral. Afebrile, normal WBC. ID recommending ENT consult related to significant amounts of bony destruction-will need biopsy and both bacteria and fungal cultures. 09/02/2022 maintained on IV antibiotic therapy as per ID. Afebrile. Sore throat and nare tenderness improving. Evaluated by ENT, Dr. Carrasco-MUSHTAQ saleh and he is recommending transfer to tertiary care center/[facility] secondary to patient appears to present with fungal sinusitis, requiring a procedure that is unable to be done at this site. Patient is in agreement to transfer. 09/04. Dr. miranda taking over care. Patient seen and examined. Patient is ambulating in the room, states that he feels better compared to yesterday. Still complaining of nasal itching and postnasal drip 09/05. Patient seen and examined. No acute issues overnight. Labs are white count 5.9, hemoglobin 10.8, sodium 138, potassium 4.4, BUn 14, creatinine 0.98. Temperature 97.5, heart rate 53, respiration 18, blood pressure 144/82. Complaining of some throat ache. Denies any nasal discharge. 09/06/20[address] [facility] last week, [place] [facility] declined. Maintained on IV antibiotics as per ID. Afebrile. Reports sore throat improving, some burning sensation of nares. Denies cough. Denies chest pain, palpitations or shortness of breath. Maintaining O2 sats in the 90s on room air. Denies lightheadedness, dizziness or focal deficits. 09/07/2022 patient's ENT outpatient is Dr. De Souza from [facility], works out of [facility]. PCP spoke with Dr. De Souza, attempting transfer to [facility]. Continues on Eraxis, ertapenem ,afebrile. Positive diet intake. Denies worsening of symptoms, sore throat,nare pain. Denies cough. 09/08/2022 patient has been accepted at [facility], pending bed for transfer. Maintained on IV antibiotics as per infectious disease. Afebrile. Sore throat significantly improved. Pain better controlled today, on increased dose of [place]. Denies chest pain, palpitations or shortness of breath. Maintaining O2 sats in the high 90s on room air. Denies lightheadedness dizzin ess or focal deficits. 09/09/2022 transfer in progress to [facility], pending bed availability. Continues on antibiotic and antifungal as per ID. Mildly worsened creatinine, 1.2, potassium 5. Afebrile, denies cough. Sore throat fluctuates, worsened after eating or upon awakening. Reports thick green sinus drainage. Nares less tender today. 09/10/2022 no overnight events, continues on Eraxis and ertapenem. Reports sinus congestion and sore throat this morning. Maintained on IV fluid hydration, bicarb 23, BUN 22.6, creatinine 1.3. [facility] denied patient tfransfer today, recommended [place] state. 09/11. Patient seen and examined. Denies any acute issues overnight. Denies any blurred vision. Complaining of some throat ache 08/30. Patient seen and examined. Vital signs stable. Tolerating diet. Ambulating without any difficulty REVIEW OF SYSTEMS: CONSTITUTIONAL: No fever, no malaise,. CARDIOVASCULAR: No chest pain, no palpitations, no syncope. PULMONARY: No shortness of breath, no cough, GASTROINTESTINAL: No diarrhea, no nausea, no vomiting, no abdominal pain. NEUROLOGICAL: No headaches, no weakness, PHYSICAL EXAMINATION: GENERAL: The patient is alert and oriented x3, not in any acute distress. Well developed, well nourished. HEENT: Pupils are round and equally reacting to light. EOMI. No scleral icterus. No conjunctival pallor. Normocephalic, atraumatic. No pharyngeal erythema. No thyromegaly. CARDIOVASCULAR: S1 and S2 present. No murmurs, rubs, or gallops. PULMONARY: Chest is clear to auscultation, no wheezing or crackles. ABDOMEN: Soft, nontender, nondistended, normoactive bowel sounds. No palpable organomegaly. MUSCULOSKELETAL: No joint swelling or deformity. EXTREMITIES: No cyanosis, clubbing, or pedal edema. NEUROLOGICAL: Gross neurological examination did not reveal any focal deficits. SKIN: No rashes. Assessment and plan Sepsis secondary to maxillary osteomyelitis HCAP with YUNIOR pneumonia Cocaine abuse Chronic sinusitis Monitor vital signs Monitor CBC Monitor CMP Continue IV ertapenem Continue IV eraxis Continue amlodipine and losartan, blood pressure better controlled Continue Synthroid ID following Transfer initiated for [facility] to facilitate further evaluation/treat ment by ENT-not available at this site by Dr. Kothari Objective - Vital Signs Vital signs: Vital Signs Temp 97.6 F 09/12/22 07:10 Pulse 61 09/12/22 07:10 Resp 19 09/12/22 07:10 BP 137/60 09/12/22 07:10 Pulse Ox 95 09/12/22 08:58 FiO2 21 09/11/22 09:35 Intake & Output 09/11/22 09/12/22 09/12/22 18:59 06:59 18:59 Intake Total 180 Balance 180 Intake: Oral 180 Other: # Voids 3 2 - Labs CBC & Chem 7: 09/12/22 05:44 09/12/22 05:44 Labs: Abnormal Lab Results - Last 24 Hours (Table) 09/12/22 09/12/22 Range/Units 05:44 05:44 RBC 3.86 L (4.40-5.60) X 10*6/uL Hgb 11.3 L (12.0-15.0) d/dL Hct 36.5 L (39.6-50.0) % MCHC 31.0 L (32.0-37.0) d/dL RDW 14.6 H (11.5-14.5) % Plt Count 465 H (140-440) X 10*3/uL MPV 9.4 L (9.5-12.2) FL Anion Gap 12.60 H (4.00-12.00) mmol/L Albumin/Globulin Ratio 1.27 L (1.60-3.17) Ratio
[2022-09-12] MEDS: ERTAPENEM 1 GM in SODIUM CHLORIDE 0.9% 50 ML IVPB SCH (16:07)
[2022-09-12] MEDS: traZODone HCL 50 MG TAB PO SCH (21:13)
[2022-09-13] MEDS: HYDROmorphone 1 MG/ML 1 ML SYRINGE IVP PRN ×3 (01:13→10:56)
[2022-09-13] MEDS: LEVOTHYROXINE 50 MCG TAB PO SCH (06:53)
[2022-09-13] MEDS: SODIUM CHLORIDE 0.9% 1,000 ML IV SCH (06:54)
[2022-09-13 07:42] VITALS: RESP 17
[2022-09-13] MEDS: amLODIPine 10 MG TAB PO SCH (08:34)
[2022-09-13] MEDS: MAG HYDROX/AL HYDROX/SIMETH 30 ML, LIDOCAINE VISCOUS 2% 30 ML, diphenhydrAMINE ELIXIR 7... PO SCH ×8 (08:34→14:35)
[2022-09-13] MEDS: ESCITALOPRAM 10 MG TAB PO SCH (08:34)
[2022-09-13] MEDS: PANTOPRAZOLE 40 MG/10 ML VIAL IV SCH (08:34)
[2022-09-13] MEDS: MUPIROCIN 2% OINT 22 GM TUBE TOPICAL SCH ×2 (08:35→14:36)
--- NOTE | 2022-09-13 10:29 | P.DS ---
Providers Date of admission: 08/27/22 19:04 Expected date of discharge: 09/13/22 Attending physician: Jamel Kothari MD Consults: 08/27/22 19:04 Consult Physician Routine Consulting Provider: Carolyn Soler Consult Reason/Comments: fever Do you want consulting provider notified?: Yes 09/01/22 16:29 Consult Physician Routine Consulting Provider: Rocael Adams Consult Reason/Comments: Per ID; Aissatou distruction, needs biopsy, both bacterial and fungal cultures Do you want consulting provider notified?: Yes Primary care physician: Jamel Kothari MD Hospital Course: Final Diagnoses: Sepsis secondary to acute maxillary osteomyelitis HCAP with YUNIOR pneumonia Cocaine abuse Chronic sinusitis Patient with a history of left maxillary osteomyelitis with persistent symptoms despite completing a 6-week course of IV antibiotics in the outpatient setting. Hospital course:Slept well, occasional cough. Mild sore throat. States unable to clear mucus from his sinuses 2 to his nasal tenderness denies headache or fever or chills. Maintain on Vancomysin and cefepime as per infectious disease. Renal function stable. Afebrile. Sputum culture finalizing, preliminary blood cultures reporting no growth after 72 hours. 09/01/2022 continues on IV antibiotics, adjusted to Invanz, reports sore throat, secondary mucus drainage. Nasal/nares tenderness persists, continue with Bactroban ointment. Reports pain medication only lasting 3 hours-we will transition to oral. Afebrile, normal WBC. ID recommending ENT consult related to significant amounts of bony destruction-will need biopsy and both bacteria and fungal cultures. 09/02/2022 maintained on IV antibiotic therapy as per ID. Afebrile. Sore throat and nare tenderness improving. Evaluated by ENT, Dr. Carrasco-CT reviewed and he is recommending transfer to tertiary care center/[facility] secondary to patient appears to present with fungal sinusitis, requiring a procedure that is unable to be done at this site. Patient is in agreement to transfer. 09/03/22 He is feeling about the same, afebrile, remains hypertensive in 160-170s. He continues to complain of pain in the nares and sinuses. Pt extensively discussed with ENT at [facility] yesterday, Dr Borden who personally reviewed CT sinus this admission vs last month and felt pt was improving and declined transfer. ENT at this hospital recommending transfer to tertiary care center. Pt remains on Invanz. 09/06/2022 attempted transfer to [facility] last week, [place] [facility] declined. Maintained on IV antibiotics as per ID. Afebrile. Reports sore throat improving, some burning sensation of nares. Denies cough. Denies chest pain, palpitations or shortness of breath. Maintaining O2 sats in the 90s on room air. Denies lightheadedness, dizziness or focal deficits. 09/07/2022 patient's ENT outpatient is Dr. De Souza from [facility], works out of [facility]. PCP spoke with Dr. De Souza, attempting transfer to [facility]. Continues on Eraxis, ertapenem ,afebrile. Positive diet intake. Denies worsening of symptoms, sore throat,nare pain. Denies cough. 09/08/2022 patient has been accepted at [facility], pending bed for transfer. Maintained on IV antibiotics as per infectious disease. Afebrile. Sore throat significantly improved. Pain better controlled today, on increased dose of [place]. Denies chest pain, palpitations or shortness of breath. Maintaining O2 sats in the high 90s on room air. Denies lightheadedness dizziness or focal deficits. 09/09/2022 transfer in progress to [facility], pending bed availability. Continues on antibiotic and antifungal as per ID. Mildly worsened creatinine, 1.2, potassium 5. Afebrile, denies cough. Sore throat fluctuates, worsened after eating or upon awakening. Reports thick green sinus drainage. Nares less tender today. 09/10/2022 no overnight events, continues on Eraxis and ertapenem. Reports sinus congestion and sore throat this morning. Maintained on IV fluid hydration, bicarb 23, BUN 22.6, creatinine 1.3. [facility] denied patient tfransfer today, recommended [place] state. 09/13/2022 multiple unsuccessful attempts at transferring to tertiary care centers. Attempted [facility], [facility], [facility], [facility], [place] [facility]. Most recently [facility] recommended [facility]. [facility] declined, reported no intervention required at this time, continue on antibiotic/antifungals and to follow up outpatient with patient's own ENT. Intensity of symptoms-nare tenderness, sore throat significantly improved. Denies cough. Denies chest pain, palpitations or shortness of breath. Denies lightheadedness, dizziness or focal deficits. Patient will be discharged home today in stable condition with guarded prognosis pending final DC recommendations/antifungals/antibiotics and clearance per ID. The impression and plan of care has been dictated as directed. : I performed a history and examination of this patient, discussed the same with the dictator. I agree with the dictator's note ,documented as a scribe. Any additional findings or plans will be noted. Patient Condition at Discharge: Stable Plan - Discharge Summary New Discharge Prescriptions: New amLODIPine [Norvasc] 10 mg PO DAILY #30 tab Mupirocin 2% Oint [Bactroban 2% Oint] 1 applic TOPICAL TID #0 each Nystatin 100,000 Unit/ml Susp [Mycostatin Oral Susp] 3,000,000 unit PO TID ml Continue Levothyroxine Sodium [Synthroid] 50 mcg PO DAILY Escitalopram [Lexapro] 10 mg PO DAILY Pantoprazole [Protonix] 40 mg PO DAILY LORazepam [Ativan] 0.5 mg PO DAILY PRN PRN Reason: Anxiety HYDROcodone/APAP 5-325MG [[place] 5-325] 1 tab PO TID PRN PRN Reason: Pain Or Fever > 100.5 traZODone HCL [Desyrel] 50 mg PO HS Benzocaine [place] [Hurricaine [place]] 1 applic MUCOUS MEM QID PRN PRN Reason: Sore Throat Discontinued Nystatin 100,000 Unit/ml Susp [Mycostatin Oral Susp] 5 ml PO QID Losartan [Cozaar] 100 mg PO DAILY Discharge Medication List Escitalopram [Lexapro] 10 mg PO DAILY 08/13/22 [History] LORazepam [Ativan] 0.5 mg PO DAILY PRN 08/13/22 [History] Levothyroxine Sodium [Synthroid] 50 mcg PO DAILY 08/13/22 [History] Pantoprazole [Protonix] 40 mg PO DAILY 08/13/22 [History] traZODone HCL [Desyrel] 50 mg PO HS 08/13/22 [History] Benzocaine [place] [Hurricaine [place]] 1 applic MUCOUS MEM QID PRN 08/27/22 [History] HYDROcodone/APAP 5-325MG [[place] 5-325] 1 tab PO TID PRN 08/27/22 [History] Mupirocin 2% Oint [Bactroban 2% Oint] 1 applic TOPICAL TID #0 each 09/13/22 [Rx] Nystatin 100,000 Unit/ml Susp [Mycostatin Oral Susp] 3,000,000 unit PO TID ml 09/13/22 [Rx] amLODIPine [Norvasc] 10 mg PO DAILY #30 tab 09/13/22 [Rx] Follow up Appointment(s)/Referral(s): Jamel Kothari MD [Primary Care Provider] - 3 Days ENT, Dr. De Souza/ [facility] [Other] - 1 Week Activity/Diet/Wound Care/Special Instructions: Send home with [employer] [facility]. Antibiotics/antifungal as per ID
[2022-09-13] MEDS: ANIDULAFUNGIN 100 MG in SODIUM CHLORIDE 0.9% 100 ML IVPB SCH (12:02)
[2022-09-13] MEDS: ERTAPENEM 1 GM in SODIUM CHLORIDE 0.9% 50 ML IVPB SCH (14:35)
[2022-09-13 14:49] VITALS: BP 110/64; PULSE 75; TEMP 98.3
== END 2022-09-13 16:20 | disposition home or self-care (01) | DRG 871 ==
LOC: EC 16:17 → 4SSUR 19:04
PROVIDERS: ADMIT Family Medicine; ATTEND Family Medicine
DX: A41.9 Sepsis, unspecified organism (principal); J15.9 Unspecified bacterial pneumonia; M86.18 Other acute osteomyelitis, other site; D64.9 Anemia, unspecified; E03.9 Hypothyroidism, unspecified; F14.10 Cocaine abuse, uncomplicated; F32.A Depression, unspecified; F41.9 Anxiety disorder, unspecified; I10 Essential (primary) hypertension; J32.9 Chronic sinusitis, unspecified; M27.2 Inflammatory conditions of jaws; Z20.822 Contact with and (suspected) exposure to COVID-19; Z79.890 Hormone replacement therapy; Z79.899 Other long term (current) drug therapy; Z87.01 Personal history of pneumonia (recurrent)
CPT/HCPCS: 36415; 70487; 71045; 71260; 80048; 80053; 80202; 80306; 82565; 83605; 83690; 83735; 84100; 84145; 84484; 85025; 85610; 85652; 85730; 86140; 87040; 87070; 87205; 87636; 93005; 94640; 94760; 96361; 96365; 96366; 96367; 96375; 96376; 99285

== ENCOUNTER 2022-10-17 19:04 | Observation (INO) | payer BC ==
--- NOTE | 2022-10-17 21:18 | XR ---
EXAMINATION TYPE: XR chest 2V DATE OF EXAM: 10/17/2022 9:07 PM COMPARISON: Chest radiographs from 08/28/2019 TECHNIQUE: XR chest 2V Frontal and lateral views of the chest. CLINICAL INDICATION:Male, 57 years old with history of r/o PNA; FINDINGS: Lungs/Pleura: There is no evidence of pleural effusion, focal consolidation, or pneumothorax. Pulmonary vascularity: Unremarkable. Heart/mediastinum: Cardiomediastinal silhouette is unremarkable. Musculoskeletal: No acute osseous pathology. Other findings: None Lines/Tubes: Left-sided PICC with distal tip at the superior caval atrial junction. IMPRESSION: No acute cardiopulmonary disease/process.
[2022-10-17] MEDS ORDERED: KETOROLAC 15 MG/ML 1 ML VIAL IVP STA (21:44)
--- NOTE | 2022-10-17 22:15 | ED ---
ENT HPI - General Chief complaint: ENT Stated complaint: Thrush-throat Time Seen by Provider: 10/17/22 20:11 Source: patient Mode of arrival: ambulatory Limitations: no limitations - History of Present Illness Initial comments: 7-year-old male presenting to the ED with a chief complaint of sore throat. Patient previously here on 09/10/22. At this time, was being treated for pneumonia which grew [place] on cultures. Additionally, complains of thrush at this time. Patient to follow with ENT as after admission patient symptoms showed improvement. Since discharge has been on IV ertapenem and eraxis. Despite this, states that has recently developed worsening sore throat and cough. States that pain in his throat is so severe that he has been unable to eat for the last 3 days. Denies shortness of breath or chest pain. Denies fever. No other complaints. - Related Data Home Medications Medication Instructions Recorded Confirmed Escitalopram [Lexapro] 10 mg PO DAILY 08/13/22 08/27/22 LORazepam [Ativan] 0.5 mg PO DAILY PRN 08/13/22 08/27/22 Levothyroxine Sodium [Synthroid] 50 mcg PO DAILY 08/13/22 08/27/22 Pantoprazole [Protonix] 40 mg PO DAILY 08/13/22 08/27/22 traZODone HCL [Desyrel] 50 mg PO HS 08/13/22 08/27/22 Benzocaine [place] [Hurricaine [place]] 1 applic MUCOUS MEM QID PRN 08/27/2212/11 HYDROcodone/APAP 5-325MG [[place] 1 tab PO TID PRN 08/27/22 08/27/22 5-325] Previous Rx's Medication Instructions Recorded Anidulafungin [Eraxis] 100 mg IV DAILY #28 each 09/13/22 Ertapenem [INVanz] 1 gm IVPB Q24H #28 each 09/13/22 Mupirocin 2% Oint [Bactroban 2% 1 applic TOPICAL TID #0 each 09/13/22 Oint] Nystatin 100,000 Unit/ml Susp 3,000,000 unit PO TID ml 09/13/22 [Mycostatin Oral Susp] amLODIPine [Norvasc] 10 mg PO DAILY #30 tab 09/13/22 Allergies Allergy/AdvReac Type Severity Reaction Status Date / Time No Known Allergies Allergy Verified 08/27/22 17:47 Review of Systems ROS Statement: Those systems with pertinent positive or pertinent negative responses have been documented in the HPI. ROS Other: All systems not noted in ROS Statement are negative. Past Medical History Past Medical History: Hypertension Additional Past Medical History / Comment(s): bone throat infection History of Any Multi-Drug Resistant Organisms: MRSA Date of last positivie culture/infection: 07/19/22 MDRO Source:: Throat Past Surgical History: Orthopedic Surgery Additional Past Surgical History / Comment(s): avascular necrosis rt hip Past Anesthesia/Blood Transfusion Reactions: No Reported Reaction Past Psychological History: No Psychological Hx Reported Smoking Status: Never smoker Past Alcohol Use History: None Reported Past Drug Use History: None Reported - Past Family History Mother Family Medical History: Dialysis General Exam Limitations: no limitations General appearance: alert, in no apparent distress ENT exam: Present: mucous membranes moist, TM's normal bilaterally, other (No significant swelling or exudates of the oropharynx. No white membrane consistent with thrush.) Respiratory exam: Present: normal lung sounds bilaterally Cardiovascular Exam: Present: regular rate, normal rhythm GI/Abdominal exam: Present: soft Neurological exam: Present: alert, oriented X3 Skin exam: Present: warm, dry Course Vital Signs 10/17/22 19:42 Temperature 99.5 F Pulse Rate 93 Respiratory 20 Rate Blood Pressure 176/102 Medical Decision Making - Medical Decision Making Was pt. sent in by a medical professional or institution (JIM Castorena, CREDIT RELATIONSHIP MANAGER, urgent care, hospital, or usp...) When possible be specific @ -No Did you speak to anyone other than the patient for history (EMS, parent, family, police, friend...)? What history was obtained from this source @ -No Did you review nursing and triage notes (agree or disagree)? Why? @ -I reviewed and agree with nursing and triage notes Were old charts reviewed (outside hosp., previous admission, EMS record, old EKG, old radiological studies, urgent care reports/EKG's, usp records)? Report findings @ -No old charts were reviewed Differential Diagnosis (chest pain, altered mental status, abdominal pain women, abdominal pain men, vaginal bleeding, weakness, fever, dyspnea, syncope, headache, dizziness, GI bleed, back pain, seizure, CVA, palpatations, mental health, musculoskeletal)? @ -Differential Dyspnea: Coronary syndrome, arrhythmia, tamponade, asthma, COPD, pulmonary embolism, pneumonia, pneumothorax, pulmonary effusion, anaphylaxis, diabetic ketoacidosis, flailed chest, pulmonary contusion, diaphragmatic rupture, anemia, neuromuscular, this is not meant to be an all-inclusive list. EKG interpreted by me (3pts min.). @ -None X-rays interpreted by me (1pt min.). @ -X-ray shows no evidence of pneumonia or other acute findings. CT interpreted by me (1pt min.). @ -None done U/S interpreted by me (1pt. min.). @ -None done What testing was considered but not performed or refused? (CT, X-rays, U/S, la bs)? Why? @ -None What meds were considered but not given or refused? Why? @ -None Did you discuss the management of the patient with other professionals (professionals i.e. , PA, CREDIT RELATIONSHIP MANAGER, lab, RT, psych nurse, social work associate, general assignment reporter, teacher, branch lending officer, nurse case management)? Give summary @ -Spoke with Lisette Carbajal NP, who accepts admission to [facility] Was smoking cessation discussed for >3mins.? @ -No Was critical care preformed (if so, how long)? @ -No Were there social determinants of health that impacted care today? How? (Homelessness, low income, unemployed, alcoholism, drug addiction, transportation, low edu. Level, literacy, decrease access to med. care, retirement, rehab)? @ -No Was there de-escalation of care discussed even if they declined (Discuss DNR or withdrawal of care, Hospice)? DNR status @ -No What co-morbidities impacted this encounter? (DM, HTN, Smoking, COPD, CAD, Cancer, CVA, ARF, Chemo, Hep., AIDS, mental health diagnosis, sleep apnea, morbid obesity)? @ -None Was patient admitted / discharged? Hospital course, mention meds given and route, prescriptions, significant lab abnormalities, going to OR and other pertinent info. @ -Admission. Laboratory studies at this time only include an unremarkable chemistry panel. At this time CBC pending. Chest x-ray shows no acute process. However patient with intractable pain. Patient will be admitted to [facility] with consults to infectious disease and ENT. Discussed plan of care with patient who is in agreement. Undiagnosed new problem with uncertain prognosis? @ -No Drug Therapy requiring intensive monitoring for toxicity (Heparin, Nitro, Insulin, Cardizem)? @ -No Were any procedures done? @ -No Diagnosis/symptom? @ -Intractable pain, sore throat, history of thrush and pneumonia currently on IV antifungals and antibiotics. Acute, or Chronic, or Acute on Chronic? @ -Acute on chronic Uncomplicated (without systemic symptoms) or Complicated (systemic symptoms)? @ -Uncomplicated Side effects of treatment? @ -No Exacerbation, Progression, or Severe Exacerbation? @ -No Poses a threat to life or bodily function? How? (Chest pain, [place], [place], pneumonia, PE, COPD, DKA, ARF, appy, cholecystitis, CVA, Diverticulitis, Homicidal, Suicidal, threat to staff... and all critical care pts) @ -No - Lab Data Result diagrams: 10/17/22 20:37 Lab Results 10/17/22 Range/Units 20:37 Sodium 142 (137-145) mmol/L Potassium 3.4 L (3.5-5.1) mmol/L Chloride 108 H (98-107) mmol/L Carbon Dioxide 22 (22-30) mmol/L Anion Gap 12 mmol/L BUN 13 (9-20) mg/dL Creatinine 1.15 (0.66-1.25) mg/dL Est GFR (CKD-EPI)AfAm 83 (>60 ml/min/1.73 sqM) Est GFR (CKD-EPI)NonAf 72 (>60 ml/min/1.73 sqM) Glucose 95 (74-99) mg/dL Calcium 9.1 (8.4-10.2) mg/dL Total Bilirubin 0.4 (0.2-1.3) mg/dL AST 14 L (17-59) U/L ALT 12 (4-49) U/L Alkaline Phosphatase 71 (38-126) U/L Total Protein 7.3 (6.3-8.2) g/dL Albumin 3.6 (3.5-5.0) g/dL Disposition Clinical Impression: Thrush, Sore throat, History of pneumonia Disposition: ADMITTED IP TO THIS HOSP Condition: Good Referrals: Jamel Kothari MD [Primary Care Provider] - 1-2 days Time of Disposition: 22:50
[2022-10-17 22:38] LABS: ALT 12 U/L (4-49); AST 14 U/L (17-59); African American GFR (CKD) 83 (>60 ml/min/1.73 sqM); Albumin 3.6 g/dL (3.5-5.0); Alkaline Phosphatase 71 U/L (38-126); Anion Gap 12 mmol/L; Blood Urea Nitrogen 13 mg/dL (9-20); Calcium 9.1 mg/dL (8.4-10.2); Carbon Dioxide 22 mmol/L (22-30); Chloride 108 mmol/L (98-107); Glucose 95 mg/dL (74-99); Non-African American GFR(CKD) 72 (>60 ml/min/1.73 sqM); Potassium 3.4 mmol/L (3.5-5.1); Sodium 142 mmol/L (137-145); Total Bilirubin 0.4 mg/dL (0.2-1.3); Total Protein 7.3 g/dL (6.3-8.2)
[2022-10-17] MEDS ORDERED: MORPHINE SULFATE 4 MG/ML SYRINGE IVP STA (22:49)
[2022-10-17] MEDS ORDERED: HYDROmorphone 1 MG/ML 1 ML SYRINGE IVP STA (23:09)
[2022-10-17] MEDS ORDERED: ONDANSETRON 4 MG/2 ML VIAL IVP PRN (23:18)
[2022-10-17] MEDS ORDERED: NALOXONE 0.4 MG/ML 1 ML VIAL IV PRN (23:18)
[2022-10-17 23:46] LABS: Basophils % (A) 1 %; Eosinophils # (A) 0.6 k/uL (0-0.7); Eosinophils % (A) 6 %; HCT 31.1 % (39.0-53.0); HGB 10.6 gm/dL (13.0-17.5); Lymphocytes # (A) 1.6 k/uL (1.0-4.8); Lymphocytes % (A) 18 %; MCH 29.2 pg (25.0-35.0); Mean Platelet Volume 7.5; Monocytes # (A) 0.6 k/uL (0-1.0); Monocytes % (A) 6 %; Neutrophils # (A) 6.2 k/uL (1.3-7.7); Neutrophils % (A) 68 %; Platelet Count 551 k/uL (150-450); RBC 3.62 m/uL (4.30-5.90); WBC 9.1 k/uL (3.8-10.6)
[2022-10-18 00:12] LABS: MCV 85.8 fL (80.0-100.0)
[2022-10-18] MEDS ORDERED: HYDROmorphone 1 MG/ML 1 ML SYRINGE IVP STA (00:41)
[2022-10-18] MEDS ORDERED: diphenhydrAMINE 50 MG/ML 1 ML VIAL IVP STA (00:42)
[2022-10-18] MEDS: HYDROmorphone 0.5 MG/0.5 ML SYRINGE IVP PRN ×3 (01:10→09:28)
[2022-10-18] MEDS: SODIUM CHLORIDE 0.9% 1,000 ML IV SCH ×2 (01:33→01:46)
--- NOTE | 2022-10-18 08:14 | CT ---
EXAMINATION TYPE: CT sinus w con DATE OF EXAM: 10/18/2022 COMPARISON: 08/31/2022 HISTORY: Maxillary osteomyelitis. CT DLP: 649.2 mGycm Automated exposure control for dose reduction was used. Contrast: 100 mL Isovue-300 Technique: Axial images 2 mm thick sections. Reconstructed images in the coronal and sagittal planes. FINDINGS: There is opacification of the ethmoid air cells. Air-fluid levels are within the sphenoid sinuses. Th ere is an air-fluid level and debris within the maxillary sinuses. Findings have worsened within the maxillary sinuses. Remaining paranasal sinuses appear stable. Frontal sinuses are aplastic. There is destruction of the septum inferiorly note is made of loss of cortex near the maxillary spine . This is progressive from comparison. Left Mastoid air cells contain fluid. Right mastoid air cells appear clear. Medial orbital torre and orbital floors appear intact. IMPRESSION: 1. FINDINGS COMPATIBLE WITH SOME PROGRESSION OF OSTEOMYELITIS OF THE MAXILLA NEAR THE MAXILLARY SPINE AND HARD PALATE. 2. MUCOSAL THICKENING AND AIR-FLUID LEVELS AND DEBRIS THROUGHOUT THE PARANASAL SINUSES. THIS MAY BE W ORSENING WITHIN THE MAXILLARY SINUSES. 3. DESTRUCTION OF THE INFERIOR SEPTUM.
[2022-10-18] MEDS ORDERED: LORazepam 0.5 MG TAB PO PRN (10:41)
[2022-10-18] MEDS ORDERED: BENZOCAINE SPRAY 1 CAN MUCOUS MEM PRN (10:41)
[2022-10-18] MEDS ORDERED: ESCITALOPRAM 10 MG TAB PO SCH (10:45)
[2022-10-18] MEDS: HYDROmorphone 1 MG/ML 1 ML SYRINGE IVP PRN ×3 (12:25→18:48)
--- NOTE | 2022-10-18 13:27 | P.HPIM ---
History of Present Illness H&P Date: 10/18/22 Chief Complaint: Sore throat This is a 57-year-old gentleman with history of left maxillary osteomyelitis with persistent symptoms on IV antibiotics and antifungals in the outpatient setting, status post recent bedside rhinoscope at [facility], scheduled to see his ENT, Dr. De Souza today. Still in need of biopsy/cultures. Reports nasal bleeding, a fever yesterday of 100.2. Positive maxillary sinus pain. Toxicology screen pending. Patient has previously been advised to proceed to [facility], where he is established at, as there are no ENTs available to him at this site. Denies any chest pain, palpitations or shortness of breath. Maintaining O2 sats in the mid to high 90s on room air. Afebrile, T- max 99.5, normal WBC. BMP, CRP, pro-calcitonin pending. CT of sinuses pending. ID consult in place. Review of Systems ROS Statement: Those systems with pertinent positive or pertinent negative responses have been documented in the HPI. ROS Other: All systems not noted in ROS Statement are negative. Past Medical History Past Medical History: Hypertension Additional Past Medical History / Comment(s): bone throat infection History of Any Multi-Drug Resistant Organisms: MRSA Date of last positivie culture/infection: 07/19/22 MDRO Source:: Throat Past Surgical History: Orthopedic Surgery Additional Past Surgical History / Comment(s): avascular necrosis rt hip Past Anesthesia/Blood Transfusion Reactions: No Reported Reaction Past Psychological History: No Psychological Hx Reported Smoking Status: Never smoker Past Alcohol Use History: None Reported Past Drug Use History: None Reported - Past Family History Mother Family Medical History: Dialysis Medications and Allergies Home Medications Medication Instructions Recorded Confirmed Type Escitalopram [Lexapro] 10 mg PO DAILY 08/13/22 10/18/22 History LORazepam [Ativan] 0.5 mg PO HS PRN 08/13/22 10/18/22 History Levothyroxine Sodium [Synthroid] 50 mcg PO DAILY 08/13/22 10/18/22 History Pantoprazole [Protonix] 40 mg PO DAILY 08/13/22 10/18/22 History traZODone HCL [Desyrel] 50 mg PO HS 08/13/22 10/18/22 History Benzocaine [place] [Hurricaine [place]] 1 applic MUCOUS MEM QID PRN 08/27/22 10/18/22 History Anidulafungin [Eraxis] 100 mg IV DAILY #28 each 09/13/22 10/18/22 Rx Ertapenem [INVanz] 1 gm IVPB Q24H #28 each 09/13/22 10/18/22 Rx Mupirocin 2% Oint [Bactroban 2% 1 applic TOPICAL TID #0 each 09/13/22 10/18/22 Rx Oint] Nystatin 100,000 Unit/ml Susp 3,000,000 unit PO TID ml 09/13/22 10/18/22 Rx [Mycostatin Oral Susp] amLODIPine [Norvasc] 10 mg PO DAILY #30 tab 09/13/22 10/18/22 Rx Allergies Allergy/AdvReac Type Severity Reaction Status Date / Time No Known Allergies Allergy Verified 10/18/22 08:39 Physical Exam Vitals: Vital Signs Temp Pulse Pulse Resp BP BP Pulse Ox 10/18/22 07:00 97.3 F L 68 16 164/99 96 10/18/22 02:00 16 10/18/22 00:50 98.2 F 90 16 153/94 95 10/17/22 23:49 98.6 F 88 16 160/100 10/17/22 19:42 99.5 F 93 20 176/102 Intake and Output 10/17/22 10/18/22 10/18/22 22:59 06:59 14:59 Other: # Voids 2 Weight 73.482 kg 73.482 kg - Exam Gen: well developed male in NAD, ambulating in room. HEENT: sinus erythema, crusting, trachea central, no thyromegaly CV: RRR, no edema Lungs: Unlabored , equal air entry, coarse, occasional rhonchi scattered Abdomen: Soft, nontender, positive bowel sounds NEURO: Cranial nerves II through XII grossly intact. Results CBC & Chem 7: 10/17/22 23:25 10/17/22 20:37 Labs: Abnormal Lab Results - Last 24 Hours (Table) 10/17/22 10/17/22 Range/Units 20:37 23:25 RBC 3.62 L (4.30-5.90) m/uL Hgb 10.6 L (13.0-17.5) gm/dL Hct 31.1 L (39.0-53.0) % Plt Count 551 H (150-450) k/uL Potassium 3.4 L (3.5-5.1) mmol/L Chloride 108 H (98-107) mmol/L AST 14 L (17-59) U/L Thrombosis Risk Factor Assmnt - Choose All That Apply Any of the Below Risk Factors Present?: Yes Each Factor Represents 1 point: Age 41-60 years Other Risk Factors: Yes Other congenital or acquired thrombophilia - If yes, enter type in comment: No Thrombosis Risk Factor Assessment Total Risk Factor Score: 1 Thrombosis Risk Factor Assessment Level: Low Risk Assessment and Plan Assessment: Chronic maxillary osteomyelitis, not responding to outpatient IV treatment, suspect possible progression, possible malignancy Chronic sinusitis Cocaine abuse Plan: Continue on current medication regime ,monitoring and symptomatic treatment. Despite months of IV antibiotics and antifungal's, symptoms continue to persists. Infectious disease recommending transfer. Patient in need of ENT evaluation-not currently available at this site, appropriate biopsy/cultures, therefore we'll transfer patient to [facility]. Transfer process initiated. The impression and plan of care has been dictated as directed. : I performed a history and examination of this patient, discussed the same with the dictator. I agree with the dictator's note ,documented as a scribe. Any a dditional findings or plans will be noted.
[2022-10-18 14:10] LABS: Amphetamine Screen,Urine Not Detected (NotDetected); Barbiturate Screen,Urine Not Detected (NotDetected); Benzodiazepines Screen,Urine Not Detected (NotDetected); Cocaine Screen,Urine Detected (NotDetected); Methadone Screen, Urine Not Detected (NotDetected); Opiate Screen,Urine Detected (NotDetected); Oxycodone Screen, Urine Not Detected (NotDetected); Phencyclidine Screen,Urine Not Detected (NotDetected); Tricyclic Antidepressant,Urine Not Detected (NotDetected); Urn Cannabinoid Scrn Not Detected (NotDetected)
[2022-10-18 14:30] LABS: African American GFR (CKD) 77 (>60 ml/min/1.73 sqM); Anion Gap 12 mmol/L; Blood Urea Nitrogen 12 mg/dL (9-20); Calcium 9.2 mg/dL (8.4-10.2); Carbon Dioxide 24 mmol/L (22-30); Chloride 105 mmol/L (98-107); Glucose 79 mg/dL (74-99); Non-African American GFR(CKD) 67 (>60 ml/min/1.73 sqM); Potassium 3.8 mmol/L (3.5-5.1); Sodium 141 mmol/L (137-145)
[2022-10-18 15:11] VITALS: BP 165/92; PULSE 77; RESP 18; TEMP 98.1
[2022-10-18] MEDS ORDERED: NYSTATIN 100,000 UNIT/ML SUSP 500,000 UNIT/5 ML CUP PO SCH ×2 (16:00→18:00)
[2022-10-18 17:40] LABS: HIV 2 AB Non-Reactive (Non-Reactive); HIV AB P24 Non-Reactive (Non-Reactive); HIV P24 AG Non-Reactive (Non-Reactive)
[2022-10-18] MEDS ORDERED: traZODone HCL 50 MG TAB PO SCH (21:00)
--- NOTE | 2022-10-18 21:46 | P.CONS ---
History of Present Illness - Reason for Consult Consult date: 10/18/22 History of thrush pneumonia on IV antibiotics Requesting physician: Jean Paul Grant - Chief Complaint Increasing shortness of breath x few days - History of Present Illness Patient is a 57-year-old male with a past medical history significant for recurrent sinusitis and the patient was admitted at [facility] few months ago with the patient was diagnosed with a left maxillary osteomyelitis did not have any cultures done apparently MRSA screen was negative and the patient was advised 6-day course of IV Rocephin subsequently did have a multiple admission to this facility and her last admission we tried to transfer the patient out to tertiary care per advice of the ENT however despite waiting in the hospital for almost 10 days could not be done patient at that time did show some clinic improvement with IV Invanz and Eraxis and the patient wanted to go home to continue with these antibiotics antifungal and to follow-up with his ENT patient mention subsequently he was admitted at [facility] however the ENT was try to do the biopsy without any sedation and causing him so much pain so he left we will try to get those records to the office but were not successful patient now presenting to [facility] ER last night complaining of sore throat patient mention he did have a difficulty swallowing and the patient also noticed to have a worsening pain to the left maxillary area more of a sharp and throbbing pain 7- 8 out of 10 and radiation and did have some bloodstained drainage to the nostril area patient on presentation to the hospital did have low-grade fever of 99.5 F patient was not tachycardic hypotensive or hypoxic patient did have a normal white count kidney function was normal liver enzymes are normal patient did have a chest x-ray no acute cardiopulmonary disease process I did obtain a CT of the sinuses this morning which did shows findings compatible with some progression of the osteomyelitis of the maxilla near the maxillary spine and hard palate mucosal thickening and air-fluid levels and debris throughout the paranasal sinuses this may be worsening with the maxillary sinus and description of the inferior septum infectious disease was consulted for further management patient did have a urine testing coming back positive with cocaine and opiates Review of Systems Positive point and negatives has been mentioned in the HPI, complete review of systems was performed and all other systems are negative Past Medical History Past Medical History: Hypertension Additional Past Medical History / Comment(s): bone throat infection History of Any Multi-Drug Resistant Organisms: MRSA Year Discovered:: 07/19/22 MDRO Source:: Throat Past Surgical History: Orthopedic Surgery Additional Past Surgical History / Comment(s): avascular necrosis rt hip Past Anesthesia/Blood Transfusion Reactions: No Reported Reaction Past Psychological History: No Psychological Hx Reported Smoking Status: Never smoker Past Alcohol Use History: None Reported Past Drug Use History: None Reported - Past Family History Mother Family Medical History: Dialysis Medications and Allergies Home Medications Medication Instructions Recorded Confirmed Type Escitalopram [Lexapro] 10 mg PO DAILY 08/13/22 10/18/22 History LORazepam [Ativan] 0.5 mg PO HS PRN 08/13/22 10/18/22 History Levothyroxine Sodium [Synthroid] 50 mcg PO DAILY 08/13/22 10/18/22 History Pantoprazole [Protonix] 40 mg PO DAILY 08/13/22 10/18/22 History traZODone HCL [Desyrel] 50 mg PO HS 08/13/22 10/18/22 History Benzocaine [place] [Hurricaine [place]] 1 applic MUCOUS MEM QID PRN 08/27/22 10/18/22 History Anidulafungin [Eraxis] 100 mg IV DAILY #28 each 09/13/22 10/18/22 Rx Ertapenem [INVanz] 1 gm IVPB Q24H #28 each 09/13/22 10/18/22 Rx Mupirocin 2% Oint [Bactroban 2% 1 applic TOPICAL TID #0 each 09/13/22 10/18/22 Rx Oint] amLODIPine [Norvasc] 10 mg PO DAILY #30 tab 09/13/22 10/18/22 Rx Nystatin 100,000 Unit/ml Susp 500,000 units PO QID 10/18/22 10/18/22 History [Mycostatin Oral Susp] Allergies Allergy/AdvReac Type Severity Reaction Status Date / Time No Known Allergies Allergy Verified 10/18/22 08:39 Physical Exam Vitals: Vital Signs Temp Pulse Pulse Resp BP BP Pulse Ox 10/18/22 07:00 97.3 F L 68 16 164/99 96 10/18/22 02:00 16 10/18/22 00:50 98.2 F 90 16 153/94 95 10/17/22 23:49 98.6 F 88 16 160/100 10/17/22 19:42 99.5 F 93 20 176/102 Intake and Output 10/17/22 10/18/22 10/18/22 22:59 06:59 14:59 Other: # Voids 2 Weight 73.482 kg 73.482 kg GENERAL DESCRIPTION: Middle-aged male lying in bed, no distress. No tachypnea or accessory muscle of respiration use. HEENT: Shows Pallor , no scleral icterus. Oral mucous membrane is dry. Patient did have drainage and crusting at bilateral nasal passages NECK: Trachea central, no thyromegaly. LUNGS: Unlabored breathing. Clear to auscultation anteriorly. No wheeze or crackle. HEART: S1, S2, regular rate and rhythm. No loud murmur ABDOMEN: Soft, no tenderness , guarding or rigidity, no organomegaly EXTREMITIES: No edema of feet. SKIN: No rash, no masses palpable. NEUROLOGICAL: The patient is awake, alert, oriented x3, mood and affect normal. Results CBC & Chem 7: 10/17/22 23:25 10/18/22 08:19 Labs: Abnormal Lab Results - Last 24 Hours (Table) 10/17/22 10/17/22 Range/Units 20:37 23:25 RBC 3.62 L (4.30-5.90) m/uL Hgb 10.6 L (13.0-17.5) gm/dL Hct 31.1 L (39.0-53.0) % Plt Count 551 H (150-450) k/uL Potassium 3.4 L (3.5-5.1) mmol/L Chloride 108 H (98-107) mmol/L AST 14 L (17-59) U/L Assessment and Plan (1) Acute osteomyelitis of maxilla Status: Acute Code(s): M27.2 - INFLAMMATORY CONDITIONS OF JAWS SNOMED Code(s): 898925429 (2) Failure of outpatient treatment Status: Acute Code(s): Z78.9 - OTHER SPECIFIED HEALTH STATUS SNOMED Code(s): 523478571 Plan: 1patient with history of left maxillary osteomyelitis at [facility] no culture at that facility subsequently admission at this hospital ENT recommended the patient to be transferred to tertiary care which cannot be done he did have multiple blood culture those has been negative patient did show some improvement with Invanz and Eraxis and the patient is getting outpatient IV antibiotic therapy and did have admission at [facility] however patient did not have any diagnostic work-up done at this facility now present to hospital with worsening symptoms patient did not have any fever however worsening destructive changes has been seen on the CT and the patient also tested positive for cocaine again with a question of worsening related to his drug use versus a malignancy or worsening infection 2-recommended to transfer the patient to thecare with the ENT came to washout and deep bone biopsy as well as cultures for better definition of underlying pathology this has been discussed with the admitting team and they are working on transfer at this point 3-patient to be empirically treated with Zosyn and Eraxis at this point 4-check inflammatory markers We will follow on clinical condition and cultures to further adjust medication if needed Thank you for this consultation we will follow the patient along with you Dictation was produced using [employer] dictation software. please excuse any grammatical, word or spelling errors. Time with Patient: Greater than 30
[2022-10-19] MEDS ORDERED: PIPERACILLIN-TAZOBACTAM 3.375 GM in SODIUM CHLORIDE 0.9% 100 ML IVPB SCH ×2
[2022-10-19] MEDS ORDERED: LEVOTHYROXINE 50 MCG TAB PO SCH (06:30)
[2022-10-19] MEDS ORDERED: PANTOPRAZOLE 40 MG TABLET PO SCH (07:30)
[2022-10-19] MEDS ORDERED: amLODIPine 10 MG TAB PO SCH (09:00)
[2022-10-19] MEDS ORDERED: ANIDULAFUNGIN 100 MG in SODIUM CHLORIDE 0.9% 100 ML IVPB SCH (09:00)
== END 2022-10-19 00:11 | disposition other institution (70) ==
LOC: EC 19:04 → 6NMEDSUR 23:23
PROVIDERS: ADMIT Family Medicine; ATTEND Family Medicine
DX: M27.2 Inflammatory conditions of jaws (principal); B37.0 Candidal stomatitis; J02.9 Acute pharyngitis, unspecified; J32.9 Chronic sinusitis, unspecified; I10 Essential (primary) hypertension; F14.10 Cocaine abuse, uncomplicated; Z79.899 Other long term (current) drug therapy; Z79.890 Hormone replacement therapy; Z87.01 Personal history of pneumonia (recurrent); Z86.14 Personal history of Methicillin resistant Staphylococcus aureus infection; Z98.890 Other specified postprocedural states; Z84.2 Family history of other diseases of the genitourinary system
CPT/HCPCS: 96376; 96375 ×2; 96374; 99284; 36415; 80053; 80048; 85652; 85025; 86140; 80306; 87390; 84145; 71046; 70487; G0378 ×2; J2270; J1200; J2405; J1170 ×2; J1885; Q9967

== ENCOUNTER 2022-11-14 01:01 | Observation (INO) | payer BC ==
[2022-11-14] MEDS ORDERED: SODIUM CHLORIDE 0.9% 1,000 ML IV STA (01:27)
[2022-11-14] MEDS ORDERED: LEVOFLOXACIN 750MG-D5W PMX 750 MG in DEXTROSE/WATER 1 150ML.BAG IVPB STA (01:27)
[2022-11-14] MEDS ORDERED: HYDROmorphone 1 MG/ML 1 ML SYRINGE IVP STA (01:27)
[2022-11-14] MEDS ORDERED: SODIUM CHLORIDE 0.9% 500 ML 500 ML IV STA (01:27)
[2022-11-14] MEDS ORDERED: AMPICILLIN-SULBACTAM 3 GM in SODIUM CHLORIDE 0.9% 100 ML IVPB STA (01:27)
--- NOTE | 2022-11-14 01:30 | ED ---
ENT HPI - General Chief complaint: ENT Stated complaint: Unable to swallow Time Seen by Provider: 11/14/22 01:27 Source: patient, RN notes reviewed, old records reviewed Mode of arrival: ambulatory Limitations: no limitations - History of Present Illness Initial comments: This is a 57-year-old male to the emergency department today for evaluation patient presents today for evaluation regards to severe nose infection significant sinus infection and oral throat infection with inability to eat or drink inability take antibiotics and significant weight loss nausea vomiting diarrhea. Severe pain neck pain throat pain nose pain. Head pain and ear pain. Patient has no active fevers. Patient states he cannot take down his antibiotics at home MD complaint: sore throat, epistaxis, ear pain, difficulty swallowing -: days(s) Location: R ear, L ear, nose, throat Severity: severe Severity scale (1-10): 9 Quality: aching Consistency: constant Improves with: none Worsens with: none Context- Ear: recent illness Associated Symptoms: sore throat - Related Data Home Medications Medication Instructions Recorded Confirmed Escitalopram [Lexapro] 10 mg PO DAILY 08/13/22 11/14/22 LORazepam [Ativan] 0.5 mg PO HS PRN 08/13/22 11/14/22 Levothyroxine Sodium [Synthroid] 50 mcg PO DAILY 08/13/22 11/14/22 Pantoprazole [Protonix] 40 mg PO DAILY 08/13/22 11/14/22 traZODone HCL [Desyrel] 50 mg PO HS PRN 08/13/22 11/14/22 Benzocaine [place] [Hurricaine [place]] 1 applic MUCOUS MEM QID PRN 08/27/22 11/14/22 Nystatin 100,000 Unit/ml Susp 500,000 units PO QID 10/18/22 11/14/22 [Mycostatin Oral Susp] Bacitracin Zinc Oint 1 applic TOPICAL HS 11/14/22 11/14/22 QUEtiapine [SEROquel] 50 mg PO HS 11/14/22 11/14/22 Previous Rx's Medication Instructions Recorded amLODIPine [Norvasc] 10 mg PO DAILY #30 tab 09/13/22 Fluconazole [Diflucan] 100 mg PO DAILY 7 Days #7 tablet 11/15/22 Levofloxacin [Levaquin] 750 mg PO DAILY #10 tab 11/15/22 Allergies Allergy/AdvReac Type Severity Reaction Status Date / Time No Known Allergies Allergy Verified 11/14/22 01:06 Review of Systems ROS Statement: Those systems with pertinent positive or pertinent negative responses have been documented in the HPI. ROS Other: All systems not noted in ROS Statement are negative. Past Medical History Past Medical History: Hypertension Additional Past Medical History / Comment(s): bone throat infection History of Any Multi-Drug Resistant Organisms: MRSA Date of last positivie culture/infection: 07/19/22 MDRO Source:: Throat Past Surgical History: Orthopedic Surgery Additional Past Surgical History / Comment(s): avascular necrosis rt hip Past Anesthesia/Blood Transfusion Reactions: No Reported Reaction Past Psychological History: No Psychological Hx Reported Smoking Status: Never smoker Past Alcohol Use History: None Reported Past Drug Use History: None Reported - Past Family History Mother Family Medical History: Dialysis General Exam Limitations: no limitations General appearance: alert, in no apparent distress Head exam: Present: atraumatic, normocephalic, normal inspection Eye exam: Present: normal appearance, PERRL, EOMI. Absent: scleral icterus, conjunctival injection, periorbital swelling ENT exam: Present: normal oropharynx, other (Significant abnormal mucous membranes) Neck exam: Present: normal inspection. Absent: tenderness, meningismus, lymphadenopathy Respiratory exam: Present: normal lung sounds bilaterally. Absent: respiratory distress, wheezes, rales, rhonchi, stridor Cardiovascular Exam: Present: regular rate, normal rhythm, normal heart sounds. Absent: systolic murmur, diastolic murmur, rubs, gallop, clicks GI/Abdominal exam: Present: soft, normal bowel sounds. Absent: distended, tenderness, guarding, rebound, rigid Extremities exam: Present: normal inspection, full ROM, normal capillary refill. Absent: tenderness, pedal edema, joint swelling, calf tenderness Back exam: Present: normal inspection Neurological exam: Present: alert, oriented X3, CN II-XII intact Psychiatric exam: Present: normal affect, normal mood Skin exam: Present: warm, dry, intact, normal color. Absent: rash Course Vital Signs 11/14/22 11/14/22 11/14/22 01:03 03:00 05:00 Temperature 98.2 F Pulse Rate 99 78 72 Respiratory 18 18 21 Rate Blood Pressure 176/116 174/106 168/90 O2 Sat by Pulse 99 97 97 Oximetry - Reevaluation(s) Reevaluation #1: 11/14/22 02:57 Medical records reviewed Reevaluation #2: 11/14/22 02:57 Patient symptoms unchanged Reevaluation #3: 11/14/22 02:57 Patient informed results questions answered Reevaluation #4: 11/14/22 02:57 Was pt. sent in by a medical professional or institution (JIM Castorena, HEEL SPRAYER, urgent care, hospital, or care home...) When possible be specific @ -no Did you speak to anyone other than the patient for history (EMS, parent, family, police, friend...)? What history was obtained from this source @ -no Did you review nursing and triage notes (agree or disagree)? Why? @ -agree Are old charts reviewed (outside hosp., previous admission, EMS record, old EKG, old radiological studies, urgent care reports/EKG's, care home records)? Report findings @ -yes Differential Diagnosis (chest pain, altered mental status, abdominal pain women, abdominal pain men, vaginal bleeding, weakness, fever, dyspnea, syncope, headache, dizziness, GI bleed, back pain, seizure, CVA, palpatations, mental health, musculoskeletal)? @ -prior EKG interpreted by me (3pts min.). @ -no X-rays interpreted by me (1pt min.). @ -no CT interpreted by me (1pt min.). @ -no U/S interpreted by me (1pt. min.). @ -no What testing was considered but not performed or refused? (CT, X-rays, U/S, labs)? Why? @ -none What meds were considered but not given or refused? Why? @ -none Did you discuss the management of the patient with other professionals (professionals i.e. JIM Castorena, HEEL SPRAYER, lab, RT, psych nurse, mental health social worker, brick shader, te acher, air defence officer, catalytic case operator)? Give summary @ -no Was smoking cessation discussed for >3mins.? @ -no Was critical care preformed (if so, how long)? @ -no Were there social determinants of health that impacted care today? How? (Homelessness, low income, unemployed, alcoholism, drug addiction, transportation, low edu. Level, literacy, decrease access to med. care, correction, rehab)? @ -none Was there de-escalation of care discussed even if they declined (Discuss DNR or withdrawal of care, Hospice)? DNR status @ -no What co-morbidities impacted this encounter? (DM, HTN, Smoking, COPD, CAD, Cancer, CVA, ARF, Chemo, Hep., AIDS, mental health diagnosis, sleep apnea, morbid obesity)? @ -none Was patient admitted / discharged? Hospital course, mention meds given and route, prescriptions, significant lab abnormalities, going to OR and other pertinent info. @ - 57 male to the ER for evaluation. Patient will be admitted for IV antibiotics as he isn't tolerating anything oral, for significant sinusitis Admitted Undiagnosed new problem with uncertain prognosis? @ -no Drug Therapy requiring intensive monitoring for toxicity (Heparin, Nitro, Insulin, Cardizem)? @ -no Were any procedures done? @ -no Diagnosis/symptom? @ -Sinusitis with nausea and vomiting Acute, or Chronic, or Acute on Chronic? @ -Acute Uncomplicated (without systemic symptoms) or Complicated (systemic symptoms)? @ -Complicated Side effects of treatment? @ -no Exacerbation, Progression, or Severe Exacerbation? @ -exacerbation Poses a threat to life or bodily function? How? (Chest pain, [place], [place], pneumonia, PE, COPD, DKA, ARF, appy, cholecystitis, CVA, Diverticulitis, Homicidal, Suicidal, threat to staff... and all critical care pts) @ -yes with sepsis - Consultations Consultation #1: Spoke with [facility] were agrees to admit this patient Medical Decision Making - Medical Decision Making 57 male to the ER for evaluation. Patient will be admitted for IV antibiotics as he isn't tolerating anything oral, - Lab Data Result diagrams: 11/15/22 05:35 11/15/22 05:35 Lab Results 11/14/22 11/14/22 11/14/22 Range/Units 02:10 02:10 02:10 WBC 6.7 (3.8-10.6) k/uL RBC 3.92 L (4.30-5.90) m/uL Hgb 10.7 L (13.0-17.5) gm/dL Hct 32.2 L (39.0-53.0) % MCV 82.2 (80.0-100.0) fL MCH 27.3 (25.0-35.0) pg MCHC 33.2 (31.0-37.0) g/dL RDW 14.8 (11.5-15.5) % Plt Count 569 H (150-450) k/uL MPV 6.7 Neutrophils % 72 % Lymphocytes % 17 % Monocytes % 7 % Eosinophils % 2 % Basophils % 0 % Neutrophils # 4.8 (1.3-7.7) k/uL Lymphocytes # 1.1 (1.0-4.8) k/uL Monocytes # 0.5 (0-1.0) k/uL Eosinophils # 0.1 (0-0.7) k/uL Basophils # 0.0 (0-0.2) k/uL PT 10.8 (9.0-12.0) sec INR 1.0 (<1.2) APTT 29.3 (22.0-30.0) sec Sodium 141 (137-145) mmol/L Potassium 3.6 (3.5-5.1) mmol/L Chloride 106 (98-107) mmol/L Carbon Dioxide 22 (22-30) mmol/L Anion Gap 13 mmol/L BUN 19 (9-20) mg/dL Creatinine 1.63 H (0.66-1.25) mg/dL Est GFR (CKD-EPI)AfAm 54 (>60 ml/min/1.73 sqM) Est GFR (CKD-EPI)NonAf 47 (>60 ml/min/1.73 sqM) Glucose 104 H (74-99) mg/dL Calcium 9.2 (8.4-10.2) mg/dL Phosphorus 3.5 (2.5-4.5) mg/dL Magnesium 1.8 (1.6-2.3) mg/dL Total Bilirubin 0.4 (0.2-1.3) mg/dL AST 13 L (17-59) U/L ALT 9 (4-49) U/L Alkaline Phosphatase 66 (38-126) U/L Total Protein 7.0 (6.3-8.2) g/dL Albumin 3.5 (3.5-5.0) g/dL Disposition Clinical Impression: Thrush, Sore throat, History of pneumonia, Failure of outpatient treatment, Paranasal sinus disease, Fever, Nausea & vomiting, Sinusitis Disposition: ADMITTED IP TO THIS HOSP Condition: Fair Is patient prescribed a controlled substance at d/c from ED?: No Time of Disposition: 03:00
[2022-11-14 02:27] LABS: Basophils % (A) 0 %; Eosinophils # (A) 0.1 k/uL (0-0.7); Eosinophils % (A) 2 %; HCT 32.2 % (39.0-53.0); HGB 10.7 gm/dL (13.0-17.5); Lymphocytes # (A) 1.1 k/uL (1.0-4.8); Lymphocytes % (A) 17 %; MCH 27.3 pg (25.0-35.0); MCHC 33.2 g/dL (31.0-37.0); MCV 82.2 fL (80.0-100.0); Mean Platelet Volume 6.7; Monocytes # (A) 0.5 k/uL (0-1.0); Monocytes % (A) 7 %; Neutrophils # (A) 4.8 k/uL (1.3-7.7); Neutrophils % (A) 72 %; Platelet Count 569 k/uL (150-450); RBC 3.92 m/uL (4.30-5.90); RDW 14.8 % (11.5-15.5); WBC 6.7 k/uL (3.8-10.6)
[2022-11-14 02:33] LABS: Partial Thromboplastin Time 29.3 sec (22.0-30.0); Prothrombin Time 10.8 sec (9.0-12.0)
[2022-11-14 02:34] LABS: ALT 9 U/L (4-49); AST 13 U/L (17-59); African American GFR (CKD) 54 (>60 ml/min/1.73 sqM); Albumin 3.5 g/dL (3.5-5.0); Alkaline Phosphatase 66 U/L (38-126); Anion Gap 13 mmol/L; Blood Urea Nitrogen 19 mg/dL (9-20); Calcium 9.2 mg/dL (8.4-10.2); Carbon Dioxide 22 mmol/L (22-30); Chloride 106 mmol/L (98-107); Glucose 104 mg/dL (74-99); Magnesium 1.8 mg/dL (1.6-2.3); Non-African American GFR(CKD) 47 (>60 ml/min/1.73 sqM); Phosphorus 3.5 mg/dL (2.5-4.5); Potassium 3.6 mmol/L (3.5-5.1); Sodium 141 mmol/L (137-145); Total Bilirubin 0.4 mg/dL (0.2-1.3)
[2022-11-14] MEDS ORDERED: NALOXONE 0.4 MG/ML 1 ML VIAL IV PRN (02:52)
[2022-11-14] MEDS ORDERED: ONDANSETRON 4 MG/2 ML VIAL IVP PRN (02:52)
[2022-11-14] MEDS: SODIUM CHLORIDE 0.9% 1,000 ML IV SCH ×2 (05:02→18:37)
[2022-11-14] MEDS: HYDROmorphone 1 MG/ML 1 ML SYRINGE IVP PRN ×4 (08:53→21:35)
[2022-11-14] MEDS: AMPICILLIN-SULBACTAM 3 GM in SODIUM CHLORIDE 0.9% 100 ML IVPB SCH ×2 (10:27→18:35)
[2022-11-14] MEDS: hydrALAZINE HCL 20 MG/ML 1 ML VIAL IVP PRN (10:28)
--- NOTE | 2022-11-14 12:30 | P.HPIM ---
History of Present Illness 53-year-old male with with history of maxillary osteomyelitis given his recent ascites and dysphagia related to the sinusitis and possible fungal esophagitis. Patient is unable to eat or drink as of this severe sinusitis patient creatinine went up to 1.6 the patient is scheduled get that sinus surgery and surgery for maxillary osteomyelitis. Patient the past has multiple hospitalizations for these and was on multiple antibiotics from her previous medical records here patient was on meropenem and antifungals as an outpatient which was subsequently discontinued and patient was on oral antibiotics. Patient continued to have w orsening symptoms of dysphagia nasal discharge and dysphagia because of which patient came to ER.. REVIEW OF SYSTEMS: CONSTITUTIONAL: No fever, no malaise, no fatigue. HEENT: Dysphagia nasal discharge CARDIOVASCULAR: No chest pain, orthopnea, PND, no palpitations, no syncope. PULMONARY: No shortness of breath, no cough, no hemoptysis. GASTROINTESTINAL: No diarrhea, no nausea, no vomiting, no abdominal pain. NEUROLOGICAL: No headaches, no weakness, no numbness. HEMATOLOGICAL: Denies any bleeding or petechiae. GENITOURINARY: Denies any burning micturition, frequency, or urgency. MUSCULOSKELETAL/RHEUMATOLOGICAL: Denies any joint pain, swelling, or any muscle pain. ENDOCRINE: Denies any polyuria or polydipsia. The rest of the 14-point review of systems is negative. PHYSICAL EXAMINATION: GENERAL: The patient is alert and oriented x3, not in any acute distress. Well developed, well nourished. HEENT: Pupils are round and equally reacting to light. EOMI. No scleral icterus. No conjunctival pallor. Patient has significant purulent discharge from the nose and there is a bony deformity of the maxilla, patient does have oral thrush No pharyngeal erythema. No thyromegaly. CARDIOVASCULAR: S1 and S2 present. No murmurs, rubs, or gallops. PULMONARY: Chest is clear to auscultation, no wheezing or crackles. ABDOMEN: Soft, nontender, nondistended, normoactive bowel sounds. No palpable organomegaly. MUSCULOSKELETAL: No joint swelling or deformity. EXTREMITIES: No cyanosis, clubbing, or pedal edema. NEUROLOGICAL: Gross neurological examination did not reveal any focal deficits. SKIN: No rashes. Assessment and plan -Acute back to sinusitis, maxillary osteomyelitis: Patient was started on Zosyn and levofloxacin, infectious disease was consulted further antibiotics depending on ID recommendations -Dysphagia most probably secondary to fungal esophagitis although gases visual reflux disease and esophagitis secondary to acid reflux cannot be ruled out patient will be started on Protonix and IV antifungals. --Acute renal failure, prerenal azotemia, secondary to poor by mouth intake patient was started on IV fluids be sent creatinine around 1 present creatinine 1.63 --Hypertension -Her vascular necrosis of right hip history DVT prophylaxis: Lovenox Past Medical History Past Medical History: Hypertension Additional Past Medical History / Comment(s): bone throat infection History of Any Multi-Drug Resistant Organisms: MRSA Date of last positivie culture/infection: 07/19/22 MDRO Source:: Throat Past Surgical History: Orthopedic Surgery Additional Past Surgical History / Comment(s): avascular necrosis rt hip Past Anesthesia/Blood Transfusion Reactions: No Reported Reaction Past Psychological History: No Psychological Hx Reported Smoking Status: Never smoker Past Alcohol Use History: None Reported Past Drug Use History: None Reported - Past Family History Mother Family Medical History: Dialysis Medications and Allergies Home Medications Medication Instructions Recorded Confirmed Type Escitalopram [Lexapro] 10 mg PO DAILY 08/13/22 10/18/22 History LORazepam [Ativan] 0.5 mg PO HS PRN 08/13/22 10/18/22 History Levothyroxine Sodium [Synthroid] 50 mcg PO DAILY 08/13/22 10/18/22 History Pantoprazole [Protonix] 40 mg PO DAILY 08/13/22 10/18/22 History traZODone HCL [Desyrel] 50 mg PO HS 08/13/22 10/18/22 History Benzocaine [place] [Hurricaine [place]] 1 applic MUCOUS MEM QID PRN 08/27/22 10/18/22 History Anidulafungin [Eraxis] 100 mg IV DAILY #28 each 09/13/22 10/18/22 Rx Ertapenem [INVanz] 1 gm IVPB Q24H #28 each 09/13/22 10/18/22 Rx Mupirocin 2% Oint [Bactroban 2% 1 applic TOPICAL TID #0 each 09/13/22 10/18/22 Rx Oint] amLODIPine [Norvasc] 10 mg PO DAILY #30 tab 09/13/22 10/18/22 Rx Nystatin 100,000 Unit/ml Susp 500,000 units PO QID 10/18/22 10/18/22 History [Mycostatin Oral Susp] Allergies Allergy/AdvReac Type Severity Reaction Status Date / Time No Known Allergies Allergy Verified 11/14/22 01:06 Physical Exam Vitals: Vital Signs Temp Pulse Pulse Resp BP BP Pulse Ox 11/14/22 07:56 98.4 F 79 16 177/81 95 11/14/22 05:00 72 21 168/90 97 11/14/22 03:00 78 18 174/106 97 11/14/22 01:03 98.2 F 99 18 176/116 99 Intake and Output 11/13/22 11/14/22 11/14/22 22:59 06:59 14:59 Other: Weight 67.585 kg Results CBC & Chem 7: 11/14/22 02:10 11/14/22 02:10 Labs: Abnormal Lab Results - Last 24 Hours (Table) 11/14/22 11/14/22 Range/Units 02:10 02:10 RBC 3.92 L (4.30-5.90) m/uL Hgb 10.7 L (13.0-17.5) gm/dL Hct 32.2 L (39.0-53.0) % Plt Count 569 H (150-450) k/uL Creatinine 1.63 H (0.66-1.25) mg/dL Glucose 104 H (74-99) mg/dL AST 13 L (17-59) U/L
[2022-11-14] MEDS: PANTOPRAZOLE 40 MG/10 ML VIAL IVP SCH ×2 (13:54→21:36)
[2022-11-14] MEDS: FLUCONAZOLE IN NACL,ISO-OSM 100 MG in SALINE 1 50ML.BAG IVPB SCH (13:54)
--- NOTE | 2022-11-14 14:01 | XR ---
EXAMINATION TYPE: XR chest 2V DATE OF EXAM: 11/14/2022 COMPARISON: 10/17/2022 HISTORY: Shortness of breath TECHNIQUE: Frontal and lateral views of the chest are obtained. FINDINGS: Scattered senescent parenchymal changes noted. Hyperinflation compatible with COPD. No evidence for infiltrate. No evidence for atelectasis. Heart size is stable. Mediastinal structures are stable and grossly unremarkable. No evidence for hilar prominence. Degenerative changes dorsal spine. IMPRESSION: 1. No evidence for acute pulmonary disease.
--- NOTE | 2022-11-14 14:53 | P.CONS ---
History of Present Illness - Reason for Consult Consult date: 11/14/22 failed outpatient antibiotic Requesting physician: Phuong Conklin - Chief Complaint Shortness of breath and cough x few days - History of Present Illness Patient is a 57-year-old male with a past medical history difficult for left maxillary osteomyelitis with initial diagnosis made at [facility] and the patient has been treated with multiple courses of antibiotics as well as antifungals patient did have a multiple admission to this hospital fo r the same reason and ENT has advised the patient to be transferred to tertiary care and they have not been able to do any biopsy or culture for him last admission the patient was transferred to [facility] unfortunately they did not do any biopsy or cultures remove his PICC line and send him home on oral Augmentin patient mention his subsequently he did follow-up with his own ENT who has set up his appointment to be seen at [facility] on December 01, 2022. Patient now presenting to the hospital last night for evaluation of nose infection with inability to eat or drink and inability to take his antibiotics and almost 8 pound weight loss over the last few weeks patient denies fever or chills and no fever has been recorded during this hospital stay patient is not tachycardic hypotensive or hypoxic and no need for supplemental oxygen patient did have a normal white count creatinine mild elevated 1.63 AST was mildly elevated patient did have blood cultures drawn which are currently pending chest x-ray was negative for acute pulmonary disease patient was started on Levaquin and Unasyn infectious disease was consulted for further management of antibiotic therapy, the patient main symptom remains to be feeling weak unable to eat anything complaining of having a cough and is being of some purulent sputum no worsening pain to the sinuses did have some drainage from his left nostril no nausea vomiting or any diarrhea Review of Systems Positive point and negatives has been mentioned in the HPI, complete review of systems was performed and all other systems are negative Past Medical History Past Medical History: Hypertension Additional Past Medical History / Comment(s): bone throat infection History of Any Multi-Drug Resistant Organisms: MRSA Year Discovered:: 07/19/22 MDRO Source:: Throat Past Surgical History: Orthopedic Surgery Additional Past Surgical History / Comment(s): avascular necrosis rt hip Past Anesthesia/Blood Transfusion Reactions: No Reported Reaction Past Psychological History: No Psychological Hx Reported Smoking Status: Never smoker Past Alcohol Use History: None Reported Past Drug Use History: None Reported - Past Family History Mother Family Medical History: Dialysis Medications and Allergies Home Medications Medication Instructions Recorded Confirmed Type Escitalopram [Lexapro] 10 mg PO DAILY 08/13/22 11/14/22 History LORazepam [Ativan] 0.5 mg PO HS PRN 08/13/22 11/14/22 History Levothyroxine Sodium [Synthroid] 50 mcg PO DAILY 08/13/22 11/14/22 History Pantoprazole [Protonix] 40 mg PO DAILY 08/13/22 11/14/22 History traZODone HCL [Desyrel] 50 mg PO HS PRN 08/13/22 11/14/22 History Benzocaine [place] [Hurricaine [place]] 1 applic MUCOUS MEM QID PRN 08/27/22 History amLODIPine [Norvasc] 10 mg PO DAILY #30 tab 09/13/22 11/14/22 Rx Nystatin 100,000 Unit/ml Susp 500,000 units PO QID 10/18/22 11/14/22 History [Mycostatin Oral Susp] Bacitracin Zinc Oint 1 applic TOPICAL HS 11/14/22 11/14/22 History QUEtiapine [SEROquel] 50 mg PO HS 11/14/22 11/14/22 History Fluconazole [Diflucan] 100 mg PO DAILY 7 Days #7 tablet 11/15/22 Rx Levofloxacin [Levaquin] 750 mg PO DAILY #10 tab 11/15/22 Rx Allergies Allergy/AdvReac Type Severity Reaction Status Date / Time No Known Allergies Allergy Verified 11/14/22 01:06 Physical Exam Vitals: Vital Signs Temp Pulse Pulse Resp BP BP Pulse Ox 11/14/22 07:56 98.4 F 79 16 177/81 95 11/14/22 05:00 72 21 168/90 97 11/14/22 03:00 78 18 174/106 97 11/14/22 01:03 98.2 F 99 18 176/116 99 Intake and Output 11/13/22 11/14/22 11/14/22 22:59 06:59 14:59 Other: Weight 67.585 kg GENERAL DESCRIPTION: Middle-aged male lying in bed, no distress. No tachypnea or accessory muscle of respiration use. HEENT: Shows Pallor , no scleral icterus. Oral mucous membrane is dry. Did have a crusting to the left nostril area NECK: Trachea central, no thyromegaly. LUNGS: Unlabored breathing. Coarse Sounds Bilaterally HEART: S1, S2, regular rate and rhythm. No loud murmur ABDOMEN: Soft, no tenderness , EXTREMITIES: No edema of feet. SKIN: No rash, no masses palpable. NEUROLOGICAL: The patient is awake, alert, oriented x3, mood and affect normal. Results CBC & Chem 7: 11/15/22 05:35 11/15/22 05:35 Labs: Abnormal Lab Results - Last 24 Hours (Table) 11/14/22 11/14/22 Range/Units 02:10 02:10 RBC 3.92 L (4.30-5.90) m/uL Hgb 10.7 L (13.0-17.5) gm/dL Hct 32.2 L (39.0-53.0) % Plt Count 569 H (150-450) k/uL Creatinine 1.63 H (0.66-1.25) mg/dL Glucose 104 H (74-99) mg/dL AST 13 L (17-59) U/L Assessment and Plan (1) Acute osteomyelitis of maxilla Status: Acute Code(s): M27.2 - INFLAMMATORY CONDITIONS OF JAWS SNOMED Code (s): 392691351 (2) Failure of outpatient treatment Status: Acute Code(s): Z78.9 - OTHER SPECIFIED HEALTH STATUS SNOMED Code(s): 233606527 Plan: 1patient with a chronic left maxillary sinusitis and there was a concern for left maxillary osteomyelitis on the basis of the CT with evidence of destruction unfortunately patient has been evaluated multiple ENT however no cultures has been done or any biopsy to better define underlying pathology and the patient ke ep on coming to this facility and ENT has been seeing to transfer the patient to tertiary care as the patient really needs biopsy of the area and culture and antibiotic on the basis of those cultures instead of empiric treatment as the patient has received multiple weeks of IV antibiotics empirically without resolution of his symptoms this has been explained to the patient multiple times in simple Peruvian and was explained to the patient again 2we will repeat his inflammatory markers and once his creatinine improves will benefit from another CAT scan to the sinuses with contrast 3strongly advised the patient to be transferred to tertiary care 4May continue Unasyn however discontinue Levaquin and add antifungals Prognosis guarded We will follow on clinical condition and cultures to further adjust medication if needed Thank you for this consultation we will follow the patient along with you Dictation was produced using [employer] dictation software. please excuse any grammatical, word or spelling errors. Time with Patient: Greater than 30
[2022-11-14 17:09] LABS: Amphetamine Screen,Urine Not Detected (NotDetected); Barbiturate Screen,Urine Not Detected (NotDetected); Benzodiazepines Screen,Urine Not Detected (NotDetected); Cocaine Screen,Urine Detected (NotDetected); Methadone Screen, Urine Not Detected (NotDetected); Opiate Screen,Urine Detected (NotDetected); Oxycodone Screen, Urine Not Detected (NotDetected); Phencyclidine Screen,Urine Not Detected (NotDetected); Tricyclic Antidepressant,Urine Not Detected (NotDetected); Urn Cannabinoid Scrn Not Detected (NotDetected)
[2022-11-15] MEDS: HYDROmorphone 1 MG/ML 1 ML SYRINGE IVP PRN ×3 (01:41→09:52)
[2022-11-15] MEDS: hydrALAZINE HCL 20 MG/ML 1 ML VIAL IVP PRN (01:42)
[2022-11-15] MEDS: AMPICILLIN-SULBACTAM 3 GM in SODIUM CHLORIDE 0.9% 100 ML IVPB SCH ×2 (02:53→11:02)
[2022-11-15] MEDS ORDERED: LEVOFLOXACIN 750MG-D5W PMX 750 MG in DEXTROSE/WATER 1 150ML.BAG IVPB SCH (04:00)
[2022-11-15] MEDS: SODIUM CHLORIDE 0.9% 1,000 ML IV SCH (06:35)
--- NOTE | 2022-11-15 08:37 | P.DS ---
Providers Date of admission: 11/14/22 02:53 Expected date of discharge: 11/15/22 Attending physician: Angelica Pak Consults: 11/14/22 08:01 Consult Physician Routine Consulting Provider: Carolyn Soler Consult Reason/Comments: Failed O.P antibiotic treatment chronic sinusitis Do you want consulting provider notified?: Yes Primary care physician: [facility] Course: 53-year-old male with with history of maxillary osteomyelitis given his recent ascites and dysphagia related to the sinusitis and possible fungal esophagitis. Patient is unable to eat or drink as of this severe sinusitis patient creatinine went up to 1.6 the patient is scheduled get that sinus surgery and surgery for maxillary osteomyelitis. Patient the past has multiple hospitalizations for these and was on multiple antibiotics from her previous medical records here patient was on meropenem and antifungals as an outpatient which was subsequently discontinued and patient was on oral antibiotics. Patient continued to have worsening symptoms of dysphagia nasal discharge and dysphagia because of which patient came to ER.. 11/15/22. Pt evaluated and continues to complain of sinus congestion and sore throat. WBC 6.7, UDS positive for cocaine again. Pt extensively counseled on cocaine cessation. Recommended to complete course of levaquin and diflucan and follow up with his regular ENT as an outpatient. Patient Condition at Discharge: Fair Plan - Discharge Summary Discharge Rx Participant: Yes New Discharge Prescriptions: New Fluconazole [Diflucan] 100 mg PO DAILY 7 Days #7 tablet Levofloxacin [Levaquin] 750 mg PO DAILY #10 tab Continue Levothyroxine Sodium [Synthroid] 50 mcg PO DAILY Escitalopram [Lexapro] 10 mg PO DAILY Pantoprazole [Protonix] 40 mg PO DAILY LORazepam [Ativan] 0.5 mg PO HS PRN PRN Reason: Anxiety Nystatin 100,000 Unit/ml Susp [Mycostatin Oral Susp] 500,000 units PO QID Bacitracin Zinc Oint 1 applic TOPICAL HS traZODone HCL [Desyrel] 50 mg PO HS PRN PRN Reason: SLEEP Benzocaine [place] [Hurricaine [place]] 1 applic MUCOUS MEM QID PRN PRN Reason: Sore Throat amLODIPine [Norvasc] 10 mg PO DAILY #30 tab QUEtiapine [SEROquel] 50 mg PO HS Discharge Medication List Escitalopram [Lexapro] 10 mg PO DAILY 08/13/22 [History] LORazepam [Ativan] 0.5 mg PO HS PRN 08/13/22 [History] Levothyroxine Sodium [Synthroid] 50 mcg PO DAILY 08/13/22 [History] Pantoprazole [Protonix] 40 mg PO DAILY 08/13/22 [History] traZODone HCL [Desyrel] 50 mg PO HS PRN 08/13/22 [History] Benzocaine [place] [Hurricaine [place]] 1 applic MUCOUS MEM QID PRN 08/27/22 [History] amLODIPine [Norvasc] 10 mg PO DAILY #30 tab 09/13/22 [Rx] Nystatin 100,000 Unit/ml Susp [Mycostatin Oral Susp] 500,000 units PO QID 10/18/22 [History] Bacitracin Zinc Oint 1 applic TOPICAL HS 11/14/22 [History] QUEtiapine [SEROquel] 50 mg PO HS 11/14/22 [History] Fluconazole [Diflucan] 100 mg PO DAILY 7 Days #7 tablet 11/15/22 [Rx] Levofloxacin [Levaquin] 750 mg PO DAILY #10 tab 11/15/22 [Rx] Follow up Appointment(s)/Referral(s): Azul Kothari DO [Primary Care Provider] - 1-2 days Discharge Disposition: HOME SELF-CARE
[2022-11-15 08:41] LABS: Basophils # (A) 0.06 X 10*3/uL (0.00-0.10); Basophils % (A) 1.3 %; Eosinophils # (A) 0.31 X 10*3/uL (0.04-0.35); Eosinophils % (A) 6.7 %; HCT 31.3 % (39.6-50.0); HGB 10.2 d/dL (13.0-17.0); Lymphocytes # (A) 1.44 X 10*3/uL (0.90-5.00); Lymphocytes % (A) 31.2 %; MCH 27.3 pg (27.0-32.0); MCHC 32.6 d/dL (32.0-37.0); MCV 83.7 FL (80.0-97.0); Mean Platelet Volume 8.8 FL (9.5-12.2); Monocytes # (A) 0.56 X 10*3/uL (0.20-1.00); Monocytes % (A) 12.1 %; NRBC Per 100 WBC 0 X 10*3/uL (0.00-0.01); Neutrophils # (A) 2.24 X 10*3/uL (1.80-7.70); Neutrophils % (A) 48.5 %; Platelet Count 491 X 10*3/uL (140-440); RBC 3.74 X 10*6/uL (4.40-5.60); RDW 14.3 % (11.5-14.5); WBC 4.62 X 10*3/uL (4.50-10.00)
[2022-11-15 08:54] VITALS: BP 175/96; PULSE 78; RESP 18; TEMP 98.3
[2022-11-15] MEDS: FLUCONAZOLE IN NACL,ISO-OSM 100 MG in SALINE 1 50ML.BAG IVPB SCH (09:28)
[2022-11-15] MEDS: PANTOPRAZOLE 40 MG/10 ML VIAL IVP SCH (09:28)
[2022-11-15] MEDS: ENOXAPARIN 40 MG/0.4 ML SYRINGE SQ SCH ×2 (09:28→09:38)
[2022-11-15 10:14] LABS: Erythrocyte Sedimentation Rate 52 mm/Hr (0-20)
[2022-11-15 10:17] LABS: ALT 8 U/L (10-49); AST 11 U/L (14-35); Albumin 3.5 d/dL (3.8-4.9); Albumin/Globulin Ratio 1.25 Ratio (1.60-3.17); Alkaline Phosphatase 58 U/L (41-126); BUN/Creat Ratio 9.82 Ratio (12.00-20.00); Blood Urea Nitrogen 10.8 mg/dL (9.0-27.0); Calcium 8.9 mg/dL (8.7-10.3); Carbon Dioxide 22.3 mmol/L (21.6-31.8); Chloride 105 mmol/L (96-109); Globulin 2.8 d/dL (1.6-3.3); Glucose 69 mg/dL (70-110); Potassium 3.5 mmol/L (3.5-5.5); Sodium 140 mmol/L (135-145); Total Bilirubin 0.3 mg/dL (0.3-1.2); Total Protein 6.3 d/dL (6.2-8.2)
--- NOTE | 2022-11-22 16:27 | P.PN ---
Subjective Progress Note Date: 11/15/22 Principal diagnosis: Maxillary osteomyelitis Patient is a 57-year-old male with a past medical history difficult for left maxillary osteomyelitis with initial diagnosis made at [facility] and the patient has been treated with multiple courses of antibiotics as well as antifungals patient did have a multiple admission to this hospital for the same reason and ENT has advised the patient to be transferred to tertiary care and they have not been able to do any biopsy or culture for him, recently treated at [facility] and the patient was sent home on oral Augmentin subsequently presented to hospital with worsening symptoms. On today's evaluation that is 11/15/2022, the patient denies having any fever or any chills, still complaining of nasal drainage shortness of breath and cough no vomiting or any other changes reported by the nursing staff, patient has been evaluated by admitting team and the patient has been discharged with instruction to follow with ENT in the outpatient setting Objective - Vital Signs Vital signs: Vital Signs Temp 98.3 F 11/15/22 07:00 Pulse 78 11/15/22 07:00 Resp 18 11/15/22 07:00 BP 175/96 11/15/22 07:00 Pulse Ox 97 11/15/22 07:00 FiO2 Intake & Output 11/14/22 11/15/22 11/15/22 18:59 06:59 18:59 Weight 67.585 kg Other: # Voids 1 1 # Bowel Movements 0 - Exam GENERAL DESCRIPTION: A middle-age in bed in no distress RESPIRATORY SYSTEM: Unlabored breathing , decreased breath sounds at bases HEART: S1 S2 regular rate and rhythm , ABDOMEN: Soft , no tenderness EXTREMITIES: No edema feet - Labs CBC & Chem 7: 11/15/22 05:35 11/15/22 05:35 Labs: Abnormal Lab Results - Last 24 Hours (Table) 11/14/22 11/15/22 11/15/22 Range/Units 16:18 05:35 05:35 RBC 3.74 L (4.40-5.60) X 10*6/uL Hgb 10.2 L (13.0-17.0) d/dL Hct 31.3 L (39.6-50.0) % Plt Count 491 H (140-440) X 10*3/uL MPV 8.8 L (9.5-12.2) FL ESR 52 H (0-20) mm/Hr Anion Gap (4.00-12.00) mmol/L BUN/Creatinine Ratio (12.00-20.00) Ratio Glucose (70-110) mg/dL AST (14-35) U/L ALT (10-49) U/L C-Reactive Protein (0.00-0.80) mg/dL Albumin (3.8-4.9) d/dL Albumin/Globulin Ratio (1.60-3.17) Ratio Procalcitonin 0.14 H (0.02-0.09) ng/mL Urine Opiates Screen Detected H (NotDetected) Urine Cocaine Screen Detected H (NotDetected) 11/15/22 Range/Units 05:35 RBC (4.40-5.60) X 10*6/uL Hgb (13.0-17.0) d/dL Hct (39.6-50.0) % Plt Count (140-440) X 10*3/uL MPV (9.5-12.2) FL ESR (0-20) mm/Hr Anion Gap 12.70 H (4.00-12.00) mmol/L BUN/Creatinine Ratio 9.82 L (12.00-20.00) Ratio Glucose 69 L (70-110) mg/dL AST 11 L (14-35) U/L ALT 8 L (10-49) U/L C-Reactive Protein 6.80 H (0.00-0.80) mg/dL Albumin 3.5 L (3.8-4.9) d/dL Albumin/Globulin Ratio 1.25 L (1.60-3.17) Ratio Procalcitonin (0.02-0.09) ng/mL Urine Opiates Screen (NotDetected) Urine Cocaine Screen (NotDetected) Assessment and Plan (1) Acute osteomyelitis of maxilla Status: Acute Code(s): M27.2 - INFLAMMATORY CONDITIONS OF JAWS SNOMED Code(s): 299973647 (2) Failure of outpatient treatment Status: Acute Code(s): Z78.9 - OTHER SPECIFIED HEALTH STATUS SNOMED Code(s): 137972479 Plan: 1patient with a chronic left maxillary sinusitis and there was a concern for left maxillary osteomyelitis on the basis of the CT with evidence of destruction unfortunately patient has been evaluated multiple ENT however no cultures has been done or any biopsy to better define underlying pathology and the patient keep on coming to this facility and ENT has been seeing to transfer the patient to tertiary care as the patient really needs biopsy of the area and culture and antibiotic on the basis of those cultures instead of empiric treatment as the patient has received multiple weeks of IV antibiotics empirically without resolution of his symptoms this has been explained to the patient multiple times in simple [place]ian and was explained to the patient again 2patient has been discharged by admitting team this morning, with instructions to follow with ENT patient mentioned he is going to [facility] once discharged from here Dictation was produced using [employer] dictation software. please excuse any grammatical, word or spelling errors. Time with Patient: Less than 30
== END 2022-11-15 11:41 | disposition home or self-care (01) ==
LOC: EC 01:01 → 6NMEDSUR 02:53
PROVIDERS: ADMIT Family Medicine; ATTEND Family Medicine
DX: M27.2 Inflammatory conditions of jaws (principal); R13.10 Dysphagia, unspecified; J32.9 Chronic sinusitis, unspecified; N17.9 Acute kidney failure, unspecified; I10 Essential (primary) hypertension; R62.7 Adult failure to thrive; Z79.899 Other long term (current) drug therapy; Z79.890 Hormone replacement therapy; Z86.14 Personal history of Methicillin resistant Staphylococcus aureus infection; Z87.01 Personal history of pneumonia (recurrent); Z71.51 Drug abuse counseling and surveillance of drug abuser; Z78.9 Other specified health status; R79.89 Other specified abnormal findings of blood chemistry; Z84.1 Family history of disorders of kidney and ureter
CPT/HCPCS: 96376 ×2; 96361 ×2; 96366 ×3; 96367; 96375 ×3; 96365; 99285; 36415; 92610; 80053 ×2; 85652; 83735; 84100; 85025 ×2; 85610; 85730; 86140; 87040; 80306; 84145; 71046; G0378 ×2; J0360 ×2; J2405; J1450 ×2; J1170 ×2; J1956; J0295 ×2; C9113 ×2

== ENCOUNTER 2023-08-19 12:20 | Emergency (ER) | payer BC ==
[2023-08-19 12:28] VITALS: BP 186/137; PULSE 101; RESP 18; TEMP 97.9
== END 2023-08-19 14:39 | disposition left against medical advice (07) ==
LOC: EC 12:20
DX: R11.2 Nausea with vomiting, unspecified (principal); Z53.29 Procedure and treatment not carried out because of patient's decision for other reasons
CPT/HCPCS: 87636; 99499

== ENCOUNTER 2023-09-17 16:35 | Inpatient (IN) | payer BC ==
--- NOTE | 2023-09-17 17:12 | ED ---
Nausea/Vomiting/Diarrhea HPI - General Chief complaint: Nausea/Vomiting/Diarrhea Stated complaint: vomitting Time Seen by Provider: 09/17/23 17:10 Source: patient, RN notes reviewed, old records reviewed Mode of arrival: ambulatory Limitations: no limitations - History of Present Illness Initial comments: This is a 58-year-old male to the ER for evaluation today. Patient presents today for evaluation regards to severe nausea vomiting abdominal pain chest pain belly pain. Patient states symptoms began after a long travel today. Patient just got off a flight went home and was unable to keep anything down with severe nausea vomiting and epigastric abdominal pain chest pain. MD complaint: nausea, vomiting, abdominal pain -: days(s) Associated Abdominal Pain: Yes Location: diffuse Radiation: none Severity: moderate Severity scale (1-10): 4 Quality: cramping, stabbing, aching Consistency: constant Improves with: none Worsens with: none Associated Symptoms: myalgias, chest pain, loss of appetite, nausea/vomiting, weakness - Related Data Home Medications Medication Instructions Recorded Confirmed Pantoprazole [Protonix] 40 mg PO DAILY 08/13/22 09/18/23 Benzocaine [place] [Hurricaine [place]] 1 applic MUCOUS MEM QID PRN 08/27/22 09/18/23 Furosemide [Lasix] 40 mg PO DAILY 09/18/23 09/18/23 Hydromorphone 1mg/Ml 5 mg PO Q8H PRN 09/18/23 09/18/23 Insulin Glargine-Yfgn [Semglee 5 unit SQ HS 09/18/23 09/18/23 (Yfgn) Pen] Lidocaine Viscous 2% [Xylocaine 5 ml MUCOUS MEM TID PRN 09/18/23 09/18/23 Viscous] Ondansetron [Zofran] 4 mg PO Q8H PRN 09/18/23 09/18/23 QUEtiapine [SEROquel] 400 mg PO HS 09/18/23 09/18/23 Sodium Chloride 0.65% Nasal [Deep 1 spr EA NOSTRIL BID PRN 09/18/23 09/18/23 Sea (Saline)] Previous Rx's Medication Instructions Recorded amLODIPine [Norvasc] 10 mg PO DAILY #30 tab 09/13/22 Amoxic-Pot Clav 875-125Mg 1 tab PO BID 10 Days #20 tab 09/21/23 [Augmentin 875-125] predniSONE 10 mg PO DIRECTED #30 tab 09/21/23 Allergies Allergy/AdvReac Type Severity Reaction Status Date / Time No Known Allergies Allergy Verified 09/18/23 12:08 Review of Systems ROS Statement: Those systems with pertinent positive or pertinent negative responses have been documented in the HPI. ROS Other: All systems not noted in ROS Statement are negative. Past Medical History Past Medical History: Hypertension Additional Past Medical History / Comment(s): bone throat infection History of Any Multi-Drug Resistant Organisms: MRSA Date of last positivie culture/infection: 07/19/22 MDRO Source:: Throat Past Surgical History: Orthopedic Surgery Additional Past Surgical History / Comment(s): avascular necrosis rt hip Past Anesthesia/Blood Transfusion Reactions: No Reported Reaction Past Psychological History: No Psychological Hx Reported Smoking Status: Never smoker Past Alcohol Use History: None Reported Past Drug Use History: None Reported - Past Family History Mother Family Medical History: Dialysis General Exam Limitations: no limitations General appearance: alert, in no apparent distress Head exam: Present: atraumatic, normocephalic, normal inspection Eye exam: Present: normal appearance, PERRL, EOMI. Absent: scleral icterus, conjunctival injection, periorbital swelling ENT exam: Present: normal exam, mucous membranes moist Neck exam: Present: normal inspection. Absent: tenderness, meningismus, lymphadenopathy Respiratory exam: Present: normal lung sounds bilaterally. Absent: respiratory distress, wheezes, rales, rhonchi, stridor Cardiovascular Exam: Present: regular rate, normal rhythm, normal heart sounds. Absent: systolic murmur, diastolic murmur, rubs, gallop, clicks GI/Abdominal exam: Present: soft, normal bowel sounds. Absent: distended, tenderness, guarding, rebound, rigid Extremities exam: Present: normal inspection, full ROM, normal capillary refill. Absent: tenderness, pedal edema, joint swelling, calf tenderness Back exam: Present: normal inspection Neurological exam: Present: alert, oriented X3, CN II-XII intact Psychiatric exam: Present: normal affect, normal mood Skin exam: Present: warm, dry, intact, normal color. Absent: rash Course Vital Signs 09/17/23 09/17/23 09/17/23 16:50 19:50 20:00 Temperature 99.7 F H 99.5 F Pulse Rate 113 H 86 Respiratory 18 16 Rate Blood Pressure 185/113 183/112 O2 Sat by Pulse 95 97 Oximetry 09/17/23 09/17/23 21:57 23:01 Temperature 98.8 F Pulse Rate 96 84 Respiratory 20 18 Rate Blood Pressure 175/123 148/90 O2 Sat by Pulse 97 97 Oximetry - Reevaluation(s) Reevaluation #1: 09/17/23 18:41 Medical record is reviewed Reevaluation #2: 09/17/23 18:41 Patient symptoms improved Reevaluation #3: 09/17/23 18:41 Patient informed of results and questions answered Reevaluation #4: Was pt. sent in by a medical professional or institution (, JIM, AIR [employer]VE [employer]CH[employer]IC, urgent care, hospital, or long-term...) When possible be specific @ -no Did you speak to anyone other than the patient for history (EMS, parent, family, police, friend...)? What history was obtained from this source @ -no Did you review nursing and triage notes (agree or disagree)? Why? @ -agree Are old charts reviewed (outside hosp., previous admission, EMS record, old EKG, old radiological studies, urgent care reports/EKG's, long-term records)? Report findings @ -yes Differential Diagnosis (chest pain, altered mental status, abdominal pain women, abdominal pain men, vaginal bleeding, weakness, fever, dyspnea, syncope, headache, dizziness, GI bleed, back pain, seizure, CVA, palpatations, mental health, musculoskeletal)? @ -prior EKG interpreted by me (3pts min.). @ -yes X-rays interpreted by me (1pt min.). @ -no CT interpreted by me (1pt min.). @ -Yes positive for pneumonia U/S interpreted by me (1pt. min.). @ -no What testing was considered but not performed or refused? (CT, X-rays, U/S, labs)? Why? @ -none What meds were considered but not given or refused? Why? @ -none Did you discuss the management of the patient with other professionals (professionals i.e. JIM Castorena, [employer]CH[employer]IC, lab, RT, psych nurse, director social, junior linux systems administrator, teacher, special weapons and tactics officer, rn case mgr)? Give summary @ -no Was smoking cessation discussed for >3mins.? @ -no Was critical care preformed (if so, how long)? @ -no Were there social determinants of health that impacted care today? How? (Homelessness, low income, unemployed, alcoholism, drug addiction, transportation, low edu. Level, literacy, decrease access to med. care, assisted, rehab)? @ -none Was there de-escalation of care discussed even if they declined (Discuss DNR or withdrawal of care, Hospice)? DNR status @ -no What co-morbidities impacted this encounter? (DM, HTN, Smoking, COPD, CAD, Cancer, CVA, ARF, Chemo, Hep., AIDS, mental health diagnosis, sleep apnea, m orbid obesity)? @ -none Was patient admitted / discharged? Hospital course, mention meds given and route, prescriptions, significant lab abnormalities, going to OR and other pertinent info. @ - 58 male to ER for evaluation presents today for evaluation of nausea vomiting and abdominal pain no cough or congestion but does have fever with pneumonia on CT scan we will place on antibiotics Admitted Undiagnosed new problem with uncertain prognosis? @ -no Drug Therapy requiring intensive monitoring for toxicity (Heparin, Nitro, Insulin, Cardizem)? @ -no Were any procedures done? @ -no Diagnosis/symptom? @ -Pneumonia Acute, or Chronic, or Acute on Chronic? @ -Acute Uncomplicated (without systemic symptoms) or Complicated (systemic symptoms)? @ -Complicated Side effects of treatment? @ -no Exacerbation, Progression, or Severe Exacerbation? @ -exacerbation Poses a threat to life or bodily function? How? (Chest pain, USA, NC, pneumonia, PE, COPD, DKA, ARF, appy, cholecystitis, CVA, Diverticulitis, Homicidal, Suicidal, threat to staff... and all critical care pts) @ -yes with pneumonia chest pain abdominal pain Reevaluation #5: Differential Chest Pain: Stable Angina, Unstable Angina, STEMI, NSTEMI Aortic Dissection, Pneumothorax, Musculoskeletal, Esophageal Spasm GERD, Cholecystitis, Pancreatitis, Zoster, this is not meant to be an all-inclusive list. Differential Abdominal Pain Men: Appendicitis, cholecystitis, diverticulosis, ischemic bowel, pancreatitis, hepatitis, UTI, gastroenteritis, AAA, incarcerated hernia, bowel obstruction, constipation, inflammatory bowel, hepatitis, peptic ulcer disease, splenic infarction, perforated viscus, testicular torsion, this is not meant to be an all-inclusive list - Consultations Consultation #1: Spoke with [facility] who agrees to admit this patient Medical Decision Making - Medical Decision Making 58 male to ER for evaluation presents today for evaluation of nausea vomiting and abdominal pain no cough or congestion but does have fever on CT scan we will place on antibiotics - Lab Data Result diagrams: 09/20/23 11:05 09/20/23 11:05 Lab Results 09/17/23 09/17/23 09/17/23 Range/Units 17:31 17:31 17:31 WBC 12.3 H (3.8-10.6) k/uL RBC 4.07 L (4.30-5.90) m/uL Hgb 11.4 L (13.0-17.5) gm/dL Hct 35.8 L (39.0-53.0) % MCV 87.9 (80.0-100.0) fL MCH 28.1 (25.0-35.0) pg MCHC 31.9 (31.0-37.0) g/dL RDW 15.8 H (11.5-15.5) % Plt Count 380 (150-450) k/uL MPV 7.5 Neutrophils % 84 % Lymphocytes % 7 % Monocytes % 5 % Eosinophils % 2 % Basophils % 0 % Neutrophils # 10.3 H (1.3-7.7) k/uL Lymphocytes # 0.9 L (1.0-4.8) k/uL Monocytes # 0.6 (0-1.0) k/uL Eosinophils # 0.3 (0-0.7) k/uL Basophils # 0.0 (0-0.2) k/uL ESR (0-20) mm/Hr Sodium (137-145) mmol/L Potassium (3.5-5.1) mmol/L Chloride (98-107) mmol/L Carbon Dioxide (22-30) mmol/L Anion Gap mmol/L BUN (9-20) mg/dL Creatinine (0.66-1.25) mg/dL Est GFR (CKD-EPI)AfAm (>60 ml/min/1.73 sqM) Est GFR (CKD-EPI)NonAf (>60 ml/min/1.73 sqM) Glucose (74-99) mg/dL POC Glucose (mg/dL) (70-110) mg/dL POC Glu [employer] ID Estimated Ave Glu mg/dL mg/dL Hemoglobin A1c (<=6.0) % Plasma Lactic Acid Yevgeniy 1.3 (0.7-2.0) mmol/L Calcium (8.4-10.2) mg/dL Phosphorus (2.5-4.5) mg/dL Magnesium (1.6-2.3) mg/dL Total Bilirubin (0.2-1.3) mg/dL AST (17-59) U/L ALT (4-49) U/L Alkaline Phosphatase (38-126) U/L Troponin I <0.012 (0.000-0.034) ng/mL Total Protein (6.3-8.2) g/dL Albumin (3.5-5.0) g/dL Lipase (23-300) U/L Procalcitonin (0.02-0.09) ng/mL Urine Color Urine Appearance (Clear) Urine pH (5.0-8.0) Ur Specific [place] (1.001-1.035) Urine Protein (Negative) Urine Glucose (UA) (Negative) Urine Ketones (Negative) Urine Blood (Negative) Urine Nitrite (Negative) Urine Bilirubin (Negative) Urine Urobilinogen (<2.0) mg/dL Ur Leukocyte Esterase (Negative) c-ANCA (<1:20) Titer p-ANCA (<1:20) Titer Influenza Type A (PCR) (Not Detectd) Influenza Type B (PCR) (Not Detectd) Urine Legionella Ag (Negative) RSV (PCR) (Not Detectd) SARS-CoV-2 (PCR) (Not Detectd) 09/17/23 09/17/23 09/17/23 Range/Units 17:45 18:38 19:10 WBC (3.8-10.6) k/uL RBC (4.30-5.90) m/uL Hgb (13.0-17.5) gm/dL Hct (39.0-53.0) % MCV (80.0-100.0) fL MCH (25.0-35.0) pg MCHC (31.0-37.0) g/dL RDW (11.5-15.5) % Plt Count (150-450) k/uL MPV Neutrophils % % Lymphocytes % % Monocytes % % Eosinophils % % Basophils % % Neutrophils # (1.3-7.7) k/uL Lymphocytes # (1.0-4.8) k/uL Monocytes # (0-1.0) k/uL Eosinophils # (0-0.7) k/uL Basophils # (0-0.2) k/uL ESR (0-20) mm/Hr Sodium 141 (137-145) mmol/L Potassium 4.0 (3.5-5.1) mmol/L Chloride 110 H (98-107) mmol/L Carbon Dioxide 24 (22-30) mmol/L Anion Gap 7 mmol/L BUN 17 (9-20) mg/dL Creatinine 1.57 H (0.66-1.25) mg/dL Est GFR (CKD-EPI)AfAm 56 (>60 ml/min/1.73 sqM) Est GFR (CKD-EPI)NonAf 49 (>60 ml/min/1.73 sqM) Glucose 106 H (74-99) mg/dL POC Glucose (mg/dL) (70-110) mg/dL POC Glu [employer] ID Estimated Ave Glu mg/dL mg/dL Hemoglobin A1c (<=6.0) % Plasma Lactic Acid Yevgeniy (0.7-2.0) mmol/L Calcium 8.5 (8.4-10.2) mg/dL Phosphorus 2.3 L (2.5-4.5) mg/dL Magnesium 1.7 (1.6-2.3) mg/dL Total Bilirubin 0.7 (0.2-1.3) mg/dL AST 20 (17-59) U/L ALT 13 (4-49) U/L Alkaline Phosphatase 82 (38-126) U/L Troponin I (0.000-0.034) ng/mL Total Protein 5.8 L (6.3-8.2) g/dL Albumin 3.5 (3.5-5.0) g/dL Lipase 40 (23-300) U/L Procalcitonin (0.02-0.09) ng/mL Urine Color Colorless Urine Appearance Clear (Clear) Urine pH 7.0 (5.0-8.0) Ur Specific [place] 1.011 (1.001-1.035) Urine Protein Negative (Negative) Urine Glucose (UA) Negative (Negative) Urine Ketones Negative (Negative) Urine Blood Negative (Negative) Urine Nitrite Negative (Negative) Urine Bilirubin Negative (Negative) Urine Urobilinogen <2.0 (<2.0) mg/dL Ur Leukocyte Esterase Negative (Negative) c-ANCA (<1:20) Titer p-ANCA (<1:20) Titer Influenza Type A (PCR) Not Detected (Not Detectd) Influenza Type B (PCR) Not Detected (Not Detectd) Urine Legionella Ag (Negative) RSV (PCR) Not Detected (Not Detectd) SARS-CoV-2 (PCR) Not Detected (Not Detectd) 09/17/23 09/18/23 09/18/23 Range/Units 21:39 05:35 05:35 WBC 7.7 (3.8-10.6) k/uL RBC 3.82 L (4.30-5.90) m/uL Hgb 10.9 L (13.0-17.5) gm/dL Hct 34.1 L (39.0-53.0) % MCV 89.2 (80.0-100.0) fL MCH 28.6 (25.0-35.0) pg MCHC 32.1 (31.0-37.0) g/dL RDW 15.7 H (11.5-15.5) % Plt Count 403 (150-450) k/uL MPV 7.0 Neutrophils % 72 % Lymphocytes % 15 % Monocytes % 7 % Eosinophils % 4 % Basophils % 0 % Neutrophils # 5.5 (1.3-7.7) k/uL Lymphocytes # 1.2 (1.0-4.8) k/uL Monocytes # 0.5 (0-1.0) k/uL Eosinophils # 0.3 (0-0.7) k/uL Basophils # 0.0 (0-0.2) k/uL ESR (0-20) mm/Hr Sodium 140 (137-145) mmol/L Potassium 4.3 (3.5-5.1) mmol/L Chloride 110 H (98-107) mmol/L Carbon Dioxide 22 (22-30) mmol/L Anion Gap 8 mmol/L BUN 14 (9-20) mg/dL Creatinine 1.52 H (0.66-1.25) mg/dL Est GFR (CKD-EPI)AfAm 59 (>60 ml/min/1.73 sqM) Est GFR (CKD-EPI)NonAf 51 (>60 ml/min/1.73 sqM) Glucose 80 (74-99) mg/dL POC Glucose (mg/dL) (70-110) mg/dL POC Glu [employer] ID Estimated Ave Glu mg/dL mg/dL Hemoglobin A1c (<=6.0) % Plasma Lactic Acid Yevgeniy (0.7-2.0) mmol/L Calcium 8.9 (8.4-10.2) mg/dL Phosphorus 2.8 (2.5-4.5) mg/dL Magnesium 1.9 (1.6-2.3) mg/dL Total Bilirubin 0.7 (0.2-1.3) mg/dL AST 18 (17-59) U/L ALT 12 (4-49) U/L Alkaline Phosphatase 74 (38-126) U/L Troponin I (0.000-0.034) ng/mL Total Protein 5.8 L (6.3-8.2) g/dL Albumin 3.5 (3.5-5.0) g/dL Lipase (23-300) U/L Procalcitonin (0.02-0.09) ng/mL Urine Color Urine Appearance (Clear) Urine pH (5.0-8.0) Ur Specific [place] (1.001-1.035) Urine Protein (Negative) Urine Glucose (UA) (Negative) Urine Ketones (Negative) Urine Blood (Negative) Urine Nitrite (Negative) Urine Bilirubin (Negative) Urine Urobilinogen (<2.0) mg/dL Ur Leukocyte Esterase (Negative) c-ANCA (<1:20) Titer p-ANCA (<1:20) Titer Influenza Type A (PCR) (Not Detectd) Influenza Type B (PCR) (Not Detectd) Urine Legionella Ag Negative (Negative) RSV (PCR) (Not Detectd) SARS-CoV-2 (PCR) (Not Detectd) 09/18/23 09/18/23 09/18/23 Range/Units 11:12 11:31 13:31 WBC (3.8-10.6) k/uL RBC (4.30-5.90) m/uL Hgb (13.0-17.5) gm/dL Hct (39.0-53.0) % MCV (80.0-100.0) fL MCH (25.0-35.0) pg MCHC (31.0-37.0) g/dL RDW (11.5-15.5) % Plt Count (150-450) k/uL MPV Neutrophils % % Lymphocytes % % Monocytes % % Eosinophils % % Basophils % % Neutrophils # (1.3-7.7) k/uL Lymphocytes # (1.0-4.8) k/uL Monocytes # (0-1.0) k/uL Eosinophils # (0-0.7) k/uL Basophils # (0-0.2) k/uL ESR (0-20) mm/Hr Sodium (137-145) mmol/L Potassium (3.5-5.1) mmol/L Chloride (98-107) mmol/L Carbon Dioxide (22-30) mmol/L Anion Gap mmol/L BUN (9-20) mg/dL Creatinine (0.66-1.25) mg/dL Est GFR (CKD-EPI)AfAm (>60 ml/min/1.73 sqM) Est GFR (CKD-EPI)NonAf (>60 ml/min/1.73 sqM) Glucose (74-99) mg/dL POC Glucose (mg/dL) 120 H (70-110) mg/dL POC Glu [employer] Veronika Novak [address] Glu mg/dL mg/dL Hemoglobin A1c (<=6.0) % Plasma Lactic Acid Yevgeniy (0.7-2.0) mmol/L Calcium (8.4-10.2) mg/dL Phosphorus (2.5-4.5) mg/dL Magnesium (1.6-2.3) mg/dL Total Bilirubin (0.2-1.3) mg/dL AST (17-59) U/L ALT (4-49) U/L Alkaline Phosphatase (38-126) U/L Troponin I <0.012 <0.012 (0.000-0.034) ng/mL Total Protein (6.3-8.2) g/dL Albumin (3.5-5.0) g/dL Lipase (23-300) U/L Procalcitonin (0.02-0.09) ng/mL Urine Color Urine Appearance (Clear) Urine pH (5.0-8.0) Ur Specific [place] (1.001-1.035) Urine Protein (Negative) Urine Glucose (UA) (Negative) Urine Ketones (Negative) Urine Blood (Negative) Urine Nitrite (Negative) Urine Bilirubin (Negative) Urine Urobilinogen (<2.0) mg/dL Ur Leukocyte Esterase (Negative) c-ANCA (<1:20) Titer p-ANCA (<1:20) Titer Influenza Type A (PCR) (Not Detectd) Influenza Type B (PCR) (Not Detectd) Urine Legionella Ag (Negative) RSV (PCR) (Not Detectd) SARS-CoV-2 (PCR) (Not Detectd) 09/18/23 09/19/23 09/19/23 Range/Units 20:16 03:16 05:29 WBC (3.8-10.6) k/uL RBC (4.30-5.90) m/uL Hgb (13.0-17.5) gm/dL Hct (39.0-53.0) % MCV (80.0-100.0) fL MCH (25.0-35.0) pg MCHC (31.0-37.0) g/dL RDW (11.5-15.5) % Plt Count (150-450) k/uL MPV Neutrophils % % Lymphocytes % % Monocytes % % Eosinophils % % Basophils % % Neutrophils # (1.3-7.7) k/uL Lymphocytes # (1.0-4.8) k/uL Monocytes # (0-1.0) k/uL Eosinophils # (0-0.7) k/uL Basophils # (0-0.2) k/uL ESR (0-20) mm/Hr Sodium (137-145) mmol/L Potassium (3.5-5.1) mmol/L Chloride (98-107) mmol/L Carbon Dioxide (22-30) mmol/L Anion Gap mmol/L BUN (9-20) mg/dL Creatinine (0.66-1.25) mg/dL Est GFR (CKD-EPI)AfAm (>60 ml/min/1.73 sqM) Est GFR (CKD-EPI)NonAf (>60 ml/min/1.73 sqM) Glucose (74-99) mg/dL POC Glucose (mg/dL) 104 91 (70-110) mg/dL POC Glu [employer] ID Jaelyn Mobley Allison [address] Glu mg/dL 140 mg/dL Hemoglobin A1c 6.5 H (<=6.0) % Plasma Lactic Acid Yevgeniy (0.7-2.0) mmol/L Calcium (8.4-10.2) mg/dL Phosphorus (2.5-4.5) mg/dL Magnesium (1.6-2.3) mg/dL Total Bilirubin (0.2-1.3) mg/dL AST (17-59) U/L ALT (4-49) U/L Alkaline Phosphatase (38-126) U/L Troponin I (0.000-0.034) ng/mL Total Protein (6.3-8.2) g/dL Albumin (3.5-5.0) g/dL Lipase (23-300) U/L Procalcitonin (0.02-0.09) ng/mL Urine Color Urine Appearance (Clear) Urine pH (5.0-8.0) Ur Specific [place] (1.001-1.035) Urine Protein (Negative) Urine Glucose (UA) (Negative) Urine Ketones (Negative) Urine Blood (Negative) Urine Nitrite (Negative) Urine Bilirubin (Negative) Urine Urobilinogen (<2.0) mg/dL Ur Leukocyte Esterase (Negative) c-ANCA (<1:20) Titer p-ANCA (<1:20) Titer Influenza Type A (PCR) (Not Detectd) Influenza Type B (PCR) (Not Detectd) Urine Legionella Ag (Negative) RSV (PCR) (Not Detectd) SARS-CoV-2 (PCR) (Not Detectd) 09/19/23 09/19/23 09/19/23 Range/Units 12:00 17:05 20:27 WBC (3.8-10.6) k/uL RBC (4.30-5.90) m/uL Hgb (13.0-17.5) gm/dL Hct (39.0-53.0) % MCV (80.0-100.0) fL MCH (25.0-35.0) pg MCHC (31.0-37.0) g/dL RDW (11.5-15.5) % Plt Count (150-450) k/uL MPV Neutrophils % % Lymphocytes % % Monocytes % % Eosinophils % % Basophils % % Neutrophils # (1.3-7.7) k/uL Lymphocytes # (1.0-4.8) k/uL Monocytes # (0-1.0) k/uL Eosinophils # (0-0.7) k/uL Basophils # (0-0.2) k/uL ESR (0-20) mm/Hr Sodium (137-145) mmol/L Potassium (3.5-5.1) mmol/L Chloride (98-107) mmol/L Carbon Dioxide (22-30) mmol/L Anion Gap mmol/L BUN (9-20) mg/dL Creatinine (0.66-1.25) mg/dL Est GFR (CKD-EPI)AfAm (>60 ml/min/1.73 sqM) Est GFR (CKD-EPI)NonAf (>60 ml/min/1.73 sqM) Glucose (74-99) mg/dL POC Glucose (mg/dL) 175 H 108 92 (70-110) mg/dL POC Glu [employer] Fierro, Ana Fierro, [place] [address] Glu mg/dL mg/dL Hemoglobin A1c (<=6.0) % Plasma Lactic Acid Yevgeniy (0.7-2.0) mmol/L Calcium (8.4-10.2) mg/dL Phosphorus (2.5-4.5) mg/dL Magnesium (1.6-2.3) mg/dL Total Bilirubin (0.2-1.3) mg/dL AST (17-59) U/L ALT (4-49) U/L Alkaline Phosphatase (38-126) U/L Troponin I (0.000-0.034) ng/mL Total Protein (6.3-8.2) g/dL Albumin (3.5-5.0) g/dL Lipase (23-300) U/L Procalcitonin (0.02-0.09) ng/mL Urine Color Urine Appearance (Clear) Urine pH (5.0-8.0) Ur Specific [place] (1.001-1.035) Urine Protein (Negative) Urine Glucose (UA) (Negative) Urine Ketones (Negative) Urine Blood (Negative) Urine Nitrite (Negative) Urine Bilirubin (Negative) Urine Urobilinogen (<2.0) mg/dL Ur Leukocyte Esterase (Negative) c-ANCA (<1:20) Titer p-ANCA (<1:20) Titer Influenza Type A (PCR) (Not Detectd) Influenza Type B (PCR) (Not Detectd) Urine Legionella Ag (Negative) RSV (PCR) (Not Detectd) SARS-CoV-2 (PCR) (Not Detectd) 09/19/23 09/19/23 09/19/23 Range/Units 23:24 23:24 23:24 WBC (3.8-10.6) k/uL RBC (4.30-5.90) m/uL Hgb (13.0-17.5) gm/dL Hct (39.0-53.0) % MCV (80.0-100.0) fL MCH (25.0-35.0) pg MCHC (31.0-37.0) g/dL RDW (11.5-15.5) % Plt Count (150-450) k/uL MPV Neutrophils % % Lymphocytes % % Monocytes % % Eosinophils % % Basophils % % Neutrophils # (1.3-7.7) k/uL Lymphocytes # (1.0-4.8) k/uL Monocytes # (0-1.0) k/uL Eosinophils # (0-0.7) k/uL Basophils # (0-0.2) k/uL ESR 59 H (0-20) mm/Hr Sodium (137-145) mmol/L Potassium (3.5-5.1) mmol/L Chloride (98-107) mmol/L Carbon Dioxide (22-30) mmol/L Anion Gap mmol/L BUN (9-20) mg/dL Creatinine (0.66-1.25) mg/dL Est GFR (CKD-EPI)AfAm (>60 ml/min/1.73 sqM) Est GFR (CKD-EPI)NonAf (>60 ml/min/1.73 sqM) Glucose (74-99) mg/dL POC Glucose (mg/dL) (70-110) mg/dL POC Glu [employer] ID Estimated Ave Glu mg/dL mg/dL Hemoglobin A1c (<=6.0) % Plasma Lactic Acid Yevgeniy (0.7-2.0) mmol/L Calcium (8.4-10.2) mg/dL Phosphorus (2.5-4.5) mg/dL Magnesium (1.6-2.3) mg/dL Total Bilirubin (0.2-1.3) mg/dL AST (17-59) U/L ALT (4-49) U/L Alkaline Phosphatase (38-126) U/L Troponin I (0.000-0.034) ng/mL Total Protein (6.3-8.2) g/dL Albumin (3.5-5.0) g/dL Lipase (23-300) U/L Procalcitonin 0.18 H (0.02-0.09) ng/mL Urine Color Urine Appearance (Clear) Urine pH (5.0-8.0) Ur Specific [place] (1.001-1.035) Urine Protein (Negative) Urine Glucose (UA) (Negative) Urine Ketones (Negative) Urine Blood (Negative) Urine Nitrite (Negative) Urine Bilirubin (Negative) Urine Urobilinogen (<2.0) mg/dL Ur Leukocyte Esterase (Negative) c-ANCA <1:20 (<1:20) Titer p-ANCA <1:20 (<1:20) Titer Influenza Type A (PCR) (Not Detectd) Influenza Type B (PCR) (Not Detectd) Urine Legionella Ag (Negative) RSV (PCR) (Not Detectd) SARS-CoV-2 (PCR) (Not Detectd) 09/20/23 Range/Units 06:16 WBC (3.8-10.6) k/uL RBC (4.30-5.90) m/uL Hgb (13.0-17.5) gm/dL Hct (39.0-53.0) % MCV (80.0-100.0) fL MCH (25.0-35.0) pg MCHC (31.0-37.0) g/dL RDW (11.5-15.5) % Plt Count (150-450) k/uL MPV Neutrophils % % Lymphocytes % % Monocytes % % Eosinophils % % Basophils % % Neutrophils # (1.3-7.7) k/uL Lymphocytes # (1.0-4.8) k/uL Monocytes # (0-1.0) k/uL Eosinophils # (0-0.7) k/uL Basophils # (0-0.2) k/uL ESR (0-20) mm/Hr Sodium (137-145) mmol/L Potassium (3.5-5.1) mmol/L Chloride (98-107) mmol/L Carbon Dioxide (22-30) mmol/L Anion Gap mmol/L BUN (9-20) mg/dL Creatinine (0.66-1.25) mg/dL Est GFR (CKD-EPI)AfAm (>60 ml/min/1.73 sqM) Est GFR (CKD-EPI)NonAf (>60 ml/min/1.73 sqM) Glucose (74-99) mg/dL POC Glucose (mg/dL) 92 (70-110) mg/dL POC Glu [employer] ID [address] Glu mg/dL mg/dL Hemoglobin A1c (<=6.0) % Plasma Lactic Acid Yevgeniy (0.7-2.0) mmol/L Calcium (8.4-10.2) mg/dL Phosphorus (2.5-4.5) mg/dL Magnesium (1.6-2.3) mg/dL Total Bilirubin (0.2-1.3) mg/dL AST (17-59) U/L ALT (4-49) U/L Alkaline Phosphatase (38-126) U/L Troponin I (0.000-0.034) ng/mL Total Protein (6.3-8.2) g/dL Albumin (3.5-5.0) g/dL Lipase (23-300) U/L Procalcitonin (0.02-0.09) ng/mL Urine Color Urine Appearance (Clear) Urine pH (5.0-8.0) Ur Specific [place] (1.001-1.035) Urine Protein (Negative) Urine Glucose (UA) (Negative) Urine Ketones (Negative) Urine Blood (Negative) Urine Nitrite (Negative) Urine Bilirubin (Negative) Urine Urobilinogen (<2.0) mg/dL Ur Leukocyte Esterase (Negative) c-ANCA (<1:20) Titer p-ANCA (<1:20) Titer Influenza Type A (PCR) (Not Detectd) Influenza Type B (PCR) (Not Detectd) Urine Legionella Ag (Negative) RSV (PCR) (Not Detectd) SARS-CoV-2 (PCR) (Not Detectd) - EKG Data -: EKG Interpreted by Me (EKG is sinus tachycardia 102 IL 136 QRS 102 QTc 392) - Radiology Data Radiology results: report reviewed (CT chest abdomen and pelvis positive pneumonia no other acute disease), image reviewed Disposition Clinical Impression: Nausea & vomiting, Pneumonia, Intractable nausea and vomiting Disposition: ADMITTED IP TO THIS HOSP Condition: Stable Is patient prescribed a controlled substance at d/c from ED?: No Time of Disposition: 21:00
[2023-09-17] MEDS: ONDANSETRON 4 MG/2 ML VIAL IVP STA (17:39)
[2023-09-17] MEDS: SODIUM CHLORIDE 0.9% 1,000 ML IV STA (17:40)
[2023-09-17] MEDS: IBUPROFEN IV 800 MG in SODIUM CHLORIDE 0.9% 250 ML IV ONE (17:41)
[2023-09-17 17:48] LABS: Basophils % (A) 0 %; Eosinophils # (A) 0.3 k/uL (0-0.7); Eosinophils % (A) 2 %; HCT 35.8 % (39.0-53.0); HGB 11.4 gm/dL (13.0-17.5); Lymphocytes # (A) 0.9 k/uL (1.0-4.8); Lymphocytes % (A) 7 %; MCH 28.1 pg (25.0-35.0); MCHC 31.9 g/dL (31.0-37.0); MCV 87.9 fL (80.0-100.0); Mean Platelet Volume 7.5; Monocytes # (A) 0.6 k/uL (0-1.0); Monocytes % (A) 5 %; Neutrophils # (A) 10.3 k/uL (1.3-7.7); Neutrophils % (A) 84 %; Platelet Count 380 k/uL (150-450); RBC 4.07 m/uL (4.30-5.90); RDW 15.8 % (11.5-15.5); WBC 12.3 k/uL (3.8-10.6)
[2023-09-17] MEDS: ACETAMINOPHEN IV (For NPO) 1,000 MG in EMPTY BAG 1 BAG IVPB STA (18:26)
[2023-09-17] MEDS: HYDROmorphone 1 MG/ML 1 ML SYRINGE IVP STA ×2 (18:27→21:48)
[2023-09-17 19:01] LABS: Appearance,Urine Clear (Clear); Bilirubin,Urine Negative (Negative); Blood,Urine Negative (Negative); Color,Urine Colorless; Glucose,Urine (UA) Negative (Negative); Ketones,Urine Negative (Negative); Leukocyte Esterase,Urine Negative (Negative); Nitrite,Urine Negative (Negative); Protein,Urine Negative (Negative); Specific Gravity,Urine 1.011 (1.001-1.035); Urobilinogen,Urine <2.0 mg/dL (<2.0)
[2023-09-17 19:40] LABS: ALT 13 U/L (4-49); AST 20 U/L (17-59); African American GFR (CKD) 56 (>60 ml/min/1.73 sqM); Albumin 3.5 g/dL (3.5-5.0); Alkaline Phosphatase 82 U/L (38-126); Anion Gap 7 mmol/L; Blood Urea Nitrogen 17 mg/dL (9-20); Calcium 8.5 mg/dL (8.4-10.2); Carbon Dioxide 24 mmol/L (22-30); Chloride 110 mmol/L (98-107); Glucose 106 mg/dL (74-99); Lipase 40 U/L (23-300); Magnesium 1.7 mg/dL (1.6-2.3); Non-African American GFR(CKD) 49 (>60 ml/min/1.73 sqM); Phosphorus 2.3 mg/dL (2.5-4.5); Sodium 141 mmol/L (137-145); Total Bilirubin 0.7 mg/dL (0.2-1.3); Total Protein 5.8 g/dL (6.3-8.2)
--- NOTE | 2023-09-17 20:20 | CT ---
EXAMINATION TYPE: CT angio chest CT DLP: 1547.3 mGycm, Automated exposure control for dose reduction was used. DATE OF EXAM: 09/17/2023 8:06 PM COMPARISON: CLINICAL INDICATION:Male, 58 years old with history of pain; Epigastric pain, N/V. TECHNIQUE/CONTRAST: CTA scan of the thorax is performed with IV Contrast, patient injected with 80 mL of Isovue 370, MIP images are created and reviewed these are created on a separate workstation.. FINDINGS: There is adequate contrast bolus and timing. PULMONARY ARTERIES: There is no evidence for a filling defect within the pulmonary vasculature to sug gest acute pulmonary embolism. The pulmonary trunk is enlarged, this can be seen with pulmonary hyper tension. Trunk measures 3.3 CM. AORTA: Mild atherosclerotic disease, mostly along the arch and some in the descending and upper abdo anisa region. No significant narrowing of branches along the arch. Proximal celiac and superior mesen teric arteries are patent. Atherosclerosis in the proximal renal arteries, with moderate stenosis on the right and mild stenosis on the left.. Ascending aorta is fusiformly dilated up to 4.3 CM, descend ing is 3 CM. HEART: Heart size upper normal. No appreciable pericardial effusion. LOWER NECK: No significant findings. Partially seen, unremarkable thyroid. MEDIASTINUM: No enlarged nodes by CT size criteria. SOFT TISSUES/AXILLA: Unremarkable soft tissues. No axillary adenopathy. LUNGS/ PLEURA: Left lung is clear. On the right, there is mixed consolidative and groundglass patchy opacity in the right upper lobe consistent with airspace disease. Additional lesser patchy groundglas s opacities are also present in the right middle and lower lobes. No pleural effusion or pneumothorax . AIRWAY: Central airways are patent. MUSCULOSKELETAL: No acute osseous abnormality. No significant degenerative changes. UPPER ABDOMEN: Left hepatic lobe 2.4 cm hypodensity, nonspecific but probably cyst or hemangioma. No mass of the visualized adrenals. The kidneys are scarcely included. IMPRESSION: 1. No evidence of pulmonary embolism. 2. Dilated pulmonary trunk, may be seen with pulmonary arterial hypertension. 3. Consolidative and groundglass opacities throughout the right lung, greatest in the right upper lob e, most likely reflect pneumonia. Recommend follow-up to document resolution. 4. Fusiform ectasia of the ascending aorta up to 4.3 cm.
--- NOTE | 2023-09-17 20:29 | CT ---
EXAMINATION TYPE: CT abdomen pelvis w con CT DLP: 1547.3 mGycm, Automated exposure control for dose reduction was used. DATE OF EXAM: 09/17/2023 8:06 PM COMPARISON: None. CLINICAL INDICATION:Male, 58 years old with history of pain; Epigastric pain, N/V. TECHNIQUE: Axial CT of the abdomen and pelvis. Sagittal and coronal reformats were created on a QBE workstation. Contrast used:80 mL of Isovue 370 with IV Contrast, (none if empty) Oral contrast used: without Oral Contrast (none if empty) FINDINGS: LOWER CHEST: Partially seen right lung opacities, refer to separate CT chest report. ABDOMEN LIVER: Left hepatic lobe 2.4 cm hypodensity, nonspecific but likely cyst or hemangioma. No suspicious lesions are seen otherwise. GALLBLADDER AND BILE DUCTS: The gallbladder is mildly prominent without evidence of calcified stones or inflammatory change. Nondilated biliary tree. PANCREAS: Unremarkable. SPLEEN: Unremarkable. ADRENAL GLANDS: Unremarkable. KIDNEYS AND URETERS: Kidneys enhance symmetrically. There appear to be a few tiny focal renal calculi bilaterally; differential includes early contrast excretion. Tiny hypodense nodules in both kidneys are too small to characterize but favored to be cysts. No ureteral calculi or hydronephrosis seen. PELVIS BLADDER: Unremarkable REPRODUCTIVE: Unremarkable prostate. ABDOMEN & PELVIS STOMACH AND BOWEL: Stomach and small bowel are nondistended, no evidence of obstruction. Appendix i s not identified with certainty, however there is no inflammatory process seen in the RLQ. There is moderate stool and gas seen throughout the colon with no focal acute abnormality shown. A few diverticula are present which do not appear inflamed. PERITONEUM/RETROPERITONEUM: No evidence of pneumoperitoneum or free fluid. VASCULATURE: Moderate atherosclerotic calcifications are present throughout the abdominal aorta and i ts branches. No evidence of aortic aneurysm. Portal veins are enhancing. Splenic vein and SMV appea r patent. LYMPH NODES: No enlarged nodes by CT size criteria. SOFT TISSUE/ABDOMINAL WALL: No acute finding. Small fat-containing umbilical hernia. MUSCULOSKELETAL: No acute osseous abnormalities. Degenerative changes of the hips right more than le ft with some cystic change on the right. Generally mild degenerative changes of the spine, greatest a t L5-S1 where there is slight retrolisthesis. IMPRESSION: 1. No acute abnormality in the abdomen or pelvis. 2. Tiny bilateral nonobstructing renal calculi.
[2023-09-17] MEDS ORDERED: NALOXONE 0.4 MG/ML 1 ML VIAL IV PRN (21:05)
[2023-09-17] MEDS ORDERED: PNEUMONIA PROTOCOL UTILIZED 1 EACH MISC PO PRN (21:06)
[2023-09-17] MEDS: PROCHLORPERAZINE INJ 10 MG/2 ML VIAL IVP STA (21:49)
[2023-09-17] MEDS: SODIUM CHLORIDE 0.9% 1,000 ML IV SCH (21:49)
[2023-09-17] MEDS: LABETALOL 5 MG/ML VIAL MDV IVP STA (22:35)
[2023-09-17] MEDS: cloNIDine 0.2 MG/24HR PATCH TRANSDERM SCH (23:48)
[2023-09-18] MEDS: AZITHROMYCIN 500 MG in SODIUM CHLORIDE 0.9% 250 ML IVPB STA (00:28)
[2023-09-18] MEDS: HYDROmorphone 1 MG/ML 1 ML SYRINGE IVP PRN (03:22)
[2023-09-18] MEDS: ONDANSETRON 4 MG/2 ML VIAL IVP PRN (03:23)
[2023-09-18 05:55] LABS: Basophils % (A) 0 %; Eosinophils # (A) 0.3 k/uL (0-0.7); Eosinophils % (A) 4 %; HCT 34.1 % (39.0-53.0); HGB 10.9 gm/dL (13.0-17.5); Lymphocytes # (A) 1.2 k/uL (1.0-4.8); Lymphocytes % (A) 15 %; MCH 28.6 pg (25.0-35.0); MCHC 32.1 g/dL (31.0-37.0); MCV 89.2 fL (80.0-100.0); Monocytes # (A) 0.5 k/uL (0-1.0); Monocytes % (A) 7 %; Neutrophils # (A) 5.5 k/uL (1.3-7.7); Neutrophils % (A) 72 %; Platelet Count 403 k/uL (150-450); RBC 3.82 m/uL (4.30-5.90); RDW 15.7 % (11.5-15.5); WBC 7.7 k/uL (3.8-10.6)
[2023-09-18 06:06] LABS: ALT 12 U/L (4-49); AST 18 U/L (17-59); African American GFR (CKD) 59 (>60 ml/min/1.73 sqM); Albumin 3.5 g/dL (3.5-5.0); Alkaline Phosphatase 74 U/L (38-126); Anion Gap 8 mmol/L; Blood Urea Nitrogen 14 mg/dL (9-20); Calcium 8.9 mg/dL (8.4-10.2); Carbon Dioxide 22 mmol/L (22-30); Chloride 110 mmol/L (98-107); Glucose 80 mg/dL (74-99); Magnesium 1.9 mg/dL (1.6-2.3); Non-African American GFR(CKD) 51 (>60 ml/min/1.73 sqM); Phosphorus 2.8 mg/dL (2.5-4.5); Potassium 4.3 mmol/L (3.5-5.1); Sodium 140 mmol/L (137-145); Total Bilirubin 0.7 mg/dL (0.2-1.3); Total Protein 5.8 g/dL (6.3-8.2)
[2023-09-18] MEDS: IPRATROPIUM-ALBUTEROL 3 ML NEB INHALATION PRN (08:33)
[2023-09-18] MEDS: PANTOPRAZOLE 40 MG/10 ML VIAL IV SCH (08:40)
[2023-09-18] MEDS: amLODIPine 10 MG TAB PO SCH (11:31)
[2023-09-18 11:33] LABS: Glucose,Whole Blood 120 mg/dL (70-110)
--- NOTE | 2023-09-18 13:09 | XR ---
EXAMINATION TYPE: XR chest 2V DATE OF EXAM: 09/18/2023 6:21 AM CLINICAL INDICATION:Male, 58 years old with history of pneumonia; [facility] COMPARISON: CT 09/17/2023 TECHNIQUE: XR chest 2V. Frontal and lateral views of the chest.. FINDINGS: Lateral view is limited by underpenetration. No interval change to the appearance of patchy groundglass and consolidative opacities throughout the right lung, greatest in the right upper lobe, compared to prior CT. Cardiac mediastinal silhouette is stable. Heart size upper limits of normal. No hilar enlargement. No acute osseous abnormalities. IMPRESSION: Unchanged right pulmonary opacities, likely pneumonia. Recommend continued follow-up.
--- NOTE | 2023-09-18 13:13 | P.HPIM ---
History of Present Illness H&P Date: 09/18/23 History of present illness; patient 58-year-old gentleman past medical history significant for hypothyroidism, depression presented to ER for nausea vomiting abdominal pain. Patient stated that he just came back from a long flight. As soon as the patient got off the flight and went to home, he started experiencing severe nausea associated with vomiting. Patient also complaining of abdominal pain, which was generalized. There was no complaint of altered bowel movements. There was no complaint of chest pain or shortness of breath. Initial lab work done in the ER showed WBC 12.3, hemoglobin 11.1, platelet count 380, lactate 1.2, troponin 0.012, sodium 141, potassium 4, BUN 17, creatinine 1.57, glucose 106, magnesium 1.7 UA negative for any infection Influenza A not detected Influenza B not detected RSV not detected COVID-19 not detected EKG done in the ER showed heart rate of 102, no ST segment elevation or depression seen, no T-wave inversions seen. CT abdominal and pelvis done showed no abnormality in the abdomen or pelvis CT chest with contrast done showed no evidence of PE, dilated pulmonary trunk may be seen with pulmonary arterial hypertension, groundglass opacities throu ghout the right lung Patient admitted to internal medicine service REVIEW OF SYSTEMS: CONSTITUTIONAL: No fever, no malaise, no fatigue. HEENT: No recent visual problems or hearing problems. Denied any sore throat. CARDIOVASCULAR: As mentioned above PULMONARY: As mentioned above GASTROINTESTINAL: No diarrhea, no nausea, no vomiting, no abdominal pain. NEUROLOGICAL: No headaches, no weakness, no numbness. HEMATOLOGICAL: Denies any bleeding or petechiae. GENITOURINARY: Denies any burning micturition, frequency, or urgency. MUSCULOSKELETAL/RHEUMATOLOGICAL: Denies any joint pain, swelling, or any muscle pain. ENDOCRINE: Denies any polyuria or polydipsia. The rest of the 14-point review of systems is negative. PHYSICAL EXAMINATION: GENERAL: The patient is alert and oriented x3, not in any acute distress. Well developed, well nourished. HEENT: Pupils are round and equally reacting to light. EOMI. No scleral icterus. No conjunctival pallor. Normocephalic, atraumatic. No pharyngeal erythema. No thyromegaly. CARDIOVASCULAR: S1 and S2 present. No murmurs, rubs, or gallops. PULMONARY: Chest is clear to auscultation, no wheezing or crackles. ABDOMEN: Soft, nontender, nondistended, normoactive bowel sounds. No palpable organomegaly. MUSCULOSKELETAL: No joint swelling or deformity. EXTREMITIES: No cyanosis, clubbing, or pedal edema. NEUROLOGICAL: Gross neurological examination did not reveal any focal deficits. SKIN: No rashes. Assessment and plan Abdominal pain Nausea and vomiting Bacterial pneumonia Hypertension Hypothyroidism Monitor vital signs Monitor CBC Monitor CMP Continue telemetry monitoring Trend troponin. Continue antiemetics Continue IV fluids Start Rocephin azithromycin Resume home meds Labs and medication were reviewed.. Continue same treatment. Continue with symptomatic treatment. Resume home medication. Monitor labs and vitals. DVT and GI prophylaxis. Further recommendations as per clinical course of the patient Dictation was produced using [employer] dictation software. please excuse any grammatical, word or spelling errors. Past Medical History Past Medical History: Hypertension Additional Past Medical History / Comment(s): bone throat infection, wagners disease History of Any Multi-Drug Resistant Organisms: MRSA Date of last positivie culture/infection: 07/19/22 MDRO Source:: Throat Past Surgical History: Orthopedic Surgery Additional Past Surgical History / Comment(s): avascular necrosis rt hip Past Anesthesia/Blood Transfusion Reactions: No Reported Reaction Past Psychological History: No Psychological Hx Reported Smoking Status: Never smoker Past Alcohol Use History: None Reported Past Drug Use History: None Reported - Past Family History Mother Family Medical History: Dialysis Medications and Allergies Home Medications Medication Instructions Recorded Confirmed Type Escitalopram [Lexapro] 10 mg PO DAILY 08/13/22 11/14/22 History LORazepam [Ativan] 0.5 mg PO HS PRN 08/13/22 11/14/22 History Levothyroxine Sodium [Synthroid] 50 mcg PO DAILY 08/13/22 11/14/22 History Pantoprazole [Protonix] 40 mg PO DAILY 08/13/22 11/14/22 History traZODone HCL [Desyrel] 50 mg PO HS PRN 08/13/22 11/14/22 History Benzocaine [place] [Hurricaine [place]] 1 applic MUCOUS MEM QID PRN 08/27/22 11/14/22 History amLODIPine [Norvasc] 10 mg PO DAILY #30 tab 09/13/22 11/14/22 Rx Nystatin 100,000 Unit/ml Susp 500,000 units PO QID 10/18/22 11/14/22 History [Mycostatin Oral Susp] Bacitracin Zinc Oint 1 applic TOPICAL HS 11/14/22 11/14/22 History QUEtiapine [SEROquel] 50 mg PO HS 11/14/22 11/14/22 History Fluconazole [Diflucan] 100 mg PO DAILY 7 Days #7 tablet 11/15/22 Rx Levofloxacin [Levaquin] 750 mg PO DAILY #10 tab 11/15/22 Rx Allergies Allergy/AdvReac Type Severity Reaction Status Date / Time No Known Allergies Allergy Verified 09/17/23 16:53 Physical Exam Vitals: Vital Signs Temp Pulse Pulse Pulse Resp BP BP 09/18/23 08:45 90 09/18/23 08:36 09/18/23 08:34 87 09/18/23 07:00 98.1 F 92 15 181/105 09/18/23 02:00 87 09/18/23 01:21 87 160/92 09/18/23 00:41 98.2 F 81 22 181/107 09/17/23 23:01 98.8 F 84 18 148/90 09/17/23 21:57 96 20 175/123 09/17/23 20:00 99.5 F 09/17/23 19:50 86 16 183/112 09/17/23 16:50 99.7 F H 113 H 18 185/113 Pulse Ox 09/18/23 08:45 09/18/23 08:36 96 09/18/23 08:34 09/18/23 07:00 91 L 09/18/23 02:00 09/18/23 01:21 09/18/23 00:41 95 09/17/23 23:01 97 09/17/23 21:57 97 09/17/23 20:00 09/17/23 19:50 97 09/17/23 16:50 95 Intake and Output 09/17/23 09/18/23 09/18/23 22:59 06:59 14:59 Output Total 400 Balance -400 Output: Urine 400 Other: Voiding Method Toilet Urinal Weight 96.615 kg 96.615 kg Results CBC & Chem 7: 09/18/23 05:35 09/18/23 05:35 Labs: Abnormal Lab Results - Last 24 Hours (Table) 09/17/23 09/17/23 09/18/23 Range/Units 17:31 19:10 05:35 WBC 12.3 H (3.8-10.6) k/uL RBC 4.07 L 3.82 L (4.30-5.90) m/uL Hgb 11.4 L 10.9 L (13.0-17.5) gm/dL Hct 35.8 L 34.1 L (39.0-53.0) % RDW 15.8 H 15.7 H (11.5-15.5) % Neutrophils # 10.3 H (1.3-7.7) k/uL Lymphocytes # 0.9 L (1.0-4.8) k/uL Chloride 110 H (98-107) mmol/L Creatinine 1.57 H (0.66-1.25) mg/dL Glucose 106 H (74-99) mg/dL Phosphorus 2.3 L (2.5-4.5) mg/dL Total Protein 5.8 L (6.3-8.2) g/dL 09/18/23 Range/Units 05:35 WBC (3.8-10.6) k/uL RBC (4.30-5.90) m/uL Hgb (13.0-17.5) gm/dL Hct (39.0-53.0) % RDW (11.5-15.5) % Neutrophils # (1.3-7.7) k/uL Lymphocytes # (1.0-4.8) k/uL Chloride 110 H (98-107) mmol/L Creatinine 1.52 H (0.66-1.25) mg/dL Glucose (74-99) mg/dL Phosphorus (2.5-4.5) mg/dL Total Protein 5.8 L (6.3-8.2) g/dL Thrombosis Risk Factor Assmnt - Choose All That Apply Any of the Below Risk Factors Present?: Yes Each Factor Represents 1 point: Age 41-60 years, Obesity (BMI >25) Other Risk Factors: No Other congenital or acquired thrombophilia - If yes, enter type in comment: No Thrombosis Risk Factor Assessment Total Risk Factor Score: 2 Thrombosis Risk Factor Assessment Level: Low Risk
[2023-09-18] MEDS: AZITHROMYCIN 500 MG TAB PO SCH (19:57)
[2023-09-18] MEDS: ACETAMINOPHEN TAB 325 MG TAB PO PRN (20:06)
[2023-09-18] MEDS ORDERED: DEXTROSE 50% SYRINGE 50 ML IVP PRN ×2 (20:16)
[2023-09-18 20:18] LABS: Glucose,Whole Blood 104 mg/dL (70-110)
[2023-09-18] MEDS: INSULIN ASPART (NovoLOG) 100 UNIT/ML VIAL SQ SCH (20:59)
[2023-09-18] MEDS: QUEtiapine 200 MG TAB PO SCH (21:08)
[2023-09-19 05:32] LABS: Glucose,Whole Blood 91 mg/dL (70-110)
[2023-09-19] MEDS: ONDANSETRON 4 MG/2 ML VIAL IVP PRN (10:43)
[2023-09-19 12:02] LABS: Glucose,Whole Blood 175 mg/dL (70-110)
[2023-09-19 17:06] LABS: Glucose,Whole Blood 108 mg/dL (70-110)
--- NOTE | 2023-09-19 18:15 | P.CONS ---
History of Present Illness - Reason for Consult Consult date: 09/18/23 Pneumonia Requesting physician: Boo Wilson - Chief Complaint Nausea abdominal pain x 1 day - History of Present Illness Patient is 58-year-old male with a past medical history significant for hypertension, Richard's disease presenting to the hospital for evaluation of nausea and some abdominal pain that apparently has been going on for the last day or 2 patient denies having any diarrhea and apparently recently came from a visit to [place] patient on presentation to the hospital did have a low-grade fever of 99.7 F patient was tachycardic but not hypotensive did have mild hypoxemia but no need for supplemental oxygen patient did have a white count of 12.3 creatinine is 1.57 liver enzymes are normal urine has been negative influenza RSV COVID testing has been negative patient did have a CT angiogram of the chest no evidence for PE consolidative and groundglass opacity throughout the right lung greatest in the upper lobe most like reflect pneumonia patient also have a CT of abdominal pelvis no acute abnormality abdominal pelvis tiny bilateral nonobstructive renal calculi patient has been admitted to hospital he was started on Rocephin and Zithromax infectious he was consulted for further management of antibiotic therapy Review of Systems Positive point and negatives has been mentioned in the HPI, complete review of systems was performed and all other systems are negative Past Medical History Past Medical History: Hypertension Additional Past Medical History / Comment(s): bone throat infection, wagners disease History of Any Multi-Drug Resistant Organisms: MRSA Year Discovered:: 07/19/22 MDRO Source:: Throat Past Surgical History: Orthopedic Surgery Additional Past Surgical History / Comment(s): avascular necrosis rt hip Past Anesthesia/Blood Transfusion Reactions: No Reported Reaction Past Psychological History: No Psychological Hx Reported Smoking Status: Never smoker Past Alcohol Use History: None Reported Past Drug Use History: None Reported - Past Family History Mother Family Medical History: Dialysis Medications and Allergies Home Medications Medication Instructions Recorded Confirmed Type Pantoprazole [Protonix] 40 mg PO DAILY 08/13/22 09/18/23 History Benzocaine [place] [Hurricaine [place]] 1 applic MUCOUS MEM QID PRN 08/27/22 09/18/23 History amLODIPine [Norvasc] 10 mg PO DAILY #30 tab 09/13/22 09/18/23 Rx Furosemide [Lasix] 40 mg PO DAILY 09/18/23 09/18/23 History Hydromorphone 1mg/Ml 5 mg PO Q8H PRN 09/18/23 09/18/23 History Insulin Glargine-Yfgn [Semglee 5 unit SQ HS 09/18/23 09/18/23 History (Yfgn) Pen] Lidocaine Viscous 2% [Xylocaine 5 ml MUCOUS MEM TID PRN 09/18/23 09/18/23 History Viscous] Ondansetron [Zofran] 4 mg PO Q8H PRN 09/18/23 09/18/23 History QUEtiapine [SEROquel] 400 mg PO HS 09/18/23 09/18/23 History Sodium Chloride 0.65% Nasal [Deep 1 spr EA NOSTRIL BID PRN 09/18/23 09/18/23 History Sea (Saline)] Amoxic-Pot Clav 875-125Mg 1 tab PO BID 10 Days #20 tab 09/21/23 Rx [Augmentin 875-125] predniSONE 10 mg PO DIRECTED #30 tab 09/21/23 Rx Allergies Allergy/AdvReac Type Severity Reaction Status Date / Time No Known Allergies Allergy Verified 09/18/23 12:08 Physical Exam Vitals: Vital Signs Temp Pulse Pulse Pulse Resp BP BP 09/18/23 14:44 98.6 F 92 13 155/95 09/18/23 14:40 86 09/18/23 14:31 84 09/18/23 12:08 89 147/95 09/18/23 08:45 90 09/18/23 08:36 09/18/23 08:34 87 09/18/23 07:00 98.1 F 92 15 181/105 09/18/23 02:00 87 09/18/23 01:21 87 160/92 09/18/23 00:41 98.2 F 81 22 181/107 09/17/23 23:01 98.8 F 84 18 148/90 09/17/23 21:57 96 20 175/123 09/17/23 20:00 99.5 F 09/17/23 19:50 86 16 183/112 09/17/23 16:50 99.7 F H 113 H 18 185/113 Pulse Ox 09/18/23 14:44 94 L 09/18/23 14:40 09/18/23 14:31 09/18/23 12:08 92 L 09/18/23 08:45 09/18/23 08:36 96 09/18/23 08:34 09/18/23 07:00 91 L 09/18/23 02:00 09/18/23 01:21 09/18/23 00:41 95 09/17/23 23:01 97 09/17/23 21:57 97 09/17/23 20:00 09/17/23 19:50 97 09/17/23 16:50 95 Intake and Output 09/18/23 09/18/23 09/18/23 06:59 14:59 22:59 Output Total 400 Balance -400 Output: Urine 400 Other: Voiding Method Toilet Urinal Weight 96.615 kg GENERAL DESCRIPTION: Middle-aged male lying in bed, no distress. No tachypnea or accessory muscle of respiration use. HEENT: Shows Pallor , no scleral icterus. Oral mucous membrane is dry. No pharyngeal erythema or thrush NECK: Trachea central, no thyromegaly. LUNGS: Unlabored breathing. Decreased breath sound at the base HEART: S1, S2, regular rate and rhythm. No loud murmur ABDOMEN: Soft, no tenderness , guarding or rigidity, no organomegaly EXTREMITIES: No edema of feet. SKIN: No rash, no masses palpable. NEUROLOGICAL: The patient is awake, alert, oriented x3, mood and affect normal. Results CBC & Chem 7: 09/20/23 11:05 09/20/23 11:05 Labs: Abnormal Lab Results - Last 24 Hours (Table) 09/17/23 09/17/23 09/18/23 Range/Units 17:31 19:10 05:35 WBC 12.3 H (3.8-10.6) k/uL RBC 4.07 L 3.82 L (4.30-5.90) m/uL Hgb 11.4 L 10.9 L (13.0-17.5) gm/dL Hct 35.8 L 34.1 L (39.0-53.0) % RDW 15.8 H 15.7 H (11.5-15.5) % Neutrophils # 10.3 H (1.3-7.7) k/uL Lymphocytes # 0.9 L (1.0-4.8) k/uL Chloride 110 H (98-107) mmol/L Creatinine 1.57 H (0.66-1.25) mg/dL Glucose 106 H (74-99) mg/dL POC Glucose (mg/dL) (70-110) mg/dL Phosphorus 2.3 L (2.5-4.5) mg/dL Total Protein 5.8 L (6.3-8.2) g/dL 09/18/23 09/18/23 Range/Units 05:35 11:31 WBC (3.8-10.6) k/uL RBC (4.30-5.90) m/uL Hgb (13.0-17.5) gm/dL Hct (39.0-53.0) % RDW (11.5-15.5) % Neutrophils # (1.3-7.7) k/uL Lymphocytes # (1.0-4.8) k/uL Chloride 110 H (98-107) mmol/L Creatinine 1.52 H (0.66-1.25) mg/dL Glucose (74-99) mg/dL POC Glucose (mg/dL) 120 H (70-110) mg/dL Phosphorus (2.5-4.5) mg/dL Total Protein 5.8 L (6.3-8.2) g/dL Assessment and Plan (1) Pneumonia Status: Acute Code(s): J18.9 - PNEUMONIA, UNSPECIFIED ORGANISM SNOMED Code(s): 711650278 Plan: 1patient presented to hospital predominantly with nausea and some abdominal discomfort also have some shortness of breath and cough CT abdominal pelvis did not show any acute abnormality CT angiogram of the chest shows right-sided pneumonia with a question of community-acquired versus aspiration pneumonia. 2we will try to obtain sputum for Gram stain culture check a CRP procalcitonin and urine for Legionella antigen. 3continue with Rocephin Zithromax while waiting for the workup to be completed. We will follow on clinical condition and cultures to further adjust medication if needed Thank you for this consultation we will follow the patient along with you Dictation was produced using [employer] dictation software. please excuse any grammatical, word or spelling errors. Time with Patient: Greater than 30
--- NOTE | 2023-09-19 18:16 | P.PN ---
Subjective Progress Note Date: 09/19/23 Principal diagnosis: Reason for follow-up is pneumonia Patient is 58-year-old male with a past medical history significant for hypertension, Richard's disease presenting to the hospital for evaluation of nausea and some abdominal pain some shortness of breath and cough CT abdominal pelvis was negative CT angiogram of the chest did shows evidence of right-sided pneumonia. On today's evaluation that is 09/19/2023, patient has been afebrile, patient is breathing comfortably and is currently on room air, patient denies having any worsening cough or sputum production no chest pain shortness of breath, patient did have improvement his nausea no further vomiting no abdominal pain no diarrhea. Patient did not have any lab draw today blood cultures pending sputum not collected urine for Legionella Ag negative Objective - Vital Signs Vital signs: Vital Signs Temp 98.6 F 09/19/23 14:27 Pulse 88 09/19/23 15:48 Resp 16 09/19/23 14:27 BP 156/94 09/19/23 14:27 Pulse Ox 95 09/19/23 14:27 FiO2 Intake & Output 09/18/23 09/19/23 09/19/23 18:59 06:59 18:59 Intake Total 118 Balance 118 Intake: Oral 118 Other: Voiding Method Toilet # Voids 3 0 3 - Exam GENERAL DESCRIPTION: Middle-aged male lying in bed in no distress RESPIRATORY SYSTEM: Unlabored breathing , decreased breath sounds at bases HEART: S1 S2 regular rate and rhythm , ABDOMEN: Soft , no tenderness EXTREMITIES: No edema feet - Labs CBC & Chem 7: 09/18/23 05:35 09/18/23 05:35 Labs: Abnormal Lab Results - Last 24 Hours (Table) 09/19/23 09/19/23 Range/Units 03:16 12:00 POC Glucose (mg/dL) 175 H (70-110) mg/dL Hemoglobin A1c 6.5 H (<=6.0) % Microbiology - Last 24 Hours (Table) 09/17/23 21:35 Blood Culture - Preliminary Blood 09/17/23 21:20 Blood Culture - Preliminary Blood Assessment and Plan (1) Pneumonia Current Visit: Yes Status: Acute Code(s): J18.9 - PNEUMONIA, UNSPECIFIED ORGANISM SNOMED Code(s): 208974045 Plan: 1patient presented to hospital predominantly with nausea and some abdominal discomfort also have some shortness of breath and cough CT abdominal pelvis did not show any acute abnormality CT angiogram of the chest shows right-sided pneumonia with a question of community-acquired versus aspiration pneumonia. 2 urine for Legionella antigen sputum not collected. 3I will discontinue Rocephin Zithromax start the patient on Unasyn 3 g every 6 hours Dictation was produced using [employer] dictation software. please excuse any grammatical, word or spelling errors. Time with Patient: Greater than 30
[2023-09-19] MEDS: AMPICILLIN-SULBACTAM 3 GM in SODIUM CHLORIDE 0.9% 100 ML IVPB SCH (18:52)
[2023-09-19 20:28] LABS: Glucose,Whole Blood 92 mg/dL (70-110)
--- NOTE | 2023-09-19 22:47 | P.CNPUL ---
History of Present Illness Consult date: 09/19/23 Reason for consult: dyspnea, pneumonia History of present illness: This is a 58-year-old male patient who presented to the hospital with nausea and abdominal pain and low-grade fever. At time of admission, the patient was tachycardic and mildly hypoxemic. The patient just came from a long flight from [place]. Soon after arriving to [place], he was feeling nauseated and was also complaining of abdominal pain and generalized weakness. He came into the emergency where he was found to have a white cell count of 12.3 with a lactic acid level of 4.2, troponins were negative, BUN was 17 with a creatinine 1.57. The viral screen was negative. UA was negative. Chest x-ray showed patchy groundglass and consolidative opacities throughout the right lung greatest in the right upper lobe. CT of the chest was also done in the emergency department that showed no evidence of any pulm embolism. There was consolidation and groundglass opacities throughout the right lung greatest in the right upper lobe reflective of an underlying pneumonia. The CAT scan of the abdomen and pelvis was showing tiny bilateral nonobstructive renal calculi. No other acute intra- abdominal abnormalities. As such, the patient was hospitalized for pneumonia. He is currently on room air oxygen with a pulse ox of 92%. He started on IV Unasyn. ID is on the case. The patient's LFTs are within normal limits. Troponins are negative. Creatinine is at 1.52. BUN is at 14. UA is negative. Legionella urine antigen is also negative. Note that the patient also has history of Richard's granulomatosis. Back in 2022, the patient has some limited vague groundglass pulm infiltrates. The back and he had been sinusitis and one of the structure involving the maxillary sinus and he also developed a component of chronic kidney disease. No active hematuria at this point in time. I do not see that the patient is on any form of immunosuppression at this point in time. Review of Systems Constitutional: Reports chills, Reports fatigue Eyes: denies as per HPI, denies blurred vision, denies bulging eye, denies decreased vision, denies diplopia, denies discharge, denies dry eye, denies irr itation, denies itching, denies pain, denies photophobia, denies loss of peripheral vision, denies loss of vision, denies tunnel vision/blind spots Ears: deny: decreased hearing, ear discharge, earache, tinnitus Ears, nose, mouth and throat: Reports as per HPI Breasts: absent: as per HPI, gynecomastia Cardiovascular: Reports decreased exercise tolerance, Reports dyspnea on exertion Respiratory: Reports cough, Reports dyspnea Gastrointestinal: Reports nausea, Reports vomiting Genitourinary: Reports as per HPI Musculoskeletal: Reports as per HPI Musculoskeletal: absent: ankle pain, ankle stiffness, ankle swelling, as per HPI, elbow pain, elbow stiffness, elbow swelling, foot pain, foot stiffness, foot swelling, hand pain, hand stiffness, hand swelling, hip pain, hip stiffness, hip swelling, knee pain, knee stiffness, knee swelling, shoulder pain, shoulder stiffness, shoulder swelling, wrist pain, wrist stiffness, wrist swelling Integumentary: Reports as per HPI Neurological: Reports as per HPI Psychiatric: Reports as per HPI Endocrine: Reports as per HPI Hematologic/Lymphatic: Reports as per HPI Allergic/Immunologic: Reports as per HPI Past Medical History Past Medical History: Hypertension Additional Past Medical History / Comment(s): History of pansinusitis, history of Richard's granulomatosis/granulomatosis with polyangiitis, chronic kidney disease History of Any Multi-Drug Resistant Organisms: MRSA Date of last positivie culture/infection: 07/19/22 MDRO Source:: Throat Past Surgical History: Orthopedic Surgery Additional Past Surgical History / Comment(s): avascular necrosis rt hip Past Anesthesia/Blood Transfusion Reactions: No Reported Reaction Past Psychological History: No Psychological Hx Reported Smoking Status: Never smoker Past Alcohol Use History: None Reported Past Drug Use History: None Reported - Past Family History Mother Family Medical History: Dialysis Medications and Allergies Home Medications Medication Instructions Recorded Confirmed Type Pantoprazole [Protonix] 40 mg PO DAILY 08/13/22 09/18/23 History Benzocaine Avery [Hurricaine Avery] 1 applic MUCOUS MEM QID PRN 08/27/22 09/18/23 History amLODIPine [Norvasc] 10 mg PO DAILY #30 tab 09/13/22 09/18/23 Rx Furosemide [Lasix] 40 mg PO DAILY 09/18/23 09/18/23 History Hydromorphone 1mg/Ml 5 mg PO Q8H PRN 09/18/23 09/18/23 History Insulin Glargine-Yfgn [Semglee 5 unit SQ HS 09/18/23 09/18/23 History (Yfgn) Pen] Lidocaine Viscous 2% [Xylocaine 5 ml MUCOUS MEM TID PRN 09/18/23 09/18/23 History Viscous] Ondansetron [Zofran] 4 mg PO Q8H PRN 09/18/23 09/18/23 History QUEtiapine [SEROquel] 400 mg PO HS 09/18/23 09/18/23 History Sodium Chloride 0.65% Nasal [Deep 1 spr EA NOSTRIL BID PRN 09/18/23 09/18/23 History Sea (Saline)] Sulfamethox-Tmp 800-160Mg [Bactrim 1 tab PO DAILY 09/18/23 09/18/23 History DS 800-160 mg] Allergies Allergy/AdvReac Type Severity Reaction Status Date / Time No Known Allergies Allergy Verified 09/18/23 12:08 Physical Exam Vitals: Vital Signs Temp Pulse Pulse Resp BP BP Pulse Ox 09/19/23 15:48 88 09/19/23 15:38 86 09/19/23 14:27 98.6 F 96 16 156/94 95 09/19/23 11:19 101 H 09/19/23 11:10 100 09/19/23 08:34 98 09/19/23 08:26 92 L 09/19/23 08:24 97 09/19/23 07:00 98.2 F 93 18 162/93 91 L 09/19/23 02:30 98.0 F 89 16 134/90 94 L 09/18/23 21:59 99.5 F 84 17 158/73 94 L 09/18/23 20:08 92 Intake and Output 09/19/23 09/19/23 09/19/23 06:59 14:59 22:59 Intake Total 118 Balance 118 Intake: Oral 118 Other: # Voids 0 3 GENERAL: The patient is alert and oriented x3, not in any acute distress. Well developed, well nourished. HEENT: Pupils are round and equally reacting to light. EOMI. No scleral icterus. No conjunctival pallor. Normocephalic, atraumatic. No pharyngeal erythema. No thyromegaly. CARDIOVASCULAR: S1 and S2 present. No murmurs, rubs, or gallops. PULMONARY: Chest is clear to auscultation, no wheezing or crackles. ABDOMEN: Soft, nontender, nondistended, normoactive bowel sounds. No palpable organomegaly. MUSCULOSKELETAL: No joint swelling or deformity. EXTREMITIES: No cyanosis, clubbing, or pedal edema. NEUROLOGICAL: Gross neurological examination did not reveal any focal deficits. SKIN: No rashes. Results - Laboratory Findings CBC and BMP: 09/18/23 05:35 09/18/23 05:35 Abnormal lab findings: Abnormal Labs 09/17/23 09/17/23 09/18/23 17:31 19:10 05:35 WBC 12.3 H RBC 4.07 L 3.82 L Hgb 11.4 L 10.9 L Hct 35.8 L 34.1 L RDW 15.8 H 15.7 H Neutrophils # 10.3 H Lymphocytes # 0.9 L Chloride 110 H Creatinine 1.57 H Glucose 106 H POC Glucose (mg/dL) Hemoglobin A1c Phosphorus 2.3 L Total Protein 5.8 L 09/18/23 09/18/23 09/19/23 05:35 11:31 03:16 WBC RBC Hgb Hct RDW Neutrophils # Lymphocytes # Chloride 110 H Creatinine 1.52 H Glucose POC Glucose (mg/dL) 120 H Hemoglobin A1c 6.5 H Phosphorus Total Protein 5.8 L 09/19/23 12:00 WBC RBC Hgb Hct RDW Neutrophils # Lymphocytes # Chloride Creatinine Glucose POC Glucose (mg/dL) 175 H Hemoglobin A1c Phosphorus Total Protein - Diagnostic Findings Chest x-ray: image reviewed Assessment and Plan Plan: Acute hypoxic respiratory failure and the patient is currently on room air oxygen with a pulse ox of 92% Acute consolidation/groundglass pulm infiltrates of the right lung with predominant involvement of the right upper lobe. Consider bacterial pneumonia. Consider pulmonary manifestations of granulomatosis with polyangiitis/Richard's disease. History of pansinusitis with erosion of the maxillary sinus Chronic kidney disease Plan Titrate oxygen to maintain saturation above 90%, currently on room air oxygen Continue IV Unasyn Check procalcitonin level Check sed rate Check ANCA titers May need a follow-up CAT scan of the sinuses Obtain further information regarding his granulomatosis with polyangiitis Will continue to follow
[2023-09-20] MEDS: PANTOPRAZOLE 40 MG TABLET PO SCH (06:08)
[2023-09-20 06:17] LABS: Glucose,Whole Blood 92 mg/dL (70-110)
[2023-09-20] MEDS ORDERED: predniSONE 20 MG TAB PO SCH (09:00)
--- NOTE | 2023-09-20 09:21 | CT ---
EXAMINATION TYPE: CT sinus wo con DATE OF EXAM: 09/20/2023 COMPARISON: 10/18/2022 HISTORY: Hx granulomatosis with polyangitis CT DLP: 526.40 mGycm. Automated Exposure Control for Dose Reduction was Utilized. TECHNIQUE: CT scan of the sinuses is performed without contrast, axial images are obtained, coronal r eformatted images are also reviewed. FINDINGS: Hypoaeration of the frontal sinus. Stable. There is moderate mucosal thickening of the visu alized paranasal sinuses compatible with sinusitis. No air-fluid levels. Ostium of the maxillary sin us severely narrowed on the right. Visualized portion of mastoid air cells show no abnormal opacification. The globes are intact bilate rally. IMPRESSION: Moderate to severe chronic-appearing sinusitis.
[2023-09-20] MEDS: methylPREDNISolone SOD SUCCI 125 MG/2 ML VIAL IV SCH (09:30)
--- NOTE | 2023-09-20 09:57 | P.PN ---
Subjective Progress Note Date: 09/20/23 This is a 58-year-old gentleman with past medical history significant for Richard's disease, sinusitis , chronic kidney disease,hypertension and multiple other medical issues presented to the hospital with nausea, vomiting, abdominal pain, sinus congestion, possible bacterial pneumonia, hypoxic respiratory failure and multiple other medical issues. Maintained on Rocephin and Zithromax. Denies dysphagia, reports decreased appetite, nausea mild, no further emesis or diarrhea. Denies abdominal pain. Denies worsening shortness of breath, cough. Afebrile, maintaining O2 sats in the 90s on room air. Denies chest pain, palpitations. Viral studies negative/ legionella negative. UA negative. creatinine 1.52. Objective - Vital Signs Vital signs: Vital Signs Temp 98.6 F 09/19/23 14:27 Pulse 88 09/19/23 15:48 Resp 16 09/19/23 14:27 BP 156/94 09/19/23 14:27 Pulse Ox 95 09/19/23 14:27 FiO2 Intake & Output 09/18/23 09/19/23 09/19/23 18:59 06:59 18:59 Intake Total 118 Balance 118 Intake: Oral 118 Other: Voiding Method Toilet # Voids 3 0 3 - Exam PHYSICAL EXAM: VITAL SIGNS: [As above] GENERAL: Sitting up in bed, alert and orient x 3, no acute distress HEENT: Atraumatic, normocephalic ,conjunctivae normal. eyes normal. NECK: Supple, no JVD. CARDIOVASCULAR: S1, S2 regular.. No murmur RESPIRATION: Unlabored, equal air entry, right basilar rhonchi ,bilateral bases diminished. ABDOMEN: Soft, nontender . No guarding. +BS. LEGS: No edema. no swelling, no cyanosis, no clubbing, no calf tenderness. NERVOUS SYSTEM: Cranial N 2-12 grossly normal. No focal deficits. Strength and sensation grossly intact. Skin: Warm and dry, no rash. - Labs CBC & Chem 7: 09/18/23 05:35 09/18/23 05:35 Labs: Abnormal Lab Results - Last 24 Hours (Table) 09/19/23 09/19/23 Range/Units 03:16 12:00 POC Glucose (mg/dL) 175 H (70-110) mg/dL Hemoglobin A1c 6.5 H (<=6.0) % Microbiology - Last 24 Hours (Table) 09/17/23 21:35 Blood Culture - Preliminary Blood 09/17/23 21:20 Blood Culture - Preliminary Blood Assessment and Plan Assessment: Possible bacterial pneumonia, procalcitonin, CRP pending, in a patient with history of Richard's disease-follows at [facility], pansinusitis. Chest CT reported consolidative, groundglass opacities throughout the right lung greatest in the right upper lobe. Acute hypoxic respiratory failure secondary to the above. Acute abdominal pain on admission, subsided. Abdominal CT reported no acute abnormality in the abdomen or pelvis. Chronic kidney disease stage III Plan: Continue on current medication regimen ,monitoring and symptomatic treatment. Sputum not yet collected , blood cultures pending. IV antibiotics as per infectious disease. Procalcitonin and sed rate pending. Increase ambulation as tolerated. The impression and plan of care has been dictated as directed. : I performed a history and examination of this patient, discussed the same with the dictator. I agree with the dictator's note ,documented as a scribe. Any additional findings or plans will be noted.
[2023-09-20 11:24] LABS: Glucose,Whole Blood 112 mg/dL (70-110)
[2023-09-20 11:29] LABS: HCT 31.9 % (39.0-53.0); HGB 10.1 gm/dL (13.0-17.5); Hypochromasia Slight; MCHC 31.6 g/dL (31.0-37.0); MCV 88.6 fL (80.0-100.0); Platelet Count 436 k/uL (150-450); RBC 3.61 m/uL (4.30-5.90); RDW 15.8 % (11.5-15.5); WBC 9.3 k/uL (3.8-10.6)
[2023-09-20 11:30] LABS: African American GFR (CKD) 71 (>60 ml/min/1.73 sqM); Anion Gap 7 mmol/L; Blood Urea Nitrogen 7 mg/dL (9-20); Calcium 8.6 mg/dL (8.4-10.2); Carbon Dioxide 18 mmol/L (22-30); Chloride 114 mmol/L (98-107); Glucose 98 mg/dL (74-99); Non-African American GFR(CKD) 61 (>60 ml/min/1.73 sqM); Potassium 4.1 mmol/L (3.5-5.1); Sodium 139 mmol/L (137-145)
--- NOTE | 2023-09-20 16:30 | P.PN ---
Subjective Progress Note Date: 09/20/23 This is a 58-year-old gentleman with past medical history significant for Richard's disease, sinusitis , chronic kidney disease,hypertension and multiple other medical issues presented to the hospital with nausea, vomiting, abdominal pain, sinus congestion, possible bacterial pneumonia, hypoxic respiratory failure and multiple other medical issues. Maintained on Rocephin and Zithromax. Denies dysphagia, reports decreased appetite, nausea mild, no further emesis or diarrhea. Denies abdominal pain. Denies worsening shortness of breath, cough. Afebrile, maintaining O2 sats in the 90s on room air. Denies chest pain, palpitations. Viral studies negative/ legionella negative. UA negative. creatinine 1.52. 09/20/2023 evaluated by infectious disease, procalcitonin and sed rate positive, antibiotics adjusted to Unasyn. Patient denies chest pain, palpitations, but reports shortness of breath. Maintaining O2 sats in the low 90s on room air .IV steroids initiated. Denies mucus production. Complains of sweats during the night. Afebrile, labs and sputum culture pending. Denies emesis, reports nausea. Objective - Vital Signs Vital signs: Vital Signs Temp 97.0 F L 09/20/23 14:46 Pulse 92 09/20/23 14:46 Resp 18 09/20/23 14:46 BP 137/91 09/20/23 14:46 Pulse Ox 92 L 09/20/23 14:46 FiO2 Intake & Output 09/19/23 09/20/23 09/20/23 18:59 06:59 18:59 Intake Total 118 354 Output Total 475 500 Balance -357 -146 Intake: Oral 118 354 Output: Urine 475 500 Other: # Voids 3 1 - Exam PHYSICAL EXAM: VITAL SIGNS: [As above] GENERAL: Sitting up in bed, alert and orient x 3, no acute distress HEENT: Atraumatic, normocephalic ,conjunctivae normal. eyes normal. NECK: Supple, no JVD. CARDIOVASCULAR: S1, S2 regular.. No murmur RESPIRATION: Unlabored, equal air entry, decreased fine crackles in the right base ABDOMEN: Soft, nontender . No guarding. +BS. LEGS: No edema. no swelling, no cyanosis, no clubbing, no calf tenderness. NERVOUS SYSTEM: Cranial N 2-12 grossly normal. No focal deficits. Strength and sensation grossly intact. Skin: Warm and dry, no rash. - Labs CBC & Chem 7: 09/20/23 11:05 09/20/23 11:05 Labs: Abnormal Lab Results - Last 24 Hours (Table) 09/19/23 09/19/23 09/20/23 Range/Units 23:24 23:24 11:05 RBC 3.61 L (4.30-5.90) m/uL Hgb 10.1 L (13.0-17.5) gm/dL Hct 31.9 L (39.0-53.0) % RDW 15.8 H (11.5-15.5) % ESR 59 H (0-20) mm/Hr Chloride (98-107) mmol/L Carbon Dioxide (22-30) mmol/L BUN (9-20) mg/dL Creatinine (0.66-1.25) mg/dL POC Glucose (mg/dL) (70-110) mg/dL Procalcitonin 0.18 H (0.02-0.09) ng/mL 09/20/23 09/20/23 Range/Units 11:05 11:15 RBC (4.30-5.90) m/uL Hgb (13.0-17.5) gm/dL Hct (39.0-53.0) % RDW (11.5-15.5) % ESR (0-20) mm/Hr Chloride 114 H (98-107) mmol/L Carbon Dioxide 18 L (22-30) mmol/L BUN 7 L (9-20) mg/dL Creatinine 1.30 H (0.66-1.25) mg/dL POC Glucose (mg/dL) 112 H (70-110) mg/dL Procalcitonin (0.02-0.09) ng/mL Microbiology - Last 24 Hours (Table) 09/17/23 21:35 Blood Culture - Preliminary Blood 09/17/23 21:20 Blood Culture - Preliminary Blood 09/19/23 08:30 Gram Stain - Preliminary Sputum Sputum Culture - Preliminary Mai albicans Assessment and Plan Assessment: Possible bacterial pneumonia, procalcitonin, CRP pending, in a patient with history of Richard's disease-follows at [facility], pansinusitis. Chest CT reported consolidative, groundglass opacities throughout the right lung greatest in the right upper lobe. Acute hypoxic respiratory failure secondary to the above. Acute abdominal pain on admission, subsided. Abdominal CT reported no acute abnormality in the abdomen or pelvis. Chronic kidney disease stage III Plan: Continue on current medication regimen ,monitoring and symptomatic treatment. Labs and sputum culture in progress.CT of sinuses pending.IV antibiotics as per infectious disease. Steroids. Increase ambulation as tolerated. The impression and plan of care has been dictated as directed. : I performed a history and examination of this patient, discussed the same with the dictator. I agree with the dictator's note ,documented as a scribe. Any additional findings or plans will be noted.
[2023-09-20 17:10] LABS: Glucose,Whole Blood 258 mg/dL (70-110)
--- NOTE | 2023-09-20 18:49 | P.PN ---
Subjective Progress Note Date: 09/20/23 This is a 58-year-old male patient who presented to the hospital with nausea and abdominal pain and low-grade fever. At time of admission, the patient was tachycardic and mildly hypoxemic. The patient just came from a long flight from [place]. Soon after arriving to [place], he was feeling nauseated and was also complaining of abdominal pain and generalized weakness. He came into the emergency where he was found to have a white cell count of 12.3 with a lactic acid level of 4.2, troponins were negative, BUN was 17 with a creatinine 1.57. The viral screen was negative. UA was negative. Chest x-ray showed patchy groundglass and consolidative opacities throughout the right lung greatest in the right upper lobe. CT of the chest was also done in the emergency department that showed no evidence of any pulm embolism. There was consolidation and groundglass opacities throughout the right lung greatest in the right upper lobe reflective of an underlying pneumonia. The CAT scan of the abdomen and pelvis was showing tiny bilateral nonobstructive renal calculi. No other acute intra-abdominal abnormalities. As such, the patient was hospitalized for pneumonia. He is currently on room air oxygen with a pulse ox of 92%. He started on IV Unasyn. ID is on the case. The patient's LFTs are within normal limits. Troponins are negative. Creatinine is at 1.52. BUN is at 14. UA is n egative. Legionella urine antigen is also negative. Note that the patient also has history of Richard's granulomatosis. Back in 2022, the patient has some limited vague groundglass pulm infiltrates. The back and he had been sinusitis and one of the structure involving the maxillary sinus and he also developed a component of chronic kidney disease. No active hematuria at this point in time. I do not see that the patient is on any form of immunosuppression at this point in time. 09/20/2023, the patient is being seen for a follow-up. Patient is stable. No specific complaints. The patient has history of Richard's granulomatosis. The patient has been treated with rituximab and high-dose prednisone for the past 9 months at least. The patient was instructed milligrams of prednisone and his symptoms exacerbated when he was weaned off the prednisone. Note that he was taken 40 mg of prednisone in combination with Bactrim on outpatient basis prior to his hospital admission. As such, presentation in the lungs could be related to Richard's granulomatosis. Procalcitonin level is 0.18. CAT scan of the sinuses is showing evidence of moderate to severe chronic sinusitis. The patient is currently on room air oxygen. Sedimentation rate is elevated at 59. He is on room air oxygen. Remains on IV Unasyn. He is also on IV Solu-Medrol. Receiving normal saline at rate of 100 cc an hour. Creatinine is down to 1.3. Objective - Vital Signs Vital signs: Vital Signs Temp 97.0 F L 09/20/23 14:46 Pulse 81 09/20/23 17:11 Resp 18 09/20/23 14:46 BP 137/91 09/20/23 14:46 Pulse Ox 92 L 09/20/23 14:46 FiO2 Intake & Output 09/19/23 09/20/23 09/20/23 18:59 06:59 18:59 Intake Total 118 894 Output Total 475 900 Balance -357 -6 Intake: Oral 118 894 Output: Urine 475 900 Other: # Voids 3 1 2 - Exam GENERAL: The patient is alert and oriented x3, not in any acute distress. Well developed, well nourished. HEENT: Pupils are round and equally reacting to light. EOMI. No scleral icterus. No conjunctival pallor. Normocephalic, atraumatic. No pharyngeal erythema. No thyromegaly. CARDIOVASCULAR: S1 and S2 present. No murmurs, rubs, or gallops. PULMONARY: Chest is clear to auscultation, no wheezing or crackles. ABDOMEN: Soft, nontender, nondistended, normoactive bowel sounds. No palpable organomegaly. MUSCULOSKELETAL: No joint swelling or deformity. EXTREMITIES: No cyanosis, clubbing, or pedal edema. NEUROLOGICAL: Gross neurological examination did not reveal any focal deficits. SKIN: No rashes. - Labs CBC & Chem 7: 09/20/23 11:05 09/20/23 11:05 Labs: Abnormal Lab Results - Last 24 Hours (Table) 09/19/23 09/19/23 09/20/23 Range/Units 23:24 23:24 11:05 RBC 3.61 L (4.30-5.90) m/uL Hgb 10.1 L (13.0-17.5) gm/dL Hct 31.9 L (39.0-53.0) % RDW 15.8 H (11.5-15.5) % ESR 59 H (0-20) mm/Hr Chloride (98-107) mmol/L Carbon Dioxide (22-30) mmol/L BUN (9-20) mg/dL Creatinine (0.66-1.25) mg/dL POC Glucose (mg/dL) (70-110) mg/dL Procalcitonin 0.18 H (0.02-0.09) ng/mL 09/20/23 09/20/23 09/20/23 Range/Units 11:05 11:15 17:08 RBC (4.30-5.90) m/uL Hgb (13.0-17.5) gm/dL Hct (39.0-53.0) % RDW (11.5-15.5) % ESR (0-20) mm/Hr Chloride 114 H (98-107) mmol/L Carbon Dioxide 18 L (22-30) mmol/L BUN 7 L (9-20) mg/dL Creatinine 1.30 H (0.66-1.25) mg/dL POC Glucose (mg/dL) 112 H 258 H (70-110) mg/dL Procalcitonin (0.02-0.09) ng/mL Microbiology - Last 24 Hours (Table) 09/17/23 21:35 Blood Culture - Preliminary Blood 09/17/23 21:20 Blood Culture - Preliminary Blood 09/19/23 08:30 Gram Stain - Preliminary Sputum Sputum Culture - Preliminary Mai albicans Assessment and Plan Plan: Acute hypoxic respiratory failure and the patient is currently on room air oxygen with a pulse ox of 92% the procalcitonin level has been low. Acute consolidation/groundglass pulm infiltrates of the right lung with predominant involvement of the right upper lobe. Consider bacterial pneumonia. Consider pulmonary manifestations of granulomatosis with polyangiitis/Richard's disease. 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 Followed up with [facility]. Biopsy of the kidney was done as an outpatient basis. History of Richard's disease and the patient has been maintained on a combination rituximab and high-dose prednisone outpatient basis. Plan Continue IV Solu-Medrol and the patient will likely be transition to high-dose prednisone Titrate oxygen to maintain saturation above 90%, currently on room air oxygen Continue IV Unasyn Check procalcitonin level has been low Check sed rate has been elevated Check ANCA titers and the levels are still pending CAT scan of the sinuses consistent with chronic sinusitis Obtain further information regarding his granulomatosis with polyangiitis from [facility] Will continue to follow
[2023-09-20 18:59] LABS: Appearance,Urine Clear (Clear); Bilirubin,Urine Negative (Negative); Blood,Urine Negative (Negative); Color,Urine Colorless; Glucose,Urine (UA) 3+ (Negative); Ketones,Urine Negative (Negative); Leukocyte Esterase,Urine Negative (Negative); Nitrite,Urine Negative (Negative); PH, Urine 6.5 (5.0-8.0); Protein,Urine Negative (Negative); Specific Gravity,Urine 1.006 (1.001-1.035); Urobilinogen,Urine <2.0 mg/dL (<2.0)
[2023-09-20 20:59] LABS: Glucose,Whole Blood 186 mg/dL (70-110)
[2023-09-21 06:00] LABS: Glucose,Whole Blood 257 mg/dL (70-110)
--- NOTE | 2023-09-21 07:44 | XR ---
EXAMINATION TYPE: XR chest 2V DATE OF EXAM: 09/21/2023 COMPARISON: 09/18/2023 TECHNIQUE: PA and lateral views submitted. HISTORY: Shortness of breath FINDINGS: Interval improvement in the areas of patchy consolidation involving the right lung with persistent re sidual changes. Left lung is clear. No pleural effusion or pneumothorax. Heart size normal. Osseous s tructures stable. IMPRESSION: 1. Improving right-sided infiltrate..
[2023-09-21 12:08] LABS: Glucose,Whole Blood 344 mg/dL (70-110)
--- NOTE | 2023-09-21 13:04 | P.DS ---
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 Chest CT reported consolidative, groundglass opacities throughout the right lung greatest in the right upper lobe. Pulmonary and ID following Acute hypoxic respiratory failure secondary to the above. Chronic sinusitis Acute abdominal pain on admission, subsided. Abdominal CT reported no acute abnormality in the abdomen or pelvis. Chronic kidney disease stage III. Hemoglobin A1c 6.5, in a patient who has been maintained on a combination of high-dose prednisone and rituximab outpatient. Further follow-up outpatient in clinic with PCP. Hospital course:This is a 58-year-old gentleman with past medical history significant for Richard's disease, sinusitis , chronic kidney disease,hyp ertension and multiple other medical issues presented to the hospital with nausea, vomiting, abdominal pain, sinus congestion, possible bacterial pneumonia, hypoxic respiratory failure and multiple other medical issues. Maintained on Rocephin and Zithromax. Denies dysphagia, reports decreased appetite, nausea mild, no further emesis or diarrhea. Denies abdominal pain. Denies worsening shortness of breath, cough. Afebrile, maintaining O2 sats in the 90s on room air. Denies chest pain, palpitations. Viral studies negative/ legionella negative. UA negative. creatinine 1.52. 09/20/2023 evaluated by infectious disease, procalcitonin and sed rate positive, antibiotics adjusted to Unasyn. Patient denies chest pain, palpitations, but reports shortness of breath. Maintaining O2 sats in the low 90s on room air .IV steroids initiated. Denies mucus production. Complains of sweats during the night. Afebrile, labs and sputum culture pending. Denies emesis, reports nausea. Labs and sputum culture in progress.CT of sinuses pending.IV antibiotics of Unasyn as per infectious disease. Steroids. Increase ambulation as tolerated. Procalcitonin level 0.18. ESR 59, maintained on Unasyn and IV steroids. Sinus CT reported evidence of moderate to severe chronic sinusitis. Feels better, chest x-ray improving. Reports less shortness of breath. Maintaining O2 sats of 94 to 95% on room air. Denies chest pain, palpitations. Denies lightheadedness, dizziness or focal deficits. Significant clinical improvement. Patient has been cleared by infectious disease for discharge. Patient will be discharged home today in a stable condition with guarded prognosis pending final DC recommendations and clearance per pulmonary. Patient has been instructed to follow-up with PCP next week. The impression and plan of care has been dictated as directed. : I performed a history and examination of this patient, discussed the same with the dictator. I agree with the dictator's note ,documented as a scribe. Any additional findings or plans will be noted. Patient Condition at Discharge: Stable Plan - Discharge Summary Discharge Rx Participant: No New Discharge Prescriptions: New predniSONE 10 mg PO DIRECTED #30 tab Amoxic-Pot Clav 875-125Mg [Augmentin 875-125] 1 tab PO BID 10 Days #20 tab Continue Pantoprazole [Protonix] 40 mg PO DAILY QUEtiapine [SEROquel] 400 mg PO HS Hydromorphone 1mg/Ml 5 mg PO Q8H PRN PRN Reason: Pain Benzocaine [place] [Hurricaine [place]] 1 applic MUCOUS MEM QID PRN PRN Reason: Sore Throat amLODIPine [Norvasc] 10 mg PO DAILY #30 tab Lidocaine Viscous 2% [Xylocaine Viscous] 5 ml MUCOUS MEM TID PRN PRN Reason: Pain Sodium Chloride 0.65% Nasal [Deep Sea (Saline)] 1 spr EA NOSTRIL BID PRN PRN Reason: Congestion Ondansetron [Zofran] 4 mg PO Q8H PRN PRN Reason: Nausea Furosemide [Lasix] 40 mg PO DAILY Insulin Glargine-Yfgn [Semglee (Yfgn) Pen] 5 unit SQ HS Discontinued Sulfamethox-Tmp 800-160Mg [Bactrim DS 800-160 mg] 1 tab PO DAILY Discharge Medication List Pantoprazole [Protonix] 40 mg PO DAILY 08/13/22 [History] Benzocaine [place] [Hurricaine [place]] 1 applic MUCOUS MEM QID PRN 08/27/22 [History] amLODIPine [Norvasc] 10 mg PO DAILY #30 tab 09/13/22 [Rx] Furosemide [Lasix] 40 mg PO DAILY 09/18/23 [History] Hydromorphone 1mg/Ml 5 mg PO Q8H PRN 09/18/23 [History] Insulin Glargine-Yfgn [Semglee (Yfgn) Pen] 5 unit SQ HS 09/18/23 [History] Lidocaine Viscous 2% [Xylocaine Viscous] 5 ml MUCOUS MEM TID PRN 09/18/23 [History] Ondansetron [Zofran] 4 mg PO Q8H PRN 09/18/23 [History] QUEtiapine [SEROquel] 400 mg PO HS 09/18/23 [History] Sodium Chloride 0.65% Nasal [Deep Sea (Saline)] 1 spr EA NOSTRIL BID PRN 09/18/23 [History] Amoxic-Pot Clav 875-125Mg [Augmentin 875-125] 1 tab PO BID 10 Days #20 tab 06/11 [Rx] predniSONE 10 mg PO DIRECTED #30 tab 09/21/23 [Rx] Follow up Appointment(s)/Referral(s): Jamel Kothari MD [Primary Care Provider] - 1 Week
[2023-09-21] MEDS: INSULIN ASPART (NovoLOG) 100 UNIT/ML VIAL SQ ONE (13:33)
[2023-09-21 13:55] VITALS: BP 165/97; PULSE 99; RESP 16; TEMP 98.2
[2023-09-21 13:55] LABS: C-ANCA <1:20 Titer (<1:20)
--- NOTE | 2023-09-21 16:13 | P.PN ---
Subjective Progress Note Date: 09/20/23 Principal diagnosis: Reason for follow-up is pneumonia Patient is 58-year-old male with a past medical history significant for hypertension, Richard's disease presenting to the hospital for evaluation of nausea and some abdominal pain some shortness of breath and cough CT abdominal pelvis was negative CT angiogram of the chest did shows evidence of right-sided pneumonia. On today's evaluation that is 09/20/2023, Patient is afebrile this morning and denies any chills, patient mention breathing slightly harder today however the patient is currently on room air, patient denies any chest pain or any worsening cough patient denies any abdominal pain no diarrhea no nausea no vomiting. Patient white count is 9.3, creat is 1.30 Objective - Vital Signs Vital signs: Vital Signs Temp 97.9 F 09/20/23 07:00 Pulse 89 09/20/23 07:00 Resp 18 09/20/23 07:00 BP 151/93 09/20/23 07:00 Pulse Ox 96 09/20/23 08:41 FiO2 Intake & Output 09/19/23 09/20/23 09/20/23 18:59 06:59 18:59 Intake Total 118 118 Output Total 475 500 Balance -357 -382 Intake: Oral 118 118 Output: Urine 475 500 Other: # Voids 3 1 - Exam GENERAL DESCRIPTION: Middle-aged male lying in bed in no distress RESPIRATORY SYSTEM: Unlabored breathing , decreased breath sounds at bases HEART: S1 S2 regular rate and rhythm , ABDOMEN: Soft , no tenderness EXTREMITIES: No edema feet - Labs CBC & Chem 7: 09/20/23 11:05 09/20/23 11:05 Labs: Abnormal Lab Results - Last 24 Hours (Table) 09/19/23 09/19/23 09/19/23 Range/Units 12:00 23:24 23:24 RBC (4.30-5.90) m/uL Hgb (13.0-17.5) gm/dL Hct (39.0-53.0) % RDW (11.5-15.5) % ESR 59 H (0-20) mm/Hr Chloride (98-107) mmol/L Carbon Dioxide (22-30) mmol/L BUN (9-20) mg/dL Creatinine (0.66-1.25) mg/dL POC Glucose (mg/dL) 175 H (70-110) mg/dL Procalcitonin 0.18 H (0.02-0.09) ng/mL 09/20/23 09/20/23 09/20/23 Range/Units 11:05 11:05 11:15 RBC 3.61 L (4.30-5.90) m/uL Hgb 10.1 L (13.0-17.5) gm/dL Hct 31.9 L (39.0-53.0) % RDW 15.8 H (11.5-15.5) % ESR (0-20) mm/Hr Chloride 114 H (98-107) mmol/L Carbon Dioxide 18 L (22-30) mmol/L BUN 7 L (9-20) mg/dL Creatinine 1.30 H (0.66-1.25) mg/dL POC Glucose (mg/dL) 112 H (70-110) mg/dL Procalcitonin (0.02-0.09) ng/mL Microbiology - Last 24 Hours (Table) 09/19/23 08:30 Gram Stain - Preliminary Sputum 09/17/23 21:35 Blood Culture - Preliminary Blood 09/17/23 21:20 Blood Culture - Preliminary Blood Assessment and Plan (1) Pneumonia Status: Acute Code(s): J18.9 - PNEUMONIA, UNSPECIFIED ORGANISM SNOMED Code(s): 600773750 Plan: 1patient presented to hospital predominantly with nausea and some abdominal discomfort also have some shortness of breath and cough CT abdominal pelvis did not show any acute abnormality CT angiogram of the chest shows right-sided pneumonia with a question of community-acquired versus aspiration pneumonia. 2 urine for Legionella antigen sputum cultures currently pending blood culture pending 3patient to continue with Unasyn 3 g every 6 hours and acyclovir suppression for possible aspiration pneumonia while waiting for the culture to finalize Dictation was produced using [employer] dictation software. please excuse any grammatical, word or spelling errors. Time with Patient: Less than 30
--- NOTE | 2023-09-21 16:14 | P.PN ---
Subjective Progress Note Date: 09/21/23 Principal diagnosis: Reason for follow-up is pneumonia Patient is 58-year-old male with a past medical history significant for hypertension, Richard's disease presenting to the hospital for evaluation of nausea and some abdominal pain some shortness of breath and cough CT abdominal pelvis was negative CT angiogram of the chest did shows evidence of right-sided pneumonia. On today's evaluation that is 09/21/2023,the patient denies any fever or any chills, patient is breathing comfortably on room air, the patient denies chest pain shortness of breath and no significant cough, patient denies abdominal pain, no nausea vomiting or diarrhea. Patient mention feeling better today. No new lab has been repeated today blood culture negative sputum with Mai albicans Objective - Vital Signs Vital signs: Vital Signs Temp 97.5 F L 09/21/23 07:38 Pulse 84 09/21/23 09:41 Resp 17 09/21/23 07:38 BP 153/99 09/21/23 07:38 Pulse Ox 94 L 09/21/23 09:32 FiO2 Intake & Output 09/20/23 09/21/23 09/21/23 18:59 06:59 18:59 Intake Total 894 Output Total 900 1000 Balance -6 -1000 Intake: Oral 894 Output: Urine 900 1000 Other: # Voids 2 - Exam GENERAL DESCRIPTION: Middle-aged male lying in bed in no distress RESPIRATORY SYSTEM: Unlabored breathing , decreased breath sounds at bases HEART: S1 S2 regular rate and rhythm , ABDOMEN: Soft , no tenderness EXTREMITIES: No edema feet - Labs CBC & Chem 7: 09/20/23 11:05 09/20/23 11:05 Labs: Abnormal Lab Results - Last 24 Hours (Table) 09/20/23 09/20/23 09/20/23 Range/Units 16:00 17:08 20:58 POC Glucose (mg/dL) 258 H 186 H (70-110) mg/dL Urine Glucose (UA) 3+ H (Negative) 09/21/23 09/21/23 Range/Units 05:59 12:06 POC Glucose (mg/dL) 257 H 344 H (70-110) mg/dL Urine Glucose (UA) (Negative) Microbiology - Last 24 Hours (Table) 09/19/23 08:30 Gram Stain - Final Sputum Sputum Culture - Final Mai albicans 09/17/23 21:35 Blood Culture - Preliminary Blood 09/17/23 21:20 Blood Culture - Preliminary Blood Assessment and Plan (1) Pneumonia Status: Acute Code(s): J18.9 - PNEUMONIA, UNSPECIFIED ORGANISM SNOMED Code(s): 564420047 Plan: 1patient presented to hospital predominantly with nausea and some abdominal discomfort also have some shortness of breath and cough CT abdominal pelvis did not show any acute abnormality CT angiogram of the chest shows right-sided pneumonia with a question of community-acquired versus aspiration pneumonia. 2 urine for Legionella antigen sputum cultures currently growing Mai which is more likely colonizer cultures have been negative 3patient did have clinical improvement on Unasyn will finish therapy with oral Augmentin prescription sent to the pharmacy Dictation was produced using [employer] dictation software. please excuse any grammatical, word or spelling errors. Time with Patient: Less than 30
--- NOTE | 2023-09-21 19:09 | P.PN ---
Subjective Progress Note Date: 09/21/23 This is a 58-year-old male patient who presented to the hospital with nausea and abdominal pain and low-grade fever. At time of admission, the patient was tachycardic and mildly hypoxemic. The patient just came from a long flight from [place]. Soon after arriving to [place], he was feeling nauseated and was also complaining of abdominal pain and generalized weakness. He came into the emergency where he was found to have a white cell count of 12.3 with a lactic acid level of 4.2, troponins were negative, BUN was 17 with a creatinine 1.57. The viral screen was negative. UA was negative. Chest x-ray showed patchy groundglass and consolidative opacities throughout the right lung greatest in the right upper lobe. CT of the chest was also done in the emergency department that showed no evidence of any pulm embolism. There was consolidation and groundglass opacities throughout the right lung greatest in the right upper lobe reflective of an underlying pneumonia. The CAT scan of the abdomen and pelvis was showing tiny bilateral nonobstructive renal calculi. No other acute intra-abdominal abnormalities. As such, the patient was hospitalized for pneumonia. He is currently on room air oxygen with a pulse ox of 92%. He started on IV Unasyn. ID is on the case. The patient's LFTs are within normal limits. Troponins are negative. Creatinine is at 1.52. BUN is at 14. UA is n egative. Legionella urine antigen is also negative. Note that the patient also has history of Richard's granulomatosis. Back in 2022, the patient has some limited vague groundglass pulm infiltrates. The back and he had been sinusitis and one of the structure involving the maxillary sinus and he also developed a component of chronic kidney disease. No active hematuria at this point in time. I do not see that the patient is on any form of immunosuppression at this point in time. 09/20/2023, the patient is being seen for a follow-up. Patient is stable. No specific complaints. The patient has history of Richard's granulomatosis. The patient has been treated with rituximab and high-dose prednisone for the past 9 months at least. The patient was instructed milligrams of prednisone and his symptoms exacerbated when he was weaned off the prednisone. Note that he was taken 40 mg of prednisone in combination with Bactrim on outpatient basis prior to his hospital admission. As such, presentation in the lungs could be related to Richard's granulomatosis. Procalcitonin level is 0.18. CAT scan of the sinuses is showing evidence of moderate to severe chronic sinusitis. The patient is currently on room air oxygen. Sedimentation rate is elevated at 59. He is on room air oxygen. Remains on IV Unasyn. He is also on IV Solu-Medrol. Receiving normal saline at rate of 100 cc an hour. Creatinine is down to 1.3. 09/21/2023, the patient is being seen for a follow-up.. The patient is essentially stable. The patient is known to have Richard's granulomatosis and the patient is currently on IV Solu-Medrol. Clinically stable. Hemodynamically stable. Oxygenation is also stable and the patient is on room air oxygen with a pulse ox of 96%. Blood work showed stable renal function with a creatinine of 1.3. He does have renal involvement with Richard's disease. As mentioned, the patient has been maintained on a combination of right toxin and high-dose prednisone on outpatient basis. Repeat chest x-ray was done today and there is improvement in the right sided pulmonary infiltrate. Based on that, I recommended discharging this patient on high-dose of prednisone starting with 60 mg p.o. daily to be tapered gradually under the supervision of the team at [facility] taking care of this patient's Richard's dermatosis. The patient has no specific complaints. Discussed with him the findings. Discussed with him the CAT scan of the sinuses findings. I doubt that the patient is infected at this point in time and the findings are probably related to pulmon adair manifestations of Richard's granulomatosis. Follow-up will be needed with the team at [facility]. Objective - Vital Signs Vital signs: Vital Signs Temp 98.2 F 09/21/23 13:54 Pulse 99 09/21/23 13:54 Resp 16 09/21/23 13:54 BP 165/97 09/21/23 13:54 Pulse Ox 96 09/21/23 13:54 FiO2 Intake & Output 09/21/23 09/21/23 09/22/23 06:59 18:59 06:59 Intake Total 118 Output Total 1000 Balance -882 Intake: Oral 118 Output: Urine 1000 - Exam GENERAL: The patient is alert and oriented x3, not in any acute distress. Well developed, well nourished. HEENT: Pupils are round and equally reacting to light. EOMI. No scleral icterus. No conjunctival pallor. Normocephalic, atraumatic. No pharyngeal erythema. No thyromegaly. CARDIOVASCULAR: S1 and S2 present. No murmurs, rubs, or gallops. PULMONARY: Chest is clear to auscultation, no wheezing or crackles. ABDOMEN: Soft, nontender, nondistended, normoactive bowel sounds. No palpable organomegaly. MUSCULOSKELETAL: No joint swelling or deformity. EXTREMITIES: No cyanosis, clubbing, or pedal edema. NEUROLOGICAL: Gross neurological examination did not reveal any focal deficits. SKIN: No rashes. - Labs CBC & Chem 7: 09/20/23 11:05 09/20/23 11:05 Labs: Abnormal Lab Results - Last 24 Hours (Table) 09/20/23 09/21/23 09/21/23 Range/Units 20:58 05:59 12:06 POC Glucose (mg/dL) 186 H 257 H 344 H (70-110) mg/dL Microbiology - Last 24 Hours (Table) 09/17/23 21:35 Blood Culture - Preliminary Blood 09/17/23 21:20 Blood Culture - Preliminary Blood 09/19/23 08:30 Gram Stain - Final Sputum Sputum Culture - Final Mai albicans Assessment and Plan Plan: Acute hypoxic respiratory failure and the patient is currently on room air oxygen with a pulse ox of 92% the procalcitonin level has been low. Acute consolidation/groundglass pulm infiltrates of the right lung with predominant involvement of the right upper lobe. Consider bacterial pneumonia. Consider pulmonary manifestations of granulomatosis with polyangiitis/Richard's disease. Clinically stable and the chest x-ray findings from today shows improvement in the right lung consolidation. Responding to steroids. 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 Followed up with [facility]. Biopsy of the kidney was done as an outpatient basis. History of Richard's disease and the patient has been maintained on a combination rituximab and high-dose prednisone outpatient basis. Plan May discharge the patient home on high-dose prednisone 60 mg p.o. daily to be tapered slowly through [facility]. Titrate oxygen to maintain saturation above 90%, currently on room air oxygen Suggest follow-up chest x-ray on outpatient basis. Check procalcitonin level has been low Check sed rate has been elevated Check ANCA titers and the levels are still pending CAT scan of the sinuses consistent with chronic sinusitis Follow-up with the team at [facility] involved in taking care of this patient's Richard's granulomatosis.
--- NOTE | 2023-09-23 18:00 | CDI ---
Documentation Clarification Form Date: 09/23/2023 05:46:08 PM From: Shara Chawla Phone: Admit Date: 09/20/2023 07:40:00 AM Patient Name: Delmer Lopez Visit Number: [id number] Discharge Date: 09/21/2023 02:42:00 PM ATTENTION: The Clinical Documentation Specialists (CDI) and [facility] Coding Staff appreciate your assistance in clarifying documentation. Please respond to the clarification below the line at the bottom and electronically sign. The CDI & [facility] Coding staff will review the response and follow-up if needed. Please note: Queries are made part of the Legal Health Record. If you have any questions, please contact the author of this message via ITS. Dr. Jamel Kothari Your patient has an abnormal lab value: [id number] 6.5. Please clarify if there is an additional diagnosis and/or clinical significance related to this value. History/Risk Factors: 58yo M, bacterial PNA, Richard's w CKD III,pansinusitis w erosion, AHRF, chronic sinusitis, HTN, A1c 6.5 has been maintained on a combination of high-dose prednisoneand rituximab OP Clinical indicators: Glucose: 6/12122 09/17 106-120 7 106-175 7/ 112-258 7 186- 344 Treatment:Insulin Glargine-Yfgn [Semglee] 5 unit SQ HS Is there an additional diagnosis and/or clinical significance related to the above lab result/information? [ X ] Hyperglycemia due to high-dose prednisoneand rituximab [ ] Diabetes Mellitus with Hyperglycemia [ ] No additional diagnosis/Not clinically significant [ ] Other, please specify [ ] Unable to determine (Template Last Revised: April 2020) MTDD
== END 2023-09-21 14:42 | disposition home or self-care (01) | DRG 193 ==
LOC: EC 16:35 → 6NMEDSUR 21:05 → OBSVTOIN 09-20 07:40
PROVIDERS: ADMIT Family Medicine; ATTEND Family Medicine
DX: J15.9 Unspecified bacterial pneumonia (principal); J96.01 Acute respiratory failure with hypoxia; M31.31 Wegener's granulomatosis with renal involvement; E03.9 Hypothyroidism, unspecified; N18.30 Chronic kidney disease, stage 3 unspecified; I10 Essential (primary) hypertension; F32.A Depression, unspecified; R73.9 Hyperglycemia, unspecified; T38.0X5A Adverse effect of glucocorticoids and synthetic analogues, initial encounter; T45.1X5A Adverse effect of antineoplastic and immunosuppressive drugs, initial encounter; N20.0 Calculus of kidney; L98.8 Other specified disorders of the skin and subcutaneous tissue; J01.40 Acute pansinusitis, unspecified; J32.4 Chronic pansinusitis; Z86.14 Personal history of Methicillin resistant Staphylococcus aureus infection; Z87.39 Personal history of other diseases of the musculoskeletal system and connective tissue; Z79.890 Hormone replacement therapy; Z79.899 Other long term (current) drug therapy; Z79.52 Long term (current) use of systemic steroids; Z11.52 Encounter for screening for COVID-19
CPT/HCPCS: 36415; 70486; 71046; 71275; 74177; 80048; 80053; 81003; 83036; 83605; 83690; 83735; 84100; 84145; 84484; 85025; 85027; 85652; 86255; 87040; 87070; 87205; 87449; 87636; 93005; 94640; 94760; 96361; 96365; 96366; 96367; 96375; 96376; 99285

== ENCOUNTER 2024-03-20 06:12 | Emergency (ER) | payer BC ==
--- NOTE | 2024-03-20 06:32 | ED ---
Chest Pain HPI - General Source: patient, RN notes reviewed Mode of arrival: ambulatory Limitations: no limitations <Aidan Chang - Last Filed: 03/20/24 09:07> <Ana Daley - Last Filed: 03/20/24 10:07> - General Chief Complaint: Chest Pain Stated Complaint: Pneumonia Time Seen by Provider: 03/20/24 06:21 - History of Present Illness Initial Comments: 58-year-old male presents emergency department complaint of left-sided rib pain. 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 Patient states he felt like he did have fever he denies any leg pain or leg swelling no prior DVT no prior cardiac disease denies any history of COPD or asthma. Patient states he has not taken any for discomfort. Patient states it is better when he flexes hand over his chest wall when he coughs. Patient denies any headache or dizziness. Denies any syncopal episodes. 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 States he has also been experiencing increasing left-sided rib pain is exacerbated with coughing, movement, deep inspiration. Endorses chills with no reported fever. He states that he is not attempted to take any medications to alleviate his pain. (Ana Daley) - Related Data Home Medications Medication Instructions Recorded Confirmed Pantoprazole [Protonix] 40 mg PO DAILY 08/13/22 09/18/23 Benzocaine [place] [Hurricaine [place]] 1 applic MUCOUS MEM QID PRN 08/27/22 09/18/23 Furosemide [Lasix] 40 mg PO DAILY 09/18/23 09/18/23 Hydromorphone 1mg/Ml 5 mg PO Q8H PRN 09/18/23 09/18/23 Insulin Glargine-Yfgn [Semglee 5 unit SQ HS 09/18/23 09/18/23 (Yfgn) Pen] Lidocaine Viscous 2% [Xylocaine 5 ml MUCOUS MEM TID PRN 09/18/23 09/18/23 Viscous] Ondansetron [Zofran] 4 mg PO Q8H PRN 09/18/23 09/18/23 QUEtiapine [SEROquel] 400 mg PO HS 09/18/23 09/18/23 Sodium Chloride 0.65% Nasal [Deep 1 spr EA NOSTRIL BID PRN 09/18/23 09/18/23 Sea (Saline)] Previous Rx's Medication Instructions Recorded amLODIPine [Norvasc] 10 mg PO DAILY #30 tab 09/13/22 Amoxic-Pot Clav 875-125Mg 1 tab PO BID 10 Days #20 tab 09/21/23 [Augmentin 875-125] predniSONE 10 mg PO DIRECTED #30 tab 09/21/23 Amoxic-Pot Clav 875-125Mg 1 tab PO Q12HR #20 tab 03/20/24 [Augmentin 875-125] Allergies Allergy/AdvReac Type Severity Reaction Status Date / Time No Known Allergies Allergy Verified 09/18/23 12:08 Review of Systems ROS Other: All systems not noted in ROS Statement are negative. <Aidan Chang - Last Filed: 03/20/24 09:07> ROS Other: All systems not noted in ROS Statement are negative. <Ana Daley - Last Filed: 03/20/24 10:07> ROS Statement: Those systems with pertinent positive or pertinent negative responses have been documented in the HPI. EKG Findings - EKG Comments: EKG Findings:: EKG performed at 6: 46 sinus rhythm rate 85 IN 162 QRS 96 QT/QTc 339/[address] elevation or depression noted. - EKG Results: EKG: interpreted by ERMD <Aidan Chang - Last Filed: 03/20/24 09:07> Past Medical History Past Medical History: Hypertension Additional Past Medical History / Comment(s): bone throat infection History of Any Multi-Drug Resistant Organisms: MRSA Date of last positivie culture/infection: 07/19/22 MDRO Source:: Throat Past Surgical History: Orthopedic Surgery Additional Past Surgical History / Comment(s): avascular necrosis rt hip Past Anesthesia/Blood Transfusion Reactions: No Reported Reaction Past Psychological History: No Psychological Hx Reported Smoking Status: Never smoker Past Alcohol Use History: None Reported Past Drug Use History: None Reported - Past Family History Mother Family Medical History: Dialysis <Aidan Chang - Last Filed: 03/20/24 09:07> General Exam Limitations: no limitations General appearance: alert, in no apparent distress Head exam: Present: atraumatic, normocephalic, normal inspection Eye exam: Present: normal appearance, PERRL, EOMI. Absent: scleral icterus, conjunctival injection, periorbital swelling ENT exam: Present: normal exam, normal oropharynx, mucous membranes moist Neck exam: Present: normal inspection. Absent: tenderness, meningismus, lymphadenopathy Respiratory exam: Present: normal lung sounds bilaterally, chest wall tenderness. Absent: respiratory distress, wheezes, rales, rhonchi, stridor Cardiovascular Exam: Present: regular rate, normal rhythm, normal heart sounds. Absent: systolic murmur, diastolic murmur, rubs, gallop, clicks GI/Abdominal exam: Present: soft, normal bowel sounds. Absent: distended, tenderness, guarding, rebound, rigid <Aidan Chang - Last Filed: 03/20/24 09:07> Course Vital Signs 03/20/24 03/20/24 03/20/24 06:15 07:30 07:34 Temperature 97.7 F Pulse Rate 81 80 Respiratory 16 20 20 Rate Blood Pressure 166/115 145/105 O2 Sat by Pulse 97 95 Oximetry 03/20/24 03/20/24 09:04 09:58 Temperature 98 F Pulse Rate 76 80 Respiratory 20 18 Rate Blood Pressure 167/110 167/110 O2 Sat by Pulse 96 93 L Oximetry Chest Pain MDM <Aidan Chang - Last Filed: 03/20/24 09:07> <Ana Daley - Last Filed: 03/20/24 10:07> - MDM Was pt. sent in by a medical professional or institution (, PA, ASSISTANT ELEMENTARY TEACHER, urgent care, hospital, or intermediate...) When possible be specific @ -[No] Did you speak to anyone other than the patient for history (EMS, parent, family, police, friend...)? What history was obtained from this source @ -[No] Did you review nursing and triage notes (agree or disagree)? Why? @ -[I reviewed and agree with nursing and triage notes] Were old charts reviewed (outside hosp., previous admission, EMS record, old EKG, old radiological studies, urgent care reports/EKG's, intermediate records)? Report findings @ -[No old charts were reviewed] Differential Diagnosis (chest pain, altered mental status, abdominal pain women, abdominal pain men, vaginal bleeding, weakness, fever, dyspnea, syncope, headache, dizziness, GI bleed, back pain, seizure, CVA, palpatations, mental health, musculoskeletal)? @ -Chest pain EKG interpreted by me (3pts min.). @ -[As above] X-rays interpreted by me (1pt min.). @ -Chest x-ray shows no acute cardiopulmonary process CT interpreted by me (1pt min.). @ -[None done] U/S interpreted by me (1pt. min.). @ -[None done] What testing was considered but not performed or refused? (CT, X-rays, U/S, labs)? Why? @ -[None] What meds were considered but not given or refused? Why? @ -[None] Did you discuss the management of the patient with other professionals (professionals i.e. , PA, ASSISTANT ELEMENTARY TEACHER, lab, RT, psych nurse, manager social responsibility, copy chief, teacher, seaman officer, ed case manager)? Give summary @ -[No] Was smoking cessation discussed for >3mins.? @ -[No] Was critical care preformed (if so, how long)? @ -[No] Were there social determinants of health that impacted care today? How? (Homelessness, low income, unemployed, alcoholism, drug addiction, transportation, low edu. Level, literacy, decrease access to med. care, shelter, rehab)? @ -[No] Was there de-escalation of care discussed even if they declined (Discuss DNR or withdrawal of care, Hospice)? DNR status @ -[No] What co-morbidities impacted this encounter? (DM, HTN, Smoking, COPD, CAD, Cancer, CVA, ARF, Chemo, Hep., AIDS, mental health diagnosis, sleep apnea, mo rbid obesity)? @ -[None] Was patient admitted / discharged? Hospital course, mention meds given and route, prescriptions, significant lab abnormalities, going to OR and other pertinent info. @ -Case signed out to Ana LINTON, Signed Aidan Chang PA-C (Aidan Chang) Discharge. This is a 58-year-old male presenting with left-sided chest pain and URI symptoms. Initial evaluation was completed by provider with workup initiated including cardiac enzymes, D-dimer, EKG and chest x-ray that have resulted all within normal limits. CBC notable for leukocytosis of 13.3 likely secondary to chronic steroid use in addition to elevated creatinine 1.93 and BUN of 28 from baseline most likely secondary to dehydration and chronic steroid use. Patient had continued complaints of left back/flank pain with urinalysis ordered with no signs of bladder infection. Patient is noted to be hypertensive on duration of visit however patient is on daily prednisone and states that he has not taken his Norvasc or losartan as scheduled. with concern for bacterial sinusitus with worsening symptoms over the last 2 days and persistent cough, congestion, and chills over the last 10 days patient will be treated with augmentin for further bacterial coverage. Initially, patient better with home doses of blood pressure medications. Recommend that he follow-up with primary care provider as scheduled for continued evaluation. There is minimal clinical concern for ACS at this time as cardiac enzymes are more compressed than negative for addition, patient's heart score is low with low clinical consideration for adverse cardiac event to occur in the next 6 weeks. Patient is in agreement with discharge and following up closely with primary care provider outpatient. EKG was completed at 646 sinus rhythm with occasional PVCs, ventricular rate 85, IN interval 162, QRS 96, QTc 382. (Ana Daley) Disposition <Aidan Chang - Last Filed: 03/20/24 09:07> Is patient prescribed a controlled substance at d/c from ED?: No Time of Disposition: 09:51 <Ana Daley - Last Filed: 03/20/24 10:07> Clinical Impression: Bacterial sinusitis, Hypertension Disposition: HOME SELF-CARE Condition: Good Instructions (If sedation given, give patient instructions): Sinusitis (ED) Additional Instructions: Please return to the Emergency Department if symptoms worsen or any other concerns. Prescriptions: Amoxic-Pot Clav 875-125Mg [Augmentin 875-125] 1 tab PO Q12HR #20 tab Referrals: Jamel Kothari MD [Primary Care Provider] - 1-2 days
[2024-03-20 06:55] LABS: Basophils % (A) 0 %; Eosinophils # (A) 0.3 k/uL (0-0.7); Eosinophils % (A) 2 %; HCT 37.3 % (39.0-53.0); HGB 11.9 gm/dL (13.0-17.5); Lymphocytes # (A) 1.3 k/uL (1.0-4.8); Lymphocytes % (A) 10 %; MCH 27.1 pg (25.0-35.0); MCHC 31.8 g/dL (31.0-37.0); Monocytes # (A) 0.8 k/uL (0-1.0); Monocytes % (A) 6 %; Neutrophils # (A) 10.8 k/uL (1.3-7.7); Neutrophils % (A) 81 %; Platelet Count 459 k/uL (150-450); RBC 4.39 m/uL (4.30-5.90); RDW 15.8 % (11.5-15.5); WBC 13.3 k/uL (3.8-10.6)
[2024-03-20 07:06] LABS: ALT 15 U/L (4-49); AST 15 U/L (17-59); African American GFR (CKD) 44 (>60 ml/min/1.73 sqM); Alkaline Phosphatase 93 U/L (38-126); Anion Gap 11 mmol/L; Blood Urea Nitrogen 28 mg/dL (9-20); Calcium 9.5 mg/dL (8.4-10.2); Carbon Dioxide 16 mmol/L (22-30); Chloride 110 mmol/L (98-107); Glucose 102 mg/dL (74-99); Non-African American GFR(CKD) 38 (>60 ml/min/1.73 sqM); Potassium 4.7 mmol/L (3.5-5.1); Sodium 137 mmol/L (137-145); Total Bilirubin 0.2 mg/dL (0.2-1.3); Total Protein 6.5 g/dL (6.3-8.2)
[2024-03-20 07:11] LABS: INR 0.9 (<1.2); Partial Thromboplastin Time 23.2 sec (22.0-30.0); Prothrombin Time 10.4 sec (10.0-12.5)
[2024-03-20 07:13] LABS: NT-Pro-B-Type Natriuretic Pept 418 pg/mL
--- NOTE | 2024-03-20 07:30 | XR ---
EXAMINATION TYPE: XR chest 2V DATE OF EXAM: 03/20/2024 6:38 AM COMPARISON: 09/21/2023 CLINICAL INDICATION: Male, 58 years old with history of Chest Pain, TECHNIQUE: XR chest 2V view(s) obtained. FINDINGS: The heart size is normal. The pulmonary vasculature is normal. The lungs are clear. IMPRESSION: 1. No acute pulmonary process. [facility], , 03/20/2024 7:28 AM
[2024-03-20] MEDS: SODIUM CHLORIDE 0.9% 1,000 ML IV ONE (07:35)
[2024-03-20] MEDS: HYDROmorphone 0.5 MG/0.5 ML SYRINGE IVP STA (07:46)
[2024-03-20 09:06] VITALS: BP 167/110
[2024-03-20] MEDS: ONDANSETRON 4 MG/2 ML VIAL IVP STA (09:07)
[2024-03-20 09:28] LABS: Appearance,Urine Clear (Clear); Bilirubin,Urine Negative (Negative); Blood,Urine Negative (Negative); Color,Urine Colorless; Glucose,Urine (UA) Negative (Negative); Ketones,Urine Negative (Negative); Leukocyte Esterase,Urine Negative (Negative); Nitrite,Urine Negative (Negative); Protein,Urine Negative (Negative); Specific Gravity,Urine 1.018 (1.001-1.035); Urobilinogen,Urine <2.0 mg/dL (<2.0)
[2024-03-20 09:59] VITALS: PULSE 80; RESP 18; TEMP 98
[2024-03-20] MEDS: AMOXIC-POT CLAV 875-125MG 1 EACH TAB PO STA (09:59)
[2024-03-20] MEDS: LOSARTAN 25 MG TAB PO STA (09:59)
[2024-03-20] MEDS: amLODIPine 10 MG TAB PO STA (09:59)
[2024-03-20] MEDS: HYDROmorphone 1 MG/ML 1 ML SYRINGE IM STA (10:21)
== END 2024-03-20 10:27 | disposition home or self-care (01) ==
LOC: EC 06:12
DX: I10 Essential (primary) hypertension (principal); J32.9 Chronic sinusitis, unspecified
CPT/HCPCS: 36415; 93005; 85379; 83880; 80053; 83735; 84484; 85025; 85610; 85730; 81003; 71046; 99285; 96374; 96375; 96372; 96361; J2405; J1171 ×2

== ENCOUNTER → 2024-03-26 | Outpatient (CLI) | payer BC ==
[2024-03-26 11:52] LABS: Protein/Creatinine Ratio,Urine 0.099
[2024-03-26 15:36] LABS: Albumin 4.1 g/dL (3.8-4.9); BUN/Creat Ratio 17.76 Ratio (12.00-20.00); Blood Urea Nitrogen 30.2 mg/dL (9.0-27.0); Calcium 9.3 mg/dL (8.7-10.3); Carbon Dioxide 19.8 mmol/L (21.6-31.8); Chloride 107 mmol/L (96-109); Glucose 111 mg/dL (70-110); Phosphorus 3.5 mg/dL (2.4-5.1); Potassium 4.6 mmol/L (3.5-5.5); Sodium 140 mmol/L (135-145)
[2024-03-26 17:00] LABS: Appearance,Urine Clear (Clear); Bilirubin,Urine Negative (Negative); Blood,Urine Negative (Negative); Color,Urine Yellow (Yellow); Ketones,Urine Negative (Negative); Nitrite,Urine Negative (Negative); Urobilinogen,Urine 0.2 E.U./DL
[2024-03-26 19:07] LABS: Microalbumin Creatinine Ratio <11 mg/g Cr (0-30)
== END | disposition home or self-care (01) ==
LOC: LABWHC1 10:24
PROVIDERS: ATTEND Internal Medicine
DX: M31.31 Wegener's granulomatosis with renal involvement (principal)
CPT/HCPCS: 36415; 80069; 81003; 82043; 82570; 84156

== ENCOUNTER 2024-03-29 09:52 | Inpatient (IN) | payer BC ==
--- NOTE | 2024-03-29 10:14 | ED ---
SOB HPI - General Chief Complaint: Shortness of Breath Stated Complaint: SOB,Congestion Time Seen by Provider: 03/29/24 09:59 Source: patient, RN notes reviewed Mode of arrival: ambulatory Limitations: no limitations - History of Present Illness Initial Comments: This is a 58-year-old male who presents to the emergency department for coughing and shortness of breath. States that this has been going on for at least 2-3 weeks at this point. He was evaluated here for this about 10 days ago and started on Augmentin. States that he finished the Augmentin yesterday, but has not had any relief. He continues to have a productive cough that is now causing severe pain in his back and both sides of the rib cage. He also feels very short of breath. Patient very tearful on exam. 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 States that he needs to have his illness cleared up by then. MD Complaint: shortness of breath, cough - Related Data Home Medications Medication Instructions Recorded Confirmed Pantoprazole [Protonix] 40 mg PO DAILY 08/13/22 03/29/24 Ondansetron [Zofran] 4 mg PO Q8H PRN 09/18/23 03/29/24 HYDROmorphone [Dilaudid] 4 mg PO BID 03/29/24 03/29/24 Losartan [Cozaar] 50 mg PO DAILY 03/29/24 03/29/24 Omeprazole 40 mg PO DAILY 03/29/24 03/29/24 Sulfamethox-Tmp 800-160Mg [Bactrim 1 tab PO MOWEFR 03/29/24 03/29/24 DS 800-160 mg] mycophenolate mofetiL [Cellcept] 1,000 mg PO BID 03/29/24 03/29/24 predniSONE 20 mg PO DAILY 03/29/24 03/29/24 traZODone HCL [Desyrel] 100 mg PO HS PRN 03/29/24 03/29/24 Previous Rx's Medication Instructions Recorded amLODIPine [Norvasc] 10 mg PO DAILY #30 tab 09/13/22 Allergies Allergy/AdvReac Type Severity Reaction Status Date / Time No Known Allergies Allergy Verified 03/29/24 15:12 Review of Systems ROS Statement: Those systems with pertinent positive or pertinent negative responses have been documented in the HPI. ROS Other: All systems not noted in ROS Statement are negative. Past Medical History Past Medical History: Hypertension Additional Past Medical History / Comment(s): bone throat infection History of Any Multi-Drug Resistant Organisms: MRSA Date of last positivie culture/infection: 07/19/22 MDRO Source:: Throat Past Surgical History: Orthopedic Surgery Additional Past Surgical History / Comment(s): avascular necrosis rt hip Past Anesthesia/Blood Transfusion Reactions: No Reported Reaction Past Psychological History: No Psychological Hx Reported Smoking Status: Never smoker Past Alcohol Use History: None Reported Past Drug Use History: None Reported - Past Family History Mother Family Medical History: Dialysis General Exam Limitations: no limitations General appearance: alert, in distress Head exam: Present: atraumatic, normocephalic, normal inspection Respiratory exam: Present: decreased breath sounds, prolonged expiratory Cardiovascular Exam: Present: regular rate, normal rhythm, normal heart sounds. Absent: systolic murmur, diastolic murmur, rubs, gallop, clicks Neurological exam: Present: alert, oriented X3, CN II-XII intact Psychiatric exam: Present: normal affect, normal mood Skin exam: Present: warm, dry, intact, normal color. Absent: rash Course Vital Signs 03/29/24 03/29/24 03/29/24 09:55 10:18 11:49 Temperature 98.2 F Pulse Rate 86 84 Respiratory 22 22 Rate Blood Pressure 195/120 O2 Sat by Pulse 95 Oximetry 03/29/24 03/29/24 03/29/24 11:56 12:16 15:34 Temperature Pulse Rate 88 86 83 Respiratory 24 18 Rate Blood Pressure 160/104 191/124 O2 Sat by Pulse 95 97 Oximetry 03/29/24 16:13 Temperature Pulse Rate 75 Respiratory 18 Rate Blood Pressure 164/104 O2 Sat by Pulse 91 L Oximetry Medical Decision Making - Medical Decision Making This is a 58 year old male who presents to the emergency department for shortness of breath and coughing. Was pt. sent in by a medical professional or institution? @ -No Did you speak to anyone other than the patient for history? @ -No Did you review nursing and triage notes? @ -Yes, and I agree, it is accurate with regards to the patient's symptoms. Were old charts reviewed? @ -No Differential Diagnosis? @ -Differential Dyspnea: Coronary syndrome, arrhythmia, tamponade, asthma, COPD, pulmonary embolism, pne umonia, pneumothorax, pulmonary effusion, anaphylaxis, diabetic ketoacidosis, flailed chest, pulmonary contusion, diaphragmatic rupture, anemia, neuromuscular, this is not meant to be an all-inclusive list. EKG interpreted by me (3pts min.)? @ -EKG interpreted by me demonstrating the following: Sinus rhythm. Ventricular rate 78 bpm, OR interval 178 ms, QRS duration 103 ms, QTc 385 ms. X-rays interpreted by me (1pt min.)? @ -Chest x-ray obtained. My interpretation identifies mild interstitial prominence. CT interpreted by me (1pt min.)? @ -Not obtained U/S interpreted by me (1pt. min.)? @ -Not obtained What testing was considered but not performed? (CT, X-rays, U/S, labs)? Why? @ -None What meds were considered but not given? Why? @ -None Did you discuss the management of the patient with other professionals? @ -Yes, Dr. Kothari, who accepts the patient for admission. Did you reconcile home meds? @ -Yes Was smoking cessation discussed for >3mins.? @ -No Was critical care preformed (if so, how long)? @ -No Were there social determinants of health that impacted care today? How? (Homelessness, low income, unemployed, alcoholism, drug addiction, transportation, low edu. Level, literacy, decrease access to med. care, [facility], rehab)? @ -No Was there de-escalation of care discussed even if they declined? (Discuss DNR or withdrawal of care, Hospice)? @ -No What co-morbidities impacted this encounter? (DM, HTN, Smoking, COPD, CAD, Cancer, CVA, Hep., AIDS, mental health diagnosis, sleep apnea, morbid obesity)? @ -Richard's granulomatosis Was patient admitted / discharged? @ -Admitted. Lab work demonstrates mild leukocytosis with a white blood cell count of 12.4. This may be related to his chronic steroid use for Richard's granulomatosis. Lab work also suggestive of dehydration. Troponin, D-dimer, and BNP negative. Chest x-ray reveals mild interstitial densities that could reflect bronchitis, asthma, or mild pulmonary vascular congestion. Patient is positive for RSV. COVID and influenza testing negative. Ambulatory pulse ox obtained and patient maintained oxygen saturation of 93 to 95%. While his vital signs were stable, he did exhibit conversational dyspnea and continued to be in a lot of distress both in terms of pain and feeling like he could not breathe. He does also take Dilaudid at home on a regular basis, and the opioid tolerance further contributed to his difficulty with pain control. He found the Robitussin AC very beneficial for his cough. Given patient's level of distress with immunocompromise state, he was admitted to medicine for further management. Consult placed for pulmonology to see if they have anything else to offer. Case discussed with ED attending, Dr. Rodrigues. Undiagnosed new problem with uncertain prognosis? @ -None Drug Therapy requiring intensive monitoring for toxicity (Heparin, Nitro, Insulin, Cardizem)? @ -None Were any procedures done? @ -None Diagnosis/symptom? @ -RSV, respiratory distress Acute, or Chronic, or Acute on Chronic? @ -Acute Uncomplicated (without systemic symptoms) or Complicated (systemic symptoms)? @ -Complicated Side effects of treatment? @ -None Exacerbation, Progression, or Severe Exacerbation] @ -Not applicable Poses a threat to life or bodily function? @ -Yes, patient reports difficulty functioning due to his symptoms. - Lab Data Result diagrams: 03/29/24 10:45 03/29/24 10:45 Lab Results 03/29/24 03/29/24 03/29/24 Range/Units 10:45 10:45 10:45 WBC 12.4 H (3.8-10.6) k/uL RBC 4.25 L (4.30-5.90) m/uL Hgb 11.7 L (13.0-17.5) gm/dL Hct 36.2 L (39.0-53.0) % MCV 85.0 (80.0-100.0) fL MCH 27.5 (25.0-35.0) pg MCHC 32.3 (31.0-37.0) g/dL RDW 15.6 H (11.5-15.5) % Plt Count 435 (150-450) k/uL MPV 7.2 Neutrophils % 84 % Lymphocytes % 7 % Monocytes % 7 % Eosinophils % 0 % Basophils % 0 % Neutrophils # 10.4 H (1.3-7.7) k/uL Lymphocytes # 0.9 L (1.0-4.8) k/uL Monocytes # 0.9 (0-1.0) k/uL Eosinophils # 0.1 (0-0.7) k/uL Basophils # 0.0 (0-0.2) k/uL PT 10.2 (10.0-12.5) sec INR 0.9 (<1.2) APTT 23.9 (22.0-30.0) sec D-Dimer 0.23 (<0.60) mg/L FEU Sodium 137 (137-145) mmol/L Potassium 4.4 (3.5-5.1) mmol/L Chloride 107 (98-107) mmol/L Carbon Dioxide 19 L (22-30) mmol/L Anion Gap 11 mmol/L BUN 36 H (9-20) mg/dL Creatinine 1.52 H (0.66-1.25) mg/dL Est GFR (CKD-EPI)AfAm 59 (>60 ml/min/1.73 sqM) Est GFR (CKD-EPI)NonAf 51 (>60 ml/min/1.73 sqM) Glucose 101 H (74-99) mg/dL Plasma Lactic Acid Yevgeniy (0.7-2.0) mmol/L Calcium 9.9 (8.4-10.2) mg/dL Magnesium 1.9 (1.6-2.3) mg/dL Total Bilirubin 0.2 (0.2-1.3) mg/dL AST 14 L (17-59) U/L ALT 14 (4-49) U/L Alkaline Phosphatase 97 (38-126) U/L Troponin I (0.000-0.034) ng/mL NT-Pro-B Natriuret Pep 502 pg/mL Total Protein 6.7 (6.3-8.2) g/dL Albumin 4.3 (3.5-5.0) g/dL Lipase 68 (23-300) U/L Influenza Type A (PCR) (Not Detectd) Influenza Type B (PCR) (Not Detectd) RSV (PCR) (Not Detectd) SARS-CoV-2 (PCR) (Not Detectd) 03/29/24 03/29/24 03/29/24 Range/Units 10:45 10:45 10:45 WBC (3.8-10.6) k/uL RBC (4.30-5.90) m/uL Hgb (13.0-17.5) gm/dL Hct (39.0-53.0) % MCV (80.0-100.0) fL MCH (25.0-35.0) pg MCHC (31.0-37.0) g/dL RDW (11.5-15.5) % Plt Count (150-450) k/uL MPV Neutrophils % % Lymphocytes % % Monocytes % % Eosinophils % % Basophils % % Neutrophils # (1.3-7.7) k/uL Lymphocytes # (1.0-4.8) k/uL Monocytes # (0-1.0) k/uL Eosinophils # (0-0.7) k/uL Basophils # (0-0.2) k/uL PT (10.0-12.5) sec INR (<1.2) APTT (22.0-30.0) sec D-Dimer (<0.60) mg/L FEU Sodium (137-145) mmol/L Potassium (3.5-5.1) mmol/L Chloride (98-107) mmol/L Carbon Dioxide (22-30) mmol/L Anion Gap mmol/L BUN (9-20) mg/dL Creatinine (0.66-1.25) mg/dL Est GFR (CKD-EPI)AfAm (>60 ml/min/1.73 sqM) Est GFR (CKD-EPI)NonAf (>60 ml/min/1.73 sqM) Glucose (74-99) mg/dL Plasma Lactic Acid Yevgeniy 1.1 (0.7-2.0) mmol/L Calcium (8.4-10.2) mg/dL Magnesium (1.6-2.3) mg/dL Total Bilirubin (0.2-1.3) mg/dL AST (17-59) U/L ALT (4-49) U/L Alkaline Phosphatase (38-126) U/L Troponin I <0.012 (0.000-0.034) ng/mL NT-Pro-B Natriuret Pep pg/mL Total Protein (6.3-8.2) g/dL Albumin (3.5-5.0) g/dL Lipase (23-300) U/L Influenza Type A (PCR) Not Detected (Not Detectd) Influenza Type B (PCR) Not Detected (Not Detectd) RSV (PCR) Detected A (Not Detectd) SARS-CoV-2 (PCR) Not Detected (Not Detectd) - Radiology Data Radiology results: report reviewed, image reviewed Disposition Clinical Impression: RSV (respiratory syncytial virus infection), Respiratory distress, Immunocompromised state Disposition: ADMITTED IP TO THIS HOSP
[2024-03-29] MEDS: SODIUM CHLORIDE 0.9% 1,000 ML IV STA (10:42)
[2024-03-29] MEDS: guaiFENesin-Coden 100-10MG/5ML 10 ML CUP PO STA (10:43)
[2024-03-29] MEDS: KETOROLAC 15 MG/ML 1 ML VIAL IVP STA (10:43)
[2024-03-29] MEDS: MORPHINE SULFATE 4 MG/ML SYRINGE IVP STA (10:44)
--- NOTE | 2024-03-29 10:50 | XR ---
EXAMINATION TYPE: XR chest 2V DATE OF EXAM: 03/29/2024 10:33 AM COMPARISON: 03/20/2024 CLINICAL INDICATION: Male, 58 years old with history of shortness of breath, difficulty breathing, , TECHNIQUE: PA and lateral views FINDINGS: Heart borderline in size. Mild interstitial prominence without consolidation or pleural effusion. IMPRESSION: Mild interstitial density could reflect bronchitis, asthma, or mild pulmonary vascular congestion. Cl inically correlate. [facility], Workstation: [email or web address], 03/29/2024 10:47 AM
[2024-03-29 10:52] LABS: Basophils % (A) 0 %; Eosinophils # (A) 0.1 k/uL (0-0.7); Eosinophils % (A) 0 %; HCT 36.2 % (39.0-53.0); HGB 11.7 gm/dL (13.0-17.5); Lymphocytes # (A) 0.9 k/uL (1.0-4.8); Lymphocytes % (A) 7 %; MCH 27.5 pg (25.0-35.0); MCHC 32.3 g/dL (31.0-37.0); Mean Platelet Volume 7.2; Monocytes # (A) 0.9 k/uL (0-1.0); Monocytes % (A) 7 %; Neutrophils # (A) 10.4 k/uL (1.3-7.7); Neutrophils % (A) 84 %; Platelet Count 435 k/uL (150-450); RBC 4.25 m/uL (4.30-5.90); RDW 15.6 % (11.5-15.5); WBC 12.4 k/uL (3.8-10.6)
[2024-03-29 11:10] LABS: INR 0.9 (<1.2); Partial Thromboplastin Time 23.9 sec (22.0-30.0); Prothrombin Time 10.2 sec (10.0-12.5)
[2024-03-29 11:15] LABS: ALT 14 U/L (4-49); AST 14 U/L (17-59); African American GFR (CKD) 59 (>60 ml/min/1.73 sqM); Albumin 4.3 g/dL (3.5-5.0); Alkaline Phosphatase 97 U/L (38-126); Anion Gap 11 mmol/L; Blood Urea Nitrogen 36 mg/dL (9-20); Calcium 9.9 mg/dL (8.4-10.2); Carbon Dioxide 19 mmol/L (22-30); Chloride 107 mmol/L (98-107); Glucose 101 mg/dL (74-99); Lipase 68 U/L (23-300); Magnesium 1.9 mg/dL (1.6-2.3); Non-African American GFR(CKD) 51 (>60 ml/min/1.73 sqM); Potassium 4.4 mmol/L (3.5-5.1); Sodium 137 mmol/L (137-145); Total Bilirubin 0.2 mg/dL (0.2-1.3); Total Protein 6.7 g/dL (6.3-8.2)
[2024-03-29 11:21] LABS: NT-Pro-B-Type Natriuretic Pept 502 pg/mL
[2024-03-29 11:28] LABS: Influenza A Not Detected (Not Detectd); Influenza B Not Detected (Not Detectd); RSV Detected (Not Detectd)
[2024-03-29] MEDS: IPRATROPIUM-ALBUTEROL 3 ML NEB INHALATION STA (11:49)
[2024-03-29] MEDS ORDERED: NALOXONE 0.4 MG/ML 1 ML VIAL IV PRN (12:57)
[2024-03-29] MEDS ORDERED: ACETAMINOPHEN TAB 325 MG TAB PO PRN (12:57)
[2024-03-29] MEDS: HYDROmorphone 0.5 MG/0.5 ML SYRINGE IVP PRN (13:29)
[2024-03-29] MEDS: hydrALAZINE HCL 20 MG/ML 1 ML VIAL IVP STA (15:46)
[2024-03-29] MEDS: HYDROmorphone 1 MG/ML 1 ML SYRINGE IVP PRN (15:47)
[2024-03-29] MEDS: ONDANSETRON 4 MG/2 ML VIAL IVP PRN (15:47)
[2024-03-29] MEDS: ALPRAZolam 0.5 MG TAB PO PRN (17:55)
[2024-03-29] MEDS: HYDROmorphone 2 MG TAB PO SCH (21:03)
[2024-03-30] MEDS: HYDROmorphone 0.5 MG/0.5 ML SYRINGE IVP PRN (05:26)
[2024-03-30] MEDS: PROCHLORPERAZINE INJ 10 MG/2 ML VIAL IVP STA (06:28)
--- NOTE | 2024-03-30 06:39 | P.CNPUL ---
History of Present Illness Consult date: 03/30/24 Requesting physician: Merari Jo Reason for consult: other (RSV) Chief complaint: Shortness of breath and coughing History of present illness: Patient is a 58-year-old female with past medical history significant for granulomatosis with polyangiitis, chronic sinus infections, and hypertension. Presented emergency department yesterday morning complaining chiefly of shortness of breath with associated persistent cough, minimally productive, low- grade fevers. Now with associated left rib pain, with coughing and deep breathing. Denies any fevers. Ongoing for the past 2 to 3 weeks. Nausea and vomiting has developed over the last two days. His appetite has been poor. He does take prednisone, rituximab, and CellCept on outpatient basis. Of note, ER visit March 20 with URI symptoms, was treated with a course of Augmentin. Patient returns to the emergency department yesterday with above-mentioned symptoms. Cepheid 4 Plex was positive for RSV. Chest x-ray shows stable cardia c silhouette, mild bilateral interstitial densities. CBC: WBC count 12.4, hemoglobin 11.7, hematocrit 36.2, platelets 435. D-dimer was low at 0.23. CMP: Sodium 137, potassium 4.4, chloride 107, serum bicarb 19, BUN 36, creatinine 1.52, glucose 101. Lactic 1.1. Troponin less than 0.012. NT proBNP 502. Procalcitonin level low at 0.09. Continues on Bactrim. He has chronic sinusitis. Reportedly scheduled to be undergoing reconstructive sinus surgery later this month. Current vitals: Afebrile, heart rate 77 bpm, blood pressure 170/93 mmHg, nontachypneic, 92% on room air oxygen. Review of Systems Constitutional: Reports fever, Reports poor appetite, Denies chills Ears, nose, mouth and throat: Reports nasal congestion, Reports sinus pain, Reports sinus pressure, Denies headache, Denies nasal discharge, Denies post-nasal drip, Denies sore throat Cardiovascular: Denies chest pain, Denies leg edema, Denies orthopnea, Denies palpitations, Denies paroxysmal nocturnal dyspnea, Denies syncope Respiratory: Reports congestion, Reports cough, Reports cough with sputum, Repor ts dyspnea, Denies excessive sputum, Denies hemoptysis, Denies wheezing Gastrointestinal: Reports loss of appetite, Reports nausea, Reports vomiting, Denies abdominal pain, Denies change in bowel habits, Denies diarrhea Genitourinary: Reports flank pain, Reports urinary hesitancy, Denies dysuria, Denies hematuria, Denies urinary frequency Musculoskeletal: Denies limitation of motion Integumentary: Denies rash Neurological: Denies seizures, Denies syncope Psychiatric: Denies anxiety, Denies depression Past Medical History Past Medical History: Hypertension Additional Past Medical History / Comment(s): bone throat infection, wegeners, GPA History of Any Multi-Drug Resistant Organisms: MRSA Date of last positivie culture/infection: 07/19/22 MDRO Source:: Throat Past Surgical History: Orthopedic Surgery Additional Past Surgical History / Comment(s): avascular necrosis rt hip with surgery, bilateral wrist surgery, left foot surgery Past Anesthesia/Blood Transfusion Reactions: No Reported Reaction Past Psychological History: No Psychological Hx Reported Smoking Status: Never smoker Past Alcohol Use History: None Reported Past Drug Use History: None Reported - Past Family History Mother Family Medical History: Dialysis Medications and Allergies Home Medications Medication Instructions Recorded Confirmed Type Pantoprazole [Protonix] 40 mg PO DAILY 08/13/22 03/29/24 History amLODIPine [Norvasc] 10 mg PO DAILY #30 tab 09/13/22 03/29/24 Rx Ondansetron [Zofran] 4 mg PO Q8H PRN 09/18/23 03/29/24 History HYDROmorphone [Dilaudid] 4 mg PO BID 03/29/24 03/29/24 History Losartan [Cozaar] 50 mg PO DAILY 03/29/24 03/29/24 History Omeprazole 40 mg PO DAILY 03/29/24 03/29/24 History Sulfamethox-Tmp 800-160Mg [Bactrim 1 tab PO MOWEFR 03/29/24 03/29/24 History DS 800-160 mg] mycophenolate mofetiL [Cellcept] 1,000 mg PO BID 03/29/24 03/29/24 History predniSONE 20 mg PO DAILY 03/29/24 03/29/24 History traZODone HCL [Desyrel] 100 mg PO HS PRN 03/29/24 03/29/24 History Allergies Allergy/AdvReac Type Severity Reaction Status Date / Time hydromorphone [From Dilaudid] AdvReac Hallucinati Verified 03/29/24 17:54 ons Physical Exam Vitals: Vital Signs Temp Pulse Pulse Resp BP BP Pulse Ox 03/30/24 01:40 97.9 F 77 20 170/93 91 L 03/29/24 22:42 98.1 F 86 20 168/94 92 L 03/29/24 21:56 71 18 157/111 94 L 03/29/24 16:46 70 18 152/92 95 03/29/24 16:13 75 18 164/104 91 L 03/29/24 15:34 83 18 191/124 97 03/29/24 12:16 86 24 160/104 95 03/29/24 11:56 88 03/29/24 11:49 84 03/29/24 10:18 22 03/29/24 09:55 98.2 F 86 22 195/120 95 Intake and Output 03/29/24 03/29/24 03/30/24 14:59 22:59 06:59 Other: Voiding Method Urinal Weight 96.162 kg 96.162 kg GENERAL EXAM: Alert, 58-year-old male, sitting at the edge of bed, dry heaving, in some distress.. HEAD: Normocephalic and atraumatic EYES: Normal reaction of pupils, equal size. NOSE: Clear with pink turbinates. Saddlenose deformity. THROAT: No erythema or exudates. NECK: No masses, no JVD. CHEST: No chest wall deformity. LUNGS: Equal air entry with no crackles, wheeze, rhonchi or dullness. On room air. No conversational dyspnea or accessory muscle use.. CVS: S1 and S2 normal with no audible murmur, regular rhythm. No extra heart sounds ABDOMEN: No hepatosplenomegaly, active bowel sounds, no guarding or rigidity. SPINE: No scoliosis or deformity SKIN: No rashes CENTRAL NERVOUS SYSTEM: No focal deficits, tone is normal in all 4 extremities. EXTREMITIES: There is no peripheral edema, clubbing, or cyanosis. Peripheral pulses are intact. Results - Laboratory Findings CBC and BMP: 03/29/24 10:45 03/29/24 10:45 PT/INR, D-dimer PT 10.2 sec (10.0-12.5) 03/29/24 10:45 INR 0.9 (<1.2) 03/29/24 10:45 D-Dimer 0.23 mg/L FEU (<0.60) 03/29/24 10:45 Abnormal lab findings: Abnormal Labs 03/29/24 03/29/24 03/29/24 10:45 10:45 10:45 WBC 12.4 H RBC 4.25 L Hgb 11.7 L Hct 36.2 L RDW 15.6 H Neutrophils # 10.4 H Lymphocytes # 0.9 L Carbon Dioxide 19 L BUN 36 H Creatinine 1.52 H Glucose 101 H AST 14 L RSV (PCR) Detected A - Diagnostic Findings Chest x-ray: image reviewed Assessment and Plan Assessment: Acute RSV infection Acute bronchitis, secondary to above Acute dyspnea, secondary to above History of granulomatosis with polyangiitis,, maintained on a combination of prednisone, rituximab, and CellCept on outpatient basis. Follows with [facility] Saddlenose deformity and chronic sinusitis, secondary to above, scheduled for reconstructive sinus surgery later this month. 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 Continues on prophylactic Bactrim Antihypertensives have previously been resumed Cardiology was consulted for persistent hypertension despite multiple oral antihypertensives We will continue to follow I have personally seen and examined the patient, performed the documentation and the assessment and plan as written. Number of minutes spent on the visit:20 This is a joint evaluation that was done along with the nurse practitioner. This evaluation was done more than 30 minutes. 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 The patient has been maintained on a combination of Rituxan, CellCept 1 g p.o. twice daily and prednisone 20 mg p.o. daily and the patient has been taking Bactrim for PCP prophylaxis 3 times a week. The patient has chronic stage III kidney disease related to his vasculitis. He also has history of chronic sinus disease and hypertension. Previous CAT scan of the chest done on 09/17/2023 showed no evidence of any pulmonary embolism. Nevertheless, there was some consolidative and groundglass opacities throughout the lungs greatest in the right upper lobe and the most recent CAT scan of the sinuses from September 2023 showed moderate to severe chronic appearing sinusitis. The patient came into the hospital because of worsening shortness of breath and cough. Workup that was done in the Emergency Department showed a white cell count of 12.5 with a hemoglobin 11.7. D-dimer was at 0.2. Creatinine was stable at 1.5. LFTs are unchanged. Procalcitonin level is at 0.09. The patient tested positive for RSV and accordingly he was hospitalized. Chest x-ray shows some mild increased interstitial prominence. The patient is hemodynamically stable. The patient is afebrile. The patient is currently on room air oxygen with a pulse ox of 92%. The plan is to monitor his oxygenation and respiratory status. Obtain a follow- up CAT scan of the chest as the patient had chronic infiltrative changes involving the right lung. May need to increase the steroid dose. The patient remains on 20 mg of prednisone. Remains on CellCept. Remains on Bactrim for PCP prophylaxis. Will continue to follow. Time with Patient: Greater than 30
[2024-03-30] MEDS: predniSONE 20 MG TAB PO SCH (08:07)
[2024-03-30] MEDS: PANTOPRAZOLE 40 MG TABLET PO SCH (08:07)
[2024-03-30] MEDS: amLODIPine 10 MG TAB PO SCH (08:07)
[2024-03-30] MEDS: SULFAMETHOX-TMP 800-160MG 1 EACH TAB PO SCH (08:08)
[2024-03-30] MEDS: LOSARTAN 50 MG TAB PO SCH (08:08)
--- NOTE | 2024-03-30 08:51 | US ---
EXAMINATION TYPE: US renals and bladder DATE OF EXAM: 03/30/2024 COMPARISON: 10/05/19, CT: 09/17/23 CLINICAL INDICATION: Male, 58 years old with history of left flank pain; left flank pain TECHNIQUE: Grayscale imaging of the bilateral kidneys and urinary bladder: FINDINGS: EXAM MEASUREMENTS: Right Kidney: 10.9 x 5.7 x 5.2 cm Left Kidney: 10.6 x 5.2 x 6.0 cm No hydronephrosis on either side. Right Kidney: small cystic area seen sup pole measuring 1.1 x 1.0 x 1.0cm Left Kidney: multiple cystic areas, largest mid pole measuring 1.6 x 1.5 x 1.3cm Bladder: Minimal circumferential wall thickening up to 5 mm. Possibly chronic for the patient. Bilateral Jets seen: yes IMPRESSION: 1. Bilateral renal cortical cysts measuring up to 1.6 cm. 2. No hydronephrosis. [facility], Workstation: [id number]BRIAN, 03/30/2024 8:48 AM
[2024-03-30] MEDS ORDERED: PANTOPRAZOLE 40 MG/10 ML VIAL IV SCH (09:00)
[2024-03-30] MEDS ORDERED: NON FORMULARY DRUG (Omeprazole [Omeprazole] 40 MG Capsule.Dr) PO SCH (09:00)
--- NOTE | 2024-03-30 09:37 | P.CRDCN ---
History of Present Illness Consult date: 03/30/24 Reason for Consult (text): High blood pressure, sudden palpitations with weakness, chest pressure. 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 Patient complains of cough, fevers, shortness of breath. He denies having any chest pain or chest pressure. Patien t has been found to be positive for RSV. Patient presented with a blood pressure of 195/120. Now, blood pressure 169/93, heart rate 68, pulse ox 92% on room air. Patient is status post hydralazine 10 mg IV push x 1, multiple doses of Dilaudid, Toradol, morphine, IV fluids [address] of the chest has been ordered by pulmonary medicine. -EKG: Sinus rhythm with no acute ST changes. -Chest x-ray: Mild density could reflect bronchitis, asthma or mild pulmonary vascular congestion. -Laboratory studies: WBC 12.4, hemoglobin 9.7. D-dimer 0.23. Sodium 137, potassium 4.4, BUN 36 and creatinine 1.52 (baseline), troponin negative x 1. proBNP 502. RSV detected. -Home cardiac medications: Amlodipine 10 mg daily, losartan 50 mg daily Review Of Systems: At the time of my exam: CONSTITUTIONAL: Denies fever or chills. HEENT: Denies blurred vision, vision changes, or eye pain. Denies hemoptysis CARDIOVASCULAR: Denies chest pain. Denies orthopnea. Denies PND. Denies palpitations RESPIRATORY: Denies shortness of breath. GASTROINTESTINAL: Denies abdominal pain. Denies nausea or vomiting. HEMATOLOGIC: Denies bleeding disorders. GENITOURINARY: Denies any blood in urine. SKIN: Denies puritis. Denies rash. Physical examination: Gen: This is a 58-year-old male in no acute distress VS: reviewed HEENT: Head is atraumatic, normocephalic. Pupils equal, round. Sclerae is anicteric. NECK: Supple. No JVD. LUNGS: Clear to auscultation. No wheezes or rhonchi. No intercostal retractions. HEART: Regular rate and rhythm. No murmur. ABDOMEN: Soft No tenderness. EXTREMITIES: No pedal edema. No calf tenderness. NEUROLOGICAL: Patient is awake, alert and oriented x3. Assessment: Hypertension, uncontrolled Atypical chest pain, acute coronary syndrome ruled out RSV Granulomatosis with polyangiitis Chronic kidney disease Plan: Resume patient's home cardiac medications Add Coreg 3.125 mg twice daily No further cardiac workup at this time. Patient may follow-up in the office with Dr. Robles in 2 weeks for outpatient workup. Cardiology will sign off this case and follow on an as-needed basis. Please reconsult for any new concerns. Thank you kindly for this consultation. Nurse practitioner note has been reviewed, I agree with documented findings and plan of care. Patient was seen and examined. Past Medical History Past Medical History: Hypertension Additional Past Medical History / Comment(s): bone throat infection, wegeners, GPA History of Any Multi-Drug Resistant Organisms: MRSA Date of last positivie culture/infection: 07/19/22 MDRO Source:: Throat Past Surgical History: Orthopedic Surgery Additional Past Surgical History / Comment(s): avascular necrosis rt hip with surgery, bilateral wrist surgery, left foot surgery Past Anesthesia/Blood Transfusion Reactions: No Reported Reaction Past Psychological History: No Psychological Hx Reported Smoking Status: Never smoker Past Alcohol Use History: None Reported Past Drug Use History: None Reported - Past Family History Mother Family Medical History: Dialysis Medications and Allergies Home Medications Medication Instructions Recorded Confirmed Type Pantoprazole [Protonix] 40 mg PO DAILY 08/13/22 03/29/24 History amLODIPine [Norvasc] 10 mg PO DAILY #30 tab 09/13/22 03/29/24 Rx Ondansetron [Zofran] 4 mg PO Q8H PRN 09/18/23 03/29/24 History HYDROmorphone [Dilaudid] 4 mg PO BID 03/29/24 03/29/24 History Losartan [Cozaar] 50 mg PO DAILY 03/29/24 03/29/24 History Omeprazole 40 mg PO DAILY 03/29/24 03/29/24 History Sulfamethox-Tmp 800-160Mg [Bactrim 1 tab PO MOWEFR 03/29/24 03/29/24 History DS 800-160 mg] mycophenolate mofetiL [Cellcept] 1,000 mg PO BID 03/29/24 03/29/24 History predniSONE 20 mg PO DAILY 03/29/24 03/29/24 History traZODone HCL [Desyrel] 100 mg PO HS PRN 03/29/24 03/29/24 History Allergies Allergy/AdvReac Type Severity Reaction Status Date / Time hydromorphone [From Dilaudid] AdvReac Hallucinati Verified 03/29/24 17:54 ons Physical Exam Vitals: Vital Signs Temp Pulse Pulse Resp BP BP Pulse Ox 03/30/24 07:00 97.9 F 68 18 169/93 92 L 03/30/24 01:40 97.9 F 77 20 170/93 91 L 03/29/24 22:42 98.1 F 86 20 168/94 92 L 03/29/24 21:56 71 18 157/111 94 L 03/29/24 16:46 70 18 152/92 95 03/29/24 16:13 75 18 164/104 91 L 03/29/24 15:34 83 18 191/124 97 03/29/24 12:16 86 24 160/104 95 03/29/24 11:56 88 03/29/24 11:49 84 03/29/24 10:18 22 03/29/24 09:55 98.2 F 86 22 195/120 95 Intake and Output 03/29/24 03/30/24 03/30/24 22:59 06:59 14:59 Output Total 250 Balance -250 Output: Urine 250 Other: Voiding Method Urinal Urinal # Voids 1 1 Weight 96.162 kg Results 03/29/24 10:45 03/29/24 10:45 Cardiac Enzymes 03/29/24 03/29/24 Range/Units 10:45 10:45 AST 14 L (17-59) U/L Troponin I <0.012 (0.000-0.034) ng/mL Coagulation 03/29/24 Range/Units 10:45 PT 10.2 (10.0-12.5) sec APTT 23.9 (22.0-30.0) sec CBC 03/29/24 Range/Units 10:45 WBC 12.4 H (3.8-10.6) k/uL RBC 4.25 L (4.30-5.90) m/uL Hgb 11.7 L (13.0-17.5) gm/dL Hct 36.2 L (39.0-53.0) % Plt Count 435 (150-450) k/uL Comprehensive Metabolic Panel 03/29/24 Range/Units 10:45 Sodium 137 (137-145) mmol/L Potassium 4.4 (3.5-5.1) mmol/L Chloride 107 (98-107) mmol/L Carbon Dioxide 19 L (22-30) mmol/L BUN 36 H (9-20) mg/dL Creatinine 1.52 H (0.66-1.25) mg/dL Glucose 101 H (74-99) mg/dL Calcium 9.9 (8.4-10.2) mg/dL AST 14 L (17-59) U/L ALT 14 (4-49) U/L Alkaline Phosphatase 97 (38-126) U/L Total Protein 6.7 (6.3-8.2) g/dL Albumin 4.3 (3.5-5.0) g/dL Current Medications Generic Name Dose Route Start Last Admin Trade Name Freq PRN Reason Stop Dose Admin Acetaminophen 650 mg 03/29/24 12:57 Acetaminophen Tab 325 Mg Tab PO Q6HR PRN Mild Pain or Fever > 100.5 Alprazolam 0.5 mg 03/29/24 17:48 03/29/24 17:55 Alprazolam 0.5 Mg Tab PO 0.5 mg BID PRN Administration Anxiety Amlodipine Besylate 10 mg 03/30/24 09:00 03/30/24 08:07 Amlodipine 10 Mg Tab PO 10 mg DAILY CISCO Administration Guaifenesin/Codeine Phosphate 10 ml 03/29/24 12:59 Guaifenesin-Coden 100-10mg/5ml 10 Ml Cup PO Q6HR PRN Cough Hydromorphone HCl 0.5 mg 03/29/24 23:45 03/30/24 05:26 Hydromorphone 0.5 Mg/0.5 Ml Syringe IVP 0.5 mg Q6HR PRN Administration Pain Losartan Potassium 50 mg 03/30/24 09:00 03/30/24 08:08 Losartan 50 Mg Tab PO 50 mg DAILY CISCO Administration Mycophenolate Mofetil 1,000 mg 03/29/24 21:00 03/30/24 08:08 Mycophenolate Mofetil 500 Mg Tab PO 1,000 mg BID CISCO Administration Naloxone HCl 0.2 mg 03/29/24 12:57 Naloxone 0.4 Mg/Ml 1 Ml Vial IV Q2M PRN Opioid Reversal Ondansetron HCl 4 mg 03/29/24 12:57 03/30/24 05:26 Ondansetron 4 Mg/2 Ml Vial IVP 4 mg Q8HR PRN Administration Nausea And Vomiting Ondansetron HCl 4 mg 03/29/24 16:39 Ondansetron 4 Mg Tab PO Q8H PRN Nausea Pantoprazole Sodium 40 mg 03/30/24 09:00 03/30/24 08:07 Pantoprazole 40 Mg Tablet PO 40 mg DAILY CISCO Administration Prednisone 20 mg 03/30/24 09:00 03/30/24 08:07 Prednisone 20 Mg Tab PO 20 mg DAILY CISCO Administration Trazodone HCl 100 mg 03/29/24 16:39 Trazodone Hcl 100 Mg Tab PO HS PRN Insomnia Trimethoprim/Sulfamethoxazole 1 each 03/30/24 09:00 03/30/24 08:08 Sulfamethox-Tmp 800-160mg 1 Each Tab PO 1 each MOWEFR CISCO Administration Protocol Intake and Output 03/29/24 03/30/24 03/30/24 22:59 06:59 14:59 Output Total 250 Balance -250 Output: Urine 250 Other: Voiding Method Urinal Urinal # Voids 1 1 Weight 96.162 kg 03/29/24 10:45 03/29/24 10:45
[2024-03-30] MEDS: carvediloL 3.125 MG TAB PO SCH (09:48)
--- NOTE | 2024-03-30 10:04 | CT ---
EXAMINATION TYPE: CT chest wo con DATE OF EXAM: 03/30/2024 COMPARISON: 09/17/2023 HISTORY: 58-year-old male history of GPA, shortness of breath TECHNIQUE: CT of the chest without contrast. Coronal/sagittal reconstructions performed. CT DLP: 439.5 mGycm. Automatic exposure control utilized for a dose reduction. FINDINGS: The heart is upper limits of normal in size. Trace anterior basilar pericardial fluid. 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 Aneurysm ascending aorta 4.5 cm unchanged. Conventional arterial sobriety anatomy. No thoracic lymphadenopathy by CT size criteria. There is some bilateral scattered tree-in-bud opacity which appears to have increased from prior. New patchy airspace disease/ground glass inferior lingula and posterior left upper lobe. Previous groundglass and airspace disease throughout the right lung has largely resolved. There is ei ther residual or recurrent patchy changes within the superior segment right lower lobe. No pleural effusion. Tiny inferior splenule. Mildly hydropic gallbladder probably due to fasting state. Mild to moderate stool burden. Bones: No osseous destructive process. IMPRESSION: 1. Scattered tree-in-bud opacities throughout the lungs suggesting bronchiolitis. There is some infil trate within the posterior left upper lobe and inferior lingula. Correlate for pneumonia. There is ei ther residual versus recurrent patchy infiltrate superior segment right lower lobe as well. 2. Aneurysmal ascending aorta measuring up to 4.5 cm, unchanged. [facility], Workstation: [id number]BRIAN, 03/30/2024 10:02 AM
--- NOTE | 2024-03-30 14:13 | P.HPIM ---
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 Denies chest pain, palpitations. Reports rib pain from coughing. On admission, uncontrolled hypertension with blood pressure of 195/120, pulse 86, respiratory 22, maintaining O2 sats of 95% on room air. Received Xanax, hydralazine 10 mg IV push, Dilaudid, Toradol, morphine,and 1 L of IV fluid with blood pressure currently down to 169/93. Home meds of Norvasc and losartan recently resumed. Chest x-ray reported mild interstitial density could reflect bronchitis, asthma or mild pulmonary vascular congestion .EKG reported sinus rhythm. Evaluated by cardiology, Coreg added to med regimen with no further workup recommended at this time. Viral studies positive for RSV. WBC 12.4, hemoglobin 11.7, platelets 435, coagulation panel unremarkable, sodium 137, potassium 4.4, bicarb 19, BUN 36, creatinine 1.52 , glucose 101, lactic acid 1.1, magnesium 1.9, troponin negative x 1, proBNP 502, procalcitonin 0.09 low. renal ultrasound and chest CT pending. Review of Systems ROS Statement: Those systems with pertinent positive or pertinent negative responses have been documented in the HPI. ROS Other: All systems not noted in ROS Statement are negative. Past Medical History Past Medical History: Hypertension Additional Past Medical History / Comment(s): bone throat infection, wegeners, GPA History of Any Multi-Drug Resistant Organisms: MRSA Date of last positivie culture/infection: 07/19/22 MDRO Source:: Throat Past Surgical History: Orthopedic Surgery Additional Past Surgical History / Comment(s): avascular necrosis rt hip with surgery, bilateral wrist surgery, left foot surgery Past Anesthesia/Blood Transfusion Reactions: No Reported Reaction Past Psychological History: No Psychological Hx Reported Smoking Status: Never smoker Past Alcohol Use History: None Reported Past Drug Use History: None Reported - Past Family History Mother Family Medical History: Dialysis Medications and Allergies Home Medications Medication Instructions Recorded Confirmed Type Pantoprazole [Protonix] 40 mg PO DAILY 08/13/22 03/29/24 History amLODIPine [Norvasc] 10 mg PO DAILY #30 tab 09/13/22 03/29/24 Rx Ondansetron [Zofran] 4 mg PO Q8H PRN 09/18/23 03/29/24 History HYDROmorphone [Dilaudid] 4 mg PO BID 03/29/24 03/29/24 History Losartan [Cozaar] 50 mg PO DAILY 03/29/24 03/29/24 History Omeprazole 40 mg PO DAILY 03/29/24 03/29/24 History Sulfamethox-Tmp 800-160Mg [Bactrim 1 tab PO MOWEFR 03/29/24 03/29/24 History DS 800-160 mg] mycophenolate mofetiL [Cellcept] 1,000 mg PO BID 03/29/24 03/29/24 History predniSONE 20 mg PO DAILY 03/29/24 03/29/24 History traZODone HCL [Desyrel] 100 mg PO HS PRN 03/29/24 03/29/24 History Allergies Allergy/AdvReac Type Severity Reaction Status Date / Time hydromorphone [From Dilaudid] AdvReac Hallucinati Verified 03/29/24 17:54 ons Physical Exam Vitals: Vital Signs Temp Pulse Pulse Resp BP BP Pulse Ox 03/30/24 07:00 97.9 F 68 18 169/93 92 L 03/30/24 01:40 97.9 F 77 20 170/93 91 L 03/29/24 22:42 98.1 F 86 20 168/94 92 L 03/29/24 21:56 71 18 157/111 94 L 03/29/24 16:46 70 18 152/92 95 03/29/24 16:13 75 18 164/104 91 L 03/29/24 15:34 83 18 191/124 97 03/29/24 12:16 86 24 160/104 95 03/29/24 11:56 88 03/29/24 11:49 84 03/29/24 10:18 22 03/29/24 09:55 98.2 F 86 22 195/120 95 Intake and Output 03/29/24 03/30/24 03/30/24 22:59 06:59 14:59 Output Total 250 Balance -250 Output: Urine 250 Other: Voiding Method Urinal Urinal # Voids 1 1 Weight 96.162 kg - Exam PHYSICAL EXAM: VITAL SIGNS: [As above] GENERAL: Sitting up in bed, alert and orient x 3, no acute distress HEENT: Atraumatic, normocephalic ,conjunctivae normal. eyes normal. Saddle nose deformity. NECK: Supple, no JVD. CARDIOVASCULAR: S1, S2 regular.. No murmur RESPIRATION: Unlabored, equal air entry, scattered rhonchi ABDOMEN: Soft, nontender . No guarding. +BS. LEGS: No edema. no swelling, no cyanosis, no clubbing, no calf tenderness. NERVOUS SYSTEM: Cranial N 2-12 grossly normal. No focal deficits. Skin: Warm and dry, no rash. Results CBC & Chem 7: 03/29/24 10:45 03/29/24 10:45 Labs: Abnormal Lab Results - Last 24 Hours (Table) 03/29/24 03/29/24 03/29/24 Range/Units 10:45 10:45 10:45 WBC 12.4 H (3.8-10.6) k/uL RBC 4.25 L (4.30-5.90) m/uL Hgb 11.7 L (13.0-17.5) gm/dL Hct 36.2 L (39.0-53.0) % RDW 15.6 H (11.5-15.5) % Neutrophils # 10.4 H (1.3-7.7) k/uL Lymphocytes # 0.9 L (1.0-4.8) k/uL Carbon Dioxide 19 L (22-30) mmol/L BUN 36 H (9-20) mg/dL Creatinine 1.52 H (0.66-1.25) mg/dL Glucose 101 H (74-99) mg/dL AST 14 L (17-59) U/L RSV (PCR) Detected A (Not Detectd) Thrombosis Risk Factor Assmnt - Choose All That Apply Any of the Below Risk Factors Present?: Yes Each Factor Represents 1 point: Age 41-60 years, Obesity (BMI >25) Thrombosis Risk Factor Assessment Total Risk Factor Score: 2 Thrombosis Risk Factor Assessment Level: Low Risk Assessment and Plan Assessment: Acute RSV infection with acute bronchitis Acute dyspnea secondary to the above Immunocompromised in a patient with history of Richard's disease,follows at [facility] Panic attacks, Xanax initiated Chronic sinusitis, saddlenose deformity, scheduled for reconstructive surgery later this month Chronic kidney disease stage III, 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 CellCept, prednisone, prophylactic antibiotic resumed. renal ultrasound and chest CT pending.Maintain Xanax as needed for anxiety. Aggressive pulmonary toileting with nebulized bronchodilators, prophylactic antibiotics, prn guaifenesin with codeine.antiemetics.close monitoring of blood pressure. close monitoring of renal function, with repeat labs ordered for a.m. pulmonary following. The impression and plan of care has been dictated as directed. : I performed a history and examination of this patient, discussed the same with the dictator. I agree with the dictator's note ,documented as a scribe. Any additional findings or plans will be noted.
[2024-03-30] MEDS: IPRATROPIUM-ALBUTEROL 3 ML NEB INHALATION SCH (16:59)
[2024-03-30] MEDS: HYDROmorphone 0.5 MG/0.5 ML SYRINGE IVP STA (17:11)
[2024-03-30] MEDS: traZODone HCL 100 MG TAB PO PRN (20:33)
[2024-03-30] MEDS: guaiFENesin-Coden 100-10MG/5ML 10 ML CUP PO PRN (20:33)
[2024-03-31 07:30] LABS: HCT 35.8 % (39.0-53.0); HGB 11.6 gm/dL (13.0-17.5); MCH 27.8 pg (25.0-35.0); MCHC 32.3 g/dL (31.0-37.0); MCV 86.1 fL (80.0-100.0); RBC 4.15 m/uL (4.30-5.90); RDW 15.5 % (11.5-15.5)
[2024-03-31 07:31] LABS: Basophils % (A) 0 %; Eosinophils # (A) 0.2 k/uL (0-0.7); Eosinophils % (A) 2 %; Lymphocytes # (A) 1.2 k/uL (1.0-4.8); Lymphocytes % (A) 15 %; Mean Platelet Volume 7.1; Monocytes # (A) 0.8 k/uL (0-1.0); Monocytes % (A) 9 %; Neutrophils # (A) 5.6 k/uL (1.3-7.7); Neutrophils % (A) 71 %; Platelet Count 393 k/uL (150-450)
[2024-03-31 07:44] LABS: African American GFR (CKD) 40 (>60 ml/min/1.73 sqM); Anion Gap 10 mmol/L; Blood Urea Nitrogen 35 mg/dL (9-20); Carbon Dioxide 21 mmol/L (22-30); Chloride 103 mmol/L (98-107); Glucose 134 mg/dL (74-99); Non-African American GFR(CKD) 34 (>60 ml/min/1.73 sqM); Potassium 4.4 mmol/L (3.5-5.1); Sodium 134 mmol/L (137-145)
--- NOTE | 2024-03-31 14:34 | P.PN ---
Subjective Progress Note Date: 03/31/24 Patient is a 58-year-old female with past medical history significant for granulomatosis with polyangiitis, chronic sinus infections, and hypertension. Presented emergency department yesterday morning complaining chiefly of shortness of breath with associated persistent cough, minimally productive, low-grade fevers. Now with associated left rib pain, with coughing and deep breathing. Denies any fevers. Ongoing for the past 2 to 3 weeks. Nausea and vomiting has developed over the last two days. His appetite has been poor. He does take prednisone, rituximab, and CellCept on outpatient basis. Of note, ER visit March 20 with URI symptoms, was treated with a course of Augmentin. Patient returns to the emergency department yesterday with above-mentioned symptoms. Cepheid 4 Plex was positive for RSV. Chest x-ray shows stable cardiac silhouette, mild bilateral interstitial densities. CBC: WBC count 12.4, hemoglobin 11.7, hematocrit 36.2, platelets 435. D-dimer was low at 0.23. CMP: Sodium 137, potassium 4.4, chloride 107, serum bicarb 19, BUN 36, creatinine 1.52, glucose 101. Lactic 1.1. Troponin less than 0.012. NT proBNP 502. Procalcitonin level low at 0.09. Continues on Bactrim. He has chronic sinusitis. Reportedly scheduled to be undergoing reconstructive sinus surgery later this month. Current vitals: Afebrile, heart rate 77 bpm, blood pressure 170/93 mmHg, nontachypneic, 92% on room air oxygen. On 03/31/2024, the patient is being seen for a follow-up. Continues to have chest tightness and wheezing and some limited shortness of breath. No significant hypoxemia. He has developed some interval worsening renal function on today's blood work and the creatinine is up to 2.09. BUN is 25. Rest of the lites are all within normal limits. Denies having any other complaints. Receiving DuoNeb nebulized treatments [id number]. Home medications have been resumed and the patient has been maintained on chronic immunosuppression. White cell count is at 8 with a hemoglobin 11.6. The patient remains on CellCept and 20 mg of prednisone on a daily basis. Bactrim has been discontinued due to rise in the creatinine. Objective - Vital Signs Vital signs: Vital Signs Temp 97.7 F 01/11/25 07:00 Pulse 82 03/31/24 12:02 Resp 16 03/31/24 07:00 BP 109/64 03/31/24 07:00 Pulse Ox 91 L 03/31/24 08:10 FiO2 Intake & Output 03/30/24 03/31/24 03/31/24 18:59 06:59 18:59 Intake Total 591 118 Output Total 650 46 Balance -59 72 Intake: Oral 591 118 Output: Urine 650 Post Void Residual 46 Other: Voiding Method Urinal Urinal # Voids 1 3 - Exam GENERAL EXAM: Alert, 58-year-old male, sitting at the edge of bed, dry heaving, in some distress.. HEAD: Normocephalic and atraumatic EYES: Normal reaction of pupils, equal size. NOSE: Clear with pink turbinates. Saddlenose deformity. THROAT: No erythema or exudates. NECK: No masses, no JVD. CHEST: No chest wall deformity. LUNGS: Equal air entry with no crackles, wheeze, rhonchi or dullness. On room air. No conversational dyspnea or accessory muscle use.. CVS: S1 and S2 normal with no audible murmur, regular rhythm. No extra heart sounds ABDOMEN: No hepatosplenomegaly, active bowel sounds, no guarding or rigidity. SPINE: No scoliosis or deformity SKIN: No rashes CENTRAL NERVOUS SYSTEM: No focal deficits, tone is normal in all 4 extremities. EXTREMITIES: There is no peripheral edema, clubbing, or cyanosis. Peripheral pulses are intact. - Labs CBC & Chem 7: 03/31/24 06:44 03/31/24 06:44 Labs: Abnormal Lab Results - Last 24 Hours (Table) 03/31/24 03/31/24 Range/Units 06:44 06:44 RBC 4.15 L (4.30-5.90) m/uL Hgb 11.6 L (13.0-17.5) gm/dL Hct 35.8 L (39.0-53.0) % Sodium 134 L (137-145) mmol/L Carbon Dioxide 21 L (22-30) mmol/L BUN 35 H (9-20) mg/dL Creatinine 2.09 H (0.66-1.25) mg/dL Glucose 134 H (74-99) mg/dL Assessment and Plan Plan: Acute RSV infection Acute bronchitis, secondary to above, remains symptomatic with symptoms of cough and dyspnea and wheeze Acute dyspnea, secondary to above History of granulomatosis with polyangiitis,, maintained on a combination of prednisone, rituximab, and CellCept on outpatient basis. Follows with [facility] Saddlenose deformity and chronic sinusitis, secondary to above, scheduled for reconstructive sinus surgery later this month. Chronic kidney disease, likely secondary to Richard's disease, reportedly previously had kidney biopsy, creatinine today is on the rise Hypertension History of previous hospitalization for pneumonia versus pulmonary manifestations of his Richard's disease, back in August, Plan: Patient is on RA 02 Procalcitonin level low Continue supportive care Continue as needed Tylenol for antipyretic Continue Robitussin as needed for cough Continue as needed antiemetics Patient's prednisone and CellCept have been resumed. Bactrim is on hold due to rising creatinin ultrasound the kidneys, rule out hydronephrosis Antihypertensives have previously been resumed Cardiology was consulted for persistent hypertension despite multiple oral antihypertensives We will continue to follow
[2024-03-31 16:43] LABS: Appearance,Urine Clear (Clear); Bilirubin,Urine Negative (Negative); Blood,Urine Negative (Negative); Color,Urine Colorless; Glucose,Urine (UA) Negative (Negative); Ketones,Urine Negative (Negative); Leukocyte Esterase,Urine Negative (Negative); Nitrite,Urine Negative (Negative); Protein,Urine Negative (Negative); Specific Gravity,Urine 1.011 (1.001-1.035); Urobilinogen,Urine <2.0 mg/dL (<2.0)
--- NOTE | 2024-03-31 21:20 | P.PN ---
Subjective Progress Note Date: 03/31/24 This is a 58-year-old gentleman with past medical history significant for Richard's disease- follows with [facility], scheduled for reconstructive sinus surgery later this month ,chronic kidney disease,hypertension and multiple other medical issues presented to the hospital with complaints of shortness of breath that started yesterday morning, accompanied by plugged ears, ongoing productive cough with yellow sputum, low-grade fever fevers, nausea, vomiting , poor appetite panic attacks. Denies chest pain, palpitations. Reports rib pain from coughing. On admission, uncontrolled hypertension with blood pressure of 195/120, pulse 86, respiratory 22, maintaining O2 sats of 95% on room air. Received Xanax, hydralazine 10 mg IV push, Dilaudid, Toradol, morphine,and 1 L of IV fluid with blood pressure currently down to 169/93. Home meds of Norvasc and losartan recently resumed. Chest x-ray reported mild interstitial density could reflect bronchitis, asthma or mild pulmonary vascular congestion .EKG r eported sinus rhythm. Evaluated by cardiology, Coreg added to med regimen with no further workup recommended at this time. Viral studies positive for RSV. WBC 12.4, hemoglobin 11.7, platelets 435, coagulation panel unremarkable, sodium 137, potassium 4.4, bicarb 19, BUN 36, creatinine 1.52 , glucose 101, lactic acid 1.1, magnesium 1.9, troponin negative x 1, proBNP 502, procalcitonin 0.09 low. renal ultrasound and chest CT pending. 03/31/2024 Patient is evaluated today in follow up on the medical floor. Creatinine up to 2.09 today. Patient has been continued on losartan with decreased blood pressures. Additionally he is maintained on oral bactrim three times a week and has been for the last 2 years, he states he has been taking the bactrim daily over the last 10 days under the direction of his PCP as he felt he was getting sick. He has tested positive for RSV this admission. He is not retaining urine. Review of Systems Constitutional: Denied any fatigue denied any fever. Cardio vascular: denied any chest pain, palpitations Gastrointestinal: denied any nausea, vomiting, diarrhea Pulmonary: Denied any shortness of breath cough Neurologic denied any new focal deficits All inpatient medications were reviewed and appropriate changes in these medications as dictated in the interval history and assessment and plan. PHYSICAL EXAMINATION: GENERAL: The patient is alert and oriented x3, not in any acute distress. Well developed, well nourished. HEENT: Pupils are round and equally reacting to light. EOMI. No scleral icterus. No conjunctival pallor. Normocephalic, atraumatic. No pharyngeal erythema. No thyromegaly. CARDIOVASCULAR: S1 and S2 present. No murmurs, rubs, or gallops. PULMONARY: Chest is clear to auscultation, no wheezing or crackles. ABDOMEN: Soft, nontender, nondistended, normoactive bowel sounds. No palpable organomegaly. MUSCULOSKELETAL: No joint swelling or deformity. EXTREMITIES: No cyanosis, clubbing, or pedal edema. NEUROLOGICAL: Gross neurological examination did not reveal any focal deficits. SKIN: No rashes. 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 He is not retaining urine and no evidence for hydronephrosis. GI prophylaxis Full Code plan Bowel regimen in place Hold losartan and bactrim Repeat BMP in the AM Appreciate pulmonary in put The impression and plan of care has been dictated by Phuong Conklin, Nurse Practitioner as directed. Dr. Jed MD I have performed a history and physical examination and medical decision making of this patient, discussed the same with the dictator, and agree with the dictators assessment and plan as written, documented as a scribe. Based on total visit time, I have performed more than 50% of this visit. Objective - Vital Signs Vital signs: Vital Signs Temp 98.2 F 03/31/24 14:46 Pulse 88 03/31/24 15:47 Resp 17 03/31/24 14:46 BP 116/79 03/31/24 14:46 Pulse Ox 91 L 03/31/24 14:46 FiO2 Intake & Output 03/31/24 03/31/24 04/01/24 06:59 18:59 06:59 Intake Total 236 Output Total 46 Balance 190 Intake: Oral 236 Output: Post Void Residual 46 Other: Voiding Method Urinal # Voids 3 3 1 # Bowel Movements 0 0 - Labs CBC & Chem 7: 03/31/24 06:44 03/31/24 06:44 Labs: Abnormal Lab Results - Last 24 Hours (Table) 03/31/24 03/31/24 Range/Units 06:44 06:44 RBC 4.15 L (4.30-5.90) m/uL Hgb 11.6 L (13.0-17.5) gm/dL Hct 35.8 L (39.0-53.0) % Sodium 134 L (137-145) mmol/L Carbon Dioxide 21 L (22-30) mmol/L BUN 35 H (9-20) mg/dL Creatinine 2.09 H (0.66-1.25) mg/dL Glucose 134 H (74-99) mg/dL Assessment and Plan Time with Patient: Less than 30
[2024-03-31] MEDS: polyethylene glycoL 3350 17 GM POWD.PACK PO SCH (22:00)
[2024-03-31] MEDS: CIPROFLOXACIN-DEXAMETH 0.3-0.1% DROPS 7.5 ML BTL LEFT EAR SCH (23:17)
[2024-04-01 09:27] LABS: Basophils # (A) 0.02 X 10*3/uL (0.00-0.10); Basophils % (A) 0.2 %; Eosinophils # (A) 0.06 X 10*3/uL (0.04-0.35); Eosinophils % (A) 0.6 %; HCT 33.9 % (39.6-50.0); HGB 10.7 g/dL (13.0-17.0); Lymphocytes # (A) 0.91 X 10*3/uL (0.90-5.00); Lymphocytes % (A) 9.8 %; MCH 27.3 pg (27.0-32.0); MCHC 31.6 g/dL (32.0-37.0); MCV 86.5 FL (80.0-97.0); Mean Platelet Volume 9.8 FL (9.5-12.2); Monocytes # (A) 0.85 X 10*3/uL (0.20-1.00); Monocytes % (A) 9.1 %; NRBC Per 100 WBC 0 X 10*3/uL (0.00-0.01); Neutrophils % (A) 79.7 %; Platelet Count 411 X 10*3/uL (140-440); RBC 3.92 X 10*6/uL (4.40-5.60); RDW 15.8 % (11.5-14.5)
[2024-04-01] MEDS: CLINDAMYCIN 150 MG CAP PO SCH (11:23)
[2024-04-01 11:31] LABS: BUN/Creat Ratio 17.58 Ratio (12.00-20.00); Blood Urea Nitrogen 33.4 mg/dL (9.0-27.0); Carbon Dioxide 23.5 mmol/L (21.6-31.8); Chloride 104 mmol/L (96-109); Glucose 100 mg/dL (70-110); Potassium 4.6 mmol/L (3.5-5.5); Sodium 138 mmol/L (135-145)
--- NOTE | 2024-04-01 11:35 | XR ---
EXAMINATION TYPE: XR KUB DATE OF EXAM: 04/01/2024 11:16 AM COMPARISON: None. CLINICAL INDICATION: Male, 58 years old with history of GENESIS, lower back pain, TECHNIQUE: XR KUB view(s) obtained. FINDINGS: There is a normal bowel gas pattern. Fecal debris is in the ascending colon region. Some minimal nons pecific small bowel gas in the mid abdomen. No free air is evident. No differential air-fluid levels are present. Psoas margins are normal. No organomegaly is present. No suspicious calcifications. IMPRESSION: 1. Unremarkable [facility] Annette Celestin, , 04/01/2024 11:33 AM
--- NOTE | 2024-04-01 13:30 | P.PN ---
Subjective Progress Note Date: 04/01/24 This is a 58-year-old gentleman with past medical history significant for Richard's disease- follows with [facility], scheduled for reconstructive sinus surgery later this month ,chronic kidney disease,hypertension and multiple other medical issues presented to the hospital with complaints of shortness of breath that started yesterday morning, accompanied by plugged ears, ongoing productive cough with yellow sputum, low-grade fever fevers, nausea, vomiting , poor appetite panic attacks. Denies chest pain, palpitations. Reports rib pain from coughing. On admission, uncontrolled hypertension with blood pressure of 195/120, pulse 86, respiratory 22, maintaining O2 sats of 95% on room air. Received Xanax, hydralazine 10 mg IV push, Dilaudid, Toradol, morphine,and 1 L of IV fluid with blood pressure currently down to 169/93. Home meds of Norvasc and losartan recently resumed. Chest x-ray reported mild interstitial density could reflect bronchitis, asthma or mild pulmonary vascular congestion .EKG r eported sinus rhythm. Evaluated by cardiology, Coreg added to med regimen with no further workup recommended at this time. Viral studies positive for RSV. WBC 12.4, hemoglobin 11.7, platelets 435, coagulation panel unremarkable, sodium 137, potassium 4.4, bicarb 19, BUN 36, creatinine 1.52 , glucose 101, lactic acid 1.1, magnesium 1.9, troponin negative x 1, proBNP 502, procalcitonin 0.09 low. renal ultrasound and chest CT pending. 03/31/2024 Patient is evaluated today in follow up on the medical floor. Creatinine up to 2.09 today. Patient has been continued on losartan with decreased blood pressures. Additionally he is maintained on oral bactrim three times a week and has been for the last 2 years, he states he has been taking the bactrim daily over the last 10 days under the direction of his PCP as he felt he was getting sick. He has tested positive for RSV this admission. He is not retaining urine. 04/01/2024 Patient evaluated in follow-up in the medical floor. He continues to report significant lower back pain and states that he feels like his urine flow is decreased. Bactrim and losartan have been discontinued. Because of the GPA patient is maintained on Bactrim 3 times a week prophylactically while is on hold clindamycin has been started. Continue with the CellCept and the oral prednisone. Sodium level today is 138, BUN of 33 creatinine of 1.9. Not had a bowel movement in the last couple days MiraLAX was given and patient states that he did have a moderate-sized bowel movement today. He is afebrile and remains on room air. Review of Systems Constitutional: Denied any fatigue denied any fever. Cardio vascular: denied any chest pain, palpitations Gastrointestinal: denied any nausea, vomiting, diarrhea Pulmonary: Denied any shortness of breath cough Neurologic denied any new focal deficits All inpatient medications were reviewed and appropriate changes in these medications as dictated in the interval history and assessment and plan. PHYSICAL EXAMINATION: GENERAL: The patient is alert and oriented x3, not in any acute distress. Well developed, well nourished. HEENT: Pupils are round and equally reacting to light. EOMI. No scleral icterus. No conjunctival pallor. Normocephalic, atraumatic. No pharyngeal erythema. No thyromegaly. CARDIOVASCULAR: S1 and S2 present. No murmurs, rubs, or gallops. PULMONARY: Chest is clear to auscultation, no wheezing or crackles. ABDOMEN: Soft, nontender, nondistended, normoactive bowel sounds. No palpable organomegaly. MUSCULOSKELETAL: No joint swelling or deformity. EXTREMITIES: No cyanosis, clubbing, or pedal edema. NEUROLOGICAL: Gross neurological examination did not reveal any focal deficits. SKIN: No rashes. 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 He is not retaining urine and no evidence for hydronephrosis. Constipation improving GI prophylaxis Full Code plan Bowel regimen in place Hold losartan and bactrim Clindamycin has been started in place of bactrim for prophylactic use Continue cellcept and oral prednisone Repeat BMP in the AM Nephrology consultation Appreciate pulmonary consultation Abdomen/pelvis CT was ordered and pending The impression and plan of care has been dictated by Phuong Conklin, Nurse Practitioner as directed. Dr. Jed MD I have performed a history and physical examination and medical decision making of this patient, discussed the same with the dictator, and agree with the dictators assessment and plan as written, documented as a scribe. Based on total visit time, I have performed more than 50% of this visit. Objective - Vital Signs Vital signs: Vital Signs Temp 97.6 F 04/01/24 07:20 Pulse 80 04/01/24 11:38 Resp 18 04/01/24 07:20 BP 131/86 04/01/24 07:20 Pulse Ox 90 L 04/01/24 07:20 FiO2 Intake & Output 03/31/24 04/01/24 04/01/24 18:59 06:59 18:59 Intake Total 236 118 Output Total 46 Balance 190 118 Intake: Oral 236 118 Output: Post Void Residual 46 Other: Voiding Method Urinal # Voids 3 4 # Bowel Movements 0 0 - Labs CBC & Chem 7: 04/01/24 04:32 04/01/24 04:32 Labs: Abnormal Lab Results - Last 24 Hours (Table) 04/01/24 04/01/24 Range/Units 04:32 04:32 RBC 3.92 L (4.40-5.60) X 10*6/uL Hgb 10.7 L (13.0-17.0) g/dL Hct 33.9 L (39.6-50.0) % MCHC 31.6 L (32.0-37.0) g/dL RDW 15.8 H (11.5-14.5) % Immature Gran # 0.06 H (0.00-0.04) X 10*3/uL BUN 33.4 H (9.0-27.0) mg/dL Creatinine 1.9 H (0.6-1.5) mg/dL Est GFR (CKD-EPI) 41 L (>=60) Assessment and Plan Time with Patient: Less than 30
--- NOTE | 2024-04-01 13:35 | CT ---
EXAMINATION TYPE: CT abdomen pelvis wo con DATE OF EXAM: 04/01/2024 12:45 PM COMPARISON: 09/17/2023 CLINICAL INDICATION: Male, 58 years old with history of r/t stone, Bilateral flank pain, history of s tones TECHNIQUE: Axial images were obtained from above the diaphragm to the pubic rami in the axial plane a t 5 mm thick sections. Reconstructed images are reviewed on the computer in the coronal plane. CONTRAST: mL of . Study performed without Oral Contrast DLP: 679.1 mGycm, Automated exposure control for dose reduction was used. FINDINGS: Limited CT sections are obtained the lung bases. The lung bases are clear. CT ABDOMEN: Liver: There is a cyst in the right lobe liver. Spleen: Normal Pancreas: Normal Adrenal glands: The adrenal glands are normal. Gallbladder: Normal Kidneys: No masses are evident. No hydronephrosis is present. No cysts are present. Multiple calci fications without obstruction are present scattered through the bilateral kidneys. Consider medullary sponge kidney within the differential. Aorta: Vascular calcification is within the aorta. Inferior vena cava: Normal. CT PELVIS: There is a periumbilical hernia which appears multilobed with mesenteric fat. No loops of bowel are involved. Loops of bowel within the abdomen and pelvis are normal. Mild fecal retention throughout the colon. Study is without oral contrast limiting bowel evaluation. Appendix: Not identified. No dilated tubular structure or inflammatory change evident. Urinary bladder: Normal. Genitourinary structures: Prostate appears unremarkable Osseous structures: No suspicious lytic or sclerotic lesions. IMPRESSION: 1. Clinical consideration for medullary sponge kidney with multiple nonobstructing renal stones is r ecommended. 2. No suspicious acute changes CT abdomen and pelvis [facility], , 04/01/2024 1:33 PM
--- NOTE | 2024-04-01 13:41 | P.PN ---
Subjective Progress Note Date: 04/01/24 Patient is a 58-year-old female with past medical history significant for granulomatosis with polyangiitis, chronic sinus infections, and hypertension. Presented emergency department yesterday morning complaining chiefly of shortness of breath with associated persistent cough, minimally productive, low-grade fevers. Now with associated left rib pain, with coughing and deep breathing. Denies any fevers. Ongoing for the past 2 to 3 weeks. Nausea and vomiting has developed over the last two days. His appetite has been poor. He does take prednisone, rituximab, and CellCept on outpatient basis. Of note, ER visit March 20 with URI symptoms, was treated with a course of Augmentin. Patient returns to the emergency department yesterday with above-mentioned symptoms. Cepheid 4 Plex was positive for RSV. Chest x-ray shows stable cardiac silhouette, mild bilateral interstitial densities. CBC: WBC count 12.4, hemoglobin 11.7, hematocrit 36.2, platelets 435. D-dimer was low at 0.23. CMP: Sodium 137, potassium 4.4, chloride 107, serum bicarb 19, BUN 36, creatinine 1.52, glucose 101. Lactic 1.1. Troponin less than 0.012. NT proBNP 502. Procalcitonin level low at 0.09. Continues on Bactrim. He has chronic sinusitis. Reportedly scheduled to be undergoing reconstructive sinus surgery later this month. Current vitals: Afebrile, heart rate 77 bpm, blood pressure 170/93 mmHg, nontachypneic, 92% on room air oxygen. On 03/31/2024, the patient is being seen for a follow-up. Continues to have chest tightness and wheezing and some limited shortness of breath. No significant hypoxemia. He has developed some interval worsening renal function on today's blood work and the creatinine is up to 2.09. BUN is 25. Rest of the lites are all within normal limits. Denies having any other complaints. Receiving DuoNeb nebulized treatments [id number]. Home medications have been resumed and the patient has been maintained on chronic immunosuppression. White cell count is at 8 with a hemoglobin 11.6. The patient remains on CellCept and 20 mg of prednisone on a daily basis. Bactrim has been discontinued due to rise in the creatinine. 04/01/2024, the patient is complaining of back and flank pain. Respiratory status is unchanged. Continues to have cough and congestion and wheeze. The white cell count of 9.3 with a hemoglobin 10.7 and a platelet count of 411. BUN 33 with a creatinine of 1.9 and a sodium levels at 138. A KUB was done today it showed a unremarkable abdomen. Based on that, a CAT scan of the abdomen and pelvis was ordered using the stone protocol. No suspicious acute abnormality the CAT scan of the abdomen and pelvis. The patient had a medullary sponge kidney and multiple nonobstructive renal stones was also noted. The patient also has a periumbilical hernia. Objective - Vital Signs Vital signs: Vital Signs Temp 97.6 F 04/01/24 07:20 Pulse 84 04/01/24 08:16 Resp 18 04/01/24 07:20 BP 131/86 04/01/24 07:20 Pulse Ox 90 L 04/01/24 07:20 FiO2 Intake & Output 03/31/24 04/01/24 04/01/24 18:59 06:59 18:59 Intake Total 236 118 Output Total 46 Balance 190 118 Intake: Oral 236 118 Output: Post Void Residual 46 Other: Voiding Method Urinal # Voids 3 4 # Bowel Movements 0 0 - Exam GENERAL EXAM: Alert, 58-year-old male, sitting at the edge of bed, dry heaving, in some distress.. HEAD: Normocephalic and atraumatic EYES: Normal reaction of pupils, equal size. NOSE: Clear with pink turbinates. Saddlenose deformity. THROAT: No erythema or exudates. NECK: No masses, no JVD. CHEST: No chest wall deformity. LUNGS: Equal air entry with no crackles, wheeze, rhonchi or dullness. On room air. No conversational dyspnea or accessory muscle use.. CVS: S1 and S2 normal with no audible murmur, regular rhythm. No extra heart sounds ABDOMEN: No hepatosplenomegaly, active bowel sounds, no guarding or rigidity. SPINE: No scoliosis or deformity SKIN: No rashes CENTRAL NERVOUS SYSTEM: No focal deficits, tone is normal in all 4 extremities. EXTREMITIES: There is no peripheral edema, clubbing, or cyanosis. Peripheral pulses are intact. - Labs CBC & Chem 7: 04/01/24 04:32 04/01/24 04:32 Labs: Abnormal Lab Results - Last 24 Hours (Table) 04/01/24 Range/Units 04:32 RBC 3.92 L (4.40-5.60) X 10*6/uL Hgb 10.7 L (13.0-17.0) g/dL Hct 33.9 L (39.6-50.0) % MCHC 31.6 L (32.0-37.0) g/dL RDW 15.8 H (11.5-14.5) % Immature Gran # 0.06 H (0.00-0.04) X 10*3/uL Assessment and Plan Plan: Acute RSV infection Acute bronchitis, secondary to above, remains symptomatic with symptoms of cough and dyspnea and wheeze Acute dyspnea, secondary to above History of granulomatosis with polyangiitis,, maintained on a combination of prednisone, rituximab, and CellCept on outpatient basis. Follows with [facility] Saddlenose deformity and chronic sinusitis, secondary to above, scheduled for reconstructive sinus surgery later this month. 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 Bactrim is on hold due to rising creatinin ultrasound the kidneys, rule out hydronephrosis CAT scan of the abdomen and pelvis was noted Dilaudid for pain control Antihypertensives have previously been resumed Cardiology was consulted for persistent hypertension despite multiple oral antihypertensives We will continue to follow
[2024-04-02 09:09] LABS: BUN/Creat Ratio 18.33 Ratio (12.00-20.00); Blood Urea Nitrogen 27.5 mg/dL (9.0-27.0); Carbon Dioxide 22.8 mmol/L (21.6-31.8); Chloride 104 mmol/L (96-109); Glucose 105 mg/dL (70-110); Potassium 4.4 mmol/L (3.5-5.5); Sodium 137 mmol/L (135-145)
[2024-04-02] MEDS ORDERED: hydrALAZINE HCL 20 MG/ML 1 ML VIAL IVP PRN (09:13)
--- NOTE | 2024-04-02 09:15 | P.NPCON ---
History of Present Illness - Reason for Consult acute renal failure, chronic renal failure - History of Present Illness Reason for consultation: Acute kidney injury on chronic kidney disease History of present illness: Patient is a 58-year-old male seen in renal consultation for acute kidney injury on chronic kidney disease. Patient has chronic kidney disease stage IIIa with baseline creatinine 1.3-1.5 from August 2023. Creatinine this admission was 1.5 to and was up to 2.09 this admission. Fairly stable at 1.9 yesterday. Patient came to the hospital due to worsening shortness of breath as well as low back pain going on for about 2 to 3 weeks. Patient states the pain was progressively getting worse. He also admits to a cough with yellow phlegm. He does admit to taking Motrin for about 2 weeks on a daily basis. Patient tested positive for RSV infection. Overall he is feeling better since admission. Patient does have history of granulomatosis with polyangiitis and follows with rheumatology outpatient. Patient states he receives rituximab every 4 months and is also maintained on prednisone 20 mg daily and CellCept 1 g twice daily. Patient states he is due for his next rituximab dose in April 2024. He denies gross hematuria or dysuria. He did have dry heaves but no vomiting or diarrhea. No chest pain. Denies history of diabetes or coronary artery disease. Vital signs are stable. General: No acute distress. HEENT: Head exam is unremarkable. LUNGS: No audible rhonchi or wheezes. HEART: Rate and Rhythm are regular. ABDOMEN: Nontender. EXTREMITITES: No edema. Past Medical History Past Medical History: Hypertension Additional Past Medical History / Comment(s): bone throat infection, wegeners, GPA History of Any Multi-Drug Resistant Organisms: MRSA Date of last positivie culture/infection: 07/19/22 MDRO Source:: Throat Past Surgical History: Orthopedic Surgery Additional Past Surgical History / Comment(s): avascular necrosis rt hip with surgery, bilateral wrist surgery, left foot surgery Past Anesthesia/Blood Transfusion Reactions: No Reported Reaction Past Psychological History: No Psychological Hx Reported Smoking Status: Never smoker Past Alcohol Use History: None Reported Past Drug Use History: None Reported - Past Family History Mother Family Medical History: Dialysis Medications and Allergies Home Medications Medication Instructions Recorded Confirmed Type Pantoprazole [Protonix] 40 mg PO DAILY 08/13/22 03/29/24 History amLODIPine [Norvasc] 10 mg PO DAILY #30 tab 09/13/22 03/29/24 Rx Ondansetron [Zofran] 4 mg PO Q8H PRN 09/18/23 03/29/24 History HYDROmorphone [Dilaudid] 4 mg PO BID 03/29/24 03/29/24 History Losartan [Cozaar] 50 mg PO DAILY 03/29/24 03/29/24 History Omeprazole 40 mg PO DAILY 03/29/24 03/29/24 History Sulfamethox-Tmp 800-160Mg [Bactrim 1 tab PO MOWEFR 03/29/24 03/29/24 History DS 800-160 mg] mycophenolate mofetiL [Cellcept] 1,000 mg PO BID 03/29/24 03/29/24 History predniSONE 20 mg PO DAILY 03/29/24 03/29/24 History traZODone HCL [Desyrel] 100 mg PO HS PRN 03/29/24 03/29/24 History Allergies Allergy/AdvReac Type Severity Reaction Status Date / Time hydromorphone [From Dilaudid] AdvReac Hallucinati Verified 03/29/24 17:54 ons Physical Exam Vitals: Vital Signs Temp Pulse Pulse Resp BP BP Pulse Ox 04/02/24 08:45 88 04/02/24 08:36 82 95 04/02/24 07:00 98.0 F 82 18 158/90 95 04/02/24 01:56 97.5 F L 62 17 127/82 93 L 04/01/24 22:15 84 04/01/24 22:06 84 04/01/24 20:00 69 18 04/01/24 15:41 82 04/01/24 15:31 84 04/01/24 14:40 97.7 F 69 18 136/85 90 L 04/01/24 14:30 97.7 F 65 18 124/81 91 L 04/01/24 11:38 80 04/01/24 11:28 80 Intake and Output 04/01/24 04/02/24 04/02/24 22:59 06:59 14:59 Output Total 900 900 Balance -900 -900 Output: Urine 900 900 Post Void Residual 0 Other: Voiding Method Urinal Urinal Results - Lab Results Most recent lab results Calcium 9.0 mg/dL (8.7-10.3) 04/01/24 04:32 Magnesium 2.0 mg/dL (1.5-2.4) 04/01/24 04:32 04/01/24 04:32 04/01/24 04:32 Assessment and Plan Plan: Assessment: 1. Acute kidney injury secondary to ATN secondary to acute infection. Creatinine peaked at 2.09 this admission and was 1.9 yesterday. UA benign. No hydronephrosis noted on imaging. Noted to have nonobstructing renal stones. 2. Chronic kidney disease stage IIIa with baseline creatinine 1.3-1.5 secondary to nephrosclerosis. 3. Acute RSV infection. 4. 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 Also takes Bactrim every other day outpatient. No evidence of renal vasculitis as UA is benign. 5. Hypertension with chronic kidney disease. Plan: Increase prednisone to 40 mg once daily. Bactrim will be resumed. Discussed with pulmonology. Hold CellCept starting tonight. Continue to monitor renal function and urine output.
[2024-04-02] MEDS: SULFAMETHOX-TMP 800-160MG 1 EACH TAB PO SCH (10:08)
[2024-04-02] MEDS: predniSONE 20 MG TAB PO SCH (12:11)
--- NOTE | 2024-04-02 12:37 | P.PN ---
Subjective Progress Note Date: 04/02/24 Patient is a 58-year-old female with past medical history significant for granulomatosis with polyangiitis, chronic sinus infections, and hypertension. Presented emergency department yesterday morning complaining chiefly of shortness of breath with associated persistent cough, minimally productive, low-grade fevers. Now with associated left rib pain, with coughing and deep breathing. Denies any fevers. Ongoing for the past 2 to 3 weeks. Nausea and vomiting has developed over the last two days. His appetite has been poor. He does take prednisone, rituximab, and CellCept on outpatient basis. Of note, ER visit March 20 with URI symptoms, was treated with a course of Augmentin. Patient returns to the emergency department yesterday with above-mentioned symptoms. Cepheid 4 Plex was positive for RSV. Chest x-ray shows stable cardiac silhouette, mild bilateral interstitial densities. CBC: WBC count 12.4, hemoglobin 11.7, hematocrit 36.2, platelets 435. D-dimer was low at 0.23. CMP: Sodium 137, potassium 4.4, chloride 107, serum bicarb 19, BUN 36, creatinine 1.52, glucose 101. Lactic 1.1. Troponin less than 0.012. NT proBNP 502. Procalcitonin level low at 0.09. Continues on Bactrim. He has chronic sinusitis. Reportedly scheduled to be undergoing reconstructive sinus surgery later this month. Current vitals: Afebrile, heart rate 77 bpm, blood pressure 170/93 mmHg, nontachypneic, 92% on room air oxygen. On 03/31/2024, the patient is being seen for a follow-up. Continues to have chest tightness and wheezing and some limited shortness of breath. No significant hypoxemia. He has developed some interval worsening renal function on today's blood work and the creatinine is up to 2.09. BUN is 25. Rest of the lites are all within normal limits. Denies having any other complaints. Receiving DuoNeb nebulized treatments [id number]. Home medications have been resumed and the patient has been maintained on chronic immunosuppression. White cell count is at 8 with a hemoglobin 11.6. The patient remains on CellCept and 20 mg of prednisone on a daily basis. Bactrim has been discontinued due to rise in the creatinine. 04/01/2024, the patient is complaining of back and flank pain. Respiratory status is unchanged. Continues to have cough and congestion and wheeze. The white cell count of 9.3 with a hemoglobin 10.7 and a platelet count of 411. BUN 33 with a creatinine of 1.9 and a sodium levels at 138. A KUB was done today it showed a unremarkable abdomen. Based on that, a CAT scan of the abdomen and pelvis was ordered using the stone protocol. No suspicious acute abnormality the CAT scan of the abdomen and pelvis. The patient had a medullary sponge kidney and multiple nonobstructive renal stones was also noted. The patient also has a periumbilical hernia. The patient is seen today April 02, 2024 in follow-up on the regular medical f ti. He is currently sitting up in bed. Awake and alert in no acute distress. Maintaining O2 saturations in the 90s on room air. Procalcitonin was 0.09. He is RSV positive. Sodium 137. Potassium 4.4. Bicarb 23. BUN 28. Creatinine 1.5. Glucose 105. He is continued on DuoNeb inhalations. He has been seen by nephrology. They did increase his prednisone to 40 mg daily. Continued on his Cleocin. Added Bactrim DS 1 tablet daily on Tuesday. Holding CellCept until discharge. Objective - Vital Signs Vital signs: Vital Signs Temp 98.0 F 04/02/24 07:00 Pulse 86 04/02/24 11:49 Resp 18 04/02/24 07:00 BP 158/90 04/02/24 07:00 Pulse Ox 95 04/02/24 08:36 FiO2 Intake & Output 04/01/24 04/02/24 04/02/24 18:59 06:59 18:59 Intake Total 118 500 Output Total 1100 1200 500 Balance -982 -1200 0 Intake: Oral 118 500 Output: Urine 1100 1200 500 Post Void Residual 0 Other: Voiding Method Urinal Urinal # Voids 1 # Bowel Movements 1 - Exam GENERAL EXAM: Alert, 58-year-old male, on room air, comfortable in no apparent distress. HEAD: Normocephalic. EYES: Normal reaction of pupils, equal size. NOSE: Clear with pink turbinates. THROAT: No erythema or exudates. NECK: No masses, no JVD. CHEST: No chest wall deformity. LUNGS: Equal air entry with no crackles, wheeze, rhonchi or dullness. CVS: S1 and S2 normal with no audible murmur, regular rhythm. ABDOMEN: No hepatosplenomegaly, normal bowel sounds, no guarding or rigidity. SPINE: No scoliosis or deformity SKIN: No rashes CENTRAL NERVOUS SYSTEM: No focal deficits, tone is normal in all 4 extremities. EXTREMITIES: There is no peripheral edema. No clubbing, no cyanosis. Peripheral pulses are intact. - Labs CBC & Chem 7: 04/01/24 04:32 04/02/24 05:36 Labs: Abnormal Lab Results - Last 24 Hours (Table) 04/02/24 Range/Units 05:36 BUN 27.5 H (9.0-27.0) mg/dL Est GFR (CKD-EPI) 54 L (>=60) Assessment and Plan Assessment: Acute RSV infection Acute bronchitis, secondary to above, remains symptomatic with symptoms of cough and dyspnea and wheeze Acute dyspnea, secondary to above History of granulomatosis with polyangiitis,, maintained on a combination of prednisone, rituximab, and CellCept on outpatient basis. Follows with [facility] Saddlenose deformity and chronic sinusitis, secondary to above, scheduled for reconstructive sinus surgery later this month. 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 Number of minutes spent on the visit: 10 Dictation was produced using [employer] dictation software. Please excuse any grammatical, word or spelling errors.
--- NOTE | 2024-04-02 15:36 | P.PN ---
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 Denies chest pain, palpitations. Reports rib pain from coughing. On admission, uncontrolled hypertension with blood pressure of 195/120, pulse 86, respiratory 22, maintaining O2 sats of 95% on room air. Received Xanax, hydralazine 10 mg IV push, Dilaudid, Toradol, morphine,and 1 L of IV fluid with blood pressure currently down to 169/93. Home meds of Norvasc and losartan recently resumed. Chest x-ray reported mild interstitial density could reflect bronchitis, asthma or mild pulmonary vascular congestion .EKG r eported sinus rhythm. Evaluated by cardiology, Coreg added to med regimen with no further workup recommended at this time. Viral studies positive for RSV. WBC 12.4, hemoglobin 11.7, platelets 435, coagulation panel unremarkable, sodium 137, potassium 4.4, bicarb 19, BUN 36, creatinine 1.52 , glucose 101, lactic acid 1.1, magnesium 1.9, troponin negative x 1, proBNP 502, procalcitonin 0.09 low. renal ultrasound and chest CT pending. 03/31/2024 Patient is evaluated today in follow up on the medical floor. Creatinine up to 2.09 today. Patient has been continued on losartan with decreased blood pressures. Additionally he is maintained on oral bactrim three times a week and has been for the last 2 years, he states he has been taking the bactrim daily over the last 10 days under the direction of his PCP as he felt he was getting sick. He has tested positive for RSV this admission. He is not retaining urine. 04/01/2024 Patient evaluated in follow-up in the medical floor. He continues to report significant lower back pain and states that he feels like his urine flow is decreased. Bactrim and losartan have been discontinued. Because of the GPA patient is maintained on Bactrim 3 times a week prophylactically while is on hold clindamycin has been started. Continue with the CellCept and the oral prednisone. Sodium level today is 138, BUN of 33 creatinine of 1.9. Not had a bowel movement in the last couple days MiraLAX was given and patient states that he did have a moderate-sized bowel movement today. He is afebrile and remains on room air. 04/02/2024 Patient evaluated in follow-up in the medical floor. Patient continues to report significant left lower flank pain and was found to have multiple nonobstructing renal stones on his abdominal pelvis CT. We will increase the Dilaudid up to 1 mg every 4 hours and monitor the patient overnight. He does feel he is passing stones. Bactrim was resumed by nephrology. Prednisone was increased up to 40 mg daily. CellCept is been placed on hold. Clindamycin has been discontinued. Review of Systems Constitutional: Denied any fatigue denied any fever. Cardio vascular: denied any chest pain, palpitations Gastrointestinal: denied any nausea, vomiting, diarrhea Pulmonary: Denied any shortness of breath cough Neurologic denied any new focal deficits All inpatient medications were reviewed and appropriate changes in these medications as dictated in the interval history and assessment and plan. PHYSICAL EXAMINATION: GENERAL: The patient is alert and oriented x3, not in any acute distress. Well developed, well nourished. HEENT: Pupils are round and equally reacting to light. EOMI. No scleral icterus. No conjunctival pallor. Normocephalic, atraumatic. No pharyngeal erythema. No thyromegaly. CARDIOVASCULAR: S1 and S2 present. No murmurs, rubs, or gallops. PULMONARY: Chest is clear to auscultation, no wheezing or crackles. ABDOMEN: Soft, nontender, nondistended, normoactive bowel sounds. No palpable organomegaly. MUSCULOSKELETAL: No joint swelling or deformity. EXTREMITIES: No cyanosis, clubbing, or pedal edema. NEUROLOGICAL: Gross neurological examination did not reveal any focal deficits. SKIN: No rashes. 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 He is not retaining urine and no evidence for hydronephrosis. Constipation improving GI prophylaxis Full Code plan Bowel regimen in place Continue to hold losartan Bactrim has been resumed Continue oral prednisone cellcept being held Repeat BMP in the AM Nephrology consultation Appreciate pulmonary consultation The impression and plan of care has been dictated by Phuong Conklin, Nurse Practitioner as directed. Dr. Jed MD I have performed a history and physical examination and medical decision making of this patient, discussed the same with the dictator, and agree with the dictators assessment and plan as written, documented as a scribe. Based on total visit time, I have performed more than 50% of this visit. Objective - Vital Signs Vital signs: Vital Signs Temp 98.0 F 04/02/24 15:00 Pulse 72 04/02/24 15:00 Resp 17 04/02/24 15:00 BP 137/87 04/02/24 15:00 Pulse Ox 94 L 04/02/24 15:00 FiO2 Intake & Output 04/01/24 04/02/24 04/02/24 18:59 06:59 18:59 Intake Total 118 618 Output Total 1100 1200 900 Balance -982 -1200 -282 Intake: Oral 118 618 Output: Urine 1100 1200 900 Post Void Residual 0 Other: Voiding Method Urinal Urinal # Voids 1 # Bowel Movements 1 - Labs CBC & Chem 7: 04/01/24 04:32 04/02/24 05:36 Labs: Abnormal Lab Results - Last 24 Hours (Table) 04/02/24 Range/Units 05:36 BUN 27.5 H (9.0-27.0) mg/dL Est GFR (CKD-EPI) 54 L (>=60) Assessment and Plan Time with Patient: Less than 30
[2024-04-02] MEDS: HYDROmorphone 1 MG/ML 1 ML SYRINGE IVP PRN (17:37)
[2024-04-02] MEDS: HYDROcodone/APAP 10-325MG 1 EACH TAB PO PRN (21:48)
[2024-04-03] MEDS: ONDANSETRON 4 MG TAB PO PRN (00:43)
[2024-04-03 02:26] VITALS: TEMP 97.8
[2024-04-03 08:36] VITALS: BP 142/91; RESP 16
[2024-04-03] MEDS ORDERED: predniSONE 20 MG TAB PO SCH (09:00)
[2024-04-03 09:15] VITALS: PULSE 81
[2024-04-03 09:22] LABS: BUN/Creat Ratio 16.41 Ratio (12.00-20.00); Blood Urea Nitrogen 27.9 mg/dL (9.0-27.0); Calcium 9.2 mg/dL (8.7-10.3); Carbon Dioxide 20.8 mmol/L (21.6-31.8); Chloride 104 mmol/L (96-109); Glucose 116 mg/dL (70-110); Magnesium 2.1 mg/dL (1.5-2.4); Sodium 137 mmol/L (135-145)
--- NOTE | 2024-04-03 11:24 | P.PN ---
Subjective Patient is seen in follow-up for acute kidney injury on chronic kidney disease. Renal function fairly stable. Feels better today. No active complaints. Vital signs are stable. General: No acute distress. HEENT: Head exam is unremarkable. LUNGS: No audible rhonchi or wheezes. HEART: Rate and Rhythm are regular. ABDOMEN: Nontender. EXTREMITITES: No edema. Objective - Vital Signs Vital signs: Vital Signs Temp 97.8 F 04/03/24 08:00 Pulse 81 04/03/24 09:15 Resp 16 04/03/24 09:15 BP 142/91 04/03/24 08:00 Pulse Ox 97 04/03/24 09:05 FiO2 Intake & Output 04/02/24 04/03/24 04/03/24 18:59 06:59 18:59 Intake Total 618 Output Total 1400 100 Balance -782 -100 Intake: Oral 618 Output: Urine 1400 100 Other: Voiding Method Urinal Toilet # Voids 1 2 - Labs CBC & Chem 7: 04/01/24 04:32 04/03/24 05:50 Labs: Abnormal Lab Results - Last 24 Hours (Table) 04/03/24 Range/Units 05:50 Carbon Dioxide 20.8 L (21.6-31.8) mmol/L Anion Gap 12.20 H (4.00-12.00) mmol/L BUN 27.9 H (9.0-27.0) mg/dL Creatinine 1.7 H (0.6-1.5) mg/dL Est GFR (CKD-EPI) 47 L (>=60) Glucose 116 H (70-110) mg/dL Assessment and Plan Plan: Assessment: 1. Acute kidney injury secondary to ATN secondary to acute infection. Creatinine peaked at 2.09 this admission and is stable at 1.7 today. UA benign. No hydronephrosis noted on imaging. Noted to have nonobstructing renal stones. 2. Chronic kidney disease stage IIIa with baseline creatinine 1.3-1.5 secondary to nephrosclerosis. 3. Acute RSV infection. 4. 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 Also takes Bactrim every other day outpatient. No evidence of renal vasculitis as UA is benign. 5. Hypertension with chronic kidney disease. Stable. Plan: Decrease prednisone to 20 mg once daily and resume CellCept starting tomorrow. Maintain Bactrim every other day. Follow-up outpatient with rheumatology and our office 1 week postdischarge.
--- NOTE | 2024-04-03 12:17 | P.PN ---
Subjective Progress Note Date: 04/03/24 Patient is a 58-year-old female with past medical history significant for granulomatosis with polyangiitis, chronic sinus infections, and hypertension. Presented emergency department yesterday morning complaining chiefly of shortness of breath with associated persistent cough, minimally productive, low-grade fevers. Now with associated left rib pain, with coughing and deep breathing. Denies any fevers. Ongoing for the past 2 to 3 weeks. Nausea and vomiting has developed over the last two days. His appetite has been poor. He does take prednisone, rituximab, and CellCept on outpatient basis. Of note, ER visit March 20 with URI symptoms, was treated with a course of Augmentin. Patient returns to the emergency department yesterday with above-mentioned symptoms. Cepheid 4 Plex was positive for RSV. Chest x-ray shows stable cardiac silhouette, mild bilateral interstitial densities. CBC: WBC count 12.4, hemoglobin 11.7, hematocrit 36.2, platelets 435. D-dimer was low at 0.23. CMP: Sodium 137, potassium 4.4, chloride 107, serum bicarb 19, BUN 36, creatinine 1.52, glucose 101. Lactic 1.1. Troponin less than 0.012. NT proBNP 502. Procalcitonin level low at 0.09. Continues on Bactrim. He has chronic sinusitis. Reportedly scheduled to be undergoing reconstructive sinus surgery later this month. Current vitals: Afebrile, heart rate 77 bpm, blood pressure 170/93 mmHg, nontachypneic, 92% on room air oxygen. On 03/31/2024, the patient is being seen for a follow-up. Continues to have chest tightness and wheezing and some limited shortness of breath. No significant hypoxemia. He has developed some interval worsening renal function on today's blood work and the creatinine is up to 2.09. BUN is 25. Rest of the lites are all within normal limits. Denies having any other complaints. Receiving DuoNeb nebulized treatments [id number]. Home medications have been resumed and the patient has been maintained on chronic immunosuppression. White cell count is at 8 with a hemoglobin 11.6. The patient remains on CellCept and 20 mg of prednisone on a daily basis. Bactrim has been discontinued due to rise in the creatinine. 04/01/2024, the patient is complaining of back and flank pain. Respiratory status is unchanged. Continues to have cough and congestion and wheeze. The white cell count of 9.3 with a hemoglobin 10.7 and a platelet count of 411. BUN 33 with a creatinine of 1.9 and a sodium levels at 138. A KUB was done today it showed a unremarkable abdomen. Based on that, a CAT scan of the abdomen and pelvis was ordered using the stone protocol. No suspicious acute abnormality the CAT scan of the abdomen and pelvis. The patient had a medullary sponge kidney and multiple nonobstructive renal stones was also noted. The patient also has a periumbilical hernia. The patient is seen today April 02, 2024 in follow-up on the regular medical f ti. He is currently sitting up in bed. Awake and alert in no acute distress. Maintaining O2 saturations in the 90s on room air. Procalcitonin was 0.09. He is RSV positive. Sodium 137. Potassium 4.4. Bicarb 23. BUN 28. Creatinine 1.5. Glucose 105. He is continued on DuoNeb inhalations. He has been seen by nephrology. They did increase his prednisone to 40 mg daily. Continued on his Cleocin. Added Bactrim DS 1 tablet daily on Tuesday. Holding CellCept until discharge. The patient is seen today April 03, 2024 in follow-up on the regular medical floor. He is currently awake and alert in no acute distress. Sitting up at the bedside. Denies any worsening shortness of breath, cough or congestion. He is maintaining good O2 saturations in the 90s on room air. He remains on DuoNeb inhalations. Continued on prednisone 40 mg daily. Remains on Bactrim. Bicarb 21. BUN 28. Creatinine 1.7. Glucose 116. Objective - Vital Signs Vital signs: Vital Signs Temp 97.8 F 04/03/24 08:00 Pulse 81 04/03/24 09:15 Resp 16 04/03/24 09:15 BP 142/91 04/03/24 08:00 Pulse Ox 97 04/03/24 09:05 FiO2 Intake & Output 04/02/24 04/03/24 04/03/24 18:59 06:59 18:59 Intake Total 618 Output Total 1400 100 Balance -782 -100 Intake: Oral 618 Output: Urine 1400 100 Other: Voiding Method Urinal Toilet # Voids 1 2 - Exam GENERAL EXAM: Alert, pleasant 58-year-old male, sitting up at the bedside, on room air, in no apparent distress. HEAD: Normocephalic. EYES: Normal reaction of pupils, equal size. NOSE: Clear with pink turbinates. THROAT: No erythema or exudates. NECK: No masses, no JVD. CHEST: No chest wall deformity. LUNGS: Equal air entry with no crackles, wheeze, rhonchi or dullness. CVS: S1 and S2 normal with no audible murmur, regular rhythm. ABDOMEN: No hepatosplenomegaly, normal bowel sounds, no guarding or rigidity. SPINE: No scoliosis or deformity SKIN: No rashes CENTRAL NERVOUS SYSTEM: No focal deficits, tone is normal in all 4 extremities. EXTREMITIES: There is no peripheral edema. No clubbing, no cyanosis. Peripheral pulses are intact. - Labs CBC & Chem 7: 04/01/24 04:32 04/03/24 05:50 Labs: Abnormal Lab Results - Last 24 Hours (Table) 04/03/24 Range/Units 05:50 Carbon Dioxide 20.8 L (21.6-31.8) mmol/L Anion Gap 12.20 H (4.00-12.00) mmol/L BUN 27.9 H (9.0-27.0) mg/dL Creatinine 1.7 H (0.6-1.5) mg/dL Est GFR (CKD-EPI) 47 L (>=60) Glucose 116 H (70-110) mg/dL Assessment and Plan Assessment: Acute RSV infection Acute bronchitis, secondary to above, remains symptomatic with symptoms of cough and dyspnea and wheeze History of granulomatosis with polyangiitis, maintained on a combination of prednisone, rituximab, and CellCept on outpatient basis. Follows with [facility] Saddlenose deformity and chronic sinusitis, secondary to above, scheduled for reconstructive sinus surgery later this month. Chronic kidney disease, likely secondary to Richard's disease, reportedly previously had kidney biopsy, creatinine today is on the rise Flank and back pain Hypertension History of previous hospitalization for pneumonia versus pulmonary manifestations of his Richard's disease, back in August, Plan: The patient was seen and evaluated Labs and medications reviewed He remains stable and on room air Cleared for discharge once cleared by nephrology I have personally seen and examined the patient, performed the documentation and the assessment and plan as written. Number of minutes spent on the visit: 10 Dictation was produced using [employer] dictation software. Please excuse any grammatical, word or spelling errors.
--- NOTE | 2024-04-04 08:25 | P.DS ---
Providers Date of admission: 04/02/24 09:13 Expected date of discharge: 04/04/24 Attending physician: Jamel Kothari MD Consults: 03/29/24 12:57 Consult Physician Urgent Consulting Provider: Josh Marshall Consult Reason/Comments: RSV, respiratory distress Do you want consulting provider notified?: Yes 03/29/24 15:40 Consult Physician Routine Consulting Provider: Javier Trujillo Consult Reason/Comments: High BP, sudden palpitations with weakness, chest pressure Do you want consulting provider notified?: Yes 04/01/24 10:57 Consult Physician Routine Consulting Provider: Lianna Amos Consult Reason/Comments: GENESIS Do you want consulting provider notified?: Yes Primary care physician: Jamel Kothari MD Hospital Course: Final Diagnoses: Acute RSV infection with acute bronchitis Acute dyspnea secondary to the above Acute kidney injury, ATN, secondary to Bactrim and losartan. 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 Denies chest pain, palpitations. Reports rib pain from coughing. On admission, uncontrolled hypertension with blood pressure of 195/120, pulse 86, respiratory 22, maintaining O2 sats of 95% on room air. Received Xanax, hydralazine 10 mg IV push, Dilaudid, Toradol, morphine,and 1 L of IV fluid with blood pressure currently down to 169/93. Home meds of Norvasc and losartan recently resumed. Chest x-ray reported mild interstitial density could reflect bronchitis, asthma or mild pulmonary vascular congestion .EKG reported sinus rhythm. Evaluated by cardiology, Coreg added to med regimen with no further workup recommended at this time. Viral studies positive for RSV. WBC 12.4, hemoglobin 11.7, platelets 435, coagulation panel unremarkable, sodium 137, potassium 4.4, bicarb 19, BUN 36, creatinine 1.52 , glucose 101, lactic acid 1.1, magnesium 1.9, troponin negative x 1, proBNP 502, procalcitonin 0.09 low. renal ultrasound and chest CT pending. Continue on current medication resume ,monitoring and symptomatic treatment. CellCept, prednisone, prophylactic antibiotic resumed. renal ultrasound and chest CT pending.Maintain Xanax as needed for anxiety. Aggressive pulmonary toileting with nebulized bronchodilators, prophylactic antibiotics, prn guaifenesin with codeine.antiemetics.close monitoring of blood pressure. close monitoring of renal function, with repeat labs ordered for a.m. pulmonary following. 03/31/2024 Patient is evaluated today in follow up on the medical floor. Creatinine up to 2.09 today. Patient has been continued on losartan with decreased blood pressures. Additionally he is maintained on oral bactrim three times a week and has been for the last 2 years, he states he has been taking the bactrim daily over the last 10 days under the direction of his PCP as he felt he was getting sick. He has tested positive for RSV this admission. He is not retaining urine. 04/01/2024 Patient evaluated in follow-up in the medical floor. He continues to report significant lower back pain and states that he feels like his urine flow is decreased. Bactrim and losartan have been discontinued. Because of the GPA patient is maintained on Bactrim 3 times a week prophylactically while is on hold clindamycin has been started. Continue with the CellCept and the oral prednisone. Sodium level today is 138, BUN of 33 creatinine of 1.9. Not had a bowel movement in the last couple days MiraLAX was given and patient states that he did have a moderate-sized bowel movement today. He is afebrile and remains on room air. 04/02/2024 Patient evaluated in follow-up in the medical floor. Patient continues to report significant left lower flank pain and was found to have multiple nonobstructing renal stones on his abdominal pelvis CT. We will increase the Dilaudid up to 1 mg every 4 hours and monitor the patient overnight. He does feel he is passing stones. Bactrim was resumed by nephrology. Prednisone was increased up to 40 mg daily. CellCept is been placed on hold. Clindamycin has been discontinued. 04/03/2024 significant clinical improvement. Renal function stable. maintaining O2 sats in the 90s on room air. Denies chest pain, palpitations or shortness of breath. Reports slept well. Eager for discharge. Patient has been cleared by both nephrology and pulmonary for discharge. Patient will be discharged home today in a stable condition with guarded prognosis. Nephrology recommending follow-up in 1 week as well as outpatient follow-up with rheumatology. The impression and plan of care has been dictated as directed. : I performed a history and examination of this patient, discussed the same with the dictator. I agree with the dictator's note ,documented as a scribe. Any additional findings or plans will be noted. Patient Condition at Discharge: Stable Plan - Discharge Summary New Discharge Prescriptions: New predniSONE 10 mg PO DIRECTED #63 tab Ciprofloxacin-Dexameth [Ciprodex Otic Susp] 4 drops LEFT EAR BID ml polyethylene glycoL 3350 [Miralax] 17 gm PO DAILY packet Continue Pantoprazole [Protonix] 40 mg PO DAILY Losartan [Cozaar] 50 mg PO DAILY Omeprazole 40 mg PO DAILY Sulfamethox-Tmp 800-160Mg [Bactrim DS 800-160 mg] 1 tab PO MOWEFR amLODIPine [Norvasc] 10 mg PO DAILY #30 tab Ondansetron [Zofran] 4 mg PO Q8H PRN PRN Reason: Nausea traZODone HCL [Desyrel] 100 mg PO HS PRN PRN Reason: Insomnia mycophenolate mofetiL [Cellcept] 1,000 mg PO BID HYDROmorphone [Dilaudid] 4 mg PO BID Changed predniSONE 20 mg PO DAILY #0 Discharge Medication List Pantoprazole [Protonix] 40 mg PO DAILY 08/13/22 [History] amLODIPine [Norvasc] 10 mg PO DAILY #30 tab 09/13/22 [Rx] Ondansetron [Zofran] 4 mg PO Q8H PRN 09/18/23 [History] HYDROmorphone [Dilaudid] 4 mg PO BID 03/29/24 [History] Losartan [Cozaar] 50 mg PO DAILY 03/29/24 [History] Omeprazole 40 mg PO DAILY 03/29/24 [History] Sulfamethox-Tmp 800-160Mg [Bactrim DS 800-160 mg] 1 tab PO MOWEFR 03/29/24 [History] mycophenolate mofetiL [Cellcept] 1,000 mg PO BID 03/29/24 [History] traZODone HCL [Desyrel] 100 mg PO HS PRN 03/29/24 [History] Ciprofloxacin-Dexameth [Ciprodex Otic Susp] 4 drops LEFT EAR BID ml 04/03/24 [Rx] polyethylene glycoL 3350 [Miralax] 17 gm PO DAILY packet 04/03/24 [Rx] predniSONE 10 mg PO DIRECTED #63 tab 04/03/24 [Rx] predniSONE 20 mg PO DAILY #0 04/03/24 [Rx] Follow up Appointment(s)/Referral(s): George Robles MD [Medical Doctor] - 2 Weeks (Office will call patient to schedule appointment) Jamel Kothari MD [Primary Care Provider] - 3 Days Patient Instructions/Handouts: Respiratory Syncytial Virus (DC) Discharge/Stand Alone Forms: Outpatient Counseling Discharge Disposition: HOME SELF-CARE
== END 2024-04-03 11:32 | disposition home or self-care (01) | DRG 202 ==
LOC: EC 09:52 → 6NMEDSUR 12:49 → 4SSUR 15:33 → 6NMEDSUR 21:34 → OBSVTOIN 04-02 09:13
PROVIDERS: ADMIT Family Medicine; ATTEND Family Medicine
DX: J20.5 Acute bronchitis due to respiratory syncytial virus (principal); N17.0 Acute kidney failure with tubular necrosis; D84.821 Immunodeficiency due to drugs; M31.31 Wegener's granulomatosis with renal involvement; Q61.5 Medullary cystic kidney; I12.9 Hypertensive chronic kidney disease with stage 1 through stage 4 chronic kidney disease, or unspecified chronic kidney disease; N18.31 Chronic kidney disease, stage 3a; F41.0 Panic disorder [episodic paroxysmal anxiety]; J32.9 Chronic sinusitis, unspecified; N20.0 Calculus of kidney; K42.9 Umbilical hernia without obstruction or gangrene; T36.8X5A Adverse effect of other systemic antibiotics, initial encounter; Z79.52 Long term (current) use of systemic steroids; Z79.624 Long term (current) use of inhibitors of nucleotide synthesis; Z79.899 Other long term (current) drug therapy; Z28.21 Immunization not carried out because of patient refusal; Z86.14 Personal history of Methicillin resistant Staphylococcus aureus infection; Z88.5 Allergy status to narcotic agent
CPT/HCPCS: 36415; 71046; 71250; 74018; 74176; 76770; 80048; 80053; 81003; 83605; 83690; 83735; 83880; 84145; 84484; 85025; 85379; 85610; 85730; 87636; 93005; 94640; 94760; 96361; 96374; 96375; 96376; 99285

== ENCOUNTER 2024-04-11 11:41 | Emergency (ER) | payer BC ==
[2024-04-11 11:46] VITALS: RESP 16
--- NOTE | 2024-04-11 11:51 | ED ---
Abdominal Pain HPI - General Source: patient, RN notes reviewed, old records reviewed Mode of arrival: ambulatory Limitations: no limitations - History of Present Illness MD Complaint: abdominal pain -: days(s) Location: periumbilical Radiation: none Migration to: periumbilical, epigastric, suprapubic Severity: severe Severity scale (1-10): 8 Quality: stabbing Consistency: constant Improves With: nothing <Arnie Botello - Last Filed: 04/11/24 13:25> <Ramon Rodrigues - Last Filed: 04/11/24 14:26> - General Chief Complaint: Abdominal Pain Stated Complaint: Abd pain Time Seen by Provider: 04/11/24 11:50 - History of Present Illness Initial Comments: This is a 58 male to the ER for evaluation abdominal pain states he has an umbilical hernia unable to be reduced. Patient does have multiple medical complications and chronic disease. Patient patient refers severe abdominal pain here in the ER uncontrolled pain (Arnie Botello) - Related Data Home Medications Medication Instructions Recorded Confirmed Pantoprazole [Protonix] 40 mg PO DAILY 08/13/22 03/29/24 Ondansetron [Zofran] 4 mg PO Q8H PRN 09/18/23 03/29/24 HYDROmorphone [Dilaudid] 4 mg PO BID 03/29/24 03/29/24 Losartan [Cozaar] 50 mg PO DAILY 03/29/24 03/29/24 Omeprazole 40 mg PO DAILY 03/29/24 03/29/24 Sulfamethox-Tmp 800-160Mg [Bactrim 1 tab PO MOWEFR 03/29/24 03/29/24 DS 800-160 mg] mycophenolate mofetiL [Cellcept] 1,000 mg PO BID 03/29/24 03/29/24 traZODone HCL [Desyrel] 100 mg PO HS PRN 03/29/24 03/29/24 Previous Rx's Medication Instructions Recorded amLODIPine [Norvasc] 10 mg PO DAILY #30 tab 09/13/22 Ciprofloxacin-Dexameth [Ciprodex 4 drops LEFT EAR BID ml 04/03/24 Otic Susp] polyethylene glycoL 3350 [Miralax] 17 gm PO DAILY packet 04/03/24 predniSONE 10 mg PO DIRECTED #63 tab 04/03/24 predniSONE 20 mg PO DAILY #0 04/03/24 Allergies Allergy/AdvReac Type Severity Reaction Status Date / Time hydromorphone [From Dilaudid] AdvReac Hallucinati Verified 03/29/24 17:54 ons Review of Systems ROS Other: All systems not noted in ROS Statement are negative. <EstellaramsesArnie pascal Vandana - Last Filed: 04/11/24 13:25> ROS Other: All systems not noted in ROS Statement are negative. <Ramon Rodrigues Shane - Last Filed: 04/11/24 14:26> ROS Statement: Those systems with pertinent positive or pertinent negative responses have been documented in the HPI. Past Medical History Past Medical History: Hypertension Additional Past Medical History / Comment(s): bone throat infection, wegeners, GPA , kidney stones History of Any Multi-Drug Resistant Organisms: MRSA Date of last positivie culture/infection: 07/19/22 MDRO Source:: Throat Past Surgical History: Orthopedic Surgery Additional Past Surgical History / Comment(s): avascular necrosis rt hip with surgery, bilateral wrist surgery, left foot surgery Past Anesthesia/Blood Transfusion Reactions: No Reported Reaction Past Psychological History: No Psychological Hx Reported Smoking Status: Never smoker Past Alcohol Use History: None Reported Past Drug Use History: None Reported - Past Family History Mother Family Medical History: Dialysis <RosmeryArnie B - Last Filed: 04/11/24 13:25> General Exam Limitations: no limitations General appearance: alert, in no apparent distress Head exam: Present: atraumatic, normocephalic, normal inspection Eye exam: Present: normal appearance, PERRL, EOMI. Absent: scleral icterus, conjunctival injection, periorbital swelling ENT exam: Present: normal exam, mucous membranes moist Neck exam: Present: normal inspection. Absent: tenderness, meningismus, lymphadenopathy Respiratory exam: Present: normal lung sounds bilaterally. Absent: respiratory distress, wheezes, rales, rhonchi, stridor Cardiovascular Exam: Present: regular rate, normal rhythm, normal heart sounds. Absent: systolic murmur, diastolic murmur, rubs, gallop, clicks GI/Abdominal exam: Present: soft, normal bowel sounds. Absent: distended, tenderness, guarding, rebound, rigid Extremities exam: Present: normal inspection, full ROM, normal capillary refill. Absent: tenderness, pedal edema, joint swelling, calf tenderness Back exam: Present: normal inspection Neurological exam: Present: alert, oriented X3, CN II-XII intact Psychiatric exam: Present: normal affect, normal mood Skin exam: Present: warm, dry, intact, normal color. Absent: rash <Arnie Botello - Last Filed: 04/11/24 13:25> Course <Arnie Botello - Last Filed: 04/11/24 13:25> Vital Signs 04/11/24 11:42 Temperature 98.6 F Pulse Rate 88 Respiratory 16 Rate Blood Pressure 166/100 O2 Sat by Pulse 95 Oximetry - Reevaluation(s) Reevaluation #1: 04/11/24 13:25 Medical records reviewed (Arnie Botello) Reevaluation #4: Was pt. sent in by a medical professional or institution (, PA, WEB CONTENT [employer] SOCIAL MEDIA MANAGER, urgent care, hospital, or detention...) When possible be specific @ -no Did you speak to anyone other than the patient for history (EMS, parent, family, police, friend...)? What history was obtained from this source @ -no Did you review nursing and triage notes (agree or disagree)? Why? @ -agree Are old charts reviewed (outside hosp., previous admission, EMS record, old EKG, old radiological studies, urgent care reports/EKG's, detention records)? Report findings @ -yes Differential Diagnosis (chest pain, altered mental status, abdominal pain women, abdominal pain men, vaginal bleeding, weakness, fever, dyspnea, syncope, headache, dizziness, GI bleed, back pain, seizure, CVA, palpatations, mental health, musculoskeletal)? @ -prior EKG interpreted by me (3pts min.). @ -yes X-rays interpreted by me (1pt min.). @ -yes negative for acute disease CT interpreted by me (1pt min.). @ -no U/S interpreted by me (1pt. min.). @ -no What testing was considered but not performed or refused? (CT, X-rays, U/S, labs)? Why? @ -none What meds were considered but not given or refused? Why? @ -none Did you discuss the management of the patient with other professionals (professionals i.e. , PA, WEB CONTENT [employer] SOCIAL MEDIA MANAGER, lab, RT, psych nurse, social media senior associate, chief inspector, teacher, title officer, corrections caseworker)? Give summary @ -no Was smoking cessation discussed for >3mins.? @ -no Was critical care preformed (if so, how long)? @ -no Were there social determinants of health that impacted care today? How? (Homelessness, low income, unemployed, alcoholism, drug addiction, mobley sportation, low edu. Level, literacy, decrease access to med. care, [facility], rehab)? @ -none Was there de-escalation of care discussed even if they declined (Discuss DNR or withdrawal of care, Hospice)? DNR status @ -no What co-morbidities impacted this encounter? (DM, HTN, Smoking, COPD, CAD, Cancer, CVA, ARF, Chemo, Hep., AIDS, mental health diagnosis, sleep apnea, morbid obesity)? @ -none Was patient admitted / discharged? Hospital course, mention meds given and route, prescriptions, significant lab abnormalities, going to OR and other pertinent info. @ - Undiagnosed new problem with uncertain prognosis? @ -no Drug Therapy requiring intensive monitoring for toxicity (Heparin, Nitro, In sulin, Cardizem)? @ -no Were any procedures done? @ -no Diagnosis/symptom? @ - Acute, or Chronic, or Acute on Chronic? @ -Acute Uncomplicated (without systemic symptoms) or Complicated (systemic symptoms)? @ -Complicated Side effects of treatment? @ -no Exacerbation, Progression, or Severe Exacerbation? @ -exacerbation Poses a threat to life or bodily function? How? (Chest pain, [place], [place], pneumonia, PE, COPD, DKA, ARF, appy, cholecystitis, CVA, Diverticulitis, Homicidal, Suicidal, threat to staff... and all critical care pts) @ -yes (Arnie Botello) Reevaluation #5: Differential Abdominal Pain Men: Appendicitis, cholecystitis, diverticulosis, ischemic bowel, pancreatitis, hepatitis, UTI, gastroenteritis, AAA, incarcerated hernia, bowel obstruction, constipation, inflammatory bowel, hepatitis, peptic ulcer disease, splenic infarction, perforated viscus, testicular torsion, this is not meant to be an all-inclusive list (Arnie Botello) Medical Decision Making - Lab Data Result diagrams: 04/11/24 12:12 04/11/24 12:12 <Arnie Botello B - Last Filed: 04/11/24 13:25> - Lab Data Result diagrams: 04/11/24 12:12 04/11/24 12:12 <Ramon Rodrigues N - Last Filed: 04/11/24 14:26> - Lab Data Lab Results 04/11/24 04/11/24 04/11/24 Range/Units 12:12 12:12 12:12 WBC 16.2 H (3.8-10.6) k/uL RBC 4.24 L (4.30-5.90) m/uL Hgb 11.9 L (13.0-17.5) gm/dL Hct 36.4 L (39.0-53.0) % MCV 85.9 (80.0-100.0) fL MCH 27.9 (25.0-35.0) pg MCHC 32.5 (31.0-37.0) g/dL RDW 15.3 (11.5-15.5) % Plt Count 388 (150-450) k/uL MPV 6.5 Neutrophils % 89 % Lymphocytes % 4 % Monocytes % 6 % Eosinophils % 1 % Basophils % 0 % Neutrophils # 14.4 H (1.3-7.7) k/uL Lymphocytes # 0.6 L (1.0-4.8) k/uL Monocytes # 0.9 (0-1.0) k/uL Eosinophils # 0.1 (0-0.7) k/uL Basophils # 0.0 (0-0.2) k/uL PT 10.5 (10.0-12.5) sec INR 0.9 (<1.2) APTT 22.2 (22.0-30.0) sec Sodium 134 L (137-145) mmol/L Potassium 4.7 (3.5-5.1) mmol/L Chloride 103 (98-107) mmol/L Carbon Dioxide 22 (22-30) mmol/L Anion Gap 9 mmol/L BUN 40 H (9-20) mg/dL Creatinine 1.62 H (0.66-1.25) mg/dL Est GFR (CKD-EPI)AfAm 54 (>60 ml/min/1.73 sqM) Est GFR (CKD-EPI)NonAf 47 (>60 ml/min/1.73 sqM) Glucose 110 H (74-99) mg/dL Plasma Lactic Acid Yevgeniy (0.7-2.0) mmol/L Calcium 9.7 (8.4-10.2) mg/dL Total Bilirubin 0.5 (0.2-1.3) mg/dL AST 15 L (17-59) U/L ALT 16 (4-49) U/L Alkaline Phosphatase 75 (38-126) U/L Total Protein 6.2 L (6.3-8.2) g/dL Albumin 3.9 (3.5-5.0) g/dL Amylase 84 (30-110) U/L Lipase 49 (23-300) U/L 04/11/24 Range/Units 12:12 WBC (3.8-10.6) k/uL RBC (4.30-5.90) m/uL Hgb (13.0-17.5) gm/dL Hct (39.0-53.0) % MCV (80.0-100.0) fL MCH (25.0-35.0) pg MCHC (31.0-37.0) g/dL RDW (11.5-15.5) % Plt Count (150-450) k/uL MPV Neutrophils % % Lymphocytes % % Monocytes % % Eosinophils % % Basophils % % Neutrophils # (1.3-7.7) k/uL Lymphocytes # (1.0-4.8) k/uL Monocytes # (0-1.0) k/uL Eosinophils # (0-0.7) k/uL Basophils # (0-0.2) k/uL PT (10.0-12.5) sec INR (<1.2) APTT (22.0-30.0) sec Sodium (137-145) mmol/L Potassium (3.5-5.1) mmol/L Chloride (98-107) mmol/L Carbon Dioxide (22-30) mmol/L Anion Gap mmol/L BUN (9-20) mg/dL Creatinine (0.66-1.25) mg/dL Est GFR (CKD-EPI)AfAm (>60 ml/min/1.73 sqM) Est GFR (CKD-EPI)NonAf (>60 ml/min/1.73 sqM) Glucose (74-99) mg/dL Plasma Lactic Acid Yevgeniy 1.1 (0.7-2.0) mmol/L Calcium (8.4-10.2) mg/dL Total Bilirubin (0.2-1.3) mg/dL AST (17-59) U/L ALT (4-49) U/L Alkaline Phosphatase (38-126) U/L Total Protein (6.3-8.2) g/dL Albumin (3.5-5.0) g/dL Amylase (30-110) U/L Lipase (23-300) U/L Disposition <Arnie Botello - Last Filed: 04/11/24 13:25> Is patient prescribed a controlled substance at d/c from ED?: No Time of Disposition: 14:19 <Ramon Rodrigues - Last Filed: 04/11/24 14:26> Clinical Impression: Abdominal pain, Umbilical hernia Disposition: HOME SELF-CARE Condition: Fair Instructions (If sedation given, give patient instructions): Umbilical Hernia (ED), Abdominal Pain (ED) Referrals: Jamel Kothari MD [Primary Care Provider] - 1-2 days
[2024-04-11 12:22] LABS: Basophils % (A) 0 %; Eosinophils # (A) 0.1 k/uL (0-0.7); Eosinophils % (A) 1 %; HCT 36.4 % (39.0-53.0); HGB 11.9 gm/dL (13.0-17.5); Lymphocytes # (A) 0.6 k/uL (1.0-4.8); Lymphocytes % (A) 4 %; MCH 27.9 pg (25.0-35.0); MCHC 32.5 g/dL (31.0-37.0); MCV 85.9 fL (80.0-100.0); Mean Platelet Volume 6.5; Monocytes # (A) 0.9 k/uL (0-1.0); Monocytes % (A) 6 %; Neutrophils # (A) 14.4 k/uL (1.3-7.7); Neutrophils % (A) 89 %; Platelet Count 388 k/uL (150-450); RBC 4.24 m/uL (4.30-5.90); RDW 15.3 % (11.5-15.5); WBC 16.2 k/uL (3.8-10.6)
[2024-04-11 12:37] LABS: ALT 16 U/L (4-49); AST 15 U/L (17-59); African American GFR (CKD) 54 (>60 ml/min/1.73 sqM); Albumin 3.9 g/dL (3.5-5.0); Alkaline Phosphatase 75 U/L (38-126); Amylase 84 U/L (30-110); Anion Gap 9 mmol/L; Blood Urea Nitrogen 40 mg/dL (9-20); Calcium 9.7 mg/dL (8.4-10.2); Carbon Dioxide 22 mmol/L (22-30); Chloride 103 mmol/L (98-107); Glucose 110 mg/dL (74-99); Lipase 49 U/L (23-300); Non-African American GFR(CKD) 47 (>60 ml/min/1.73 sqM); Potassium 4.7 mmol/L (3.5-5.1); Sodium 134 mmol/L (137-145); Total Bilirubin 0.5 mg/dL (0.2-1.3); Total Protein 6.2 g/dL (6.3-8.2)
[2024-04-11 12:39] LABS: INR 0.9 (<1.2); Partial Thromboplastin Time 22.2 sec (22.0-30.0); Prothrombin Time 10.5 sec (10.0-12.5)
[2024-04-11] MEDS: SODIUM CHLORIDE 0.9% 1,000 ML IV STA (13:17)
[2024-04-11] MEDS: HYDROmorphone 1 MG/ML 1 ML SYRINGE IVP STA (13:20)
[2024-04-11] MEDS: PANTOPRAZOLE 40 MG/10 ML VIAL IVP STA (13:26)
[2024-04-11] MEDS: ONDANSETRON 4 MG/2 ML VIAL IVP STA (13:26)
[2024-04-11] MEDS: AMPICILLIN-SULBACTAM 3 GM in SODIUM CHLORIDE 0.9% 100 ML IVPB STA (14:07)
--- NOTE | 2024-04-11 14:14 | CT ---
EXAMINATION TYPE: CT abdomen pelvis w con DATE OF EXAM: 04/11/2024 2:04 PM COMPARISON: 04/01/2024 CLINICAL INDICATION: Male, 58 years old with history of abdominal pain; umbilical hernia TECHNIQUE: Axial CT abdomen pelvis w con;Sagittal and coronal reformats were created on a separate w orkstation. Contrast used:100ml mL of Isovue 300 with IV Contrast, (none if empty) Oral contrast used: without Oral Contrast (none if empty) CT DLP: 1151.8 mGycm, Automated exposure control for dose reduction was used. FINDINGS: LOWER CHEST: Unremarkable ABDOMEN LIVER: Simple left hepatic lobe probable hepatic cyst with thin septation or adjacent cysts. GALLBLADDER AND BILE DUCTS: Unremarkable. PANCREAS: Unremarkable. SPLEEN: Unremarkable. ADRENAL GLANDS: Unremarkable. KIDNEYS AND URETERS: No evidence of hydronephrosis or obstructive renal calculus. Nonobstructing left 3 mm thickness and a 2 mm calculus. The ureters are unremarkable. PELVIS BLADDER: No evidence for wall thickening or mass given limitations of exam. REPRODUCTIVE: Unremarkable. ABDOMEN & PELVIS STOMACH AND BOWEL: No evidence of bowel obstruction. Large amount of stool throughout the colon redun dant sigmoid colon. The appendix is not definitively visualized. PERITONEUM/RETROPERITONEUM: No evidence of pneumoperitoneum or free fluid. VASCULATURE: No evidence of aortic aneurysm. MUSCULOSKELETAL: No acute osseous abnormalities LYMPH NODES: No gross evidence for lymphadenopathy. SOFT TISSUE/ABDOMINAL WALL: Fat-containing umbilical hernia measuring 11 mm at the neck. IMPRESSION: 1. Fat-containing umbilical hernia measuring 11 mm at the neck. 2. Large amount stool throughout the colon. No evidence for acute abdominal process. 3. No obstructive uropathy. 4. Bilateral nonobstructing renal calculi. [facility], , 04/11/2024 2:12 PM
[2024-04-11] MEDS: DOCUSATE 100 MG CAP PO STA (15:07)
[2024-04-11 15:40] VITALS: BP 165/107; PULSE 78; TEMP 98.3
== END 2024-04-11 15:40 | disposition home or self-care (01) ==
LOC: EC 11:41
DX: R10.9 Unspecified abdominal pain (principal); K42.9 Umbilical hernia without obstruction or gangrene; Z88.8 Allergy status to other drugs, medicaments and biological substances
CPT/HCPCS: 36415; 80053; 82150; 83605; 83690; 85025; 85610; 85730; 74177; 99284; 96365; 96366; 96375; 96361; J2405; J1171; J0295; Q9967; J2470

== ENCOUNTER → 2024-06-19 | Outpatient (CLI) | payer BC ==
[2024-06-20 03:01] LABS: Albumin 4.1 g/dL (3.8-4.9); BUN/Creat Ratio 17.24 Ratio (12.00-20.00); Blood Urea Nitrogen 36.2 mg/dL (9.0-27.0); Calcium 8.8 mg/dL (8.7-10.3); Carbon Dioxide 24.3 mmol/L (21.6-31.8); Chloride 106 mmol/L (96-109); Glucose 103 mg/dL (70-110); Potassium 4.9 mmol/L (3.5-5.5); Sodium 140 mmol/L (135-145)
== END | disposition home or self-care (01) ==
LOC: LABWHC1 16:39
DX: I12.9 Hypertensive chronic kidney disease with stage 1 through stage 4 chronic kidney disease, or unspecified chronic kidney disease (principal); N18.30 Chronic kidney disease, stage 3 unspecified
CPT/HCPCS: 36415; 80069

== ENCOUNTER 2024-06-25 08:48 | Inpatient (IN) | payer BC ==
--- NOTE | 2024-06-25 09:18 | ED ---
Abdominal Pain HPI - General Chief Complaint: Nausea/Vomiting/Diarrhea Stated Complaint: vomiting Time Seen by Provider: 06/25/24 09:08 Source: patient, RN notes reviewed Mode of arrival: ambulatory Limitations: no limitations - History of Present Illness Initial Comments: This is a 58-year-old male who presents to the emergency department for abdominal pain, nausea, and vomiting. He states that it started yesterday. The pain is in the center of his abdomen in the area of his umbilical hernia. He is concerned about a problem with the hernia. Currently follows with Dr. Noyola, surgery at [facility]. States that he called their office this morning but has not yet heard back. He is waiting for an appointment to have it repaired. He has associated nausea and vomiting with this as well as multiple episodes of diarrhea. Denies any fevers or chills. MD Complaint: abdominal pain - Related Data Home Medications Medication Instructions Recorded Confirmed Ondansetron [Zofran] 4 mg PO Q8H PRN 09/18/23 06/25/24 HYDROmorphone [Dilaudid] 4 mg PO BID PRN 03/29/24 06/25/24 Omeprazole 40 mg PO DAILY 03/29/24 06/25/24 Sulfamethox-Tmp 800-160Mg [Bactrim 1 tab PO MOWEFR 03/29/24 06/25/24 DS 800-160 mg] mycophenolate mofetiL [Cellcept] 1,000 mg PO BID 03/29/24 06/25/24 traZODone HCL [Desyrel] 100 mg PO HS PRN 03/29/24 06/25/24 Amoxicillin 500 mg PO BID 06/25/24 06/25/24 Avacopan [Tavneos] 30 mg PO BID 06/25/24 06/25/24 Budesonide [Pulmicort] 0.5 mg INHALATION RT-BID PRN 06/25/24 06/25/24 Escitalopram [Lexapro] 10 mg PO DAILY 06/25/24 06/25/24 Ferrous Sulfate [Feosol] 325 mg PO DAILY 06/25/24 06/25/24 Furosemide [Lasix] 40 mg PO BID 06/25/24 06/25/24 Ipratropium-Albuterol Nebulize 3 ml INHALATION RT-QID PRN 06/25/24 06/25/24 [Duoneb 0.5 mg-3 mg/3 ml Soln] Levothyroxine Sodium [Synthroid] 50 mcg PO DAILY 06/25/24 06/25/24 Losartan Potassium 100 mg PO DAILY 06/25/24 06/25/24 QUEtiapine [SEROquel] 100 mg PO HS PRN 06/25/24 06/25/24 Spironolactone [Aldactone] 50 mg PO DIRECTED 06/25/24 06/25/24 carvediloL [Coreg] 3.125 mg PO BID 06/25/24 06/25/24 polyethylene glycoL 3350 [Miralax] 17 gm PO TID 06/25/24 06/25/24 predniSONE 10 mg PO DAILY 06/25/24 06/25/24 Previous Rx's Medication Instructions Recorded amLODIPine [Norvasc] 10 mg PO DAILY #30 tab 09/13/22 Docusate [Colace] 100 mg PO BID #60 capsule 04/11/24 Allergies Allergy/AdvReac Type Severity Reaction Status Date / Time No Known Allergies Allergy Verified 06/25/24 11:54 Review of Systems ROS Statement: Those systems with pertinent positive or pertinent negative responses have been documented in the HPI. ROS Other: All systems not noted in ROS Statement are negative. Past Medical History Past Medical History: Hypertension Additional Past Medical History / Comment(s): bone throat infection, wegeners, GPA , kidney stones History of Any Multi-Drug Resistant Organisms: MRSA Date of last positivie culture/infection: 07/19/22 MDRO Source:: Throat Past Surgical History: Orthopedic Surgery Additional Past Surgical History / Comment(s): avascular necrosis rt hip with surgery, bilateral wrist surgery, left foot surgery Past Anesthesia/Blood Transfusion Reactions: No Reported Reaction Past Psychological History: No Psychological Hx Reported Smoking Status: Never smoker Past Alcohol Use History: None Reported Past Drug Use History: None Reported - Past Family History Mother Family Medical History: Dialysis General Exam Limitations: no limitations General appearance: alert, in no apparent distress Head exam: Present: atraumatic, normocephalic, normal inspection Respiratory exam: Present: normal lung sounds bilaterally. Absent: respiratory distress, wheezes, rales, rhonchi, stridor Cardiovascular Exam: Present: regular rate, normal rhythm GI/Abdominal exam: Present: soft, tenderness (diffuse), normal bowel sounds. Absent: distended Neurological exam: Present: alert, oriented X3, CN II-XII intact Psychiatric exam: Present: normal affect, normal mood Skin exam: Present: warm, dry, intact, normal color. Absent: rash Course Vital Signs 06/25/24 06/25/24 06/25/24 08:55 09:54 11:19 Temperature 98.5 F Pulse Rate 134 H 105 H 105 H Respiratory 24 19 18 Rate Blood Pressure 161/109 178/123 157/112 O2 Sat by Pulse 94 L 97 Oximetry 06/25/24 06/25/24 12:04 13:53 Temperature Pulse Rate 103 H 87 Respiratory 22 17 Rate Blood Pressure 157/111 162/115 O2 Sat by Pulse 97 3 L Oximetry Medical Decision Making - Medical Decision Making This is a 58 year old male who presents to the emergency department for abdominal pain, nausea, and vomiting. Was pt. sent in by a medical professional or institution? @ -No Did you speak to anyone other than the patient for history? @ -No Did you review nursing and triage notes? @ -Yes, and I agree, it is accurate with regards to the patient's symptoms. Were old charts reviewed? @ -No Differential Diagnosis? @ -Differential Abdominal Pain Men: Appendicitis, cholecystitis, diverticulosis, ischemic bowel, pancreatitis, hepatitis, UTI, gastroenteritis, AAA, incarcerated hernia, bowel obstruction, constipation, inflammatory bowel, hepatitis, peptic ulcer disease, splenic infarction, perforated viscus, testicular torsion, this is not meant to be an all-inclusive list EKG interpreted by me (3pts min.)? @ -EKG interpreted by me demonstrating the following: Sinus rhythm. Ventricular rate 85 bpm, LA interval 167 ms, QRS duration 97 ms, QTc 397 ms. X-rays interpreted by me (1pt min.)? @ -Not obtained CT interpreted by me (1pt min.)? @ -CT scan of the abdomen and pelvis obtained. My interpretation identifies no bowel wall thickening or free air. U/S interpreted by me (1pt. min.)? @ -Not obtained What testing was considered but not performed? (CT, X-rays, U/S, labs)? Why? @ -None What meds were considered but not given? Why? @ -None Did you discuss the management of the patient with other professionals? @ -Yes, Dr. Wilson, who accepts the patient for admission Did you reconcile home meds? @ -Yes Was smoking cessation discussed for >3mins.? @ -No Was critical care preformed (if so, how long)? @ -No Were there social determinants of health that impacted care today? How? (Homelessness, low income, unemployed, alcoholism, drug addiction, transportation, low edu. Level, literacy, decrease access to med. care, fdc, rehab)? @ -No Was there de-escalation of care discussed even if they declined? (Discuss DNR or withdrawal of care, Hospice)? @ -No What co-morbidities impacted this encounter? (DM, HTN, Smoking, COPD, CAD, Cancer, CVA, Hep., AIDS, mental health diagnosis, sleep apnea, morbid obesity)? @ -Richrad's GPA, hernia Was patient admitted / discharged? @ -Admitted. Lab work demonstrates mild leukocytosis with a white blood cell count of 12.4. Lactic acid elevated at 2.5. Decreased renal function is similar when compared with prior. CT scan of the abdomen and pelvis obtained revealing no acute process. Patient's previously noted umbilical hernia is stable without signs of strangulation or incarceration. His hernia was not definitively shown to be contributing to his symptoms. He may just have something like a viral gastroenteritis with vomiting further exacerbating the pain. He was given several pain medications, however symptoms only improved temporarily. Abdominal support applied as well, however this was also not effective. Given that this was not an acute surgical case and his hernia did not appear to be directly causing the symptoms, we did not feel that there was a need to transfer the patient to [facility] for treatment. However, he was concerned about going home and managing his symptoms. Patient subsequently mated to medicine for management of ongoing abdominal pain and nausea. Maintenance fluids initiated. Consult placed for general surgery. Case discussed with ED attending Dr. Ellis. Undiagnosed new problem with uncertain prognosis? @ -None Drug Therapy requiring intensive monitoring for toxicity (Heparin, Nitro, Insuli n, Cardizem)? @ -None Were any procedures done? @ -None Diagnosis/symptom? @ -Intractable abdominal pain, intractable nausea and vomiting Acute, or Chronic, or Acute on Chronic? @ -Acute Uncomplicated (without systemic symptoms) or Complicated (systemic symptoms)? @ -Complicated Side effects of treatment? @ -None Exacerbation, Progression, or Severe Exacerbation] @ -Not applicable Poses a threat to life or bodily function? @ -Yes, patient states that he is unable to function as a result. - Lab Data Result diagrams: 06/25/24 09:58 06/25/24 09:58 Lab Results 06/25/24 06/25/24 06/25/24 Range/Units 09:58 09:58 09:58 WBC 12.4 H (3.8-10.6) k/uL RBC 5.31 (4.30-5.90) m/uL Hgb 15.4 (13.0-17.5) gm/dL Hct 46.8 (39.0-53.0) % MCV 88.2 (80.0-100.0) fL MCH 29.1 (25.0-35.0) pg MCHC 33.0 (31.0-37.0) g/dL RDW 15.7 H (11.5-15.5) % Plt Count 392 (150-450) k/uL MPV 6.7 Neutrophils % 82 % Lymphocytes % 11 % Monocytes % 5 % Eosinophils % 1 % Basophils % 0 % Neutrophils # 10.2 H (1.3-7.7) k/uL Lymphocytes # 1.3 (1.0-4.8) k/uL Monocytes # 0.6 (0-1.0) k/uL Eosinophils # 0.1 (0-0.7) k/uL Basophils # 0.0 (0-0.2) k/uL Sodium 137 (137-145) mmol/L Potassium 4.8 (3.5-5.1) mmol/L Chloride 111 H (98-107) mmol/L Carbon Dioxide 16 L (22-30) mmol/L Anion Gap 10 mmol/L BUN 16 (9-20) mg/dL Creatinine 2.10 H (0.66-1.25) mg/dL Est GFR (CKD-EPI)AfAm 40 (>60 ml/min/1.73 sqM) Est GFR (CKD-EPI)NonAf 34 (>60 ml/min/1.73 sqM) Glucose 154 H (74-99) mg/dL Lactic Ac Sepsis Rflx Plasma Lactic Acid Yevgeniy 2.5 H* (0.7-2.0) mmol/L Calcium 9.9 (8.4-10.2) mg/dL Magnesium 1.8 (1.6-2.3) mg/dL Total Bilirubin 0.9 (0.2-1.3) mg/dL AST 29 (17-59) U/L ALT 38 (4-49) U/L Alkaline Phosphatase 63 (38-126) U/L Total Protein 7.3 (6.3-8.2) g/dL Albumin 4.4 (3.5-5.0) g/dL Lipase 102 (23-300) U/L 06/25/24 06/25/24 Range/Units 10:43 14:14 WBC (3.8-10.6) k/uL RBC (4.30-5.90) m/uL Hgb (13.0-17.5) gm/dL Hct (39.0-53.0) % MCV (80.0-100.0) fL MCH (25.0-35.0) pg MCHC (31.0-37.0) g/dL RDW (11.5-15.5) % Plt Count (150-450) k/uL MPV Neutrophils % % Lymphocytes % % Monocytes % % Eosinophils % % Basophils % % Neutrophils # (1.3-7.7) k/uL Lymphocytes # (1.0-4.8) k/uL Monocytes # (0-1.0) k/uL Eosinophils # (0-0.7) k/uL Basophils # (0-0.2) k/uL Sodium (137-145) mmol/L Potassium (3.5-5.1) mmol/L Chloride (98-107) mmol/L Carbon Dioxide (22-30) mmol/L Anion Gap mmol/L BUN (9-20) mg/dL Creatinine (0.66-1.25) mg/dL Est GFR (CKD-EPI)AfAm (>60 ml/min/1.73 sqM) Est GFR (CKD-EPI)NonAf (>60 ml/min/1.73 sqM) Glucose (74-99) mg/dL Lactic Ac Sepsis Rflx Y Plasma Lactic Acid Yevgeniy 0.9 (0.7-2.0) mmol/L Calcium (8.4-10.2) mg/dL Magnesium (1.6-2.3) mg/dL Total Bilirubin (0.2-1.3) mg/dL AST (17-59) U/L ALT (4-49) U/L Alkaline Phosphatase (38-126) U/L Total Protein (6.3-8.2) g/dL Albumin (3.5-5.0) g/dL Lipase (23-300) U/L - Radiology Data Radiology results: report reviewed, image reviewed Disposition Clinical Impression: Intractable abdominal pain, Intractable nausea and vomiting, Umbilical hernia Disposition: ADMITTED IP TO THIS [facility] Referrals: Jamel Kothari MD [Primary Care Provider] - 1-2 days
[2024-06-25] MEDS: ONDANSETRON 4 MG/2 ML VIAL IVP STA (09:59)
[2024-06-25] MEDS: HYDROmorphone 1 MG/ML 1 ML SYRINGE IVP STA (10:00)
[2024-06-25] MEDS: KETOROLAC 15 MG/ML 1 ML VIAL IVP STA (10:00)
[2024-06-25] MEDS: SODIUM CHLORIDE 0.9% 1,000 ML IV ONE (10:01)
[2024-06-25 10:12] LABS: Basophils % (A) 0 %; Eosinophils # (A) 0.1 k/uL (0-0.7); Eosinophils % (A) 1 %; HCT 46.8 % (39.0-53.0); HGB 15.4 gm/dL (13.0-17.5); Lymphocytes # (A) 1.3 k/uL (1.0-4.8); Lymphocytes % (A) 11 %; MCH 29.1 pg (25.0-35.0); MCV 88.2 fL (80.0-100.0); Mean Platelet Volume 6.7; Monocytes # (A) 0.6 k/uL (0-1.0); Monocytes % (A) 5 %; Neutrophils # (A) 10.2 k/uL (1.3-7.7); Neutrophils % (A) 82 %; Platelet Count 392 k/uL (150-450); RBC 5.31 m/uL (4.30-5.90); RDW 15.7 % (11.5-15.5); WBC 12.4 k/uL (3.8-10.6)
[2024-06-25 10:27] LABS: ALT 38 U/L (4-49); AST 29 U/L (17-59); African American GFR (CKD) 40 (>60 ml/min/1.73 sqM); Albumin 4.4 g/dL (3.5-5.0); Anion Gap 10 mmol/L; Blood Urea Nitrogen 16 mg/dL (9-20); Calcium 9.9 mg/dL (8.4-10.2); Carbon Dioxide 16 mmol/L (22-30); Chloride 111 mmol/L (98-107); Glucose 154 mg/dL (74-99); Lipase 102 U/L (23-300); Non-African American GFR(CKD) 34 (>60 ml/min/1.73 sqM); Sodium 137 mmol/L (137-145); Total Bilirubin 0.9 mg/dL (0.2-1.3); Total Protein 7.3 g/dL (6.3-8.2)
[2024-06-25 10:39] LABS: Alkaline Phosphatase 63 U/L (38-126); Magnesium 1.8 mg/dL (1.6-2.3); Potassium 4.8 mmol/L (3.5-5.1)
--- NOTE | 2024-06-25 11:43 | CT ---
EXAMINATION TYPE: CT abdomen pelvis wo con DATE OF EXAM: 06/25/2024 COMPARISON: CT from 04/11/2024. CLINICAL INDICATION: Male, 58 years old with history of Abdominal pain, acute, nonlocalized, Abdomina l pain, N/V, TECHNIQUE: CT scan of the abdomen and pelvis is performed without IV contrast, patient injected with mL of ., (n one if empty) Oral contrast used: without Oral Contrast (none if empty) CT DLP: 697.6 mGycm, Automated exposure control for dose reduction was used. FINDINGS: LUNG BASES: Mild coronary artery calcifications are redemonstrated. LIVER/GB: There is 2.3 lobulated thin walled cyst in the left hepatic lobe redemonstrated. PANCREAS: No significant abnormality is seen. SPLEEN: No significant abnormality is seen. ADRENALS: No significant abnormality is seen. KIDNEYS: There are several tiny nonobstructing renal calculi seen bilaterally. No hydronephrosis or obstructing ureteral calculi are seen bilaterally. BOWEL: No abnormal small or large bowel dilatation. Normal-appearing appendix from the cecum. PROSTATE/SEMINAL VESICLES: No gross abnormality seen. LYMPH NODES: No greater than 1cm abdominal or pelvic lymph nodes are appreciated. OSSEOUS STRUCTURES: No significant abnormality is seen. OTHER: Small to moderate size fat-containing left periumbilical hernia axial image 93. IMPRESSION: No bowel obstruction. No significant new/acute finding is seen to account for patient's clinical symptoms. [facility], , 06/25/2024 11:40 AM
[2024-06-25] MEDS: HYDROmorphone 0.5 MG/0.5 ML SYRINGE IVP STA (12:06)
[2024-06-25] MEDS: DICYCLOMINE 10 MG/ML 2 ML AMP IM STA (12:07)
[2024-06-25] MEDS ORDERED: ACETAMINOPHEN TAB 325 MG TAB PO STA (12:55)
[2024-06-25] MEDS: LOSARTAN 50 MG TAB PO STA (13:51)
[2024-06-25] MEDS: amLODIPine 5 MG TAB PO STA (13:51)
[2024-06-25] MEDS ORDERED: NALOXONE 0.4 MG/ML 1 ML VIAL IV PRN (15:26)
[2024-06-25] MEDS ORDERED: HYDROmorphone 2 MG TAB PO PRN (15:34)
[2024-06-25] MEDS ORDERED: BUDESONIDE 0.5 MG/2 ML NEBU INHALATION PRN (15:34)
[2024-06-25] MEDS ORDERED: QUEtiapine 100 MG TAB PO PRN (15:34)
[2024-06-25] MEDS ORDERED: traZODone HCL 100 MG TAB PO PRN (15:34)
[2024-06-25] MEDS ORDERED: LORazepam 2 MG/ML INJ IV PRN (15:35)
[2024-06-25] MEDS: SODIUM CHLORIDE 0.9% 1,000 ML IV SCH (16:11)
[2024-06-25] MEDS: SPIRONOLACTONE 25 MG TAB PO SCH (16:12)
[2024-06-25] MEDS: FUROSEMIDE 40 MG TAB PO SCH (16:12)
[2024-06-25] MEDS: polyethylene glycoL 3350 17 GM POWD.PACK PO SCH (16:13)
[2024-06-25] MEDS: HYDROmorphone 1 MG/ML 1 ML SYRINGE IVP PRN (16:18)
[2024-06-25] MEDS: PANTOPRAZOLE 40 MG/10 ML VIAL IVP SCH (17:46)
[2024-06-25] MEDS: carvediloL 3.125 MG TAB PO SCH (17:47)
[2024-06-25 18:30] LABS: Amphetamine Screen,Urine Not Detected (NotDetected); Barbiturate Screen,Urine Not Detected (NotDetected); Benzodiazepines Screen,Urine Not Detected (NotDetected); Cocaine Screen,Urine Not Detected (NotDetected); Methadone Screen, Urine Not Detected (NotDetected); Opiate Screen,Urine Detected (NotDetected); Oxycodone Screen, Urine Not Detected (NotDetected); Phencyclidine Screen,Urine Not Detected (NotDetected); Tricyclic Antidepressant,Urine Detected (NotDetected); Urn Cannabinoid Scrn Detected (NotDetected)
[2024-06-25 18:38] LABS: Influenza A Not Detected (Not Detectd); Influenza B Not Detected (Not Detectd); RSV Not Detected (Not Detectd)
[2024-06-25 19:00] LABS: Appearance,Urine Clear (Clear); Bilirubin,Urine Negative (Negative); Blood,Urine Negative (Negative); Color,Urine Colorless; Glucose,Urine (UA) Negative (Negative); Ketones,Urine 1+ (Negative); Leukocyte Esterase,Urine Negative (Negative); Nitrite,Urine Negative (Negative); PH, Urine 6.5 (5.0-8.0); Protein,Urine Negative (Negative); Specific Gravity,Urine 1.013 (1.001-1.035); Urobilinogen,Urine <2.0 mg/dL (<2.0)
[2024-06-25] MEDS: ONDANSETRON 4 MG/2 ML VIAL IVP PRN (19:52)
[2024-06-25] MEDS: HYDROmorphone 0.5 MG/0.5 ML SYRINGE IVP PRN (19:55)
[2024-06-25] MEDS: hydrALAZINE HCL 20 MG/ML 1 ML VIAL IVP PRN (20:26)
--- NOTE | 2024-06-25 22:08 | HP ---
HISTORY AND PHYSICAL CHIEF COMPLAINT: Vomiting, abdominal pain, nausea. HISTORY OF PRESENT ILLNESS: This is a 58-year-old gentleman with a past medical history of multiple medical problems, who was followed by Surgery in [facility]. The patient has umbilical hernia and is slated for surgery soon. Currently, the patient is having repeat episodes of nausea, vomiting, and abdominal pain. The patient came to [place] and subsequently was admitted for further evaluation and treatment. Creatinine is found to be 2.10, indicating acute on chronic renal failure. There is no history of any fever, rigors, or chills. White count is 12.4. PAST MEDICAL HISTORY: Reviewed and includes hypertension, history of Richard's, history of MRSA. Rest of the history and rest of the chart is also reviewed. HOME MEDICATIONS: Reviewed and include Seroquel. Dose and rest of medications reviewed. ALLERGIES: None. FAMILY HISTORY: History of dialysis in the family. SOCIAL HISTORY: No history of smoking or alcohol. REVIEW OF SYSTEMS: Fourteen-point review of systems negative except as mentioned earlier. PHYSICAL EXAMINATION: VITAL SIGNS: Pulse is 103, blood pressure 151/112, respirations 18, pulse ox 92% on room air. HEENT: Conjunctivae normal. NECK: No JVD. CARDIOVASCULAR: S1, S2. RESPIRATORY SYSTEM: Breath sounds diminished in the bases. Scattered rhonchi. ABDOMEN: Soft, mild diffuse tenderness present. Umbilical hernia present. LEGS: No edema. No swelling. NERVOUS SYSTEM: Nonfocal. SKIN: No ulcer, rash, bleeding. JOINTS: No active deforming arthropathy. LABORATORY DATA: Reviewed. ASSESSMENT: 1. Severe abdominal pain and nausea, for evaluation. 2. Accelerated hypertension. 3. Acute on chronic renal failure. 4. Elevated WBC. 5. Elevated lactic acid, present on admission. 6. Hypertension history. 7. History of Albaro's granulomatosis. 8. History of nephrolithiasis. 9. Multiple complex medical issues including avascular necrosis of the right hip. RECOMMENDATIONS: This is a 58-year-old gentleman, who presented with multiple complex medical issues. We will monitor the patient closely. I would recommend symptomatic treatment for the pain, and I would continue with the IV fluids. Monitor creatinine closely. There is no evidence of any infection per se, but I would recommend UA with micro and an abdominopelvic CAT scan was done and it showed no acute abnormality. I would recommend chest x-ray and as well as testing also. Prognosis is guarded because of multiple complex medical conditions. Further recommendations to follow. MMODL / IJN: [id number] / PRANAV
[2024-06-25] MEDS: ACETAMINOPHEN TAB 325 MG TAB PO PRN (22:12)
[2024-06-25] MEDS: HEPARIN SODIUM,PORCINE 5,000 UNIT/ML 1 ML VIAL SQ SCH (22:13)
[2024-06-25] MEDS: DOCUSATE 100 MG CAP PO SCH (22:13)
[2024-06-25] MEDS: AVACOPAN 10 MG PO SCH (22:17)
[2024-06-25] MEDS ORDERED: LORazepam 1 MG/0.5 ML VIAL IV PRN (23:06)
[2024-06-26] MEDS: LEVOTHYROXINE 50 MCG TAB PO SCH (05:21)
[2024-06-26 08:41] LABS: ALT 30 U/L (10-49); AST 16 U/L (14-35); Albumin 3.6 g/dL (3.8-4.9); Albumin/Globulin Ratio 1.89 Ratio (1.60-3.17); Alkaline Phosphatase 59 U/L (41-126); BUN/Creat Ratio 7.11 Ratio (12.00-20.00); Blood Urea Nitrogen 12.8 mg/dL (9.0-27.0); Calcium 8.8 mg/dL (8.7-10.3); Carbon Dioxide 20.1 mmol/L (21.6-31.8); Chloride 110 mmol/L (96-109); Globulin 1.9 g/dL (1.6-3.3); Glucose 91 mg/dL (70-110); Potassium 4.5 mmol/L (3.5-5.5); Sodium 140 mmol/L (135-145); Total Bilirubin <0.2 mg/dL (0.3-1.2); Total Protein 5.5 g/dL (6.2-8.2)
[2024-06-26] MEDS: LOSARTAN 50 MG TAB PO SCH (08:44)
[2024-06-26] MEDS: amLODIPine 10 MG TAB PO SCH (08:44)
[2024-06-26] MEDS: predniSONE 10 MG TAB PO SCH (08:44)
[2024-06-26] MEDS: FERROUS SULFATE 325 MG TAB PO SCH (08:45)
[2024-06-26 08:51] LABS: Basophils # (A) 0.05 X 10*3/uL (0.00-0.10); Basophils % (A) 0.9 %; Eosinophils # (A) 0.11 X 10*3/uL (0.04-0.35); HCT 38.8 % (39.6-50.0); HGB 12.5 g/dL (13.0-17.0); Lymphocytes # (A) 1.08 X 10*3/uL (0.90-5.00); Lymphocytes % (A) 19.3 %; MCH 28.9 pg (27.0-32.0); MCHC 32.2 g/dL (32.0-37.0); MCV 89.8 FL (80.0-97.0); Monocytes # (A) 0.65 X 10*3/uL (0.20-1.00); Monocytes % (A) 11.6 %; NRBC Per 100 WBC 0 X 10*3/uL (0.00-0.01); Neutrophils # (A) 3.64 X 10*3/uL (1.80-7.70); Neutrophils % (A) 64.8 %; Platelet Count 342 X 10*3/uL (140-440); RBC 4.32 X 10*6/uL (4.40-5.60); RDW 15.6 % (11.5-14.5); WBC 5.61 X 10*3/uL (4.50-10.00)
[2024-06-26] MEDS ORDERED: PANTOPRAZOLE 40 MG/10 ML VIAL IV SCH (09:00)
[2024-06-26] MEDS ORDERED: NON FORMULARY DRUG (Omeprazole [Omeprazole] 40 MG Capsule.Dr) PO SCH (09:00)
[2024-06-26] MEDS: ESCITALOPRAM 10 MG TAB PO SCH (09:38)
[2024-06-26] MEDS: IPRATROPIUM-ALBUTEROL 3 ML NEB INHALATION PRN (10:00)
--- NOTE | 2024-06-26 13:05 | P.GSCN ---
History of Present Illness Consult date: 06/26/24 History of present illness: CHIEF COMPLAINT: Abdominal pain HISTORY OF PRESENT ILLNESS: This is a 58-year-old male who presented the hospital with complaints of abdominal pain at his umbilicus for 4 days. He has been having nausea and vomiting. He did have a small loose stool this morning. He reports decreased appetite. He has a history of Richard's granulomatosis and is followed up at [facility]. Patient had a CT scan abdomen pelvis that showed small to moderate fat-containing umbilical hernia. No evidence of bowel obstruction. PAST MEDICAL HISTORY: Hypertension, Richard's granulomatosis, GPA, kidney stones avascular necrosis right hip with surgery PAST SURGICAL HISTORY: See below MEDICATIONS: See below ALLERGIES: See below SOCIAL HISTORY: No illicit drug use. REVIEW OF SYSTEMS: CONSTITUTIONAL: Denies fever or chills. HEENT: Denies blurred vision, vision changes, or eye pain. Denies hemoptysis CARDIOVASCULAR: Denies chest pain or pressure. RESPIRATORY: No shortness of breath. GASTROINTESTINAL: See HPI for pertinent findings HEMATOLOGIC: Denies bleeding disorders. GENITOURINARY: Denies any blood in urine or increased urinary frequency. SKIN: Denies pruitis. Denies rash. PHYSICAL EXAM: VITAL SIGNS: Reviewed GENERAL: Well-developed in no acute distress. HEENT: No sclera icterus. Extraocular movements grossly intact. Moist buccal mucosa. Head is atraumatic, normocephalic. No nasal drainage. ABDOMEN: Soft. Obese. Nondistended. Umbilical hernia present tender with palpation. Reducible but then protrudes back out immediately. No discoloration. NEUROLOGIC: Alert and oriented. Cranial nerves II through XII grossly intact. LABORATORY DATA: WBC 12.4 down to 5.61 Hgb 12.5 platelets 342 Sodium 140 potassium 4.5 creatinine 1.8 Lactic acid 2.5 down to 0.9 Lipase 102 IMAGING: CT scan abdomen pelvis reports no bowel obstruction. No significant new or acute findings. Small to moderate size fat-containing left periumbilical hernia ASSESSMENT: 1. Incarcerated umbilical hernia PLAN: - Patient scheduled for robotic repair of incarcerated umbilical hernia tomorrow with Dr. Mejía - Regular diet today - N.p.o. after midnight Physician Dressmaker Or Tailor note has been reviewed by physician. Signing provider agrees with the documented findings, assessment, and plan of care. Past Medical History Past Medical History: Hypertension Additional Past Medical History / Comment(s): bone throat infection, wegeners, GPA , kidney stones History of Any Multi-Drug Resistant Organisms: MRSA Year Discovered:: 07/19/22 MDRO Source:: Throat Past Surgical History: Orthopedic Surgery Additional Past Surgical History / Comment(s): avascular necrosis rt hip with surgery, bilateral wrist surgery, left foot surgery Past Anesthesia/Blood Transfusion Reactions: Postoperative Nausea & Vomiting (PONV) Smoking Status: Never smoker - Past Family History Mother Family Medical History: Dialysis Medications and Allergies Home Medications Medication Instructions Recorded Confirmed Type amLODIPine [Norvasc] 10 mg PO DAILY #30 tab 09/13/22 06/25/24 Rx Ondansetron [Zofran] 4 mg PO Q8H PRN 09/18/23 06/25/24 History HYDROmorphone [Dilaudid] 4 mg PO BID PRN 03/29/24 06/25/24 History Omeprazole 40 mg PO DAILY 03/29/24 06/25/24 History Sulfamethox-Tmp 800-160Mg [Bactrim 1 tab PO MOWEFR 03/29/24 06/25/24 History DS 800-160 mg] mycophenolate mofetiL [Cellcept] 1,000 mg PO BID 03/29/24 06/25/24 History traZODone HCL [Desyrel] 100 mg PO HS PRN 03/29/24 06/25/24 History Docusate [Colace] 100 mg PO BID #60 capsule 04/11/24 06/25/24 Rx Amoxicillin 500 mg PO BID 06/25/24 06/25/24 History Avacopan [Tavneos] 30 mg PO BID 06/25/24 06/25/24 History Budesonide [Pulmicort] 0.5 mg INHALATION RT-BID PRN 06/25/24 06/25/24 History Escitalopram [Lexapro] 10 mg PO DAILY 06/25/24 06/25/24 History Ferrous Sulfate [Feosol] 325 mg PO DAILY 06/25/24 06/25/24 History Furosemide [Lasix] 40 mg PO BID 06/25/24 06/25/24 History Ipratropium-Albuterol Nebulize 3 ml INHALATION RT-QID PRN 06/25/24 06/25/24 History [Duoneb 0.5 mg-3 mg/3 ml Soln] Levothyroxine Sodium [Synthroid] 50 mcg PO DAILY 06/25/24 06/25/24 History Losartan Potassium 100 mg PO DAILY 06/25/24 06/25/24 History QUEtiapine [SEROquel] 100 mg PO HS PRN 06/25/24 06/25/24 History Spironolactone [Aldactone] 50 mg PO DIRECTED 06/25/24 06/25/24 History carvediloL [Coreg] 3.125 mg PO BID 06/25/24 06/25/24 History polyethylene glycoL 3350 [Miralax] 17 gm PO TID 06/25/24 06/25/24 History predniSONE 10 mg PO DAILY 06/25/24 06/25/24 History Allergies Allergy/AdvReac Type Severity Reaction Status Date / Time No Known Allergies Allergy Verified 06/25/24 11:54 Surgical - Exam Vital Signs Temp Pulse Resp BP Pulse Ox 98.5 F 134 H 24 161/109 94 L 06/25/24 08:55 06/25/24 08:55 06/25/24 08:55 06/25/24 08:55 06/25/24 08:55 Results - Labs 06/26/24 05:13 06/26/24 05:13 Abnormal Lab Results - Last 24 Hours (Table) 06/25/24 06/26/24 06/26/24 Range/Units 17:51 05:13 05:13 RBC 4.32 L (4.40-5.60) X 10*6/uL Hgb 12.5 L (13.0-17.0) g/dL Hct 38.8 L (39.6-50.0) % RDW 15.6 H (11.5-14.5) % MPV 9.0 L (9.5-12.2) FL Immature Gran # 0.08 H (0.00-0.04) X 10*3/uL Chloride 110 H (96-109) mmol/L Carbon Dioxide 20.1 L (21.6-31.8) mmol/L Creatinine 1.8 H (0.6-1.5) mg/dL Est GFR (CKD-EPI) 44 L (>=60) BUN/Creatinine Ratio 7.11 L (12.00-20.00) Ratio Total Bilirubin <0.2 L (0.3-1.2) mg/dL Total Protein 5.5 L (6.2-8.2) g/dL Albumin 3.6 L (3.8-4.9) g/dL Urine Ketones 1+ H (Negative) Urine Opiates Screen Detected H (NotDetected) U Tricyclic Antidepress Detected H (NotDetected) U Marijuana (THC) Screen Detected H (NotDetected) Diabetes panel 06/26/24 Range/Units 05:13 Sodium 140 (135-145) mmol/L Potassium 4.5 (3.5-5.5) mmol/L Chloride 110 H (96-109) mmol/L Carbon Dioxide 20.1 L (21.6-31.8) mmol/L BUN 12.8 (9.0-27.0) mg/dL Creatinine 1.8 H (0.6-1.5) mg/dL Glucose 91 (70-110) mg/dL Calcium 8.8 (8.7-10.3) mg/dL AST 16 (14-35) U/L ALT 30 (10-49) U/L Alkaline Phosphatase 59 (41-126) U/L Total Protein 5.5 L (6.2-8.2) g/dL Albumin 3.6 L (3.8-4.9) g/dL Calcium panel 06/26/24 Range/Units 05:13 Calcium 8.8 (8.7-10.3) mg/dL Albumin 3.6 L (3.8-4.9) g/dL Pituitary panel 06/26/24 Range/Units 05:13 Sodium 140 (135-145) mmol/L Potassium 4.5 (3.5-5.5) mmol/L Chloride 110 H (96-109) mmol/L Carbon Dioxide 20.1 L (21.6-31.8) mmol/L BUN 12.8 (9.0-27.0) mg/dL Creatinine 1.8 H (0.6-1.5) mg/dL Glucose 91 (70-110) mg/dL Calcium 8.8 (8.7-10.3) mg/dL Adrenal panel 06/26/24 Range/Units 05:13 Sodium 140 (135-145) mmol/L Potassium 4.5 (3.5-5.5) mmol/L Chloride 110 H (96-109) mmol/L Carbon Dioxide 20.1 L (21.6-31.8) mmol/L BUN 12.8 (9.0-27.0) mg/dL Creatinine 1.8 H (0.6-1.5) mg/dL Glucose 91 (70-110) mg/dL Calcium 8.8 (8.7-10.3) mg/dL Total Bilirubin <0.2 L (0.3-1.2) mg/dL AST 16 (14-35) U/L ALT 30 (10-49) U/L Alkaline Phosphatase 59 (41-126) U/L Total Protein 5.5 L (6.2-8.2) g/dL Albumin 3.6 L (3.8-4.9) g/dL
--- NOTE | 2024-06-26 17:27 | PN ---
PROGRESS NOTE DATE OF SERVICE: 06/26/2024 SUBJECTIVE: This is a 58-year-old gentleman admitted with abdominal pain and nausea, also had umbilical hernia containing fat at this time. Surgery is planning possible surgery. No chest pain. No palpitation. OBJECTIVE: VITAL SIGNS: Pulse is 80 to 96, blood pressure 145/94, respirations 16. CHEST: Clear to auscultation. CARDIOVASCULAR: S1, S2. ABDOMEN: Soft, obese. Umbilical hernia present. LABORATORY DATA: Reviewed. ASSESSMENT: 1. Severe abdominal pain, nausea, possibly secondary to umbilical hernia fat containing. 2. Accelerated hypertension. 3. Acute on chronic renal failure. 4. Elevated WBC. 5. Elevated lactic acid, improved. 6. Hypertension history. 7. History of Richard's granulomatosis. 8. Multiple complex medical issues. RECOMMENDATIONS: Recommend to continue current management and continue symptomatic treatment. Repeat labs. Closely follow. DVT prophylaxis. Closely follow with Surgery. Guarded prognosis. Further recommendations to follow. MMODL / IJN: [id number] /
[2024-06-26] MEDS: PATIENTS OWN MED PO SCH (20:24)
[2024-06-27 04:49] LABS: Basophils # (A) 0.05 10*3/uL (0.00-0.10); Basophils % (A) 0.6 %; Eosinophils # (A) 0.08 10*3/uL (0.04-0.35); HCT 38.4 % (39.6-50.0); HGB 12.8 g/dL (13.0-17.0); Lymphocytes # (A) 1.25 10*3/uL (0.90-5.00); Lymphocytes % (A) 15.7 %; MCH 29.8 pg (27.0-32.0); MCHC 33.3 g/dL (32.0-37.0); MCV 89.3 fL (80.0-97.0); Mean Platelet Volume 8.6 fL (9.5-12.2); Monocytes # (A) 0.74 10*3/uL (0.20-1.00); Monocytes % (A) 9.3 %; Neutrophils # (A) 5.74 10*3/uL (1.80-7.70); Neutrophils % (A) 72.4 %; Platelet Count 332 10*3/uL (140-440); RDW 15.6 % (11.5-14.5); WBC 7.94 10*3/uL (4.50-10.00)
[2024-06-27 05:01] LABS: African American GFR (CKD) 46 (>60 ml/min/1.73 sqM); Anion Gap 8 mmol/L; Blood Urea Nitrogen 12 mg/dL (9-20); Calcium 9.5 mg/dL (8.4-10.2); Carbon Dioxide 22 mmol/L (22-30); Chloride 108 mmol/L (98-107); Glucose 86 mg/dL (74-99); Non-African American GFR(CKD) 40 (>60 ml/min/1.73 sqM); Potassium 4.1 mmol/L (3.5-5.1); Sodium 138 mmol/L (137-145)
[2024-06-27] MEDS ORDERED: HYDROmorphone 0.5 MG/0.5 ML SYRINGE IVP PRN (07:49)
[2024-06-27] MEDS ORDERED: DEXAMETHASONE SOD PHOSPHATE 4 MG/ML 1 ML VIAL IV ONE (07:49)
[2024-06-27] MEDS ORDERED: LACTATED RINGERS 1,000 ML IV SCH (07:49)
[2024-06-27] MEDS ORDERED: ONDANSETRON 4 MG/2 ML VIAL IVP ONE (07:49)
[2024-06-27] MEDS: LACTATED RINGERS 1,000 ML IV SCH (08:31)
[2024-06-27] MEDS: DEXAMETHASONE SOD PHOSPHATE 4 MG/ML 1 ML VIAL IV ONE (08:40)
[2024-06-27] MEDS: ONDANSETRON 4 MG/2 ML VIAL IVP ONE (09:14)
[2024-06-27] MEDS: FAMOTIDINE 20 MG/2 ML VIAL IV STA (11:40)
[2024-06-27] MEDS: HYDROCORTISONE SUCCINATE 100 MG/2 ML VIAL IV STA (11:41)
[2024-06-27] MEDS: IV FLUID CONTINUATION 1,000 ML IV ONE ×2 (11:50→14:23)
[2024-06-27] MEDS: MIDAZOLAM 2 MG/2 ML VIAL IV ONE (12:06)
[2024-06-27] MEDS: HEPARIN SODIUM,PORCINE 5,000 UNIT/ML 1 ML VIAL SQ STA (12:29)
--- NOTE | 2024-06-27 12:30 | P.ANPRN ---
Procedure Note - Anesthesia - Nerve Block Performed Bilateral Erector Spinae Single Time Out Performed: Yes Date of Procedure: 06/27/24 Procedure Start Time: 12:05 Procedure Stop Time: 12:10 Location of Patient: PreOp Indication: Acute Post-Operative Pain, Analgesia, Requested by Surgeon Sedation Type: Sedate with meaningful contact maintained Preparation: Sterile Prep Position: Sitting Catheter: None Needle Types: Pajunk Needle Gauge: 21 Ultrasound used to visualize needle placement: Yes Ultrasound used to observe medication spread: Yes Injectate: 0.5% Ropivacaine (see comment for volume) (Ropiv 20ml+[id number], Needle level G25----Yqqs side.) Blood Aspirated: No Pain Paresthesia on Injection Noted: No Resistance on Injection: Normal Image Stored and Saved: Yes Events: Uneventful and Well Tolerated
[2024-06-27] MEDS ORDERED: KETOROLAC 15 MG/ML 1 ML VIAL ONE (12:37)
[2024-06-27] MEDS ORDERED: SUCCINYLCHOLINE CHLORIDE 200 MG/10 ML VIAL IV ONE (12:37)
[2024-06-27] MEDS ORDERED: ROCURONIUM 10 MG/ML (5 ML VIAL) IV ONE (12:37)
[2024-06-27] MEDS ORDERED: LIDOCAINE 1% INJ 10MG/ML (20 ML MDV) ONE (12:37)
[2024-06-27] MEDS ORDERED: GLYCOPYRROLATE 0.2 MG/ML 2 ML VIAL ONE (12:37)
[2024-06-27] MEDS ORDERED: PROPOFOL 10 MG/ML 20 ML VIAL IV ONE (12:37)
[2024-06-27] MEDS ORDERED: ROPIVACAINE 5 MG/ML 30 ML VIAL ONE (12:37)
[2024-06-27] MEDS ORDERED: DEXAMETHASONE SOD PHOSPHATE 4 MG/ML 1 ML VIAL ONE (12:37)
[2024-06-27] MEDS ORDERED: KETAMINE HCL IN 0.9 % NACL 50 MG/5 ML SYRINGE ONE (12:37)
[2024-06-27] MEDS ORDERED: NEOSTIGMINE 1 MG/ML 10 ML VIAL ONE (12:37)
[2024-06-27] MEDS ORDERED: fentaNYL (PF) 50 MCG/ML 2 ML AMP ONE (12:37)
[2024-06-27] MEDS: ceFAZolin 2 GM in DEXTROSE 5% IN WATER 50 ML IVPB ONE (12:40)
[2024-06-27] MEDS: LIDOCAINE 1%-EPI 1:100,000 20 ML VIAL SQ ONE ×2 (12:59→13:08)
--- NOTE | 2024-06-27 13:52 | P.OP ---
Date of Procedure: 06/27/24 Preoperative Diagnosis: Incarcerated umbilical hernia Postoperative Diagnosis: Incarcerated local hernia Procedure(s) Performed: Laparoscopic robot-assisted pair of compression umbilical hernia Partial omentectomy Transversus abdominis plane block Anesthesia: RAÚL Surgeon: Eron eMjía Estimated Blood Loss (ml): 5 Pathology: other ([place]) Condition: stable Disposition: PACU Description of Procedure: The patient was placed on the operating table in the supine position. He received general anesthesia. His abdomen was prepped and draped usual fashion. Using a 5 mm optical trocar under direct visualization the peritoneal cavity was entered in the left upper quadrant. The abdomen was then insufflated. The laparoscope was placed back into the perineal cavity. Next a 8 mm robotic trocar was placed in the left lower quadrant and a 12 mm robotic trocar was placed in the left lateral position. The original 5 mm trocar was exchanged for a 8 mm robotic trocar. The patient's placed in the left side up position. And the patient w was docked the robot. A four-quadrant transversus abdominis plane block was performed 1 to local Xylocaine. The umbilical hernia was visualized. Using hook cautery the peritoneum over the umbilical hernia was excised. The incarcerated mentum was dissected free cytopathology The fascial opening was repaired using 0V LOC suture. Next a piece of 11 cm round ventral light ST mesh was placed into the. Cavity and secured with 2 OV lock suture. The patient was undocked the robot. The needles were retrieved. The fascia of the 12 mm trocar site was closed with 0 Ethibond suture. Skin was closed interrupted 3-0 Monocryl suture. Dermabond dressings was applied. Patient top procedure well and was sent to recovery room stable condition.
[2024-06-27] MEDS: HYDROmorphone 0.5 MG/0.5 ML SYRINGE IVP PRN (13:58)
[2024-06-28 08:36] LABS: Basophils # (A) 0.01 X 10*3/uL (0.00-0.10); Basophils % (A) 0.1 %; Eosinophils # (A) 0 X 10*3/uL (0.04-0.35); Eosinophils % (A) 0 %; HCT 39.5 % (39.6-50.0); HGB 13.1 g/dL (13.0-17.0); Lymphocytes # (A) 0.41 X 10*3/uL (0.90-5.00); Lymphocytes % (A) 4.6 %; MCH 29.1 pg (27.0-32.0); MCHC 33.2 g/dL (32.0-37.0); MCV 87.8 FL (80.0-97.0); Mean Platelet Volume 9.6 FL (9.5-12.2); Monocytes # (A) 0.52 X 10*3/uL (0.20-1.00); Monocytes % (A) 5.8 %; NRBC Per 100 WBC 0 X 10*3/uL (0.00-0.01); Neutrophils # (A) 7.95 X 10*3/uL (1.80-7.70); Neutrophils % (A) 88.8 %; Platelet Count 369 X 10*3/uL (140-440); RDW 15.5 % (11.5-14.5); WBC 8.95 X 10*3/uL (4.50-10.00)
[2024-06-28 08:50] LABS: ALT 30 U/L (10-49); AST 18 U/L (14-35); Albumin 3.9 g/dL (3.8-4.9); Albumin/Globulin Ratio 1.86 Ratio (1.60-3.17); Alkaline Phosphatase 65 U/L (41-126); BUN/Creat Ratio 7.26 Ratio (12.00-20.00); Blood Urea Nitrogen 13.8 mg/dL (9.0-27.0); Calcium 9.1 mg/dL (8.7-10.3); Carbon Dioxide 20.4 mmol/L (21.6-31.8); Chloride 103 mmol/L (96-109); Globulin 2.1 g/dL (1.6-3.3); Glucose 127 mg/dL (70-110); Magnesium 1.5 mg/dL (1.5-2.4); Potassium 4.1 mmol/L (3.5-5.5); Sodium 136 mmol/L (135-145); Total Bilirubin 0.3 mg/dL (0.3-1.2)
[2024-06-28] MEDS: HYDROmorphone 0.5 MG/0.5 ML SYRINGE IVP STA (08:59)
[2024-06-28] MEDS ORDERED: Magnesium Replacement Protocol 1 EACH MISC MISCELLANE PRN (09:12)
--- NOTE | 2024-06-28 09:15 | P.PN ---
Subjective Progress Note Date: 06/27/24 This is a 58-year-old male who was recently admitted with significant abdominal pain with nausea concerns for incarcerated umbilical hernia. Patient evaluated by general surgery is scheduled to undergo intervention of the hernia today. Patient is currently n.p.o. and will await official report. No reports of chest pain or shortness of breath. Diet will be resumed per surgery recommendations. Review of systems: Constitutional: No reports of fatigue, fever, or chills Cardiovascular: No reports of chest pain or palpitations Respiratory: No reports of shortness of breath or cough GI: No reports of nausea, no reports of vomiting, no diarrhea, continued mid abdominal discomfort : No reports of dysuria or retention Neurovascular: No reports of generalized weakness All medications have been reviewed PHYSICAL EXAMINATION: GENERAL: The patient is alert and oriented x4, Well developed, well nourished. HEENT: Pupils are round and equally reacting to light. EOMI. no scleral icterus. No conjunctival pallor. Normocephalic, atraumatic. No pharyngeal erythema. No thyromegaly. CARDIOVASCULAR: S1 and S2 muffled PULMONARY: diminished breath sounds bilaterally with no wheezing or rhonchi n oted. ABDOMEN: soft. tender on exam in the umbilical area. obese. non-distended, normoactive bowel sounds. No palpable organomegaly. MUSCULOSKELETAL: No joint swelling or deformity. EXTREMITIES: No cyanosis, clubbing, or pedal edema. NEUROLOGICAL: Gross neurological examination did not reveal any focal deficits SKIN: No rashes. Assessment: Severe abdominal pain, nausea, likely secondary to umbilical hernia fat- containing Accelerated hypertension, present on admission, improved Acute on chronic renal failure Elevated WBC, likely reactive Elevated lactic acid, resolved Hypertension history History of Richard's granulomatosis History of kidney stones GI prophylaxis DVT prophylaxis Full code Plan: Recommend to continue with current medications and management with general surgery following. Patient is currently n.p.o. scheduled to undergo hernia repair and will await official report Diet to be resumed once cleared by surgery Follow-up on repeat labs. Replace electrolytes per protocol monitor kidney functions closely Encourage increase activity as tolerated Recommend incentive spirometer use postsurgery The impression and plan of care has been dictated by Michelle Lamas, nurse practitioner as directed. Dr. Pasha MONTENEGRO I have performed a history and examination and MDM of this patient, discussed the same with the dictator, and agree with the dictator's assessment and plan as written ,documented as a scribe. Based on total visit time, I have performed more than 50% of the visit. Any additional findings or plans will be noted. Objective - Vital Signs Vital signs: Vital Signs Temp 97.1 F L 06/27/24 13:47 Pulse 75 06/27/24 14:15 Resp 18 06/27/24 14:15 BP 165/103 06/27/24 14:15 Pulse Ox 99 06/27/24 14:15 FiO2 Intake & Output 06/26/24 06/27/24 06/27/24 18:59 06:59 18:59 Intake Total 358 1025 Output Total 1100 345 Balance -742 680 Intake: IV 1025 Oral 358 Output: Urine 1100 340 Estimated Blood Loss 5 Other: Voiding Method Urinal Urinal # Voids 3 # Bowel Movements 1 - Labs CBC & Chem 7: 06/28/24 03:44 06/28/24 03:44 Labs: Abnormal Lab Results - Last 24 Hours (Table) 06/27/24 06/27/24 Range/Units 04:29 04:29 RBC 4.30 L (4.40-5.60) 10*6/uL Hgb 12.8 L (13.0-17.0) g/dL Hct 38.4 L (39.6-50.0) % RDW 15.6 H (11.5-14.5) % MPV 8.6 L (9.5-12.2) fL Immature Gran # 0.08 H (0.00-0.04) 10*3/uL Chloride 108 H (98-107) mmol/L Creatinine 1.85 H (0.66-1.25) mg/dL
[2024-06-28] MEDS: MAGNESIUM SULFATE-D5W PMX 1 GM in DEXTROSE/WATER 1 100ML.BAG IVPB SCH (10:09)
[2024-06-28] MEDS: HYDROcodone/APAP 5-325MG 1 EACH TAB PO PRN (10:09)
[2024-06-28] MEDS: HYDROmorphone 2 MG/ML 1 ML SYRINGE IVP PRN (12:49)
[2024-06-28] MEDS: SIMETHICONE 40 MG/0.6 ML DROPS 2,000 MG/30 ML BOTTLE PO SCH (12:49)
[2024-06-28] MEDS ORDERED: SIMETHICONE 80 MG CHEWABLE PO SCH (13:00)
--- NOTE | 2024-06-28 13:54 | P.PN ---
Subjective Progress Note Date: 06/28/24 SURGICAL PROGRESS NOTE CHIEF COMPLAINT: Incarcerated umbilical hernia HISTORY OF PRESENT ILLNESS: Patient postop day #1 status post laparoscopic robotic assisted repair of umbilical hernia. Patient is complaining of abdominal pain. He has had no flatus. He had small amount of nausea earlier. Afebrile. WBC 8.95 Hgb 13.1 platelets 369 creatinine 1.9 PHYSICAL EXAM: VITAL SIGNS: Reviewed. GENERAL: Well-developed in no acute distress. ABDOMEN: Soft. Distended. Incision sites clean dry and intact. Tenderness with palpation at incision sites NEUROLOGIC: Alert and oriented. Cranial nerves II through XII grossly intact. ASSESSMENT: 1. Incarcerated umbilical hernia PLAN: - Continue to work on pain management - Mylicon gas drops ordered - Encourage patient to ambulate - Continue [place] and Dilaudid for pain management - Anticipate possible discharge tomorrow Physician Wholesale Account Manager note has been reviewed by physician. Signing provider agrees with the documented findings, assessment, and plan of care. Objective - Vital Signs Vital signs: Vital Signs Temp 97.9 F 06/28/24 07:10 Pulse 99 06/28/24 07:10 Resp 16 06/28/24 07:10 BP 159/100 06/28/24 07:10 Pulse Ox 97 06/28/24 07:10 FiO2 Intake & Output 06/27/24 06/28/24 06/28/24 18:59 06:59 18:59 Intake Total 1125 Output Total 345 650 500 Balance 780 -650 -500 Intake: IV 1125 Output: Urine 340 650 500 Estimated Blood Loss 5 Other: Voiding Method Urinal Urinal Urinal - Labs CBC & Chem 7: 06/28/24 03:44 06/28/24 03:44 Labs: Abnormal Lab Results - Last 24 Hours (Table) 06/28/24 06/28/24 Range/Units 03:44 03:44 Hct 39.5 L (39.6-50.0) % RDW 15.5 H (11.5-14.5) % Immature Gran # 0.06 H (0.00-0.04) X 10*3/uL Neutrophils # 7.95 H (1.80-7.70) X 10*3/uL Lymphocytes # 0.41 L (0.90-5.00) X 10*3/uL Eosinophils # 0 L (0.04-0.35) X 10*3/uL Carbon Dioxide 20.4 L (21.6-31.8) mmol/L Anion Gap 12.60 H (4.00-12.00) mmol/L Creatinine 1.9 H (0.6-1.5) mg/dL Est GFR (CKD-EPI) 41 L (>=60) BUN/Creatinine Ratio 7.26 L (12.00-20.00) Ratio Glucose 127 H (70-110) mg/dL Total Protein 6.0 L (6.2-8.2) g/dL
[2024-06-28] MEDS: ONDANSETRON ODT 4 MG TAB PO PRN (16:10)
[2024-06-28 20:17] VITALS: RESP 18
[2024-06-28] MEDS: PANTOPRAZOLE 40 MG TABLET PO SCH (21:51)
--- NOTE | 2024-06-29 05:56 | P.PN ---
Subjective Progress Note Date: 06/28/24 This is a 58-year-old male who was recently admitted with significant abdominal pain with nausea concerns for incarcerated umbilical hernia. Patient evaluated by general surgery is scheduled to undergo intervention of the hernia today. Patient is currently n.p.o. and will await official report. No reports of chest pain or shortness of breath. Diet will be resumed per surgery recommendations. 06/28/2024 Patient is seen in follow-up today status post umbilical hernia repair with mesh being closely monitored with general surgery following. Patient is reporting significant amount of discomfort and gas buildup has been up and walking. Will add Gas-X and also supportive care. Patient has been encouraged to continue ambulating is much as possible and continue with current pain control management . Patient is afebrile and white count is normal. Creatinine elevated at 1.9 and will continue gentle hydration and follow-up on repeat labs. Encourage incentive spirometer use at least 10 times every hour while awake Review of systems: Constitutional: No reports of fatigue, fever, or chills Cardiovascular: No reports of chest pain or palpitations Respiratory: No reports of shortness of breath or cough GI: No reports of nausea, no reports of vomiting, no diarrhea, continued mid abdominal discomfort, reports gas pains : No reports of dysuria or retention Neurovascular: No reports of generalized weakness All medications have been reviewed PHYSICAL EXAMINATION: GENERAL: The patient is alert and oriented x4, Well developed, well nourished. Mildly anxious HEENT: Pupils are round and equally reacting to light. EOMI. no scleral icterus. No conjunctival pallor. Normocephalic, atraumatic. No pharyngeal erythema. No thyromegaly. CARDIOVASCULAR: S1 and S2 muffled PULMONARY: diminished breath sounds bilaterally with no wheezing or rhonchi noted. ABDOMEN: soft. tender on exam in the umbilical area. obese. non-distended, normoactive bowel sounds. No palpable organomegaly. Surgical sites are glued and dry and intact MUSCULOSKELETAL: No joint swelling or deformity. EXTREMITIES: No cyanosis, clubbing, or pedal edema. NEUROLOGICAL: Gross neurological examination did not reveal any focal deficits SKIN: No rashes. Assessment: Severe abdominal pain, nausea, likely secondary to umbilical hernia fat- containing, status post incarcerated umbilical hernia repair Accelerated hypertension, present on admission, improved Acute on chronic renal failure Elevated WBC, likely reactive, improved Elevated lactic acid, resolved Hypertension history History of Richard's granulomatosis History of kidney stones GI prophylaxis DVT prophylaxis Full code Plan: Recommend to continue with current medications and management with general surgery following. Patient is status post incarcerated umbilical hernia repair with mesh. Patient is on regular diet and tolerating Encouraged increase activity as tolerated this patient is having significant discomfort with gas pains. Gas-X added and will continue as needed bowel regimen Follow-up on repeat labs. Replace electrolytes per protocol monitor kidney functions closely as creatinine is 1.9 today. Gentle hydration today Recommend incentive spirometer use at least 10 times every hour while awake Will discuss with general surgery regarding possible discharge in the next 24 hours The impression and plan of care has been dictated by Michelle Lamas, nurse practitioner as directed. Dr. Jed MD I have performed a history and examination and MDM of this patient, discussed the same with the dictator, and agree with the dictator's assessment and plan as written ,documented as a scribe. Based on total visit time, I have performed more than 50% of the visit. Any additional findings or plans will be noted. Objective - Vital Signs Vital signs: Vital Signs Temp 97.9 F 06/28/24 07:10 Pulse 99 06/28/24 07:10 Resp 16 06/28/24 07:10 BP 159/100 06/28/24 07:10 Pulse Ox 97 06/28/24 07:10 FiO2 Intake & Output 06/27/24 06/28/24 06/28/24 18:59 06:59 18:59 Intake Total 1125 Output Total 345 650 300 Balance 780 -650 -300 Intake: IV 1125 Output: Urine 340 650 300 Estimated Blood Loss 5 Other: Voiding Method Urinal Urinal - Labs CBC & Chem 7: 06/28/24 03:44 06/28/24 03:44 Labs: Abnormal Lab Results - Last 24 Hours (Table) 06/28/24 06/28/24 Range/Units 03:44 03:44 Hct 39.5 L (39.6-50.0) % RDW 15.5 H (11.5-14.5) % Immature Gran # 0.06 H (0.00-0.04) X 10*3/uL Neutrophils # 7.95 H (1.80-7.70) X 10*3/uL Lymphocytes # 0.41 L (0.90-5.00) X 10*3/uL Eosinophils # 0 L (0.04-0.35) X 10*3/uL Carbon Dioxide 20.4 L (21.6-31.8) mmol/L Anion Gap 12.60 H (4.00-12.00) mmol/L Creatinine 1.9 H (0.6-1.5) mg/dL Est GFR (CKD-EPI) 41 L (>=60) BUN/Creatinine Ratio 7.26 L (12.00-20.00) Ratio Glucose 127 H (70-110) mg/dL Total Protein 6.0 L (6.2-8.2) g/dL
[2024-06-29 08:03] VITALS: BP 141/87; PULSE 84; TEMP 98.1
[2024-06-29 08:09] LABS: Basophils # (A) 0.01 X 10*3/uL (0.00-0.10); Basophils % (A) 0.1 %; Eosinophils # (A) 0.01 X 10*3/uL (0.04-0.35); Eosinophils % (A) 0.1 %; HCT 35.5 % (39.6-50.0); HGB 11.6 g/dL (13.0-17.0); Lymphocytes # (A) 0.91 X 10*3/uL (0.90-5.00); Lymphocytes % (A) 12.6 %; MCH 29.2 pg (27.0-32.0); MCHC 32.7 g/dL (32.0-37.0); MCV 89.4 FL (80.0-97.0); Mean Platelet Volume 9.5 FL (9.5-12.2); Monocytes # (A) 0.82 X 10*3/uL (0.20-1.00); Monocytes % (A) 11.4 %; NRBC Per 100 WBC 0 X 10*3/uL (0.00-0.01); Neutrophils % (A) 75.1 %; Platelet Count 326 X 10*3/uL (140-440); RBC 3.97 X 10*6/uL (4.40-5.60); RDW 15.9 % (11.5-14.5)
[2024-06-29 08:24] LABS: BUN/Creat Ratio 9.33 Ratio (12.00-20.00); Blood Urea Nitrogen 16.8 mg/dL (9.0-27.0); Calcium 9.1 mg/dL (8.7-10.3); Carbon Dioxide 21.1 mmol/L (21.6-31.8); Chloride 107 mmol/L (96-109); Glucose 88 mg/dL (70-110); Potassium 4.7 mmol/L (3.5-5.5); Sodium 140 mmol/L (135-145)
[2024-06-29 08:40] LABS: Magnesium 2.3 mg/dL (1.5-2.4)
--- NOTE | 2024-06-29 12:02 | P.PN ---
Subjective Progress Note Date: 06/29/24 SURGICAL PROGRESS NOTE CHIEF COMPLAINT: Incarcerated umbilical hernia HISTORY OF PRESENT ILLNESS: Patient postop day #2 status post laparoscopic robotic assisted repair of umbilical hernia. Patient reports his pain is better controlled. He is having flatus and bowel movements. He denies any nausea or vomiting. Afebrile. He has been up and ambulating. WBC 7.20 Hgb 11.6 PHYSICAL EXAM: VITAL SIGNS: Reviewed. GENERAL: Well-developed in no acute distress. ABDOMEN: Soft. Nondistended. Incision sites clean dry and intact. Tenderness with palpation at incision sites NEUROLOGIC: Alert and oriented. Cranial nerves II through XII grossly intact. ASSESSMENT: 1. Incarcerated umbilical hernia PLAN: - Patient is stable for discharge from surgical standpoint Physician Barrel Drum Cutter note has been reviewed by physician. Signing provider agrees with the documented findings, assessment, and plan of care. Objective - Vital Signs Vital signs: Vital Signs Temp 98.1 F 06/29/24 07:00 Pulse 84 06/29/24 07:00 Resp 18 06/29/24 07:00 BP 141/87 06/29/24 07:00 Pulse Ox 93 L 06/29/24 07:00 FiO2 Intake & Output 06/28/24 06/29/24 06/29/24 18:59 06:59 18:59 Intake Total 478 118 Output Total 500 Balance -22 118 Intake: Oral 478 118 Output: Urine 500 Other: Voiding Method Urinal Toilet Urinal # Voids 3 - Labs CBC & Chem 7: 06/29/24 04:59 06/29/24 04:59 Labs: Abnormal Lab Results - Last 24 Hours (Table) 06/29/24 06/29/24 Range/Units 04:59 04:59 RBC 3.97 L (4.40-5.60) X 10*6/uL Hgb 11.6 L (13.0-17.0) g/dL Hct 35.5 L (39.6-50.0) % RDW 15.9 H (11.5-14.5) % Immature Gran # 0.05 H (0.00-0.04) X 10*3/uL Eosinophils # 0.01 L (0.04-0.35) X 10*3/uL Carbon Dioxide 21.1 L (21.6-31.8) mmol/L Creatinine 1.8 H (0.6-1.5) mg/dL Est GFR (CKD-EPI) 44 L (>=60) BUN/Creatinine Ratio 9.33 L (12.00-20.00) Ratio
--- NOTE | 2024-07-08 13:36 | P.DS ---
Providers Date of admission: 06/25/24 15:01 Expected date of discharge: 06/29/24 Attending physician: Boo Wilson MD Consults: 06/25/24 15:26 Consult Physician Urgent Consulting Provider: Eron Mejía Consult Reason/Comments: Intractable abdominal pain, intractable nausea and vomiting Do you want consulting provider notified?: Yes Primary care physician: Jamel Kothari MD Hospital Course: Final diagnosis Severe abdominal pain, nausea, likely secondary to umbilical hernia fat- containing, status post incarcerated umbilical hernia repair Accelerated hypertension, present on admission, improved Acute on chronic renal failure Elevated WBC, likely reactive, improved Elevated lactic acid, resolved Hypertension history History of Richard's granulomatosis History of kidney stones GI prophylaxis DVT prophylaxis Full code Discharge disposition Patient is being discharged in a stable condition with guarded prognosis to home. Patient will follow-up with Dr. Kothari in the outpatient setting upon discharge. Patient is to continue with close outpatient follow-up with general surgery as scheduled. Total time taken is greater than 35 minutes. Hospital course This is a 58-year-old male who was recently admitted with severe abdominal pain likely secondary to umbilical hernia evaluated by general surgery underwent surgical intervention and is status post incarcerated umbilical hernia repair. patient has been cleared by general surgery reports to feeling well and would like to go home. Patient tolerating diet and recommend to slowly advance as tolerated. Please refer to other consultation notes for further HPI. Currently no reports of chest pain, shortness of breath, or palpitations. Patient is afebrile. No reports of nausea or vomiting and patient is tolerating diet. Patient will be discharged home today. Physical exam: Gen: This is a 58-year-old male who is awake, alert and oriented x 3, well- developed, well-nourished, appears older than stated age HEENT: Head is atraumatic, normocephalic. Pupils equal, round. Sclerae is anicteric. NECK: Supple. No JVD. No lymphadenopathy. No thyromegaly. LUNGS: Clear to auscultation. No wheezes or rhonchi. No intercostal retractions. HEART: Regular rate and rhythm. No murmur. ABDOMEN: Soft. Mildly tender bowel sounds are present. No masses. EXTREMITIES: No pedal edema. No calf tenderness. NEUROLOGICAL: Patient is awake, alert and oriented x3. Cranial nerves 2 through 12 are grossly intact. Please refer to medication reconciliation sheet for a list of medications. The impression and plan of care has been dictated by Michelle Lamas, Nurse Practitioner as directed. Dr. Jed MD I have performed a history and examination and MDM of this patient, discussed the same with the dictator, and agree with the dictator's assessment and plan as written ,documented as a scribe. Based on total visit time, I have performed more than 50% of the visit. Patient Condition at Discharge: Fair Plan - Discharge Summary Discharge Rx Participant: No New Discharge Prescriptions: New Simethicone 40 mg/0.6 ml Drops [Mylicon Drops] 40 mg PO QID #7 ml Docusate [Colace] 100 mg PO BID #20 capsule oxyCODONE HCL [OxyIR] 5 mg PO Q6H PRN 3 Days #10 tab PRN Reason: Pain Acetaminophen Tab [Tylenol] 650 mg PO Q6H #30 tab Pantoprazole [Protonix] 40 mg PO BID 15 Days #30 tab Continue Omeprazole 40 mg PO DAILY Docusate [Colace] 100 mg PO BID #60 capsule Avacopan [Tavneos] 30 mg PO BID Budesonide [Pulmicort] 0.5 mg INHALATION RT-BID PRN PRN Reason: Shortness Of Breath Escitalopram [Lexapro] 10 mg PO DAILY Ferrous Sulfate [Iron (65 MG Elemental)] 325 mg PO DAILY Ipratropium-Albuterol Nebulize [Duoneb 0.5 mg-3 mg/3 ml Soln] 3 ml INHALATION RT-QID PRN PRN Reason: Shortness Of Breath Levothyroxine Sodium [Synthroid] 50 mcg PO DAILY Losartan Potassium 100 mg PO DAILY polyethylene glycoL 3350 [Miralax] 17 gm PO TID predniSONE 10 mg PO DAILY QUEtiapine [SEROquel] 100 mg PO HS PRN PRN Reason: sleep amLODIPine [Norvasc] 10 mg PO DAILY #30 tab Ondansetron [Zofran] 4 mg PO Q8H PRN PRN Reason: Nausea traZODone HCL [Desyrel] 100 mg PO HS PRN PRN Reason: Insomnia mycophenolate mofetiL [Cellcept] 1,000 mg PO BID HYDROmorphone [Dilaudid] 4 mg PO BID PRN PRN Reason: Pain carvediloL [Coreg] 3.125 mg PO BID Furosemide [Lasix] 40 mg PO BID Spironolactone [Aldactone] 50 mg PO DIRECTED Discontinued Sulfamethox-Tmp 800-160Mg [Bactrim DS 800-160 mg] 1 tab PO MOWEFR Amoxicillin 500 mg PO BID Discharge Medication List amLODIPine [Norvasc] 10 mg PO DAILY #30 tab 09/13/22 [Rx] Ondansetron [Zofran] 4 mg PO Q8H PRN 09/18/23 [History] HYDROmorphone [Dilaudid] 4 mg PO BID PRN 03/29/24 [History] Omeprazole 40 mg PO DAILY 03/29/24 [History] mycophenolate mofetiL [Cellcept] 1,000 mg PO BID 03/29/24 [History] traZODone HCL [Desyrel] 100 mg PO HS PRN 03/29/24 [History] Docusate [Colace] 100 mg PO BID #60 capsule 04/11/24 [Rx] Avacopan [Tavneos] 30 mg PO BID 06/25/24 [History] Budesonide [Pulmicort] 0.5 mg INHALATION RT-BID PRN 06/25/24 [History] Escitalopram [Lexapro] 10 mg PO DAILY 06/25/24 [History] Ferrous Sulfate [Iron (65 MG Elemental)] 325 mg PO DAILY 06/25/24 [History] Furosemide [Lasix] 40 mg PO BID 06/25/24 [History] Ipratropium-Albuterol Nebulize [Duoneb 0.5 mg-3 mg/3 ml Soln] 3 ml INHALATION R T-QID PRN 06/25/24 [History] Levothyroxine Sodium [Synthroid] 50 mcg PO DAILY 06/25/24 [History] Losartan Potassium 100 mg PO DAILY 06/25/24 [History] QUEtiapine [SEROquel] 100 mg PO HS PRN 06/25/24 [History] Spironolactone [Aldactone] 50 mg PO DIRECTED 06/25/24 [History] carvediloL [Coreg] 3.125 mg PO BID 06/25/24 [History] polyethylene glycoL 3350 [Miralax] 17 gm PO TID 06/25/24 [History] predniSONE 10 mg PO DAILY 06/25/24 [History] Acetaminophen Tab [Tylenol] 650 mg PO Q6H #30 tab 06/27/24 [Rx] Docusate [Colace] 100 mg PO BID #20 capsule 06/27/24 [Rx] oxyCODONE HCL [OxyIR] 5 mg PO Q6H PRN 3 Days #10 tab 06/27/24 [Rx] Pantoprazole [Protonix] 40 mg PO BID 15 Days #30 tab 06/29/24 [Rx] Simethicone 40 mg/0.6 ml Drops [Mylicon Drops] 40 mg PO QID #7 ml 06/29/24 [Rx] Follow up Appointment(s)/Referral(s): Jamel Kothari MD [Primary Care Provider] - 1-2 days Eron Mejía MD [STAFF PHYSICIAN] - 07/10/24 2:45 pm Ambulatory/Diagnostic Orders: Basic Metabolic Panel [LAB.AMB] Time Frame: 3 Days, Location: None Selected Patient Instructions/Handouts: Acute Abdominal Pain (DC) Activity/Diet/Wound Care/Special Instructions: Activity limited until follow-up Follow-up with general surgery in 1 week Follow-up with primary care provider on discharge No bending or lifting over 5 pounds until cleared by surgery Continue with abdominal binder as tolerated especially when up and doing things Continue bowel regimen and pain management as needed Recommend holding Lasix for 1-2 more days Repeat labs outpatient to monitor kidney functions Discharge Disposition: HOME SELF-CARE
== END 2024-06-29 12:32 | disposition home or self-care (01) | DRG 354 ==
LOC: EC 08:48 → OBSVTOIN 15:01 → 6NMEDSUR 15:01
PROVIDERS: ADMIT Internal Medicine; ATTEND Internal Medicine
PROC: 0DBU4ZZ Excision of Omentum, Percutaneous Endoscopic Approach (ICD-10-PCS; principal; 2024-06-27 12:05)
PROC: 3E0T3BZ Introduction of Anesthetic Agent into Peripheral Nerves and Plexi, Percutaneous Approach (ICD-10-PCS; principal; 2024-06-27 12:05)
PROC: 0WQF4ZZ Repair Abdominal Wall, Percutaneous Endoscopic Approach (ICD-10-PCS; principal; 2024-06-27 12:05)
PROC: 8E0W4CZ Robotic Assisted Procedure of Trunk Region, Percutaneous Endoscopic Approach (ICD-10-PCS; principal; 2024-06-27 12:05)
DX: K42.0 Umbilical hernia with obstruction, without gangrene (principal); M31.30 Wegener's granulomatosis without renal involvement; I12.9 Hypertensive chronic kidney disease with stage 1 through stage 4 chronic kidney disease, or unspecified chronic kidney disease; N18.9 Chronic kidney disease, unspecified; N17.9 Acute kidney failure, unspecified; Z79.624 Long term (current) use of inhibitors of nucleotide synthesis; Z79.890 Hormone replacement therapy; Z79.899 Other long term (current) drug therapy; Z86.14 Personal history of Methicillin resistant Staphylococcus aureus infection; Z87.442 Personal history of urinary calculi
CPT/HCPCS: 36415; 64468; 74176; 80048; 80053; 80306; 81003; 83605; 83690; 83735; 85025; 87636; 88305; 93005; 94640; 96361; 96372; 96374; 96375; 96376; 99285

== ENCOUNTER → 2024-07-09 | Outpatient (CLI) | payer BC ==
[2024-07-09 12:48] LABS: Appearance,Urine Clear (Clear); Bilirubin,Urine Negative (Negative); Blood,Urine Negative (Negative); Color,Urine Colorless; Glucose,Urine (UA) Negative (Negative); Ketones,Urine Negative (Negative); Leukocyte Esterase,Urine Negative (Negative); Nitrite,Urine Negative (Negative); PH, Urine 5.5 (5.0-8.0); Protein,Urine Negative (Negative); Specific Gravity,Urine 1.015 (1.001-1.035); Urobilinogen,Urine <2.0 mg/dL (<2.0)
[2024-07-09 13:04] LABS: Creatinine,Urine Random 130.6 mg/dL; Protein/Creatinine Ratio,Urine 0.046
[2024-07-09 16:58] LABS: Albumin 4.2 g/dL (3.8-4.9); BUN/Creat Ratio 20.04 Ratio (12.00-20.00); Blood Urea Nitrogen 46.1 mg/dL (9.0-27.0); Calcium 9.7 mg/dL (8.7-10.3); Chloride 97 mmol/L (96-109); Glucose 124 mg/dL (70-110); Phosphorus 2.8 mg/dL (2.4-5.1); Potassium 4.6 mmol/L (3.5-5.5); Sodium 135 mmol/L (135-145)
[2024-07-09 18:35] LABS: Microalbumin Creatinine Ratio <9 mg/g Cr (0-30)
== END | disposition home or self-care (01) ==
LOC: LABWHC1 11:20
PROVIDERS: ATTEND Internal Medicine
DX: M31.31 Wegener's granulomatosis with renal involvement (principal)
CPT/HCPCS: 36415; 80069; 81003; 82043; 82570; 84156

== ENCOUNTER → 2024-07-23 | Outpatient (CLI) | payer BC ==
[2024-07-23 15:33] LABS: Albumin 4.3 g/dL (3.8-4.9); BUN/Creat Ratio 20.19 Ratio (12.00-20.00); Blood Urea Nitrogen 32.3 mg/dL (9.0-27.0); Calcium 9.4 mg/dL (8.7-10.3); Carbon Dioxide 20.1 mmol/L (21.6-31.8); Chloride 106 mmol/L (96-109); Glucose 183 mg/dL (70-110); Potassium 4.5 mmol/L (3.5-5.5); Sodium 140 mmol/L (135-145)
== END | disposition home or self-care (01) ==
LOC: LABWHC1 10:47
PROVIDERS: ATTEND Internal Medicine
DX: M31.31 Wegener's granulomatosis with renal involvement (principal)
CPT/HCPCS: 36415; 80069

== ENCOUNTER 2024-10-16 10:03 | Emergency (ER) | payer BC ==
[2024-10-16 10:54] LABS: Basophils # (A) 0.05 10*3/uL (0.00-0.10); Basophils % (A) 0.4 %; Eosinophils # (A) 0.22 10*3/uL (0.04-0.35); Eosinophils % (A) 1.7 %; HCT 36.9 % (39.6-50.0); HGB 11.9 g/dL (13.0-17.0); Lymphocytes # (A) 1.39 10*3/uL (0.90-5.00); Lymphocytes % (A) 10.9 %; MCH 27.2 pg (27.0-32.0); MCHC 32.2 g/dL (32.0-37.0); MCV 84.4 fL (80.0-97.0); Monocytes # (A) 1.03 10*3/uL (0.20-1.00); Monocytes % (A) 8.1 %; Neutrophils # (A) 9.98 10*3/uL (1.80-7.70); Neutrophils % (A) 78.4 %; Platelet Count 360 10*3/uL (140-440); RBC 4.37 10*6/uL (4.40-5.60); RDW 14.1 % (11.5-14.5); WBC 12.73 10*3/uL (4.50-10.00)
[2024-10-16] MEDS: ONDANSETRON 4 MG/2 ML VIAL IVP STA (10:55)
[2024-10-16] MEDS: SODIUM CHLORIDE 0.9% 2,000 ML IV STA (10:55)
--- NOTE | 2024-10-16 11:15 | XR ---
EXAMINATION TYPE: XR chest 2V DATE OF EXAM: 10/16/2024 11:08 AM COMPARISON: Chest radiographs from 03/29/2024 TECHNIQUE: XR chest 2V Frontal and lateral views of the chest. CLINICAL INDICATION:Male, 59 years old with history of cough, pain; FINDINGS: Lungs/Pleura: There is no evidence of pleural effusion, focal consolidation, or pneumothorax. Pulmonary vascularity: Unremarkable. Heart/mediastinum: Cardiomediastinal silhouette is unremarkable. Musculoskeletal: No acute osseous pathology. IMPRESSION: No acute cardiopulmonary disease/process. [facility], , 10/16/2024 11:12 AM
[2024-10-16 11:24] LABS: ALT 18 U/L (4-49); African American GFR (CKD) 56 (>60 ml/min/1.73 sqM); Albumin 4.0 g/dL (3.5-5.0); Anion Gap 8 mmol/L; Blood Urea Nitrogen 23 mg/dL (9-20); Calcium 9.0 mg/dL (8.4-10.2); Carbon Dioxide 22 mmol/L (22-30); Chloride 109 mmol/L (98-107); Glucose 103 mg/dL (74-99); Lipase 51 U/L (23-300); Non-African American GFR(CKD) 49 (>60 ml/min/1.73 sqM); Sodium 139 mmol/L (137-145); Total Protein 6.5 g/dL (6.3-8.2)
[2024-10-16 11:32] LABS: Potassium 4.1 mmol/L (3.5-5.1)
[2024-10-16 11:33] LABS: AST 26 U/L (17-59); Alkaline Phosphatase 86 U/L (38-126); Magnesium 2.0 mg/dL (1.6-2.3)
[2024-10-16 11:49] LABS: Bilirubin,Urine Negative (Negative); Blood,Urine Negative (Negative); Color,Urine Colorless; Glucose,Urine (UA) Negative (Negative); Ketones,Urine Negative (Negative); Leukocyte Esterase,Urine Negative (Negative); Nitrite,Urine Negative (Negative); PH, Urine 6.5 (5.0-8.0); Protein,Urine Negative (Negative); Specific Gravity,Urine 1.011 (1.001-1.035); Urobilinogen,Urine <2.0 mg/dL (<2.0)
[2024-10-16] MEDS: HYDROmorphone 0.5 MG/0.5 ML SYRINGE IVP STA ×2 (12:43→13:52)
[2024-10-16] MEDS: METOCLOPRAMIDE 5 MG/ML 2 ML VIAL IVP STA (12:43)
--- NOTE | 2024-10-16 13:11 | ED ---
Nausea/Vomiting/Diarrhea HPI - General Chief complaint: Nausea/Vomiting/Diarrhea Stated complaint: Vomiting, diarrhea, fever Time Seen by Provider: 10/16/24 10:17 Source: patient, RN notes reviewed Mode of arrival: ambulatory Limitations: no limitations - History of Present Illness Initial comments: 59-year-old male presents emergency department chief complaint of nausea vomiting diarrhea. Symptoms started today. Patient felt he had a fever prior to this she has had a slight cough as productive. Denies any shortness of breath no chest pain denies any sick contacts no dysuria denies any melena hematochezia no hematemesis or coffee-ground emesis. - Related Data Home Medications Medication Instructions Recorded Confirmed Ondansetron [Zofran] 4 mg PO Q8H PRN 09/18/23 06/25/24 HYDROmorphone [Dilaudid] 4 mg PO BID PRN 03/29/24 06/25/24 Omeprazole 40 mg PO DAILY 03/29/24 06/25/24 mycophenolate mofetiL [Cellcept] 1,000 mg PO BID 03/29/24 06/25/24 traZODone HCL [Desyrel] 100 mg PO HS PRN 03/29/24 06/25/24 Avacopan [Tavneos] 30 mg PO BID 06/25/24 06/25/24 Budesonide [Pulmicort] 0.5 mg INHALATION RT-BID PRN 06/25/24 06/25/24 Escitalopram [Lexapro] 10 mg PO DAILY 06/25/24 06/25/24 Ferrous Sulfate [Iron (65 MG 325 mg PO DAILY 06/25/24 06/25/24 Elemental)] Furosemide [Lasix] 40 mg PO BID 06/25/24 06/25/24 Ipratropium-Albuterol Nebulize 3 ml INHALATION RT-QID PRN 06/25/24 06/25/24 [Duoneb 0.5 mg-3 mg/3 ml Soln] Levothyroxine Sodium [Synthroid] 50 mcg PO DAILY 06/25/24 06/25/24 Losartan Potassium 100 mg PO DAILY 06/25/24 06/25/24 QUEtiapine [SEROquel] 100 mg PO HS PRN 06/25/24 06/25/24 Spironolactone [Aldactone] 50 mg PO DIRECTED 06/25/24 06/25/24 carvediloL [Coreg] 3.125 mg PO BID 06/25/24 06/25/24 polyethylene glycoL 3350 [Miralax] 17 gm PO TID 06/25/24 06/25/24 predniSONE 10 mg PO DAILY 06/25/24 06/25/24 Previous Rx's Medication Instructions Recorded amLODIPine [Norvasc] 10 mg PO DAILY #30 tab 09/13/22 Docusate [Colace] 100 mg PO BID #60 capsule 04/11/24 Acetaminophen Tab [Tylenol] 650 mg PO Q6H #30 tab 06/27/24 Docusate [Colace] 100 mg PO BID #20 capsule 06/27/24 oxyCODONE HCL [OxyIR] 5 mg PO Q6H PRN 3 Days #10 tab 06/27/24 Pantoprazole [Protonix] 40 mg PO BID 15 Days #30 tab 06/29/24 Simethicone 40 mg/0.6 ml Drops 40 mg PO QID #7 ml 06/29/24 [Mylicon Drops] Amoxic-Pot Clav 875-125Mg 1 tab PO Q12HR #20 tab 10/16/24 [Augmentin 875-125] Ondansetron Odt [Zofran Odt] 4 mg PO Q8HR PRN #14 tab 10/16/24 Allergies Allergy/AdvReac Type Severity Reaction Status Date / Time No Known Allergies Allergy Verified 06/27/24 11:13 Review of Systems ROS Statement: Those systems with pertinent positive or pertinent negative responses have been documented in the HPI. ROS Other: All systems not noted in ROS Statement are negative. Past Medical History Past Medical History: Hypertension Additional Past Medical History / Comment(s): bone throat infection, wegeners, GPA , kidney stones History of Any Multi-Drug Resistant Organisms: MRSA Date of last positivie culture/infection: 07/19/22 MDRO Source:: Throat Past Surgical History: Hernia Repair, Orthopedic Surgery Additional Past Surgical History / Comment(s): avascular necrosis rt hip with surgery, bilateral wrist surgery, left foot surgery Past Anesthesia/Blood Transfusion Reactions: Postoperative Nausea & Vomiting (PO NV) Past Psychological History: No Psychological Hx Reported Smoking Status: Never smoker - Past Family History Mother Family Medical History: Dialysis General Exam Limitations: no limitations General appearance: alert, in no apparent distress Head exam: Present: atraumatic, normocephalic, normal inspection Eye exam: Present: normal appearance, PERRL, EOMI. Absent: scleral icterus, conjunctival injection, periorbital swelling ENT exam: Present: normal exam, normal oropharynx, mucous membranes moist Neck exam: Present: normal inspection, full ROM. Absent: tenderness, meningismus, lymphadenopathy Respiratory exam: Present: normal lung sounds bilaterally. Absent: respiratory distress, wheezes, rales, rhonchi, stridor Cardiovascular Exam: Present: regular rate, normal rhythm, normal heart sounds. Absent: systolic murmur, diastolic murmur, rubs, gallop, clicks GI/Abdominal exam: Present: soft, normal bowel sounds. Absent: distended, tenderness, guarding, rebound, rigid Back exam: Absent: CVA tenderness (R), CVA tenderness (L) Neurological exam: Present: alert, oriented X3, CN II-XII intact Course Vital Signs 10/16/24 10/16/24 10/16/24 10:07 10:22 11:38 Temperature 98 F Pulse Rate 96 96 83 Respiratory 20 18 16 Rate Blood Pressure 178/112 123/85 158/99 O2 Sat by Pulse 93 L 96 97 Oximetry 10/16/24 10/16/24 12:45 14:48 Temperature 97.9 F Pulse Rate 87 16 L Respiratory 20 18 Rate Blood Pressure 142/98 149/107 O2 Sat by Pulse 99 98 Oximetry Medical Decision Making - Medical Decision Making Was pt. sent in by a medical professional or institution (, PA, CATERING COORDINATOR, urgent care, hospital, or assisted...) When possible be specific @ -[No] Did you speak to anyone other than the patient for history (EMS, parent, family, police, friend...)? What history was obtained from this source @ -[No] Did you review nursing and triage notes (agree or disagree)? Why? @ -[I reviewed and agree with nursing and triage notes] Were old charts reviewed (outside hosp., previous admission, EMS record, old EKG, old radiological studies, urgent care reports/EKG's, assisted records)? Report findings @ -[No old charts were reviewed] Differential Diagnosis (chest pain, altered mental status, abdominal pain women, abdominal pain men, vaginal bleeding, weakness, fever, dyspnea, syncope, headache, dizziness, GI bleed, back pain, seizure, CVA, palpatations, mental health, musculoskeletal)? @ -Differential Abdominal Pain Men: Appendicitis, cholecystitis, diverticulosis, ischemic bowel, pancreatitis, hepatitis, UTI, gastroenteritis, AAA, incarcerated hernia, bowel obstruction, constipation, inflammatory bowel, hepatitis, peptic ulcer disease, splenic infarction, perforated viscus, testicular torsion, this is not meant to be an all-inclusive list EKG interpreted by me (3pts min.). @ -None X-rays interpreted by me (1pt min.). @ -Chest x-ray shows no definite pneumonia CT interpreted by me (1pt min.). @ -[None done] U/S interpreted by me (1pt. min.). @ -None done What testing was considered but not performed or refused? (CT, X-rays, U/S, labs)? Why? @ -None What meds were considered but not given or refused? Why? @ -None Did you discuss the management of the patient with other professionals (professionals i.e. , PA, CATERING COORDINATOR, lab, RT, psych nurse, dialysis social worker, rivet heater, teacher, event security officer, case management director)? Give summary @ -No Was smoking cessation discussed for >3mins.? @ -No Was critical care preformed (if so, how long)? @ -No Were there social determinants of health that impacted care today? How? (Homelessness, low income, unemployed, alcoholism, drug addiction, transportation, low edu. Level, literacy, decrease access to med. care, longterm, rehab)? @ -No Was there de-escalation of care discussed even if they declined (Discuss DNR or withdrawal of care, Hospice)? DNR status @ -No What co-morbidities impacted this encounter? (DM, HTN, Smoking, COPD, CAD, Cancer, CVA, ARF, Chemo, Hep., AIDS, mental health diagnosis, sleep apnea, morbid obesity)? @ -None Was patient admitted / discharged? Hospital course, mention meds given and route, prescriptions, significant lab abnormalities, going to OR and other pertinent info. @ -Discharge patient feels improved after antiemetics IV fluids analgesics. Patient had productive cough patient has acute tracheobronchitis no evidence of pneumonia. Patient has no hypoxia. Patient has no localized abdominal tenderness will be discharged in stable condition return for as discussed. Undiagnosed new problem with uncertain prognosis? @ -No Drug Therapy requiring intensive monitoring for toxicity (Heparin, Nitro, Insulin, Cardizem)? @ -No Were any procedures done? @ -No Diagnosis/symptom? @ -Gastroenteritis, acute tracheobronchitis Acute, or Chronic, or Acute on Chronic? @ -Acute Uncomplicated (without systemic symptoms) or Complicated (systemic symptoms)? @ -Complicated Side effects of treatment? @ -No Exacerbation, Progression, or Severe Exacerbation? @ -No Poses a threat to life or bodily function? How? (Chest pain, [place], [place], pneumonia, PE, COPD, DKA, ARF, appy, cholecystitis, CVA, Diverticulitis, Homicidal, Suicidal, threat to staff... and all critical care pts) @ -No - Lab Data Result diagrams: 10/16/24 10:49 10/16/24 10:49 Lab Results 10/16/24 10/16/24 10/16/24 Range/Units 10:49 10:49 10:49 WBC 12.73 H (4.50-10.00) 10*3/uL RBC 4.37 L (4.40-5.60) 10*6/uL Hgb 11.9 L (13.0-17.0) g/dL Hct 36.9 L (39.6-50.0) % MCV 84.4 (80.0-97.0) fL MCH 27.2 (27.0-32.0) pg MCHC 32.2 (32.0-37.0) g/dL Plt Count 360 (140-440) 10*3/uL MPV 9.1 L (9.5-12.2) fL Immature Gran % (Auto) 0.5 % Neutrophils % 78.4 % Lymphocytes % 10.9 % Monocytes % 8.1 % Eosinophils % 1.7 % Basophils % 0.4 % Immature Gran # 0.06 H (0.00-0.04) 10*3/uL Neutrophils # 9.98 H (1.80-7.70) 10*3/uL Lymphocytes # 1.39 (0.90-5.00) 10*3/uL Monocytes # 1.03 H (0.20-1.00) 10*3/uL Eosinophils # 0.22 (0.04-0.35) 10*3/uL Basophils # 0.05 (0.00-0.10) 10*3/uL Sodium 139 (137-145) mmol/L Potassium 4.1 (3.5-5.1) mmol/L Chloride 109 H (98-107) mmol/L Carbon Dioxide 22 (22-30) mmol/L Anion Gap 8 mmol/L BUN 23 H (9-20) mg/dL Creatinine 1.56 H (0.66-1.25) mg/dL Est GFR (CKD-EPI)AfAm 56 (>60 ml/min/1.73 sqM) Est GFR (CKD-EPI)NonAf 49 (>60 ml/min/1.73 sqM) Glucose 103 H (74-99) mg/dL Plasma Lactic Acid Yevgeniy 0.9 (0.7-2.0) mmol/L Calcium 9.0 (8.4-10.2) mg/dL Magnesium 2.0 (1.6-2.3) mg/dL Total Bilirubin 0.5 (0.2-1.3) mg/dL AST 26 (17-59) U/L ALT 18 (4-49) U/L Alkaline Phosphatase 86 (38-126) U/L Total Protein 6.5 (6.3-8.2) g/dL Albumin 4.0 (3.5-5.0) g/dL Lipase 51 (23-300) U/L Urine Color Urine Appearance (Clear) Urine pH (5.0-8.0) Ur Specific [place] (1.001-1.035) Urine Protein (Negative) Urine Glucose (UA) (Negative) Urine Ketones (Negative) Urine Blood (Negative) Urine Nitrite (Negative) Urine Bilirubin (Negative) Urine Urobilinogen (<2.0) mg/dL Ur Leukocyte Esterase (Negative) 10/16/24 Range/Units 11:38 WBC (4.50-10.00) 10*3/uL RBC (4.40-5.60) 10*6/uL Hgb (13.0-17.0) g/dL Hct (39.6-50.0) % MCV (80.0-97.0) fL MCH (27.0-32.0) pg MCHC (32.0-37.0) g/dL Plt Count (140-440) 10*3/uL MPV (9.5-12.2) fL Immature Gran % (Auto) % Neutrophils % % Lymphocytes % % Monocytes % % Eosinophils % % Basophils % % Immature Gran # (0.00-0.04) 10*3/uL Neutrophils # (1.80-7.70) 10*3/uL Lymphocytes # (0.90-5.00) 10*3/uL Monocytes # (0.20-1.00) 10*3/uL Eosinophils # (0.04-0.35) 10*3/uL Basophils # (0.00-0.10) 10*3/uL Sodium (137-145) mmol/L Potassium (3.5-5.1) mmol/L Chloride (98-107) mmol/L Carbon Dioxide (22-30) mmol/L Anion Gap mmol/L BUN (9-20) mg/dL Creatinine (0.66-1.25) mg/dL Est GFR (CKD-EPI)AfAm (>60 ml/min/1.73 sqM) Est GFR (CKD-EPI)NonAf (>60 ml/min/1.73 sqM) Glucose (74-99) mg/dL Plasma Lactic Acid Yevgeniy (0.7-2.0) mmol/L Calcium (8.4-10.2) mg/dL Magnesium (1.6-2.3) mg/dL Total Bilirubin (0.2-1.3) mg/dL AST (17-59) U/L ALT (4-49) U/L Alkaline Phosphatase (38-126) U/L Total Protein (6.3-8.2) g/dL Albumin (3.5-5.0) g/dL Lipase (23-300) U/L Urine Color Colorless Urine Appearance Clear (Clear) Urine pH 6.5 (5.0-8.0) Ur Specific [place] 1.011 (1.001-1.035) Urine Protein Negative (Negative) Urine Glucose (UA) Negative (Negative) Urine Ketones Negative (Negative) Urine Blood Negative (Negative) Urine Nitrite Negative (Negative) Urine Bilirubin Negative (Negative) Urine Urobilinogen <2.0 (<2.0) mg/dL Ur Leukocyte Esterase Negative (Negative) Disposition Clinical Impression: Gastroenteritis, Tracheobronchitis Disposition: HOME SELF-CARE Condition: Stable Instructions (If sedation given, give patient instructions): Acute Nausea and Vomiting (ED) Additional Instructions: Please return to the Emergency Department if symptoms worsen or any other concerns. Prescriptions: Amoxic-Pot Clav 875-125Mg [Augmentin 875-125] 1 tab PO Q12HR #20 tab Ondansetron Odt [Zofran Odt] 4 mg PO Q8HR PRN #14 tab PRN Reason: Nausea Is patient prescribed a controlled substance at d/c from ED?: No Referrals: Jamel Kothari MD [Primary Care Provider] - 1-2 days Time of Disposition: 14:17
[2024-10-16] MEDS: diphenhydrAMINE 50 MG/ML 1 ML VIAL IVP STA (13:52)
[2024-10-16 14:50] VITALS: BP 149/107; PULSE 16; RESP 18; TEMP 97.9
== END 2024-10-16 14:50 | disposition home or self-care (01) ==
LOC: EC 10:03
DX: K52.9 Noninfective gastroenteritis and colitis, unspecified (principal); J40 Bronchitis, not specified as acute or chronic
CPT/HCPCS: 36415; 80053; 83605; 83690; 83735; 85025; 81003; 71046; 99284; 96374; 96375; 96376; 96361; J1200; J2765; J2405; J1171